=== PATIENT | female | born 1985 | race Caucasian/White ===

== ENCOUNTER 2018-12-11 17:03 | Emergency (ER) | payer MEDICAID, SELFPAY ==
[2018-12-11 17:04] VITALS: BP 126/78; PULSE 115; RESP 14; TEMP 36.6; O2SAT 99; BMI 45.1
--- NOTE | 2018-12-11 17:41 | EKG12_ITS ---
Test Reason : CP Blood Pressure : / mmHG Vent. Rate : 089 BPM Atrial Rate : 089 BPM P-R Int : 130 ms QRS Dur : 080 ms QT Int : 368 ms P-R-T Axes : 027 018 038 degrees QTc Int : 447 ms Sinus rhythm with marked sinus arrhythmia Otherwise normal ECG Confirmed by JOSE MARCANO, DARIUS ([id number]), subeditor SANJAY ARENAS ([id number]) on 12/14/2018 1:19:04 PM Referred By: KIRILL Confirmed By:DARIUS GARCIA MD
--- NOTE | 2018-12-11 17:45 | RAD_ITS ---
STUDY: X-RAY CHEST REASON FOR EXAM: Female, 33 years old. Chest pain TECHNIQUE: Frontal view of the chest COMPARISON: None. FINDINGS: The lungs are clear. There are no pleural effusions. There is no pneumothorax. The heart is normal in size. The visualized osseous structures are within normal limits. RAD/Chest 1 View (Portable) IMPRESSION: No acute thoracic pathology. Electronically Signed: Ahmet Spence, at 18:10 EDT Tel , Service support ,
[2018-12-11 17:49] VITALS: O2SAT 97
--- NOTE | 2018-12-11 17:56 | NURSING ---
NO OLD EKGS
[2018-12-11 18:02] LABS: Absolute Lymphocyte Count 2.68 X10^3/ul (0.83-4.51); Absolute Neutrophil Count 9.5 X10^3/uL (2.0-7.7); Basophil# 0.02 X10^3/uL; Basophil% 0.2 % (0-1); Eosinophil# 0.19 X10^3/uL; Eosinophils% 1.4 % (0-5); Hematocrit 40.3 % (37-47); Hemoglobin 13.1 g/dl (12.0-15.0); Lymphocyte # 2.68 X10^3/ul (4.0); Lymphocyte % 20.4 % (19-41); Mean Corp Hgb Conc 32.5 g/gl (32-36); Mean Corpuscular Volume 83.1 fL (81-99); Mean Platelet Vol. 8.4 fl (6.2-12.0); Monocyte# 0.71 X10^3/uL; Monocyte% 5.4 % (0-10); Neutrophil # 9.46 X10^3/uL (2.7-7.7); Neutrophil % 72.2 % (47-70); Platelet Count 289 K/mm3 (150-450); RBC Distribution Width SD 41.4 fl (35.1-43.9); Red Blood Count 4.85 M/mm3 (4.2-5.4); White Blood Count 13.1 K/mm3 (4.4-11.0)
[2018-12-11 18:03] LABS: POSITIVE COUNT NO; POSITIVE DIFFERENTIAL NO; POSITIVE MORPHOLOGY NO
[2018-12-11] MEDS: Aspirin 81 MG TAB.CHEW 324 MG PO (18:03)
[2018-12-11 18:04] VITALS: BP 136/89; PULSE 99; RESP 20; O2SAT 98
[2018-12-11 18:14] LABS: Anion Gap 7 (5-15); BUN 9 mg/dL (7-18); BUN/Creat Ratio 9.5 RATIO (10-20); Calcium,Total 9.3 mg/dL (8.5-10.1); Chloride 105 mmol/L (98-107); Creatinine, Serum 0.95 mg/dL (0.55-1.02); EST Glomerular Filtration Rate 71 mL/min (>60); Est Glom Filt Rate - Afr Amer 86 mL/min (>60); Estimated Creatinine Clearance 65.37 ml/min; Glucose 95 mg/dL (74-106); Potassium 3.6 mmol/L (3.5-5.1); Sodium Level 137 mmol/L (136-145)
[2018-12-11 18:14] LABS: D-Dimer Quantitative (DVT/PE) < 0.27 FEU/ug/m (0.27-0.49)
--- NOTE | 2018-12-11 18:16 | ED.VISSUMM ---
- ER Visit Summary Date of Service: 12/11/18 Chief Complaint: Chest pain History of Present Illness: The patient is a 33 F no severe past medical or surgical history. No family history of either DVT nor PE nor cardiac history. She states today around 230 afternoon she was lately working in her garden and developed 5-6 chest pressure. Left-sided. Mild dyspnea. No nausea. No diaphoresis. No recent, travel, surgery, mobilization. No calf pain or swelling. No history of DVT or PE. His pain was not pleuritic. She is had no hemoptysis. She had no prior cardiac work-up. She denies any recent exertional chest pain or exertional dyspnea. Currently she is pain-free. Physical Examination: Young female no acute distress vital signs are stable afebrile. Pulse ox 9 9% no hypoxia. H EENT exam unremarkable. Neck nontender no lymphadenopathy lungs clear to auscultation bilaterally. Heart regular rate and rhythm no murmur rate about 90. Abdomen is soft and nontender normal bowel with no peritoneal signs. Chest wall nontender. Patient moving all 4 extremities. Neurovascular intact. Calves are nontender without edema or cords. Radial pulses are equal symmetrical. Back nontender. Neurologically she is awake alert with no focal motor deficits. Test Results: Chest x-ray shows normal cardiac silhouette mediastinum read both myself and radiologist. EKG sinus rhythm rate 89 with no acute signs of MD or ischemia. CBC with a hemoglobin of 13 hematocrit 40. White count is elevated 13. Chemistries normal. Normal creatinine gap. Troponin normal. D-dimer normal less than 0.27. Emergency Department Course and Treatment: Patient currently symptom-free. The chest wall pain is not reproducible. She undergo cardiac work-up and a d-dimer. But she has no risk factors at this time for pulmonary embolus. Repeat exam patient is doing well at 1840 p.m. Patient is having no symptoms clinically looks well and has stable vital signs. He is discharged home. Treatment Plan: Return for follow-up with primary care physician. Disposition: Discharge Impression: Transient chest pain resolved of uncertain etiology This note was generated with [employer] dictation software. It may contain incorrect words, spelling, and punctuation that were not noted in review of the chart prior to signing ED Disposition - Plan for ED Patient: Referrals: Kinsey Corrales PA-C [Primary Care Provider] -
--- NOTE | 2018-12-11 18:19 | ED.DCSUM_ITS ---
- ER Visit Summary Date of Service: 12/11/18 Chief Complaint: Chest pain History of Present Illness: The patient is a 33 F no severe past medical or surgical history. No family history of either DVT nor PE nor cardiac history. She states today around 230 afternoon she was lately working in her garden and developed 5-6 chest pressure. Left-sided. Mild dyspnea. No nausea. No diaphoresis. No recent, travel, surgery, mobilization. No calf pain or swelling. No history of DVT or PE. His pain was not pleuritic. She is had no hemoptysis. She had no prior cardiac work-up. She denies any recent exertional chest pain or exertional dyspnea. Currently she is pain-free. Physical Examination: Young female no acute distress vital signs are stable afebrile. Pulse ox 9 9% no hypoxia. H EENT exam unremarkable. Neck nontender no lymphadenopathy lungs clear to auscultation bilaterally. Heart regular rate and rhythm no murmur rate about 90. Abdomen is soft and nontender normal bowel with no peritoneal signs. Chest wall nontender. Patient moving all 4 extremities. Neurovascular intact. Calves are nontender without edema or cords. Radial pulses are equal symmetrical. Back nontender. Neurologically she is awake alert with no focal motor deficits. Test Results: Chest x-ray shows normal cardiac silhouette mediastinum read both myself and radiologist. EKG sinus rhythm rate 89 with no acute signs of AR or ischemia. CBC with a hemoglobin of 13 hematocrit 40. White count is elevated 13. Chemistries normal. Normal creatinine gap. Troponin normal. D-dimer normal less than 0.27. Emergency Department Course and Treatment: Patient currently symptom-free. The chest wall pain is not reproducible. She undergo cardiac work-up and a d-dimer. But she has no risk factors at this time for pulmonary embolus. Repeat exam patient is doing well at 1840 p.m. Patient is having no symptoms clinically looks well and has stable vital signs. He is discharged home. Treatment Plan: Return for follow-up with primary care physician. Disposition: Discharge Impression: Transient chest pain resolved of uncertain etiology This note was generated with [employer] dictation software. It may contain incorrect words, spelling, and punctuation that were not noted in review of the chart prior to signing ED Disposition - Plan for ED Patient: Referrals: Kinsey Corrales PA-C [Primary Care Provider] -
--- NOTE | 2018-12-11 18:46 | ED.DEP ---
ED Disposition - Plan for ED Patient: Disposition: Home or Assisted Living Instructions: ED Chest Pain Atypical Unkn Cause Referrals: Kinsey Corrales PA-C [Primary Care Provider] - 3-5 Days Additional Instructions: Follow-up with your primary care physician. Return if feeling worse.
[2018-12-11 18:48] VITALS: BP 131/84; PULSE 77; RESP 18; O2SAT 98
== END 2018-12-11 18:51 | disposition home or self-care (01) ==
PROVIDERS: Emergency Provider Emergency Medicine; Family Provider Family Medicine; PCP Family Medicine
DX: R07.89 Other chest pain (principal)
CPT/HCPCS: 71045; 80048; 84484; 85025; 85379; 93005; 99285; A4216

== ENCOUNTER 2024-12-19 08:39 | Day surgery (SDC) | payer MEDICAID, SELFPAY ==
--- NOTE | 2024-12-17 09:47 | PAT.ANESEVAL ---
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 When Was Last Pacemaker Check QUESTION #4 FULL TEXT: You/Your Family Experience fever (hyperthermia) with Anesthesia Last Oral Intake Last Oral intake: Last Oral Intake NPO since Meds taken in AM with sips of water? 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 - java software developer: PONV - java software developer Female Yes 12/14/24 14:59 HX of Motion Sickness No 12/14/24 14:59 HX of N/V After Surgery No 12/14/24 14:59 Non-Smoker Yes 12/14/24 14:59 Duration of Surgery greater No 12/14/24 14:59 than 60 minutes Number of Risk Factors 2 12/14/24 14:59 PONV Score Moderate Risk 12/14/24 14:59 Height & Weight Height & Weight: Anesthesia: Height & Weight Height 5 ft 2 in 10/22/24 13:04 Respiratory Assessment Respiratory Assessment - java software developer: Respiratory Tract Infection Hx - java software developer Hx Respiratory Tract Infection No 12/14/24 14:59 STOP Sleep Apnea STOP Sleep Apnea - java software developer: STOP Sleep Apnea - java software developer Hx Hypertension No 12/14/24 14:59 Hx Sleep Apnea No 12/14/24 14:59 CPAP BIPAP Do you snore loudly (louder No 12/14/24 14:59 than talking or can be heard Do you often feel tired/ No 12/14/24 14:59 fatigued/ sleepy during daytime? Has anyone observed you stop No 12/14/24 14:59 breathing during sleep? STOP Results Negative 12/14/24 14:59 QUESTION #5 FULL TEXT : Do you snore loudly (louder than talking or can be heard through closed doors)? Tobacco Use History Tobacco Use History - java software developer: Tobacco Use History - java software developer Tobacco Use Smoking Status Never smoker 12/14/24 14:59 Hx Tobacco Use No 12/14/24 14:59 Years Smoking Packs Smoked per Day Smoking Cessation Date was within the last 15 years Hx Smoking Cessation Date Hx Smoking Cessation Counseling Hematologic Medial History Hematologic Hx - java software developer: Hematologic Medical Hx - coronary clinical specialist Hx of Blood Transfusion No 12/14/24 14:59 Hx of Transfusion in last 3 No 12/14/24 14:59 Months Date of Last Transfusion (if within last 3 months) Ever experience any problems No 12/14/24 14:59 with transfusion(s)? Specify any problems Hx of Preganancy in last 3 No 12/14/24 14:59 Months Nurse Filling Out Transfusion MGRIFFITH 12/14/24 14:59 & Questions: Date: 12/14/24 12/14/24 14:59 Time: 15:00 12/14/24 14:59 Patient unable to answer at this time (ie. confused, unrespo /Reproduction History /Reproductive History - java software developer: /Reproductive Hx- java software developer Hx Now No 12/14/24 14:59 Gestational Age (in weeks): EDC: Hx Hx Para Hx Section SAB No 12/14/24 14:59 [facility] Medical History (Updated 12/14/24 @ 15:08 by Rosalva Benitez) Wears glasses Low iron Migraine headache Gastric reflux Shortness of breath on exertion Non-smoker Leg cramps History of edema Chest pain Umbilical hernia Pre-diabetes Elevated d-dimer Enlarged thyroid Anxiety HTN (hypertension) Rectal bleeding Acid reflux Asthma Home Medications ?Medication ?Instructions ?Recorded ?Last Taken ?Type albuterol sulfate 90 mcg/actuation 2 puff inhalation Q4 PRN shortness 10/22/24 Unknown History aerosol inhaler of breath or wheezing ipratropium 0.5 mg-albuterol 3 mg 3 ml continuous nebulization Q6 10/22/24 Unknown History (2.5 mg base)/3 mL nebulization PRN shortness of breath soln omeprazole 20 mg capsule,delayed 20 mg PO QDAY 10/22/24 Unknown History release lactobacillus combination no.4 3 3,000 mmu cells PO QHS 12/14/24 Unknown History billion cell capsule (Probiotic) Allergy/AdvReac Type Severity Reaction Status Date / Time No Known Allergies Allergy Verified 12/14/24 14:55 Family History (Updated 10/22/24 @ 13:03 by Eladia Zheng) Aunt Colon cancer Breast cancer Thyroid disorder Cancer ovarian Grandfather CVA (cerebral vascular accident) Grandmother CVA (cerebral vascular accident) CAD (coronary artery disease) Diabetes Father CAD (coronary artery disease) Hypertension Surgical History (Updated 10/22/24 @ 13:01 by Eladia Zheng) S/P laparoscopic cholecystectomy Social History (Updated 10/22/24 @ 13:04 by Eladia Zheng) Smoking Status: Never smoker alcohol intake: current Audit: Pertinent Findings Pertinent Findings EKG Perinent findings: 08/2018 SR, 89 bpm Recommendation Anesthesia Recommendation Anesthesia recommendation: OPTIMIZED for anesthesia
[2024-12-19] VITALS (8 sets, daily range): BP systolic 96–126; BP diastolic 64–79; PULSE 84–104; RESP 16; TEMP 36.3–36.8; O2SAT 92–96; BMI 49.2
[2024-12-19] MEDS: Lactated Ringers 1,000 ML 15 ML IV (09:12)
[2024-12-19 09:21] LABS: Internal QC Validated? YES +Cl - CLEAR BKGD
[2024-12-19 09:22] LABS: Pregnancy, Urine Negative Negative
--- NOTE | 2024-12-19 09:30 | PCM.PRE.AN2 ---
ASA Classification* ASA Classification ASA Classification: 3 Assessment & Plan Anesthesia* Anesthesia Assessment Anesthesia Assessment: Discussed sedation and/or anesthesia options, risks, benefits, and alternatives with patient/parents/legal guardian/POA. Questions invited. The patient/parents/legal guardian/POA seems to understand and agrees to proceed with anesthesia plan. Reviewed the physical assessment, medical history, allergy history and patient home medications list prior to surgery/procedure/anesthetic and documented any changes. Performed airway and anesthesia risk assessments. Anesthesia Type Anesthesia Type: MAC History Source History Obtained from:: Patient and Chart Anesthesia Focused Assessment* Temperature: 98.2 F Pulse Rate: 104 Blood Pressure: 126/79 Respiratory Rate: 16 Pulse Ox: 96 Oxygen Delivery Method: Room Air Airway Assessment Mouth opens: >3 cm Mallampati Score: IV Teeth Condition: Intact Neck Range of motion (ROM): Full ROM Focused Labs Anesthesia Preop lab: CBC WBC 13.1 K/mm3 (4.4-11.0) H 12/11/18 17:40 12/11/18 RBC 4.85 M/mm3 (4.2-5.4) 12/11/18 17:40 12/11/18 Hgb 13.1 g/dl (12.0-15.0) 12/11/18 17:40 12/11/18 Hct 40.3 % (37-47) 12/11/18 17:40 12/11/18 Plt Count 289 K/mm3 (150-450) 12/11/18 17:40 12/11/18 CHEMISTRY Potassium 3.6 mmol/L (3.5-5.1) 12/11/18 17:40 12/11/18 Sodium 137 mmol/L (136-145) 12/11/18 17:40 12/11/18 BUN 9 mg/dL (7-18) 12/11/18 17:40 12/11/18 Creatinine 0.95 mg/dL (0.55-1.02) 12/11/18 17:40 12/11/18 Glucose 95 mg/dL (74-106) 12/11/18 17:40 12/11/18 TSH 1.90 uIU/mL (0.358-3.74) 01/03/13 10:30 01/03/13 COAG Urine Test Negative Negative 12/19/24 08:51 12/19/24 Pre-Assessment Diagnosis/Proposed Procedure Planned Operative Procedure(s): EGD, COLONOSCOPY Anesthesia History 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 When Was Last Pacemaker Check QUESTION #4 FULL TEXT: You/Your Family Experience fever (hyperthermia) with Anesthesia Last Oral Intake Last Oral intake: Last Oral Intake NPO since 22:00 12/19/24 09:03 Meds taken in AM with sips of No 12/19/24 09:03 water? 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 - solid propellant processor: PONV - solid propellant processor Female Yes 12/14/24 14:59 HX of Motion Sickness No 12/14/24 14:59 HX of N/V After Surgery No 12/14/24 14:59 Non-Smoker Yes 12/14/24 14:59 Duration of Surgery greater No 12/14/24 14:59 than 60 minutes Number of Risk Factors 2 12/14/24 14:59 PONV Score Moderate Risk 12/14/24 14:59 Height & Weight Height & Weight: Anesthesia: Height & Weight Height 5 ft 2 in 12/19/24 09:03 Weight: 122.1 kg 12/19/24 09:03 Body Mass Index (BMI) 49.2 12/19/24 09:03 Respiratory Assessment Respiratory Assessment - solid propellant processor: Respiratory Tract Infection Hx - solid propellant processor Hx Respiratory Tract Infection No 12/14/24 14:59 STOP Sleep Apnea STOP Sleep Apnea - solid propellant processor: STOP Sleep Apnea - solid propellant processor Hx Hypertension No 12/14/24 14:59 Hx Sleep Apnea No 12/14/24 14:59 CPAP BIPAP Do you snore loudly (louder No 12/14/24 14:59 than talking or can be heard Do you often feel tired/ No 12/14/24 14:59 fatigued/ sleepy during daytime? Has anyone observed you stop No 12/14/24 14:59 breathing during sleep? STOP Results Negative 12/14/24 14:59 QUESTION #5 FULL TEXT : Do you snore loudly (louder than talking or can be heard through closed doors)? Tobacco Use History Tobacco Use History - solid propellant processor: Tobacco Use History - solid propellant processor Tobacco Use Smoking Status Never smoker 12/14/24 14:59 Hx Tobacco Use No 12/14/24 14:59 Years Smoking Packs Smoked per Day Smoking Cessation Date was within the last 15 years Hx Smoking Cessation Date Hx Smoking Cessation Counseling Hematologic Medial History Hematologic Hx - solid propellant processor: Hematologic Medical Hx - coil winder repair Hx of Blood Transfusion No 12/14/24 14:59 Hx of Transfusion in last 3 No 12/14/24 14:59 Months Date of Last Transfusion (if within last 3 months) Ever experience any problems No 12/14/24 14:59 with transfusion(s)? Specify any problems Hx of Preganancy in last 3 No 12/14/24 14:59 Months Nurse Filling Out Transfusion MGRIFFITH 12/14/24 14:59 & Questions: Date: 12/14/24 12/14/24 14:59 Time: 15:00 12/14/24 14:59 Patient unable to answer at this time (ie. confused, unrespo /Reproduction History /Reproductive History - solid propellant processor: /Reproductive Hx- solid propellant processor Hx Now No 12/14/24 14:59 Gestational Age (in weeks): EDC: Hx Hx Para Hx Section SAB No 12/14/24 14:59 Active Medications Active Medications: Current Medications Generic Name Dose Route Start Last Admin Trade Name Freq PRN Reason Stop Dose Admin Lactated Ringer's 1,000 mls @ 15 mls/hr 12/19/24 09:00 12/19/24 09:12 IV 15 mls/hr .Q48H LON Administration PFSH Medical History Wears glasses Low iron Migraine headache Gastric reflux Shortness of breath on exertion Non-smoker Leg cramps History of edema Chest pain Umbilical hernia Pre-diabetes Elevated d-dimer Enlarged thyroid Anxiety HTN (hypertension) Rectal bleeding Acid reflux Asthma Home Medications ?Medication ?Instructions ?Recorded ?Last Taken ?Type albuterol sulfate 90 mcg/actuation 2 puff inhalation Q4 PRN shortness 10/22/24 Unknown History aerosol inhaler of breath or wheezing ipratropium 0.5 mg-albuterol 3 mg 3 ml continuous nebulization Q6 10/22/24 Unknown History (2.5 mg base)/3 mL nebulization PRN shortness of breath soln omeprazole 20 mg capsule,delayed 20 mg PO QDAY 10/22/24 Unknown History release lactobacillus combination no.4 3 3,000 mmu cells PO QHS 12/14/24 Unknown History billion cell capsule (Probiotic) Allergy/AdvReac Type Severity Reaction Status Date / Time No Known Allergies Allergy Verified 12/19/24 09:02 Family History Aunt Colon cancer Breast cancer Thyroid disorder Cancer ovarian Grandfather CVA (cerebral vascular accident) Grandmother CVA (cerebral vascular accident) CAD (coronary artery disease) Diabetes Father CAD (coronary artery disease) Hypertension Surgical History S/P laparoscopic cholecystectomy Social History Smoking Status: Never smoker alcohol intake: current Review of Systems (Anesthesia) ROS Narrative System reviewed and no additional complaints, except as documented. Physical Exam Resp clear to auscultation bilaterally
--- NOTE | 2024-12-19 09:53 | HP.PCM_ITS ---
HPI - General General Date of Service: 12/19/24 HPI Narrative NAZANIN GARCÍA, is a 39 F who presents for an EGD and colonoscopy. Patient states she is due still doing well with the omeprazole. Patient otherwise denies any further rectal bleeding or other changes from office visit. 10/22/2024 office visit HPI HPI: 39-year-old female presents for EGD and colonoscopy. Patient states in July she was having some chest pain diagnosed possible gastritis or ulcer given omeprazole which did improve that discomfort. Patient states at the end of July she did have bright red blood per rectum and 1 day she was on [id number] cold medication patient denies any pain with that bleeding. Patient is unaware of any external hemorrhoids or internal hemorrhoids. Patient's paternal aunt was diagnosed colon cancer at age 50 patient's dad has been having colonoscopies negative per patient. The patient also has umbilical hernia from pregnancies?large/reducible. Patient denies any pain at hernia site [facility] Medical History Wears glasses Low iron Migraine headache Gastric reflux Shortness of breath on exertion Non-smoker Leg cramps History of edema Chest pain Umbilical hernia Pre-diabetes Elevated d-dimer Enlarged thyroid Anxiety HTN (hypertension) Rectal bleeding Acid reflux Asthma Home Medications ?Medication ?Instructions ?Recorded ?Last Taken ?Type albuterol sulfate 90 mcg/actuation 2 puff inhalation Q 4 PRN shortness 10/22/24 Unknown History aerosol inhaler of breath or wheezing ipratropium 0.5 mg-albuterol 3 mg 3 ml continuous nebu lization Q6 10/22/24 Unknown History (2.5 mg base)/3 mL nebulization PRN shortness of breat h soln omeprazole 20 mg capsule,delayed 20 mg PO QDAY 5 Unknown History release lactobacillus combination no.4 3 3,000 mmu cells PO QH S 12/14/24 Unknown History billion cell capsule (Probiotic) Allergy/AdvReac Type Severity Reaction Status Date / Time No Known Allergies Allergy Verified 12/19/24 09:02 Family History Aunt Colon cancer Breast cancer Thyroid disorder Cancer ovarian Grandfather CVA (cerebral vascular accident) Grandmother CVA (cerebral vascular accident) CAD (coronary artery disease) Diabetes Father CAD (coronary artery disease) Hypertension Surgical History S/P laparoscopic cholecystectomy Social History Smoking Status: Never smoker alcohol intake: current Past Medical/Surgical History Planned Operation Planned Operative Procedure(s): EGD, COLONOSCOPY Previous Hospitalizations/Surgeries HX Hospitalizations: No Any Problems With Anesthesia: No You/Your Family Experience Fever (Hyperthermia) With Anes: No Cholinesterase deficiency: No Cardiovascular Hx Hypertension: No Respiratory Hx Sleep Apnea: No Hx Respiratory Tract Infection/Cold (presently): No Do You Snore Loudly (louder than talking or can be heard): No Do You Often Feel Tired/ Fatigued/ Sleepy Dring Daytime?: No Has Anyone Observed You Stop Breathing During Sleep?: No Result (for STOP score): Negative Smoking Status: Never smoker Neurological Does patient have nerve stimulator: No Reproduction : No Miscellaneous Recent Exposure to Contagious Disease: No Allergies No Known Allergies Allergy (Verified 12/19/24 09:02) Discharge Is Pt Admitted From a [facility], or a [facility]: No Who Could Help: FAMILY After D/C, Where Do you Plan to Go: Return Home Vital Signs Vital Signs Vital Signs: 12/19/24 09:03 12/19/24 09:03 12/19/24 09:34 Temperature 98.2 F 98.2 F Temperature Source Temporal Pulse Rate 104 H 104 H Respiratory Rate 16 16 Respiratory Pattern Normal Blood Pressure 126/79 H 126/79 H Blood Pressure Mean 94 Blood Pressure Source Monitor Blood Pressure Position Semi-Fowlers Blood Pressure Location Left Arm Pulse Ox 96 96 Oxygen Delivery Method Room Air Room Air Weight Weight: 269 lb 2.951 oz Body Mass Index (BMI) 49.2 Physical Exam Const alert, oriented x3 and no apparent distress HEENT normocephalic and head/scalp atraumatic Resp normal respiratory effort Cardio regular rate GI soft to palpation and non-tender; Negative for non-distended GI Narrative: Medium and large reducible umbilical hernia Palpation: Negative for guarding Extremity no clubbing, cyanosis or edema Skin no rashes or lesions noted Neuro CN's II-XII intact bilaterally Psych mental status grossly normal Assessment & Plan Assessment/Plan (1) Acid reflux: (2) Rectal bleeding: Surgery Risks - Colonoscopy I discussed with the patient the risks of the procedure: Yes Risks Include but are not Limited To: Plan for an EGD and colonoscopy risks include but are not limited to: Bleeding, perforation requiring further surgery, inability to complete colonoscopy requiring barium enema.
--- NOTE | 2024-12-19 10:00 | EGD_PTH ---
PATIENT: NAZANIN GARCÍA LOC: EN U#:[id number] AGE/SX: 39/F ROOM: RE12/19/[address]: Dr. Diane Sousa MD : 1985 BED: DIS: 12/19/2024 SPEC #: [id number] RECD: 12/19/24 13:16 STATUS: MIMI MADALYN #: [id number] LES: 12/19/24 10:[address]: Diane Sousa DEPT: SURGICAL PATHOLOGY RECD BY: Sidney Mireles ENTERED: 12/19/24 13:38 SP TYPE: EGD BIOPSY SAI DR: PETE Daily Tissues: A - Gastric mucous membrane Procedures: Immunohistochemical Stains Surgery Specimen Level IV HEADER OPERATION: Colonoscopy, EGD with biopsies PRE-OP DIAGNOSIS: Acid reflux, rectal bleeding TISSUE SUBMITTED: A- Antrum biopsy MICROSCOPIC DIAGNOSIS A. Stomach, antrum, biopsy: Chronic gastritis. IHC negative for H.pylori organisms. MICROSCOPIC DESCRIPTION Slides are reviewed. All matched controls reacted appropriately. These tests were developed and their performance characteristics determined by [facility]. They may not have been cleared or approved by the U.[place]. Food and Drug Administration. The FDA has determined that such clearance or approval is not necessary.? The above immunohistochemical/dualISH?markers are ordered and reviewed by the Pathologist. GROSS DESCRIPTION A. Received in formalin in a container labeled with the patient's name, date of , and antrum biopsy for H. pylori and histology is a 0.6 x 0.3 x 0.2 cm strip of blevins-pink mucosal tissue. Submitted in toto in A1. [facility] 12-19-2024 CPT:58124,[id number]
--- NOTE | 2024-12-19 11:46 | PCM.POST.ANE ---
Anesthesia: Postop Eval I Current Vital Signs Temperature: 97.4 F Pulse Rate: 88 Blood Pressure: 96/66 Respiratory Rate: 16 Pulse Ox: 95 Oxygen Delivery Method: Room Air Assessment Airway patent: Yes Spontaneous unlabored respirations: Yes Mental status: Awake and Calm nausea: No Vomiting: No Anesthesia Complication: No Fluid Hydration Crystalloid volume administer (ml): 800 Total IV fluid infused: 800 Progress Note Anesthesia document: Postop Eval 1 completed: Yes
--- NOTE | 2024-12-19 11:48 | OP.EGD_ITS ---
Patient Name: Cesilia Ludwig Procedure Date: 12/19/2024 11:00 AM Date of : 1985 Age: 39 Procedure: Upper GI endoscopy Indications: Epigastric abdominal pain, Heartburn Providers: Diane Sousa MD Referring MD: Cleopatra Jiménez Medicines: Monitored Anesthesia Care Patient Profile: This is a 39 year old female. Complications: No immediate complications. Procedure: Pre-Anesthesia Assessment: - Prior to the procedure, a History and Physical was performed, and patient medications and allergies were reviewed. The patient's tolerance of previous anesthesia was also reviewed. The risks and benefits of the procedure and the sedation options and risks were discussed with the patient. All questions were answered, and informed consent was obtained. Prior Anticoagulants: The patient has taken no anticoagulant or antiplatelet agents. ASA Grade Assessment: Per anesthesia. After reviewing the risks and benefits, the patient was deemed in satisfactory condition to undergo the procedure. After obtaining informed consent, the endoscope was passed under direct vision. Throughout the procedure, the patient's blood pressure, pulse, and oxygen saturations were monitored continuously. The Endoscope was introduced through the mouth, and advanced to the second part of duodenum. The upper GI endoscopy was accomplished without difficulty. The patient tolerated the procedure well. Scope In: 11:12:16 AM Scope Out: 11:15:37 AM Total Procedure Duration Time 0 hours 3 minutes 21 seconds Findings: The cardia and gastric fundus were normal on retroflexion. Mildly erythematous mucosa without bleeding was found in the gastric antrum. Biopsies were taken with a cold forceps for histology. Biopsies were taken with a cold forceps for Helicobacter pylori cultures. The examined duodenum was normal. Impression: - Erythematous mucosa in the antrum. Biopsied. - Normal examined duodenum. Recommendation: - Discharge patient to home. - Resume previous diet. - Continue present medications. Procedure Code(s): --- Professional --- 84516, Esophagogastroduodenoscopy, flexible, transoral; with biopsy, single or multiple Diagnosis Code(s): --- Professional --- K31.89, Other diseases of stomach and duodenum R10.13, Epigastric pain R12, Heartburn CPT copyright 2021 [employer]. All rights reserved. The codes documented in this report are preliminary and upon panel raiser operator review may be revised to meet current compliance requirements. MD Diane Altamirano MD 12/19/2024 11:47:57 AM This report has been signed electronically. Number of Addenda: 0 Note Initiated On: 12/19/2024 11:00 AM
--- NOTE | 2024-12-19 11:48 | OP.CCLET_ITS ---
12/19/2024 Cleopatra Jiménez Re : Upper GI endoscopy procedure for Cesilia Garduno Jiménez This procedure was performed on Thursday, December 19, 2024. My impressions and recommendations are as follows: Impressions : - Erythematous mucosa in the antrum. Biopsied. - Normal examined duodenum. Recommendations : - Discharge patient to home. - Resume previous diet. - Continue present medications. My findings are described in the full procedure note, which is enclosed. If I can be of further assistance, please feel free to contact me at Doctor phone number(s): , Work: . Sincerely, MD Diane Altamirano MD 12/19/2024 11:47:57 AM This report has been signed electronically.
--- NOTE | 2024-12-19 11:51 | OP.COLON_ITS ---
Patient Name: Cesilia Ludwig Procedure Date: 12/19/2024 11:18 AM Date of : 1985 Age: 39 Procedure: Colonoscopy Indications: Rectal bleeding Providers: Diane Sousa MD Referring MD: Cleopatra Jiménez Medicines: Monitored Anesthesia Care Patient Profile: This is a 39 year old female. Last Colonoscopy: none. The patient's first colonoscopy is today. Complications: No immediate complications. Procedure: Pre-Anesthesia Assessment: - Prior to the procedure, a History and Physical was performed, and patient medications and allergies were reviewed. The patient's tolerance of previous anesthesia was also reviewed. The risks and benefits of the procedure and the sedation options and risks were discussed with the patient. All questions were answered, and informed consent was obtained. Prior Anticoagulants: The patient has taken no anticoagulant or antiplatelet agents. ASA Grade Assessment: Per anesthesia. After reviewing the risks and benefits, the patient was deemed in satisfactory condition to undergo the procedure. After I obtained informed consent, the scope was passed under direct vision. Throughout the procedure, the patient's blood pressure, pulse, and oxygen saturations were monitored continuously. The colonoscope was introduced through the anus and advanced to the cecum, identified by the appendiceal orifice, ileocecal valve and palpation. The colonoscopy was performed without difficulty. The patient tolerated the procedure well. The quality of the bowel preparation was good. Scope In: 11:19:06 AM Scope Withdrawal Time 0 hours 5 minutes 29 seconds Scope Out: 11:33:47 AM Total Procedure Duration Time 0 hours 14 minutes 41 seconds Findings: Hemorrhoids were found on perianal exam. Non-bleeding external and internal hemorrhoids were found. The hemorrhoids were small and Grade I (internal hemorrhoids that do not prolapse). The exam was otherwise without abnormality. The entire examined colon appeared normal. Impression: - Hemorrhoids found on perianal exam. - Non-bleeding external and internal hemorrhoids. - The examination was otherwise normal. - The entire examined colon is normal. - No specimens collected. Recommendation: - Discharge patient to home. - Resume previous diet. - Continue present medications. - Repeat colonoscopy in 10 years for screening purposes. Procedure Code(s): --- Professional --- 54475, Colonoscopy, flexible; diagnostic, including collection of specimen(s) by brushing or washing, when performed (separate procedure) Diagnosis Code(s): --- Professional --- K64.0, First degree hemorrhoids K62.5, Hemorrhage of anus and rectum CPT copyright 2021 [employer]. All rights reserved. The codes documented in this report are preliminary and upon outpatient coder review may be revised to meet current compliance requirements. MD Diane Altamirano MD 12/19/2024 11:50:44 AM This report has been signed electronically. Number of Addenda: 0 Note Initiated On: 12/19/2024 11:18 AM
--- NOTE | 2024-12-19 11:51 | OP.CCLET_ITS ---
12/19/2024 Cleopatra Jiménez Re : Colonoscopy procedure for Cesilia Garduno Tino This procedure was performed on Thursday, December 19, 2024. My impressions and recommendations are as follows: Impressions : - Hemorrhoids found on perianal exam. - Non-bleeding external and internal hemorrhoids. - The examination was otherwise normal. - The entire examined colon is normal. - No specimens collected. Recommendations : - Discharge patient to home. - Resume previous diet. - Continue present medications. - Repeat colonoscopy in 10 years for screening purposes. My findings are described in the full procedure note, which is enclosed. If I can be of further assistance, please feel free to contact me at Doctor phone number(s): , Work: . Sincerely, MD Diane Altamirano MD 12/19/2024 11:50:44 AM This report has been signed electronically.
--- NOTE | 2024-12-19 13:30 | PCM.POSTANE2 ---
Anesthesia Postop Eval I Sum Postop Eval Completion status Anesthesia document: Postop Eval 1 completed: Yes Anesthesia Postop Eval I Summary Anesthesia Postop Eval I Summary: Anesthesia Postop Eval I: Assessment Summary Airway patent Yes 12/19/24 11:46 [email or web address] Spontaneous unlabored Yes 12/19/24 11:46 [email or web address] respirations Mental status Awake,Calm 12/19/24 11:46 [email or web address] nausea No 12/19/24 11:46 [email or web address] Vomiting No 12/19/24 11:46 [email or web address] Anesthesia Postop Eval I: Fluid Summary Crystalloid volume administer 800 12/19/24 11:46 [email or web address] (ml) Colloids volume administered ( ml) Blood Product volume administered (ml) Total IV fluid infused 800 12/19/24 11:46 [email or web address] Anesthesia Postop Eval I: Summary Notes Anesthesia Complication No 12/19/24 11:46 [email or web address] Anesthesia Complication Comment: Post-operative progress note Anesthesia: Postop Eval II Evaluation Mental status: Awake Pain Level: 0 nausea: No Vomiting: No
== END 2024-12-19 12:22 | disposition home or self-care (01) ==
LOC: EN 08:40 → AC 08:41
PROVIDERS: Anesthesiology; PCP Physician Assistant; Referring Provider Physician Assistant; Visit Provider Surgery
PROC: 0DJD8ZZ Inspection of Lower Intestinal Tract, Via Natural or Artificial Opening Endoscopic (ICD-10-PCS; CPT 45378; principal; 2024-12-19 09:55)
DX: K29.50 Unspecified chronic gastritis without bleeding (principal); K21.9 Gastro-esophageal reflux disease without esophagitis; I10 Essential (primary) hypertension; R07.9 Chest pain, unspecified; Z79.899 Other long term (current) drug therapy; J45.909 Unspecified asthma, uncomplicated; K62.5 Hemorrhage of anus and rectum; K64.4 Residual hemorrhoidal skin tags; K64.0 First degree hemorrhoids
CPT/HCPCS: 45378; 43239; 81025; 88305; 88342; J2405

== ENCOUNTER 2025-06-06 06:43 | Day surgery (SDC) | payer MEDICAID, SELFPAY ==
--- NOTE | 2025-04-23 09:34 | EKG12_ITS ---
Test Reason : PRE OP Blood Pressure : */* mmHG Vent. Rate : 77 BPM Atrial Rate : 77 BPM P-R Int : 136 ms QRS Dur : 68 ms QT Int : 378 ms P-R-T Axes : 21 16 33 degrees QTcB Int : 427 ms Normal sinus rhythm Normal ECG Confirmed by EARNESTINE MARCANO, MARIA L ([id number]), editor school photograph SANJAY ARENAS ([id number]) on 04/23/2025 1:02:31 PM Referred By: Diane Sousa Confirmed By: MARIA L COLBY MD
[2025-04-23 11:12] LABS: Anion Gap 11 (5-15); BUN 11 mg/dL (4-19); BUN/Creat Ratio 12.8 RATIO (10-20); Calcium,Total 9.0 mg/dL (7.6-11.0); Carbon Dioxide 22.2 mmol/L (21.0-32.0); Chloride 104 mmol/L (98-108); Glucose 103 mg/dL (70-99); Potassium 4.2 mmol/L (3.3-5.1)
[2025-06-06] VITALS (13 sets, daily range): BP systolic 117–139; BP diastolic 52–91; PULSE 92–102; RESP 16–20; TEMP 36.1–36.6; O2SAT 93–100; BMI 50.6
--- OUTSIDE RECORDS SUMMARY | 2025-06-06 06:48 | XMS RPT_ITS | CCD ---
Author Organization [facility] Care Team Providers Care Transfer Clerk Name Role Phone Tino DAVIES, Cleopatra J Unavailable Tino DAVIES, Cleopatra J Unavailable Sudarshan SEAFOOD PROCESSOR, Crystal Unavailable Caren Abernathy PA-C J Unavailable [phone] Savanna DAVIES, Kinsey Pollard Unavailable José Manuel SEAFOOD PROCESSOR, Kamille Unavailable Unavailable Star BAEZ, Kinsey Taylor Unavailable Unavaila franchesca Wright RN, Ema Pa Unavailable Unavailable Ephraim SEAFOOD PROCESSOR, Darlene Unavailable Unavailable Sterling SEAFOOD PROCESSOR, Adali Mojica Unavailable Unavailab ameena Gunderson SEAFOOD PROCESSOR, Elizabeth Rosenbaum Unavailable Unavailab le Mayo CNM, Crystal K Unavailable [phone] Stefanie MARCANO, Denyn Taylor Unavailable Vess SEAFOOD PROCESSOR, Kit Mccallum Unavailable Unavailable Geremias SEAFOOD PROCESSOR, Eryn Unavailable Unavailabl e Unavailable Unavailable Casey IQBAL, Ayse Unavailable Unavailable Willie SEAFOOD PROCESSOR, Garrison Unavailable Unavailable Carlton Pepe MD Unavailable Hematology Provider Unavailable Unavailable Adrianna BAEZ, Lulu L Unavailable Unavail able DAYNE DEJESUS Admitting Unavailable CLEOPATRA JIMÉNEZ Referring Unavailable DAYNE DEJESUS Attending Unavailable DAYNE DEJESUS Primary Care Unavailable CLEOPATRA JIMÉNEZ Consulting Unavailable PROVIDER, UNKNOWN Consulting Unavailable CLEOPATRA JIMÉNEZ J Consulting Unavailable ABERNATHY, CAREN PAC Admitting Unavailable ABERNATHY, CAREN PAC Attending Unavailable ABERNATHY, CAREN PAC Primary Care Unavailable PROVIDER, UNKNOWN Consulting Unavailable CLEOPATRA JIMÉNEZ J Attending Unavailable PRABHJOT JIMÉNEZISSA J Consulting Unavailable JIMÉNEZ, CLEOPATRA J Primary Care Unavailable CLEOPATRA JIMÉNEZ J Admitting Unavailable PROVIDER, UNKNOWN Consulting Unavailable CARLTON PEPE Admitting Unavailable CARLTON PEPE Attending Unavailable MY, CARLTON Primary Care Unavailable JIMÉNEZ, CLEOPATRA J Consulting Unavailable PROVIDER, UNKNOWN Consulting Unavailable ABERNATHY, CAREN PAC Admitting Unavailable JIMÉNEZ, CLEOPATRA J Consulting Unavailable ABERNATHY, CAREN PAC Attending Unavailable ABERNATHY, CAREN PAC Primary Care Unavailable PROVIDER, UNKNOWN Consulting Unavailable JIMÉNEZ, CLEOPATRA J Referring Unavailable JIMÉNEZ, CLEOPATRA J Consulting Unavailable DAVID NEVES MD Admitting Unavailable DAVID NEVES MD Attending Unavailable DAVID NEVES MD Primary Care Unavailable PROVIDER, UNKNOWN Consulting Unavailable Jiménez, Cleopatra J Primary Care Provider [phone] [facility] Unavailable Ladi Walker LPN Unavailable Unavailabl e JULIO BENITES Attending Unavailable JIMÉNEZ, CLEOPATRA J Referring Unavailable JULIO BENITES Referring Unavailable JIMÉNEZ, CLEOPATRA J Primary Care Unavailable JULIO BENITES Referring Unavailable JIMÉNEZ, CLEOPATRA J Primary Care Unavailable Lars MARCANO, Dr. Contreras Attending Provider [phone] Jiménez PA, Cleopatra Primary Care Provider [phone] Jiménez PA, Cleopatra Referring Provider Lars MARCANO, Dr. Contreras Other Provider Jiménez PA, Cleopatra Primary Care Unavailable Robotham, Diane Attending Unavailable Robotham, Diane Referring Unavailable Jiménez PA, Cleopatra Primary Care Unavailable Robotham, Diane Attending Unavailable Jiménez PA, Cleopatra Primary Care Unavailable Jiménez PA, Cleopatra Referring Unavailable Robotham, Diane Attending Unavailable Jiménez PA, Cleopatra Referring Unavailable Jiménez PA, Cleopatra Primary Care Unavailable Robotham, Diane Attending Unavailable Jiménez PA, Cleopatra Referring Unavailable Robotham, Diane Attending Unavailable Robotham, Diane Consulting Unavailable Jiménez PA, Cleopatra Primary Care Unavailable Jiménez PA, Cleopatra Referring Unavailable Robotham, Diane Attending Unavailable Jiménez PA, Cleopatra Primary Care Unavailable Medications Current Medications Medication Drug Class(es) Dates Sig (Normalized) Sig (Original) albuterol 0.83 mg/ml inhalation solution (20 sources) beta2-Adrenergic Agonist Start: 10-26-2024 albuterol sulfate 2.5 mg/3 mL (0.083 %) solution for nebulization ; 1 (one) nebule every 4-6 hours as needed for 0 days Quantity: 1 {Packet} Refills: 1 Ordered: 26-Oct-2024 KEKE Jiménez Start: 26-Oct-2024 Comments: Medication taken as needed. Start: 10-26-2024 take 2 puff(s) by in halation every four hours as needed Ventolin HFA 90 mcg/actuation aerosol inhaler ; 2 (two) puffs q4h, prn for 0 days Quantity: 1 {Each} Refills: 1 Ordered: 26-Oct-2024 KEKE Jiménez Start: 26-Oct-2024 Comments: ok to sub with proair if cheaper Start: 10-22-2024 Albuterol Sulf ate 90 mcg/actuation HFA aerosol inhaler Active 2 NMA INHALATION EVERY 4 HOURS as needed for shortness of breath or wheezing October 22, 2024 12:00am Start: 11-01-2023 take 2 puff(s) by in halation every four hours as needed Ventolin HFA 90 mcg/actuation aerosol inhaler ; 2 (two) puffs q4h, prn for 0 days Quantity: 1 {Each} Refills: 1 Ordered: 01-Nov-2023 VU Tapia Start: 01-Nov-2023 Comments: ok to sub with proair if cheaper Start: 10-27-2023 albuterol sulf ate 2.5 mg/3 mL (0.083 %) solution for nebulization ; 1 (one) nebule every 4-6 hours as needed for 0 days Quantity: 1 {Milliliter} Refills: 1 Ordered: 27-Oct-2023 KEKE Jiménez Start: 27-Oct-2023 Comments: Medication taken as needed. Start: 09-08-2023 albuterol sulf ate 2.5 mg/3 mL (0.083 %) solution for nebulization ; 1 (one) nebule every 4-6 hours as needed for 0 days Quantity: 1 {Milliliter} Refills: 0 Ordered: 08-Sep-2023 KEKE Jiménez Start: 08-Sep-2023 Comments: Medication taken as needed. Start: 06-22-2022 End: 10-13-2022 Albuterol Sulfate (2.5 MG/3M L) 0.083% Inhalation Nebulization Solution ; 1 (one) nebule every 4-6 hours as needed for 0 days Quantity: 1 {Milliliter} Refills: 0 Ordered: 13-Oct-2022 VU Georges Start: 22-Jun-2022 End: 13-Oct-2022 Status: Inactive Comments: Medication taken as needed. Start: 07-16-2019 End: 12-10-2020 take 2 puff(s) by inhalation every four hours as needed Ventolin HFA 108 (90 Base) MCG/ACT Inhalation Aerosol Solution ; 2 (two) puffs puffs q4h, prn for 0 days Quantity: 1 {Inhaler} Refills: 1 Ordered: 10-Dec-2020 VU Ye Start: 16-Jul-2019 End: 10-Dec-2020 Status: Inactive Comments: ok to sub with proair if cheaper Comment on above: Medication taken as needed. ok to sub with proai r if cheaper albuterol 0.833 mg/ml / ipratropium bromide 0.167 mg/ml inhalation solution (2 sources) Anticholinergic, beta2-Adrenergic Agonist Start: 2024 Ipratropium-Albuter ol 0.5 mg-3 mg(2.5 mg base)/3 mL solution for nebulization Active 3 mL continuous nebulization EVERY 6 HOURS as needed for shortness of breath October 22, 2024 12:00am Biotin (2 sources) take 1 tablet by mouth once daily BIOTIN ORAL Take 1 tablet by mouth once daily. Active 120 actuat budesonide 0.08 mg/actuat / formoterol fumarate 0.0045 mg/actuat metered dose inhaler (5 sources) Corticosteroid, beta2-Adrenergic Agonist Start: 2024 Symbicort 80 mcg-4.5 mcg/actuation HFA aerosol inhaler ; 2 (two) puffs BID prn URI symptoms/wheezing for 0 days Quantity: 1 {Applicator} Refills: 1 Ordered: 26-Oct-2024 KEKE Jiménez Start: 26-Oct-2024 Lactobacillus acidophilus (2 sources) take 1 tablet by mouth once daily Lactobacillus acidophilus (PROBIOTIC ORAL) Take 1 tablet by mouth once daily. Active Lactobacillus Combination No.4 (Probiotic) 3 billion cell capsule (2 sources) Start: 2024 take 3 capsules by mouth at bedtime Lactobacillus Combination No.4 (Probiotic) 3 billion cell capsule Active 3000 NMA PO AT BEDTIME December 14, 2024 12:00am administer with a meal methylPREDNISolone (5 sources) Corticosteroid Start: 2024 Medrol (Reinier) 4 mg tablets in a dose pack ; 1 (one) tablet as directed for 0 days Quantity: 1 {Packet} Refills: 0 Ordered: 26-Oct-2024 KEKE Jiménez Start: 26-Oct-2024 omeprazole 20 mg delayed release oral capsule (20 sources) Proton Pump Inhibitor Start: 2024 omeprazole 20 mg capsule,delayed release ; 1 (one) capsule daily for 0 days Quantity: 30 {Capsule} Refills: 0 Ordered: 30-Jul-2024 VU Katz Start: 30-Jul-2024 Start: 04-23-2015 End: 07-30-2024 PriLOSEC 20 mg capsule,delay ed release ; 1 (one) Capsule DR 30 minutes before 1st meal of day for 0 days Quantity: 30 {Capsule} Refills: 1 Ordered: 30-Jul-2024 VU Katz Start: 23-Apr-2015 End: 30-Jul-2024 Status: Discontinued Comments: Discontinued by Medication vendor. Start: 04-23-2015 End: 04-05-2016 PriLOSEC 20 MG Oral Capsule Delayed Release ; 1 (one) Capsule DR 30 minutes before 1st meal of day for 0 days Quantity: 30 {Capsule} Refills: 1 Ordered: 05-Apr-2016 VU Archuleta Start: 23-Apr-2015 End: 05-Apr-2016 Status: Inactive Comment on above: Discontinued by [facility] vendor. OTC PRODUCT (2 sources) take 2 tablets by mouth once daily OTC PRODUCT Collagen: Take two tablets by mouth once daily. Active Completed/Discontinued Medications Medication Drug Class(es) Dates Sig (Normalized) Sig (Original) azithromycin 250 mg oral tablet (20 sources) Macrolide Antimicrobial Start: 10-26-2024 End: 10-31-2024 azithromycin 250 mg tablet ; 2 (two) tablet today then 1 qd x 4 days for 5 days Quantity: 6 {Tablet} Refills: 0 Ordered: 26-Oct-2024 KEKE Jiménez Start: 26-Oct-2024 End: 31-Oct-2024 Status: Inactive Start: 07-02-2024 End: 07-07-2024 azithromycin 250 mg tablet ; 2 (two) tablet today then 1 qd x 4 days for 5 days Quantity: 6 {Tablet} Refills: 0 Ordered: 02-Jul-2024 KEKE Jiménez Start: 02-Jul-2024 End: 07-Jul-2024 Status: Inactive Start: 12-14-2023 End: 12-19-2023 azithromycin 250 mg tablet ; 2 (two) tablet today then 1 qd x 4 days for 5 days Quantity: 6 {Tablet} Refills: 0 Ordered: 14-Dec-2023 MD Carlton Pepe Start: 14-Dec-2023 End: 19-Dec-2023 Status: Inactive Start: 08-17-2021 End: 06-22-2022 Zithromax Z-Reinier 250 MG Oral Tablet ; 2 (two) Tabs day one, then one daily for 4 days for 0 days Quantity: 1 {Packet} Refills: 0 Ordered: 22-Jun-2022 VU Gunderson Elizabeth Rosenbaum Start: 17-Aug-2021 End: 22-Jun-2022 Status: Inactive Start: 03-17-2020 End: 12-10-2020 Zithromax Z-Reinier 250 MG Oral Tablet ; 2 (two) Tablet today and then 1 tablet daily x 4 days for 0 days Quantity: 1 {Package} Refills: 0 Ordered: 10-Dec-2020 VU Ye Start: 17-Mar-2020 End: 10-Dec-2020 Status: Inactive benzonatate 100 mg oral capsule (20 sources) Non-narcotic Antitussive Start: 06-22-2022 End: 10-13-2022 take 1 capsule by mouth once daily as needed Tessalon Perles 100 MG Oral Capsule ; 1 (one) Cap three times daily as needed for cough for 0 days Quantity: 30 {Capsule} Refills: 0 Ordered: 22-Jun-2022 VU Georges Start: 22-Jun-2022 End: 13-Oct-2022 Status: Discontinued Comments: Medication taken as needed. This order discontinued per [facility]. Start: 07-31-2019 End: 08-14-2019 take 1 capsule by mouth three times daily as needed for cough Benzonatate 200 MG Oral Capsule ; 1 (one) Capsule three times daily, as needed for cough for 14 days Quantity: 42 {QS} Refills: 0 Ordered: 31-Jul-2019 DAXA Huber Start: 31-Jul-2019 End: 14-Aug-2019 Status: Inactive Comments: Medication taken as needed. Comment on above: Medication taken as needed. Medication taken as needed. This order discontinued per [facility]. clindamycin 100 mg vaginal insert (20 sources) Lincosamide Antibacterial Start: 04-05-20 16 End: 10-14-19 17 Cleocin 100 MG Vaginal Suppository ; 1 (one) Suppository as directed for 0 days Quantity: 3 {Suppository} Refills: 0 Ordered: 13-Oct-2016 NESTOR Wright Start: 05-Apr-2016 End: 13-Oct-2016 Status: Inactive Comments: Insert one ovule (100mg) daily into vagina at bedtime x 3 days; pt is nursing. Comment on above: Insert one ovule (10 0mg) daily into vagina at bedtime x 3 days; pt is nursing. cod liver oil 1000 mg oral capsule (20 sources) Cod Liver Oil Status: Inactive codeine phosphate 2 mg/ml / promethazine hydrochloride 1.25 mg/ml oral solution (20 sources) Opioid Agonist, Phenothiazine Start: 07-07-20 17 End: 10-25-19 18 Promethazine-Codei ne 6.25-10 MG/5ML Oral Syrup ; 0 Milliliter four times daily, as needed for 0 days Quantity: 120 {Milliliter} Refills: 0 Ordered: 24-Oct-2017 NESTOR Wright Start: 07-Jul-2017 End: 24-Oct-2017 Status: Inactive Comments: Medication taken as needed. Comment on above: Medication taken as needed. Collagen (20 sources) Collagen Status: Inactive 60 actuat fluticasone propionate 0.1 mg/actuat / salmeterol 0.05 mg/actuat dry powder inhaler (20 sources) Corticosteroid, beta2-Adrenergic Agonist Start: 07-28-19 12 End: 04-23-20 15 take 1 puff(s) by inhalation once daily ADVAIR DISKUS, 100-50MCG/DOSE (Inhalation Aerosol Powder Breath Activated) ; 1 puff Aero Pow Br Act daily for 0 days Quantity: 1 {Aero_Pow_Br_Act} Refills: 6 Ordered: 23-Apr-2015 VU Archuleta Eryn Start: 28-Jul-2011 End: 23-Apr-2015 Status: Inactive 24 hr metFORMIN hydrochloride 500 mg extended release oral tablet (20 sources) Biguanide Start: 02-01-20 End: 09-17-19 25 metFORMIN ER 500 mg tablet,extended release 24 hr ; 1 (one) tablet daily with largest meal of the day for 0 days Quantity: 30 {Tablet} Refills: 5 Ordered: 17-Sep-2024 KEKE Jiménez Start: 01-Feb-2024 End: 17-Sep-2024 Status: Inactive Start: 09-23-2023 End: 02-01-2024 metFORMIN 850 mg tablet ; 1 (one) tablet daily x 1 month and then increase to BID for 0 days Quantity: 60 {Tablet} Refills: 2 Ordered: 01-Feb-2024 KEKE Jiménez Start: 23-Sep-2023 End: 01-Feb-2024 Status: Inactive Start: 06-08-2023 metFORMIN 850 mg tablet ; 1 (one) tablet daily x 1 month and then increase to BID for 0 days Quantity: 60 {Tablet} Refills: 2 Ordered: 08-Jun-2023 KEKE Jiménez Start: 08-Jun-2023 Multivitamin Adult Oral Tablet Chewable (20 sources) Multivitamin Kennedy lt Oral Tablet Chewable Status: Inactive oseltamivir 75 mg oral capsule (20 sources) Neuraminidase Inhibitor Start: 06-22-20 End: 06-27-20 take 1 capsule by mouth twice daily Tamiflu 75 MG Oral Capsule ; 1 (one) Capsule two times daily for 5 days Quantity: 10 {Capsule} Refills: 0 Ordered: 22-Jun-2022 KEKE Abernathy Start: 22-Jun-2022 End: 27-Jun-2022 Status: Inactive predniSONE 20 mg oral tablet (20 sources) Start: 12-07-19 24 End: 08-02-19 25 predniSONE 20 mg tablet ; 1 (one) Tablet as directed for 0 days Quantity: 20 {Tablet} Refills: 0 Ordered: 02-Aug-2024 KEKE Jiménez Start: 07-Dec-2023 End: 02-Aug-2024 Status: Inactive Comments: Take 1 tab tid for 3 days thenTake 1 tab bid for 3 days thenTake 1 tab qd for 3 days thenTake 1/2 tab qd for 4 days. Comment on above: Take 1 tab tid for 3 days thenTake 1 tab bid for 3 days thenTake 1 tab qd for 3 days thenTake 1/2 tab qd for 4 days. Care (20 sources) Care Status: Inactive Saccharomyces boulardii (20 sources) Probiotic Status : Inactive 0.25 mg, 0.5 mg dose 1.5 ml semaglutide 1.34 mg/ml pen injector (20 sources) Start: 10-30-19 End: 11-03-19 Ozempic (0.25 or 0.5 MG/DOSE) 2 MG/1.5ML Subcutaneous Solution Pen-injector ; 0.25 Milligram weekly for 4 weeks for 4 days Quantity: 1 {Each} Refills: 0 Ordered: 29-Oct-2022 DAXA Huber Start: 29-Oct-2022 End: 02-Nov-2022 Status: Inactive sucralfate 1000 mg oral tablet (20 sources) Aluminum Complex Start: 09-17-19 End: 09-25-19 Carafate 1 gram tablet ; 1 (one) tablet QID for 7 days Quantity: 28 {Tablet} Refills: 0 Ordered: 17-Sep-2024 KEKE Jiménez Start: 17-Sep-2024 End: 24-Sep-2024 Status: Inactive Start: 08-30-2024 Carafate 1 gra m tablet ; 1 (one) tablet QID for 7 days Quantity: 28 {Tablet} Refills: 0 Ordered: 30-Aug-2024 KEKE Jiménez Start: 30-Aug-2024 Start: 08-09-2024 Carafate 1 gra m tablet ; 1 (one) tablet QID for 7 days Quantity: 28 {Tablet} Refills: 0 Ordered: 09-Aug-2024 KEKE Jiménez Start: 09-Aug-2024 Start: 08-02-2024 Carafate 1 gra m tablet ; 1 (one) tablet QID for 7 days Quantity: 28 {Tablet} Refills: 0 Ordered: 02-Aug-2024 KEKE Jiménez Cleopatra Perea Start: 02-Aug-2024 Wegovy 0.25 MG/0.5ML Subcutaneous Solution Auto-injector (20 sources) Start: 10-21-2022 End: 10-25-2022 inject 0.5 mL by subcutaneous injection every week Wegovy 0.25 MG/0.5ML Subcutaneous Solution Auto-injector ; 1/2 Milliliter weekly for 4 days Quantity: 2 {Milliliter} Refills: 0 Ordered: 21-Oct-2022 DAXA Huber Start: 21-Oct-2022 End: 25-Oct-2022 Status: Inactive Problems Active Problems Problem Classification Problem Date Documented Date Episodic/Chronic Abdominal pain (20 sources) Abdominal pain; Translations: [Unspecified abdominal pain] 07-30-2024 Episodic Administrative/socia l admission (20 sources) Patient encounter status; Translations: [Dietary counseling and surveillance] 11-02-2018 Episodic Anxiety disorders (20 sources) Anxiety; Translations: [Anxiety disorder, unspecified] 06-06-2023 Chronic Asthma (20 sources) Asthma; Translations: [Unspecified asthma, uncomplicated] Onset: 12-14-2023 06-06-2023 Chronic Comment on above: Exercise induced - n o treatment x years Exercise induced Biliary tract disease (20 sources) Disorder of gallbladder 10-26-2017 Episodic Chronic obstructive pulmonary disease and bronchiectasis (20 sources) Bronchitis; Translations: [Bronchitis, not specified as acute or chronic] 07-16-2019 Episodic Conditions associated with dizziness or vertigo (20 sources) Vertigo; Translations: [Dizziness and giddiness] 06-06-2023 Episodic Diabetes mellitus without complication (20 sources) High hemoglobin A1c level; Translations: [Other abnormal glucose] 06-06-2023 Episodic Diseases of white blood cells (20 sources) Leukocytosis; Translations: [Elevated white blood cell count, unspecified] Onset: 10-09-2024 06-08-2023 Chronic Disorders of lipid metabolism (20 sources) Hyperlipidemia; Translations: [Hyperlipidemia, unspecified] 06-06-2023 Chronic Esophageal disorders (8 sources) Gastroesophageal reflux disease; Translations: [Gastro-esophageal reflux disease without esophagitis] Onset: 10-30-2024 10-22-2024 Chronic Essential hypertension (20 sources) Essential hypertension; Translations: [Essential (primary) hypertension] 06-06-2023 Chronic Genitourinary symptoms and ill-defined conditions (20 sources) Blood in urine; Translations: [Hematuria, unspecified] 06-08-2023 Episodic Hemorrhoids (20 sources) External hemorrhoids; Translations: [Residual hemorrhoidal skin tags] 06-08-2023 Episodic Immunizations and screening for infectious disease (20 sources) Need for prophylactic vaccination and inoculation against influenza 05-13-2011 Episodic Malaise and fatigue (20 sources) Fatigue; Translations: [Other fatigue] 06-06-2023 Episodic Menstrual disorders (20 sources) Oligomenorrhea; Translations: [Oligomenorrhea, unspecified] 06-08-2023 Chronic Nonspecific chest pain (20 sources) Chest discomfort; Translations: [Other chest pain] 06-06-2023 Episodic Nutritional deficiencies (20 sources) Vitamin D deficiency; Translations: [Vitamin D deficiency, unspecified] 06-09-2023 Chronic Other and unspecified benign neoplasm (20 sources) Benign neoplasm of soft tissue; Translations: [Melanocytic nevi, unspecified] 10-26-2017 Episodic Other complications of (20 sources) Asthma in ; Translations: [Diseases of the respiratory system complicating , unspecified trimester] 07-28-2011 Episodic Other female genital disorders (20 sources) Vaginal discharge; Translations: [Other specified noninflammatory disorders of vagina] 10-26-2017 Episodic Other lower respiratory disease (20 sources) Cough; Translations: [Cough] 08-17-2021 Episodic Comment on above: Bronchitis dx 07/16, Flu exposure 07/24, feels much better but coughing remains bothersome, unable to get good rest at night. Other lower respiratory disease (20 sources) Dyspnea; Translations: [Shortness of breath] 06-08-2023 Episodic Other nutritional; endocrine; and metabolic disorders (20 sources) Body mass index 40+ - severely obese; Translations: [Body mass index (BMI) 40.0-44.9, adult] 03-17-2020 Chronic Other and delivery including normal (20 sources) Routine follow-up; Translations: [Supervision of other normal ] 07-28-2011 Episodic Other screening for suspected conditions (not mental disorders or infectious disease) (20 sources) Unspecified screening; Translations: [ care status] Onset: 10-09-2024 07-28-2011 Episodic Other upper respiratory infections (20 sources) Sore throat symptom; Translations: [Acute pharyngitis, unspecified] 03-17-2020 Episodic Residual codes; unclassified (20 sources) Influenza vaccination declined; Translations: [Immunization not carried out because of patient refusal] 10-26-2017 Episodic Residual codes; unclassified (20 sources) Non-smoker; Translations: [Other specified health status] 06-06-2023 Episodic Thyroid disorders (20 sources) Goiter; 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 Unclassified (20 sources) Number of Pregnancies 10-13-2022 Comment on above: 4. Unclassified (20 sources) Vaginal deliveries 10-13-2022 Comment on above: 4. Unclassified (20 sources) Well adult female - The patient feels well with no complaints, has good energy level and is sleeping well. The first day of the last menstrual period was : (Started this morning). The patient is not using any method of contraception at this time. The patient has a balanced diet. The patient exercises none (tries to exercise a little bit and is active with her 4 children). The patient sleeps 8 hours per night. 12-10-2020 Unclassified (20 sources) Well Adult, female - The patient feels well with minor complaints (Pt. c/o palpatations and racing heart beat, intermittently this winter. She started advocare in the past month and feels like it is markedly improved....only noticed palpitations/skips when at rest....), has good energy level and is sleeping well. The first day of the last menstrual period was : (09/25/17). The patient is not using any method of contraception at this time. The patient has a balanced diet. The patient exercises none (active lifestyle). The patient sleeps 8 hours per night. 10-26-2017 Unclassified (20 sources) Well Adult, female - The patient feels well with minor complaints (post anxiety (waves of fears)), has decreased energy level and is sleeping poorly (9 month old). The first day of the last menstrual period was : (09/14/16). The patient is not using any method of contraception at this time. The patient has a balanced diet and takes supplemental vitamins. The patient exercises none (active lifestyle). The patient sleeps 6 hours per night. 10-14-2016 Unclassified (20 sources) [ADDITIONAL REASON] Anxiety - The onset of the anxiety has been gradual and has been occurring in an intermittent pattern for 9 months. The course has been recurrent. The anxiety is characterized as apprehension, expectant dread and nervousness. Precipitating factors include specific circumstances (seems to have started after last devliery - only occurs in the evening...able to walk away and calmeherself down with deep breathing and dark envirmonment; has restarted some herbal supplements and this has started to decrease severity). The symptoms have been associated with dry mouth, lightheadedness and palpitations, but have not been associated with anorexia, breathlessness, chest pain, dizziness, feeling of sadness, hallucinations, increased appetite, insomnia, migraine, nausea, paresthesias, personality change, suicidal thoughts or tremors. Note for "Anxiety": notes a FH of thyroid disorder 10-14-2016 Unclassified (20 sources) Well adult female - The patient feels well with minor complaints (Has been waking up at night with stomach issues. No history of this until she had her gallbladder removed. About 2 years after this she noticed that certain foods triggered diarrhea. Then about 6 months later she started having a bad taste in her mouth, belching, gas, and diarrhea for approx 2-3 hours - always happened in the night only. Did a cleanse which helped significantly - no episodes until this past November. At that time she starting taking fiber and a probiotic which helped a lot. Gradually it has worsened. Sleeping sitting up helps. Only foods she found to trigger it was white starch - bread and potatoes. Since Tuesday night has had intermittent right shoulder pain with epigastric pain and diarrhea - still has this.), has decreased energy level and is sleeping well. The first day of the last menstrual period was : (mar 14 and states that they are regular). The patient has a balanced diet and takes supplemental vitamins (sometimes). The patient exercises none (active). 04-23-2015 Unclassified (12 sources) Anxiety - The onset of the anxiety has been gradual and has been occurring in an intermittent pattern for 9 months. The course has been recurrent. The anxiety is characterized as apprehension, expectant dread and nervousness. Precipitating factors include specific circumstances (seems to have started after last devliery - only occurs in the evening...able to walk away and calmeherself down with deep breathing and dark envirmonment; has restarted some herbal supplements and this has started to decrease severity). The symptoms have been associated with dry mouth, lightheadedness and palpitations, but have not been associated with anorexia, breathlessness, chest pain, dizziness, feeling of sadness, hallucinations, increased appetite, insomnia, migraine, nausea, paresthesias, personality change, suicidal thoughts or tremors. Note for "Anxiety": notes a FH of thyroid disorder 10-14-2016 Unclassified (12 sources) [ADDITIONAL REASON] Well Adult, female - The patient feels well with minor complaints (post anxiety (waves of fears)), has decreased energy level and is sleeping poorly (9 month old). The first day of the last menstrual period was : (09/14/16). The patient is not using any method of contraception at this time. The patient has a balanced diet and takes supplemental vitamins. The patient exercises none (active lifestyle). The patient sleeps 6 hours per night. 10-14-2016 Viral infection (20 sources) Viral disease; Translations: [Viral infection, unspecified] 06-22-2022 Episodic Past or Other Problems Problem Classification Problem Date Documented Da te Episodic/Chronic Abdominal hernia (20 sources) Umbilical hernia; Translations: [Umbilical hernia without obstruction or gangrene] Onset: 10-30-2024 06-06-2023 Episodic Gastrointestinal hemorrhage (8 sources) Rectal hemorrhage; Translations: [Hemorrhage of anus and rectum] Onset: 01-04-2025 10-22-2024 Episodic Unclassified (20 sources) Vertigo - The onset of the vertigo has been acute and has been occurring in an intermittent pattern for 10 days. The course has been constant. The symptoms are exacerbated by position change (and when laying down). Note for "Vertigo": Blood sugar was 260 and hour after eating 1 time, has been ok since then - did feel out of sorts when it was that high.Bp has been high - highest was 140/90s. Pt has been very stressed out and wondering if that is causing her symptoms.Spinning sensation with position changes. Intermittent.No ear pressure/pain. No hearing loss.Only occasional ringing in the ears. More tired than usual recently which she has associated with time change and stress. Some headaches but those are not uncommon and are not severe.No blurred vision but hard time focusing."No bowel/bladder issue. No abd pain. No recent cold symptoms but positive exposure to stress/hand, foot, and mouth a few weeks ago.This morning she moved (reached across body) and had a light pressure in chest - almost immediately went away. 06-08-2023 Unclassified (20 sources) Well adult female - The patient feels well with minor complaints (feels off, not bad, just not normal"), has good energy level and is sleeping poorly (hard time falling asleep, but once she is asleep she sleeps well). The first day of the last menstrual period was : (09/24/22). The patient has a balanced diet. The patient exercises none (tries to walk). The patient sleeps 7 hours per night. Note for "Well adult female": last PAP 10/2017 and HPV 10-13-2022 Unclassified (20 sources) Cold Symptoms - Symptoms include nasal congestion, runny nose, ear fullness, scratchy throat (fulllness, feels like cotton"), dry cough, fever (highest 102 4 days ago), chills, general malaise and headache, but do not include sneezing, ear pain, sore throat, productive cough or wheezing. The onset was sudden 4 day(s) ago. The symptoms occur constantly. The patient describes this as moderate in severity and worsening. Current treatment includes non-prescription cold medication. The patient has been exposed to an individual with similar symptoms (Family members). Patient denies history of seasonal allergies or recurrent sinusitis. 06-22-2022 Unclassified (20 sources) UTI - Symptoms include urinary frequency, hematuria and abdominal pain, but do not include dysuria, urinary urgency, dark urine, malodorous urine, flank pain or back pain. The pain is located in the suprapubic area. There is no radiation. The patient describes the pain as dull. Onset was sudden 1 day(s) ago. There is no known event that preceded symptom onset. The symptoms occur frequently. The patient describes this as moderate in severity and worsening. Associated symptoms do not include fever, chills, nausea, vomiting, urinary incontinence or vaginal discharge. Note for "UTI": Patient reports that symptoms started with hematuria last night. She reports blood on the toilet paper when wiping and blood on top of the water in the toilet. She then had blood in the toilet with a bowel movement this morning and blood when wiping. She reports pink tinged toilet paper when wiping after urinating today.Patient reports that she has been having diarrhea for the past several days. She does report a history of hemorrhoids, but she has not had problems with these for years. 07-08-2021 Unclassified (20 sources) Cold Symptoms - Symptoms include hoarseness (did almost lose her voice over the weekend), dry cough (initally the cough was productive but has been a dry cough for the past 2 weeks), general malaise and headache (Is currently on her period, will usually feel fatigued and have headaches with periods.), but do not include nasal congestion, runny nose, ear pain, sore throat, wheezing, fever, chills or facial pain. The onset was gradual 3 week(s) ago. The symptoms occur constantly. The patient describes this as moderate in severity and worsening (cough is getting worse and will feel short of breath more if she talks or sings). Current treatment includes NSAIDs (Ibuprofen- none taken today). Risk factors do not include smoking. The patient has not been exposed to an individual with an upper respiratory infection. Medical history includes seasonal allergies and asthma, but patient denies history of recurrent sinusitis or tonsillectomy. Note for "Upper respiratory infection": Patient reports that she had some nasal congestion and runny nose at the start of her illness, but these symptoms have resolved.Patient is not vaccinated for COVID at this time. 02-10-2021 Unclassified (20 sources) Cold Symptoms - Symptoms include ear pain (right), sore throat, dry cough (just started today), fever and general malaise, but do not include nasal congestion, runny nose or headache. The onset was gradual 3 day(s) ago. The symptoms occur constantly. The patient describes this as moderate in severity and worsening. Current treatment includes NSAIDs (none today). The patient has not been exposed to an individual with similar symptoms. Medical history includes seasonal allergies, but patient denies history of recurrent sinusitis, recurrent strep pharyngitis, asthma, tonsillectomy or recurrent ear infections. Note for Upper respiratory infection": Did pop out a tonsil stone. 03-17-2020 Unclassified (20 sources) Cough - The onset of the cough has been sudden and has been occurring in a persistent pattern for 10 days. The cough is characterized as dry. The cough occurs all the time (worse at night). Note for "Cough": -Seen 07/16 for bronchitis and had zpack and albuterol. She then had children test positive for influenza in the office and she had it as well. She is recovered and not feeling "sick" but she cannot stop coughing. The nebulizer does not help. She cannot sleep due to cough and has to rest sitting up. She coughs until she vomits. 07-31-2019 Unclassified (20 sources) Cold Symptoms - Symptoms include ear pain (right), sore throat, dry cough and general malaise, but do not include nasal congestion, runny nose (has drainage down the back of throat), fever, chills or headache. The onset was gradual 2 week(s) ago. The symptoms occur constantly. The patient describes this as moderate in severity and unchanged. Current treatment includes non-prescription cold medication, allergy medications and mucinex, flonase. The patient has been exposed to an individual with similar symptoms. Medical history includes seasonal allergies, asthma and recurrent ear infections (when a kid), but patient denies history of recurrent sinusitis, recurrent strep pharyngitis or tonsillectomy. Note for "Upper respiratory infection": Trouble sleeping because of the cough. Has used inhaler/nebulizer a couple of times which does help. 07-16-2019 Unclassified (20 sources) Well Adult, female - The patient feels well with minor complaints (pt.c/o sadness/anxiety intermittently in the past few months. (pt. had post depression after one of the children's , but that resolved...symptoms have dramatically improved in past 2 weeks; also would like to discuss weight loss), has decreased energy level and is sleeping well. The first day of the last menstrual period was : (10/06/18). The current method of contraception is: partner had vasectomy. The patient has a balanced diet and takes supplemental vitamins. The patient exercises weekly (wants core exercises - pt. c/o back discomfort and knows if she strengthens her core, it would help her back discomfort.). The patient sleeps 8 hours per night. 11-02-2018 Unclassified (20 sources) Cold Symptoms - Symptoms include ear pain, sore throat and dry cough, but do not include nasal congestion, runny nose, fever (did have), chills, general malaise, headache or facial pain. The onset was gradual 11 day(s) ago. The symptoms occur constantly. The patient describes this as moderate in severity and unchanged. Current treatment includes non-prescription cold medication, allergy medications, NSAIDs and mucinex. The patient has been exposed to an individual with similar symptoms. Medical history includes seasonal allergies, but patient denies history of recurrent sinusitis, recurrent strep pharyngitis, asthma, tonsillectomy or recurrent ear infections. Note for Upper respiratory infection": Cannot sleep because the cough is so bad. 07-07-2017 Unclassified (20 sources) lesion removal - nevus left shoulder; turning firmer and it scaled some last week 06-07-2017 Unclassified (20 sources) mole evaluation - left shoulder, shiney and light colored in appearance, patient has noticed in the last few months. No history of skin CA 05-16-2017 Unclassified (20 sources) Vaginal discharge - The discharge has been occurring for 4 weeks and has been increasing. The discharge has been moderate and is characterized as malodorous. There has been no associated dysuria, fever or nausea. There is no medical history of current . Note for "Vaginal discharge": Had baby 10 wks ago and the smell started after her 6 wk pp appt. About a week ago she started with a clear/white discharge. Discharge smells fishy. No vaginal itching or thick, chunky discharge. No risk of STD. 04-05-2016 Unclassified (20 sources) Post- visit - The patient is here for an initial visit after induced vaginal delivery. There were no complications. The patient feels well with no complaints, is sleeping well and has good energy level. There are no urinary problems. There are no bowel problems. Perineum/wound: perineum healing well. There are no feeding difficulties. Menstruation: has not resumed. No control is currently used. The patient has resumed physical activity. Patient states that family is interacting well with . 07-28-2011 Unclassified (20 sources) Visit - The patient is here for a 39 week visit. 06-02-2011 Unclassified (20 sources) Visit - The patient is here for a 38 week visit. 05-27-2011 Unclassified (20 sources) Visit - The patient is here for a 37 week visit. 05-20-2011 Unclassified (20 sources) Visit - The patient is here for a 36 week visit. 05-13-2011 Unclassified (20 sources) Visit - The patient is here for a 35 week visit. 05-06-2011 Unclassified (20 sources) Visit - The patient is here for a 32 week visit. 04-15-2011 Unclassified (20 sources) Visit - The patient is here for a 28 week visit. 03-18-2011 Unclassified (20 sources) Visit - The patient is here for a 23 week visit. 02-11-2011 Unclassified (20 sources) Visit - The patient is here for a 19 week visit. 01-14-2011 Unclassified (20 sources) Visit - The patient is here for a 15 week visit. 12-17-2010 Unclassified (20 sources) Positive Test - The patient suspects she is due to a positive home test, missed menses, morning sickness and symptoms similar to prior . Last menstrual period: Date: (08/28/10). - (2) Parity - (1) Abortions - (0). The patient has complaints of fatigue, while she denies abdominal cramps or breast tenderness. Vaginal discharge is described as scant. There has been no vaginal bleeding. There have been no urinary problems. There have been no bowel problems. Contraceptive history includes none. No current medications. Previous evaluation/treatment includes: PAP smear (05/04 ). 11-05-2010 Unclassified (20 sources) Post- visit - The patient is here for an initial visit after a vaginal delivery (at previous physician [facility] in [place]. ). There were no complications. The patient feels well with minor complaints (recovering from lap gretel 3 wks ago, doing well). Menstruation: has not resumed. 05-04-2010 Unclassified (1 source) Cold Symptoms 12-07-2023 Unclassified (20 sources) Cold Symptoms - Symptoms include ear fullness, dry cough, chills, general malaise and headache. The onset was gradual 1 week(s) ago. The symptoms occur constantly. The patient describes this as moderate in severity and worsening. Current treatment includes nebulizer w albuterol (inhaler). Risk factors do not include smoking. The patient has been exposed to an individual with similar symptoms (daughter has cough). Medical history includes seasonal allergies and asthma. Note for Upper respiratory infection": tight chest x 1 week, pt also is SOBpt has been traveling reviewed by [facility] 12-07-2023 Unclassified (20 sources) Breathing Trouble - The onset of the breathing trouble has been acute and has been occurring in a persistent pattern for 4 weeks. The course has been constant. The breathing trouble is moderate to severe. It is described as shortness of breath and coughing. The breathing trouble occurs with normal activities (occurs all the time). The symptoms have been associated with coughing, but have not been associated with anxiety, chest pain, fever / chills, swelling of calf, swelling of feet or wheezing. Note for "Breathing trouble": Was seen by Dr Pepe in office 12-06-23 with diagnosis of asthma. Was given a prescription for prednisone and has been using Ventolin inhaler and nebulizer twice a day. Started to improve a few days after starting steroid but then her symptoms worsened again. Has an elevated heart rate and dizziness at times over the weekend. Complains of fatigue. She was given a Z-Reinier last week without relief of symptoms. 12-20-2023 Unclassified (15 sources) Follow up consultation - The patient is here to follow-up after Emergency Room/Urgent Care on : (07/27/2024). Current symptoms include decreased appetite. Past medical history includes asthma. Note for Consultation follow-up": Had eaten a piece of peanut butter pie and within 15 minutes she had sudden onset of lower substernal pain. Tried to go to the bathroom thinking it might have been gas but it was intense so didn't think it was gas. Went to ER to get evaluated. Cardiac etiology and PE ruled out. Given morphine which resolved the pain but still had pressure in the area into the night. Abdomen was also hurting at that time. On Tuesday she drank a lot of water. On Tuesday she took a TUMs which provided quick relief. At lunch without an issue. Woke up from a nap with an ache (like after having a stomach bug). On Tuesday morning felt ok but then ate bread and had epigastric pressure/ache. On Tuesday had protein shake and did ok but ate a meatball and had stomachache again. Yesterday did ok even with eating (still not normal food). Hasn't eaten anything yet today and has felt fine. Maybe a little nausea but nothing significant and no vomiting. BMs looser than normal.H/o cholecystectomy.CT didn't show hiatal hernia. 08-02-2024 Unclassified (15 sources) [ADDITIONAL REASON] Transition into care - The patient is transitioning into care from an emergency room and a summary of care was reviewed. 08-02-2024 Unclassified (7 sources) Transition into care - The patient is transitioning into care from an emergency room and a summary of care was reviewed. 08-02-2024 Unclassified (7 sources) [ADDITIONAL REASON] Follow up consultation - The patient is here to follow-up after Emergency Room/Urgent Care on : (07/27/2024). Current symptoms include decreased appetite. Past medical history includes asthma. Note for Consultation follow-up": Had eaten a piece of peanut butter pie and within 15 minutes she had sudden onset of lower substernal pain. Tried to go to the bathroom thinking it might have been gas but it was intense so didn't think it was gas. Went to ER to get evaluated. Cardiac etiology and PE ruled out. Given morphine which resolved the pain but still had pressure in the area into the night. Abdomen was also hurting at that time. On Tuesday she drank a lot of water. On Tuesday she took a TUMs which provided quick relief. At lunch without an issue. Woke up from a nap with an ache (like after having a stomach bug). On Tuesday morning felt ok but then ate bread and had epigastric pressure/ache. On Tuesday had protein shake and did ok but ate a meatball and had stomachache again. Yesterday did ok even with eating (still not normal food). Hasn't eaten anything yet today and has felt fine. Maybe a little nausea but nothing significant and no vomiting. BMs looser than normal.H/o cholecystectomy.CT didn't show hiatal hernia. 08-02-2024 Unclassified (1 source) Well adult female - The patient feels well with minor complaints (has a cold, is improving), has good energy level and is sleeping poorly. The first day of the last menstrual period was : (09/09/2024). The current method of contraception is: partner had vasectomy. The patient has a balanced diet and takes supplemental vitamins (not every day). The patient does not exercise. The patient sleeps 7 hours per night. Note for "Well adult female": Pt has not been taking her meds in the past week due to not feeling well, has could symptoms. Pt is fasting for labs.Did take carafate after appt. Has had no more chest pain. Continues on omeprazole. Bright red blood 3 times in 1 day last week - felt like it was related to having flu with being on OTC meds. BMs were fairly normal - the blood was in the toilet water afterwards. Very small amount per patient - is sure that it was rectal.Had been on metformin but quit taking that in February --- had tried ER and even that upset her stomach. 09-17-2024 Unclassified (18 sources) Well adult female - The patient feels well with minor complaints (has a cold, is improving), has good energy level and is sleeping poorly. The first day of the last menstrual period was : (09/09/2024). The current method of contraception is: partner had vasectomy. The patient has a balanced diet and takes supplemental vitamins (not every day). The patient does not exercise. The patient sleeps 7 hours per night. Note for "Well adult female": Pt is fasting for labs.Did take carafate after appt in Jul. Has had no more chest pain. Continues on omeprazole. Bright red blood 3 times in 1 day last week - felt like it was related to having flu with being on OTC meds. BMs were fairly normal - the blood was in the toilet water afterwards. Very small amount per patient - is sure that it was rectal.Had been on metformin but quit taking that in February --- had tried ER and even that upset her stomach. 09-17-2024 Unclassified (5 sources) Cold Symptoms - Symptoms include runny nose, scratchy throat, hoarseness, dry cough and general malaise, but do not include sneezing, nasal congestion, non-purulent sputum, purulent discharge, ear pain, ear fullness, sore throat, productive cough, wheezing, fever, chills, headache or facial pain. The onset was gradual 2 week(s) ago. The symptoms occur frequently. The patient describes this as moderate in severity and worsening. The patient is not currently being treated for this problem. The patient has been exposed to an individual with an upper respiratory infection. Note for Upper respiratory infection": Patient did recently travel to [place]. Lots of pollen when there.States cough feels productive but she is unable to produce anything.Feels as if there is "gunk in my chest".Took allergy medication which helped initially. Little bit of wheezing and chest tightness.Did a breathing treatment last night without improvement. 10-26-2024 Results Test Name Value Interpretation Reference Range Facility 12 Lead EKGon 04-23-2025 12 Lead EKG [facility] [address] [place] [address] 12 Lead EKG 04/23/25 0942 MR#: [id number] Acct: [id number] Name: NAZANIN LUDWIG Rep #: [id number] : 1985 39 From: Martir Lizama MD Attending Dr: Dr. Diane Sousa MD Status: P RE [facility] Ordering Dr: Diane Sousa MD Date: 04/23/25 Location: [facility] Sex: F C Admitted: Test Reason : PRE OP Blood Pressure : */* mmHG Vent. Rate : 77 BPM Atrial Rate : 77 BPM P-R Int : 136 ms QRS Dur : 68 ms QT Int : 378 ms P-R-T Axes : 21 16 33 degrees QTcB Int : 427 ms Normal sinus rhythm Normal ECG Confirmed by EARNESTINE MARCANO, MARTIR ([id number]), online content editor SANJAY ARENAS ([id number]) on 04/23/2025 1:02:31 PM Referred By: Diane Sousa Confirmed By: MARTIR LIZAMA MD 04/23/25 1302 Date Martir Lizama MD CC: Dr. Diane Sousa MD; PETE Daily Signed Normal [facility] Basic Metabolic Profile (BMP )on 04-23-2025 BUN/CRE 12.8 RATIO Normal 10-20 [facility] Comment on above: Performed By: #### L 500.2500 #### [facility] [address] [place], [address] Calcium [Mass/Vol] 9.0 mg/dL Normal 7.6-11.0 [facility] Comment on above: Performed By: #### L [id number] #### [facility] [address] [place], [address] Chloride [Moles/Vol] 104 mmol/L Normal 98-108 [facility] Comment on above: Performed By: #### L [id number] #### [facility] [address] [place], [address] CO2 [Moles/Vol] 22.2 mmol/L Normal 21.0-32.0 [facility] Comment on above: Performed By: #### L [id number] #### [facility] [address] [place], [address] Creatinine [Mass/Vol] 0.83 mg/dL Normal 0.70-1.20 [facility] Comment on above: Performed By: #### L [id number] #### [facility] [address] [place], [address] GAP 11 Normal 5-15 [facility] Comment on above: Performed By: #### L 500.2500 #### [facility] [address] [place], [address] GFR/1.73 sq M.predicted among non-blacks MDRD (S/P/Bld) [Vol rate/Area] 91 mL/min/{1.73_m2} Normal >60 [facility] Comment on above: Result Comment: mL/m in/1.73m2 CKD-EPI Creatinine Equation (2020) Performed By: #### L 500.2500 #### [facility] [address] [place], [address] Glucose [Mass/Vol] 103 mg/dL High 70-99 [facility] Comment on above: Performed By: #### L 500.2500 #### [facility] [address] [place], [address] Potassium [Moles/Vol] 4.2 mmol/L Normal 3.3-5.1 [facility] Comment on above: Performed By: #### L 500.2500 #### [facility] [address] [place], [address] Sodium [Moles/Vol] 137 mmol/L Normal 133-145 [facility] Comment on above: Performed By: #### L 500.2500 #### [facility] [address] [place], [address] Urea nitrogen [Mass/Vol] 11 mg/dL Normal 4-19 [facility] Comment on above: Performed By: #### L 500.2500 #### [facility] [address] [place], [address] Surgery Visit Reporton 01-04 Surgery Visit Report [facility] [address] [place] [address] OFFICE VISIT Date of Service: 01/04/25 MR#: [id number] Acct: [id number] Name: NAZANIN LUDWIG Rep #: [id number] : 1985 Provider: Dr. Diane cheney MD Age/Sex: 39/F Location: [facility] Status: Signed Intake Vital Signs 12/19/24 09:03 01/04/25 09:42 Height 5 ft 2 in 5 ft 2 in Weight: 275 lb BMI 50.3 BP 129/81 H Blood Pressure Location Rt brachial Position Sitting Respiration 18 Intake Visit Reasons: DISCUSS HERNIA SURGERY Chief Complaint: discuss surgery Quality Worker Required: No Is patient in pain?: No Allergies No Known Allergies Allergy (Verified 01/04/25 09:43) Medications ???Medication ???Instructions ???Recorded ???Confirmed ???Type albuterol sulfate 90 mcg/actuation 2 puff inhalation Q4 PRN shortne ss 10/22/24 01/04/25 History aerosol inhaler of breath or wheezing ipratropium 0.5 mg-albuterol 3 mg 3 ml continuous nebulization Q6 0 10/22/24 01/04/25 History (2.5 mg base)/3 mL nebulization PRN shortness of breath soln omeprazole 20 mg capsule,delayed 20 mg PO QDAY 10/22/24 01/04/25 Hi story release lactobacillus combination no.4 3 3,000 mmu cells PO QHS 12/14/24 History billion cell capsule (Probiotic) PFSH Medical History Wears glasses Low iron Migraine headache Gastric reflux Shortness of breath on exertion Non-smoker Leg cramps History of edema Chest pain Umbilical hernia Pre-diabetes Elevated d-dimer Enlarged thyroid Anxiety HTN (hypertension) Rectal bleeding Acid reflux Asthma Surgical History S/P laparoscopic cholecystectomy Family History Aunt Colon cancer Breast cancer Thyroid disorder Cancer ovarian Grandfather CVA (cerebral vascular accident) Grandmother CVA (cerebral vascular accident) CAD (coronary artery disease) Diabetes Father CAD (coronary artery disease) Hypertension Social History Smoking Status: Never smoker alcohol intake: current HPI HPI HPI: 39-year-old female presents to discuss umbilical hernia repair. Patient have a concern whether in the future should be able to get tummy tuck due to her diastases after weight loss. Patient states that she has had more pain at her hernia with increased movement. ROS General General: Yes weight change and fatigue; No appetite, colon cancer or breast cancer HEENT HEENT: Yes swollen glands; No difficulty swallowing, eye injury, eye surgery or hoarseness Endo Endocrine: Yes diabetes mellitus (borderline); No thyroid disease, thyroid cancer, Hair loss, heat intolerance or cold intolerance Skin Skin: No rash or changing moles Musc Musculoskeletal: Yes back problems; No arthritis, rheumatoid arthritis, gout or joint pain Cardio Cardiovascular: No murmur, pacemaker, heart disease, atrial fibrillation, high blood pressure, heart attack, heart stent, palpitations, shortness of breath with exertion or chest pain Psych Psychiatric: No depression, anxiety or hearing voices Resp Respiratory: Yes shortness of breath, No sleep apnea, No cough, Yes COPD, No asthma, No emphysema and No wheezing Gastro Gastrointestinal: No abdominal pain, No nausea or vomiting, No diarrhea, No constipation, No blood in stool, No acid reflux, Yes hemorrhoids, Yes ulcers, Yes gallbladder problem and No black,tarry stools Ryan Hematologic: No blood thinners, No blood disorders, No bleeding, Yes anemia and No blood clots Neuro Neurologic: No numbness and No tingling Exam Const General: cooperative, healthy appearing, comfortable and no acute distress HENMT Head: normocephalic and atraumatic Neck Neck: supple Resp Effort Inspection: normal respiratory effort Cardio Rate: regular rate GI Inspection: non-distended Palpation: soft, hernia (Umbilical with thinning skin-reducible) and nontender Other: Diastases Skin General: no rashes or lesions noted Neuro General: CN's II-XI intact bilaterally Extrem General: normal to inspection Psych Mental Status: mental status grossly normal Attitude: cooperative Assessment and Plan Assessment and Plan (1) Umbilical hernia: Status: Acute Plan Plan to do a robotic umbilical hernia repair with mesh. Reviewed the procedure with the patient including the risks, including but not limited to infection, bleeding, injury to the small bowel, and recurrence. All questions were answered. Diane Sousa M.D. Pager: [phone] [facility] [address] [place] [address], [facility], [address] [place] [address] (more content not included)... Normal [facility] Colonoscopy Reporton 025 Colonoscopy Report [facility] Medical Records Department [address] [place] [address] Colonoscopy Report MR#: [id number] Acct: [id number] Name: NAZANIN LUDWIG Rep #: [id number] : 1985 39 From: Diane Sousa MD PCP: PETE Daily Status:[facility] Patient Name: Nazanin Ludwig Procedure Date: 12/19/2024 11:18 AM Date of : 1985 Age: 39 Procedure: Colonoscopy Indications: Rectal bleeding Providers: Diane Sousa MD Referring MD: Cleopatra Jiménez Medicines: Monitored Anesthesia Care Patient Profile: This is a 39 year old female. Last Colonoscopy: none. The patient's first colonoscopy is today. Complications: No immediate complications. Procedure: Pre-Anesthesia Assessment: - Prior to the procedure, a History and Physical was performed, and patient medications and allergies were reviewed. The patient's tolerance of previous anesthesia was also reviewed. The risks and benefits of the procedure and the sedation options and risks were discussed with the patient. All questions were answered, and informed consent was obtained. Prior Anticoagulants: The patient has taken no anticoagulant or antiplatelet agents. ASA Grade Assessment: Per anesthesia. After reviewing the risks and benefits, the patient was deemed in satisfactory condition to undergo the procedure. After I obtained informed consent, the scope was passed under direct vision. Throughout the procedure, the patient's blood pressure, pulse, and oxygen saturations were monitored continuously. The colonoscope was introduced through the anus and advanced to the cecum, identified by the appendiceal orifice, ileocecal valve and palpation. The colonoscopy was performed without difficulty. The patient tolerated the procedure well. The quality of the bowel preparation was good. Scope In: 11:19:06 AM Scope Withdrawal Time 0 hours 5 minutes 29 seconds Scope Out: 11:33:47 AM Total Procedure Duration Time 0 hours 14 minutes 41 seconds Findings: Hemorrhoids were found on perianal exam. Non-bleeding external and internal hemorrhoids were found. The hemorrhoids were small and Grade I (internal hemorrhoids that do not prolapse). The exam was otherwise without abnormality. The entire examined colon appeared normal. Impression: - Hemorrhoids found on perianal exam. - Non-bleeding external and internal hemorrhoids. - The examination was otherwise normal. - The entire examined colon is normal. - No specimens collected. Recommendation: - Discharge patient to home. - Resume previous diet. - Continue present medications. - Repeat colonoscopy in 10 years for screening purposes. Procedure Code(s): --- Professional --- 58861, Colonoscopy, flexible; diagnostic, including collection of specimen(s) by brushing or washing, when performed (separate procedure) Diagnosis Code(s): --- Professional --- K64.0, First degree hemorrhoids K62.5, Hemorrhage of anus and rectum CPT copyright 2021 [employer]. All rights reserved. The codes documented in this report are preliminary and upon sheet metal installer review may be revised to meet current compliance requirements. MD Diane Altamirano MD 12/19/2024 11:50:44 AM This report has been signed electronically. Number of Addenda: 0 Note Initiated On: 12/19/2024 11:18 AM 12/19/24 1150 Date Diane Saeedign Signature: Date (if indicated) CC: Dr. Diane Sousa MD; PETE Daily Date Dictated: 12/19/24 1118 Date Transcribed: Analysis Mgr: TR Signed Normal [facility] EGD Reporton 12-19-2024 EGD Report [facility] Medical Records Department [address] [place] [address] EGD Report MR#: [id number] Acct: [id number] Name: NAZANIN LUDWIG Rep #: [id number] : 1985 39 From: Diane Sousa MD PCP: PETE Daily Status:[facility] Patient Name: Nazanin Ludwig Procedure Date: 12/19/2024 11:00 AM Date of : 1985 Age: 39 Procedure: Upper GI endoscopy Indications: Epigastric abdominal pain, Heartburn Providers: Diane Sousa MD Referring MD: Cleopatra Jiménez Medicines: Monitored Anesthesia Care Patient Profile: This is a 39 year old female. Complications: No immediate complications. Procedure: Pre-Anesthesia Assessment: - Prior to the procedure, a History and Physical was performed, and patient medications and allergies were reviewed. The patient's tolerance of previous anesthesia was also reviewed. The risks and benefits of the procedure and the sedation options and risks were discussed with the patient. All questions were answered, and informed consent was obtained. Prior Anticoagulants: The patient has taken no anticoagulant or antiplatelet agents. ASA Grade Assessment: Per anesthesia. After reviewing the risks and benefits, the patient was deemed in satisfactory condition to undergo the procedure. After obtaining informed consent, the endoscope was passed under direct vision. Throughout the procedure, the patient's blood pressure, pulse, and oxygen saturations were monitored continuously. The Endoscope was introduced through the mouth, and advanced to the second part of duodenum. The upper GI endoscopy was accomplished without difficulty. The patient tolerated the procedure well. Scope In: 11:12:16 AM Scope Out: 11:15:37 AM Total Procedure Duration Time 0 hours 3 minutes 21 seconds Findings: The cardia and gastric fundus were normal on retroflexion. Mildly erythematous mucosa without bleeding was found in the gastric antrum. Biopsies were taken with a cold forceps for histology. Biopsies were taken with a cold forceps for Helicobacter pylori cultures. The examined duodenum was normal. Impression: - Erythematous mucosa in the antrum. Biopsied. - Normal examined duodenum. Recommendation: - Discharge patient to home. - Resume previous diet. - Continue present medications. Procedure Code(s): --- Professional --- 60816, Esophagogastroduodeno scopy, flexible, transoral; with biopsy, single or multiple Diagnosis Code(s): --- Professional --- K31.89, Other diseases of stomach and duodenum R10.13, Epigastric pain R12, Heartburn CPT copyright 2021 [employer]. All rights reserved. The codes documented in this report are preliminary and upon sheet metal installer review may be revised to meet current compliance requirements. MD Diane Altamirano MD 12/19/2024 11:47:57 AM This report has been signed electronically. Number of Addenda: 0 Note Initiated On: 12/19/2024 11:00 AM 12/19/24 1148 Date Diane Busch Signature: Date (if indicated) CC: Dr. Diane Sousa MD; PETE Daily Date Dictated: 12/19/24 1100 Date Transcribed: Analysis Mgr: ARIS Baker [facility] Immunohistochemical Stainson 12-19-2024 Immunohistochemical Stains -------- Patient Age/Sex Location Account Attending Physician -------- NAZANIN LUDWIG 39/F EN [id number] Dr. Diane Sousa MD -------- Specimen: [id number] Received: 12/19/24 Status: MIMI Downing Num: [id number] Spec Type: EGD BIOPSY Subm Dr: Dr. Diane Sousa MD HEADER OPERATION: Colonoscopy, EGD with biopsies PRE-OP DIAGNOSIS: Acid reflux, rectal bleeding TISSUE SUBMITTED: A- Antrum biopsy -------- MICROSCOPIC DIAGNOSIS A. Stomach, antrum, biopsy: Chronic gastritis. IHC negative for H.pylori organisms. MICROSCOPIC DESCRIPTION Slides are reviewed. All matched controls reacted appropriately. These tests were developed and their performance characteristics determined by [facility]. They may not have been cleared or approved by the U.S. Food and Drug Administration. The FDA has determined that such clearance or approval is not necessary.??? The above immunohistochemical/d ualISH???markers are ordered and reviewed by the Pathologist. GROSS DESCRIPTION A. Received in formalin in a container labeled with the patient's name, date of , and antrum biopsy for H. pylori and histology" is a 0.6 x 0.3 x 0.2 cm strip of blevins-pink mucosal tissue. Submitted in toto in A1. [facility] 12-19-2024 CPT:98022,40096 -------- Patient Age/Sex Location Account Attending Physician -------- NAZANIN LUDWIG 39/F EN [id number] Dr. Diane Sousa MD -------- Signed (signature on file) Dr. Radha Snow MD 12/24/24 1204 -------- Normal [facility] Comment on above: Performed By: #### P [facility] #### [facility] [address] [facility] [place], [place], [address] MR/POSTOP.ANEleny 12-19-2024 MR/POSTOP.[facility] Medical Records Department [address] [place] [address] Anesthesia Postop Eval I 12/19/24 1146 MR#: [id number] Acct: [id number] Name: NAZANIN LUDWIG Rep #: [id number] : 1985 39 From: Sai Hirsch PCP: PETE Daily Status:[facility] Y Race: C Location: [place] [address] Anesthesia: Postop Eval I Current Vital Signs Temperature: 97.4 F Pulse Rate: 88 Blood Pressure: 96/66 Respiratory Rate: 16 Pulse Ox: 95 Oxygen Delivery Method: Room Air Assessment Airway patent: Yes Spontaneous unlabored respirations: Yes Mental status: Awake and Calm nausea: No Vomiting: No Anesthesia Complication: No Fluid Hydration Crystalloid volume administer (ml): 800 Total IV fluid infused: 800 Progress Note Anesthesia document: Postop Eval 1 completed: Yes 12/19/24 1146 Date Sai Busch Signature: Date CC: Signed Normal [facility] MR/RMEZXSBT3dn 12-19-2024 [facility] Medical Records Department [address] [facility] [place] [address] Anesthesia Postop Eval II 12/19/24 1330 MR#: [id number] Acct: [id number] Name: NAZANIN LUDWIG Rep #: [id number] : 1985 39 From: Carolynn Malone PCP: PETE Daily Status:[facility] Y Race: C Location: EN Anesthesia Postop Eval I Sum Postop Eval Completion status Anesthesia document: Postop Eval 1 completed: Yes Anesthesia Postop Eval I Summary Anesthesia Postop Eval I Summary: Anesthesia Postop Eval I: Assessment Summary Airway patent Yes 12/19/24 11:46 [email or web address] Spontaneous unlabored Yes 12/19/24 11:46 [email or web address] respirations Mental status Awake,Calm 12/19/24 11:46 [email or web address] nausea No 12/19/24 11:46 [email or web address] Vomiting No 12/19/24 11:46 [email or web address] Anesthesia Postop Eval I: Fluid Summary Crystalloid volume administer 800 12/19/24 11:46 [email or web address] (ml) Colloids volume administered ( ml) Blood Product volume administered (ml) Total IV fluid infused 800 12/19/24 11:46 [email or web address] Anesthesia Postop Eval I: Summary Notes Anesthesia Complication No 12/19/24 11:46 [email or web address] Anesthesia Complication Comment: Post-operative progress note Anesthesia: Postop Eval II Evaluation Mental status: Awake Pain Level: 0 nausea: No Vomiting: No 12/19/24 1330 Date Carolynn Busch Signature: Date CC: Signed Normal [facility] ,Urineon 12-19-2024 Beta HCG ( test) Ql (U) Negative Normal [facility] Comment on above: Result Comment: Very dilute urine specimens, as indicated by a low specific gravity, may not contain access services representative levels of hCG. If is still suspected, a first morning urine specimen should be collected 48 hours later and tested. Performed By: #### L 400.7600 #### [facility] [address] [place], [address] Urine testOrdered By: Mal Oneill on 12-19-2024 HCG ( test) Ql (U) Negative [facility] Comment on above: Very dilute urine sp ecimens, as indicated by a low specificgravity, may not contain access services representative levels of hCG. If is still suspected, a first morning urinespecimen should be collected 48 hours later and tested. 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 When Was Last Pacemaker Check QUESTION #4 FULL TEXT: You/Your Family Experience fever (hyperthermia) with Anesthesia Last Oral Intake Last Oral intake: Last Oral Intake NPO since Meds taken in AM with sips of water? 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 Female Yes 12/14/24 14:59 HX of Motion Sickness No 12/14/24 14:59 HX of N/V After Surgery No 12/14/24 14:59 Non-Smoker Yes 12/14/24 14:59 Duration of Surgery greater No 12/14/24 14:59 than 60 minutes Number of Risk Factors 2 12/14/24 14:59 PONV Score Moderate Risk 12/14/24 14:59 Height Weight Height Weight: Anesthesia: Height Weight Height 5 ft 2 in 10/22/24 13:04 Respiratory Assessment Respiratory Assessment - maintenance shop manager: Respiratory Tract Infection Hx - maintenance shop manager Hx Respiratory Tract Infection No 12/14/24 14:59 STOP Sleep Apnea STOP Sleep Apnea - maintenance shop manager: STOP Sleep Apnea - maintenance shop manager Hx Hypertension No 12/14/24 14:59 Hx Sleep Apnea No 12/14/24 14:59 CPAP BIPAP Do you snore loudly (louder No 12/14/24 14:59 than talking or can be heard Do you often feel tired/ No 12/14/24 14:59 fatigued/ sleepy during daytime? Has anyone observed you stop No 12/14/24 14:59 breathing during sleep? STOP Results Negative 12/14/24 14:59 QUESTION #5 FULL TEXT : Do you snore loudly (louder than talking or can be heard through closed doors)? Tobacco Use History Tobacco Use History - maintenance shop manager: Tobacco Use History - maintenance shop manager Tobacco Use Smoking Status Never smoker 12/14/24 14:59 Hx Tobacco Use No 12/14/24 14:59 Years Smoking Packs Smoked per Day Smoking Cessation Date was within the last 15 years Hx Smoking Cessation Date Hx Smoking Cessation Counseling Hematologic Medial History Hematologic Hx - maintenance shop manager: Hematologic Medical Hx - stopper grinder Hx of Blood Transfusion No 12/14/24 14:59 Hx of Transfusion in last 3 No 12/14/24 14:59 Months Date of Last Transfusion (if within last 3 months) Ever experience any problems No 12/14/24 14:59 with transfusion(s)? Specify any problems Hx of Preganancy in last 3 No 12/14/24 14:59 Months Nurse Filling Out Transfusion LUPE 12/14/24 14:59 Questions: Date: 12/14/24 12/14/24 14:59 Time: 15:00 12/14/24 14:59 Patient unable to answer at this time (ie. confused, unrespo /Reproductio n History /Reproductiv e History - maintenance shop manager: /Reproductiv e Hx- maintenance shop manager Hx Now No 12/14/24 14:59 Gestational Age (in weeks): EDC: Hx Hx Para Hx Section SAB No 12/14/24 14:59 [facility] Medical History (Updated 12/14/24 @ 15:08 by Rosalva Benitez) Wears glasses Low iron Migraine headache Gastric reflux Shortness of breath on exertion Non-smoker Leg cramps History of edema Chest pain Umbilical hernia Pre-diabetes Elevated d-dimer Enlarged thyroid Anxiety HTN (hypertension) Rectal bleeding Acid reflux Asthma Home Medications ???Medication ???Instructions ???Recorded ???Last Taken ???Type albuterol sulfate 90 mcg/actuation 2 puff inhalation Q4 PRN shortne ss 10/22/24 Unknown History aerosol inhaler of breath or wheezing ipratropium 0.5 mg-albuterol 3 mg 3 ml continuous nebulization Q6 0 10/22/24 Unknown History (2.5 mg base)/3 mL nebulization PRN shortness of breath soln omeprazole 20 mg capsule,delayed 20 mg PO QDAY 10/22/24 Unknown His tory release lactobacillus combination no.4 3 3,000 mmu cells PO QHS 12/14/24 Un known History billion cell capsule (Probiotic) Allergy/AdvReac Type Severity React (more content not included)... Normal [facility] LEG VEIN DVT [facility] n 10-25-2024 LEG VEIN DVT [facility] Non-Invasive Vascular Laboratory [facility] Lower Extremity Venous Duplex Bilateral/Complete Date of service/time: 10/25/2024 12:28:01 PM Name: NAZANIN LUDWIG Date of : 1985 Age: 39 years Gender: F Clinical Indication Elevated d-dimer. TECHNIQUE -------- A venous duplex ultrasound examination was performed, including grayscale imaging with compression maneuvers and color Doppler and spectral Doppler examination with augmentation maneuvers and response to respiration of the below mentioned veins. FINDINGS -------- RIGHT SIDE Distal external iliac vein Doppler: normal flow. Compression: normal. Common femoral vein Doppler: normal flow. Compression: normal. Femoral vein Doppler: normal flow. Compression: normal. Popliteal vein Doppler: normal flow. Compression: normal. Posterior tibial veins Compression: normal. Peroneal veins Compression: normal. Great saphenous vein Compression: normal. Small saphenous vein Compression: normal. LEFT SIDE Distal external iliac vein Doppler: normal flow. Compression: normal. Common femoral vein Doppler: normal flow. Compression: normal. Femoral vein Doppler: normal flow. Compression: normal. Popliteal vein Doppler: normal flow. Compression: normal. Posterior tibial veins Compression: normal. Peroneal veins Compression: normal. Great saphenous vein Compression: normal. Small saphenous vein Compression: normal. IMPRESSION RIGHT SIDE - DEEP VEINS Negative for acute deep vein thrombosis. Only segments visualized of the posterior tibial veins and peroneal veins. LEFT SIDE - DEEP VEINS Negative for acute deep vein thrombosis. Only segments visualized of the posterior tibial veins and peroneal veins. Technologist: Ana Luisa Thorpe Rajni Ordering physician: JULIO BENITES Interpreting physician: MICHAEL Ny DO Final CC [employer] [facility] : [id number] amicsSISUID See Link below for Image [facility] Visit Reporton 10-22 Surgery Visit Report [facility] [address] [place], [place] [address] OFFICE VISIT Date of Service: 10/22/24 MR#: [id number] Acct: [id number] Name: NAZANIN LUDWIG Rep #: [id number] : 1985 Provider: Dr. Diane cheney MD Age/Sex: 39/F Location: [facility] Status: Signed Intake Vital Signs 10/22/24 13:04 Height 5 ft 2 in Weight: 275 lb BMI 50.3 BP 129/86 H Blood Pressure Location Rt brachial Position Sitting Respiration 18 Intake Visit Reasons: RECTAL BLEEDING Chief Complaint: rectal bleeding/gerd Quality Worker Required: No Is patient in pain?: No Allergies No Known Allergies Allergy (Verified 10/22/24 13:05) Medications ???Medication ???Instructions ???Recorded ???Confirmed ???Type albuterol sulfate 90 mcg/actuation 2 puff inhalation Q4 PRN 5 10/22/24 History aerosol inhaler ipratropium 0.5 mg-albuterol 3 mg ml continuous nebulization Q6 10/22/24 History (2.5 mg base)/3 mL nebulization soln omeprazole 20 mg capsule,delayed 20 mg PO QDAY 10/22/24 10/22/24 Hi story release Have you fallen in the past year?: No PFSH Medical History (Updated 10/22/24 @ 13:06 by Eladia Zheng) Umbilical hernia Pre-diabetes Elevated d-dimer Enlarged thyroid Anxiety HTN (hypertension) Rectal bleeding Acid reflux Asthma Surgical History (Updated 10/22/24 @ 13:01 by Eladia Zheng) S/P laparoscopic cholecystectomy Family History (Updated 10/22/24 @ 13:03 by Eladia Zheng) Aunt Colon cancer Breast cancer Thyroid disorder Cancer ovarian Grandfather CVA (cerebral vascular accident) Grandmother CVA (cerebral vascular accident) CAD (coronary artery disease) Diabetes Father CAD (coronary artery disease) Hypertension Social History (Updated 10/22/24 @ 13:04 by Eladia Zheng) Smoking Status: Never smoker alcohol intake: current HPI HPI HPI: 39-year-old female presents for EGD and colonoscopy. Patient states in July she was having some chest pain diagnosed possible gastritis or ulcer given omeprazole which did improve that discomfort. Patient states at the end of July she did have bright red blood per rectum and 1 day she was on [id number]-ufo-ojgscyo cold medication patient denies any pain with that bleeding. Patient is unaware of any external hemorrhoids or internal hemorrhoids. Patient's paternal aunt was diagnosed colon cancer at age 50 patient's dad has been having colonoscopies negative per patient. The patient also has umbilical hernia from pregnancies???large/r educible. Patient denies any pain at hernia site ROS General General: Yes weight change and fatigue; No appetite, colon cancer or breast cancer HEENT HEENT: Yes swollen glands; No difficulty swallowing, eye injury, eye surgery or hoarseness Endo Endocrine: Yes diabetes mellitus (borderline); No thyroid disease, thyroid cancer, Hair loss, heat intolerance or cold intolerance Skin Skin: No rash or changing moles Musc Musculoskeletal: Yes back problems; No arthritis, rheumatoid arthritis, gout or joint pain Cardio Cardiovascular: No murmur, pacemaker, heart disease, atrial fibrillation, high blood pressure, heart attack, heart stent, palpitations, shortness of breath with exertion or chest pain Psych Psychiatric: No depression, anxiety or hearing voices Resp Respiratory: Yes shortness of breath, No sleep apnea, No cough, Yes COPD, No asthma, No emphysema and No wheezing Gastro Gastrointestinal: No abdominal pain, No nausea or vomiting, No diarrhea, No constipation, No blood in stool, No acid reflux, Yes hemorrhoids, Yes ulcers, Yes gallbladder problem and No black,tarry stools Ryan Hematologic: No blood thinners, No blood disorders, No bleeding, Yes anemia and No blood clots Neuro Neurologic: No numbness and No tingling Exam Const General: cooperative, healthy appearing, comfortable and no acute distress [facility] Head: normocephalic and atraumatic Neck Neck: supple Resp Effort Inspection: normal respiratory effort Cardio Rate: regular rate GI Inspection: non-distended Palpation: soft, hernia umbilical (About 3 to 4 cm, reducible, starting to thin umbilical skin) and nontender Skin General: no rashes or lesions noted Neuro General: CN's II-XI intact bilaterally Extrem General: normal to inspection Psych Mental Status: mental status grossly normal Attitude: cooperative Assessment and Plan Assessment and Plan (1) Acid reflux: Status: Acute (2) Rectal bleeding: Status: Acute (3) Umbilical hernia: Status: Acute Orders: Orders Colonoscopy 12/19/24 K62.5 - Hemorrhage of anus and rectum EGD 12/19/24 K21.9 - Gastro-esophageal reflux disease without esophagitis Plan I have discussed the above with the p (more content not included)... Normal [facility] CBC W Auto Differential pane l (Bld)on 10-09-2024 Basophils (Bld) [#/Vol] 0.05 10*3/uL [facility] Basophils/100 WBC (Bld) 0.6 % C [facility] Differential cell count method Nom (Bld) Auto [facility] Eosinophils (Bld) [#/Vol] 0.3 10*3/uL [facility] Eosinophils/100 WBC (Bld) 3.4 % [facility] Erythrocyte distribution width (RBC) [Ratio] 13.7 % 11.5 - 15.0 % [facility] Hematocrit (Bld) [Volume fraction] 39.8 % 36.0 - 46.0 % [facility] Hemoglobin (Bld) [Mass/Vol] 13.2 g/dL 11.5 - 15.5 g/dL [facility] Immature granulocytes (Bld) [#/Vol] 0.14 10*3/uL High [facility] Immature granulocytes/100 WBC (Bld) 1.6 % [facility] Interpretation and review of laboratory results Abnormal [facility] Lymphocytes (Bld) [#/Vol] 2.86 10*3/uL [facility] Lymphocytes/100 WBC (Bld) 32.2 % [facility] MCH (RBC) [Entitic mass] 28.4 pg 26.0 - 34.0 pg [facility] MCHC (RBC) [Mass/Vol] 33.2 g/dL 30.5 - 36.0 g/dL [facility] MCV (RBC) [Entitic vol] 85.8 fL 80.0 - 100.0 fL [facility] Monocytes (Bld) [#/Vol] 0.66 10*3/uL [facility] Monocytes/100 WBC (Bld) 7.4 % [facility] Neutrophils (Bld) [#/Vol] 4.87 10*3/uL [facility] Neutrophils/100 WBC (Bld) 54.8 % [facility] Nucleated RBC (Bld) [#/Vol] NINF [facility] Nucleated RBC/100 WBC (Bld) [Ratio] 0 % /100 WBC [facility] Platelet mean volume (Bld) [Entitic vol] 8.1 fL Low 9.0 - 12.7 fL [facility] Platelets (Bld) [#/Vol] 251 10*3/uL [facility] RBC (Bld) [#/Vol] 4.64 10*6/uL 3.90 - 5.2 0 m/uL [facility] WBC (Bld) [#/Vol] 8.88 10*3/uL [facility] Basophils (Bld) [#/Vol] 0.05 10*3/uL Normal <0.11 [facility] Comment on above: Order Comment: Speci men Type: BLOOD SPECIMEN Ordering Facility: [facility] Address: [address] [place] [address] Performed By: #### 5 7021-8 #### [id number] [address] [place] [address] [place] Basophils/100 WBC (Bld) 0.6 % Normal C [facility] Comment on above: Order Comment: Speci men Type: BLOOD SPECIMEN Ordering Facility: [facility] Address: [address] [place] [address] Performed By: #### 5 7021-8 #### [facility] CLIA [id number] [address] [place] [address] [place] Differential cell count method Nom (Bld) Auto Normal [facility] Comment on above: Order Comment: Speci men Type: BLOOD SPECIMEN Ordering Facility: [facility] Address: [address] [place] [address] Performed By: #### 5 7021-8 #### [facility] CLIA [id number] [address] [place] [address] [place] Eosinophils (Bld) [#/Vol] 0.30 10*3/uL Normal <0.46 [facility] Comment on above: Order Comment: Speci men Type: BLOOD SPECIMEN Ordering Facility: [facility] Address: [address] [place] [address] Performed By: #### 5 7021-8 #### [facility] CLIA [id number] [address] [place] [address] [place] Eosinophils/100 WBC (Bld) 3.4 % Normal [facility] Comment on above: Order Comment: Speci men Type: BLOOD SPECIMEN Ordering Facility: [facility] Address: [address] [place] [address] Performed By: #### 5 7021-8 #### [facility] [id number] [address] [place] [address] [place] Erythrocyte distribution width (RBC) [Ratio] 13.7 % Normal 11.5-15.0 [facility] Comment on above: Order Comment: Speci men Type: BLOOD SPECIMEN Ordering Facility: [facility] Address: [address] [place] [address] Performed By: #### 5 7021-8 #### [facility] [id number] [address] [place] [address] [place] Hematocrit (Bld) [Volume fraction] 39.8 % Normal 36.0-46.0 [facility] Comment on above: Order Comment: Speci men Type: BLOOD SPECIMEN Ordering Facility: [facility] Address: [address] [place] [address] Performed By: #### 5 7021-8 #### [facility] [id number] [address] [place] [address] [place] Hemoglobin (Bld) [Mass/Vol] 13.2 g/dL Normal 11.5-15.5 [facility] Comment on above: Order Comment: Speci men Type: BLOOD SPECIMEN Ordering Facility: [facility] Address: [address] [place] [address] Performed By: #### 5 7021-8 #### [facility] CLIA [id number] [address] [place] [address] [place] Immature granulocytes (Bld) [#/Vol] 0.14 10*3/uL High <0.10 [facility] Comment on above: Order Comment: Speci men Type: BLOOD SPECIMEN Ordering Facility: [facility] Address: [address] [place] [address] Performed By: #### 5 7021-8 #### [facility] CLIA [id number] [address] [place] [address] [place] Immature granulocytes/100 WBC (Bld) 1.6 % Normal [facility] Comment on above: Order Comment: Speci men Type: BLOOD SPECIMEN Ordering Facility: [facility] Address: [address] [place] [address] Performed By: #### 5 7021-8 #### [facility] CLIA [id number] [address] [place] [address] [place] Lymphocytes (Bld) [#/Vol] 2.86 10*3/uL Normal 1.00-4.00 [facility] Comment on above: Order Comment: Speci men Type: BLOOD SPECIMEN Ordering Facility: [facility] Address: [address] [place] [address] Performed By: #### 5 7021-8 #### [facility] CLIA [id number] [address] [place] [address] [place] Lymphocytes/100 WBC (Bld) 32.2 % Normal [facility] Comment on above: Order Comment: Speci men Type: BLOOD SPECIMEN Ordering Facility: [facility] Address: [address] [place] [address] Performed By: #### 5 7021-8 #### [facility] CLIA [id number] [address] [place] [address] [place] MCH (RBC) [Entitic mass] 28.4 pg Normal 26.0-34.0 [facility] Comment on above: Order Comment: Speci men Type: BLOOD SPECIMEN Ordering Facility: [facility] Address: [address] [place] [address] Performed By: #### 5 7021-8 #### [facility] CLIA [id number] [address] [place] [address] [place] MCHC (RBC) [Mass/Vol] 33.2 g/dL Normal 30.5-36.0 [facility] Comment on above: Order Comment: Speci men Type: BLOOD SPECIMEN Ordering Facility: [facility] Address: [address] [place] [address] Performed By: #### 5 7021-8 #### [facility] CLIA [id number] [address] [place] [address] [place] MCV (RBC) [Entitic vol] 85.8 fL Normal 80.0-100.0 [facility] Comment on above: Order Comment: Speci men Type: BLOOD SPECIMEN Ordering Facility: [facility] Address: [address] [place] [address] Performed By: #### 5 7021-8 #### [facility] CLIA [id number] [address] [place] [address] [place] Monocytes (Bld) [#/Vol] 0.66 10*3/uL Normal <0.87 [facility] Comment on above: Order Comment: Speci men Type: BLOOD SPECIMEN Ordering Facility: [facility] Address: [address] [place] [address] Performed By: #### 5 7021-8 #### [facility] CLIA [id number] [address] [place] [address] [place] Monocytes/100 WBC (Bld) 7.4 % Normal [facility] Comment on above: Order Comment: Speci men Type: BLOOD SPECIMEN Ordering Facility: [facility] Address: [address] [place] [address] Performed By: #### 5 7021-8 #### [facility] CLIA [id number] [address] [place] [address] [place] Neutrophils (Bld) [#/Vol] 4.87 10*3/uL Normal 1.45-7.50 [facility] Comment on above: Order Comment: Speci men Type: BLOOD SPECIMEN Ordering Facility: [facility] Address: [address] [place] [address] Performed By: #### 5 7021-8 #### [facility] CLIA [id number] [address] [place] [address] [place] Neutrophils/100 WBC (Bld) 54.8 % Normal [facility] Comment on above: Order Comment: Speci men Type: BLOOD SPECIMEN Ordering Facility: [facility] Address: [address] [place] [address] Performed By: #### 5 7021-8 #### [facility] CLIA [id number] [address] [place] [address] [place] Nucleated RBC (Bld) [#/Vol] 10*3/uL Normal <0.01 [facility] Comment on above: Order Comment: Speci men Type: BLOOD SPECIMEN Ordering Facility: [facility] Address: [address] [place] [address] Performed By: #### 5 7021-8 #### [facility] CLIA [id number] [address] [place] [address] [place] Nucleated RBC/100 WBC (Bld) [Ratio] 0.0 /100 WBC Normal [facility] Comment on above: Order Comment: Speci men Type: BLOOD SPECIMEN Ordering Facility: [facility] Address: [address] [place] [address] Performed By: #### 5 7021-8 #### [facility] CLIA [id number] [address] [place] [address] [place] Platelet mean volume (Bld) [Entitic vol] 8.1 fL Low 9.0-12.7 [facility] Comment on above: Order Comment: Speci men Type: BLOOD SPECIMEN Ordering Facility: [facility] Address: [address] [place] [address] Performed By: #### 5 7021-8 #### [facility] CLIA [id number] [address] [place] [address] [place] Platelets (Bld) [#/Vol] 251 10*3/uL Normal 150-400 [facility] Comment on above: Order Comment: Speci men Type: BLOOD SPECIMEN Ordering Facility: [facility] Address: [address] [place] [address] Performed By: #### 5 7021-8 #### [facility] CLIA [id number] [address] [place] [address] [place] RBC (Bld) [#/Vol] 4.64 10*6/uL Normal 3.90-5.20 [facility] Comment on above: Order Comment: Speci men Type: BLOOD SPECIMEN Ordering Facility: [facility] Address: [address] [place] [address] Performed By: #### 5 7021-8 #### [facility] CLIA [id number] [address] [place] [address] [place] WBC (Bld) [#/Vol] 8.88 10*3/uL Normal 3.70-11.00 [facility] Comment on above: Order Comment: Speci men Type: BLOOD SPECIMEN Ordering Facility: [facility] Address: [address] [place] [address] Performed By: #### 5 7021-8 #### [facility] CLIA [id number] [address] [place] [address] [place] CNOVSPon 10-09-2024 CNOVSP Visit (SP) Office (HEMAWS) NAZANIN LUDWIG ([id number]) 1985 F Date Time Provider Department 10/09/24 9:00 AM JULIO BENITES During your visit today, we recorded the following information about you: Temperature Pulse Blood pressure Weight 97.8 degrees 88/minute 128/85 123.8 kg Height 1.575 m Julio Benites MD 10/09/2024 9:56 AM Signed HISTORY OF PRESENT ILLNESS: Nazanin Ludwig is a 39 year old female generally health is good, was dyspneic in November 2023, noted to have elevated d dimer in ER, was 946, 2.05. CTA chest negative or PE. Did not have US legs Routine cbc in August 2024 showed normalcy other than differential showed 1% metamyelocytes and 6% myelocytes. She felt well at the time, no evidence acute infection No fevers or sweats. Non smoker. No unexplained weight loss. One episode blood in stool. CLINICAL IMPRESSION: Left shift on routine cbc in August 2024 Persistently elevated d dimer, but decreased from November 2023 RECOMMENDATION/PLAN: 1. Daniel recheck d dimer, cbc today 2. Agree with updating cancer screening, favor colonoscopy given episode blood in stool 3. [facility], need for further testing Written and verbal health teaching given to patient, patient verbalizes understanding and agrees with treatment plan. PAST MEDICAL HISTORY Diagnosis Date Asthma Prediabetes PAST SURGICAL HISTORY Procedure Laterality Date REMOVAL GALLBLADDER FAMILY HISTORY Problem Relation Age of Onset Diabetes Mother Social History Tobacco Use Smoking status: Never Smokeless tobacco: Never ALLERGIES: ALLERGIES No Known Allergies CURRENT OUTPATIENT MEDICATIONS: BIOTIN ORAL Take 1 tablet by mouth once daily. Lactobacillus acidophilus (PROBIOTIC ORAL) Take 1 tablet by mouth once daily. OTC PRODUCT Collagen: Take two tablets by mouth once daily. omeprazole (PRILOSEC) 20 mg capsule Take 1 capsule by mouth once daily as needed. REVIEW OF SYSTEMS: GENERAL: No fever, night sweats, weight loss or malaise. All other reviewed and negative other than HPI. PHYSICAL EXAMINATION: VITAL SIGNS: BP 128/85 Pulse 88 Temp (Src) 97.8 (Temporal) Ht 5' 2" (1.58m) Wt 273 lb (123.8kg) SpO2 98% BMI 49.92 kg/(m2). GENERAL APPEARANCE: Well appearing, in no acute distress, alert and oriented x3, well-hydrated, well nourished. No palpable adenopathy I spent a total of 45 minutes on the date of the service which included preparing to see the patient, [id number] patient care, completing clinical documentation, obtaining and/or reviewing separately obtained history, performing a medically appropriate examination, counseling and educating the patient/family/caregi royer, ordering medications, tests, or procedures, independently interpreting results (not separately reported), and communicating results to the patient/family/caregi royer. Electronically Signed: Julio Benites MD October 09, 2024 9:04 AM Julio Benites MD 10/10/2024 3:27 PM Signed Addended by: JULIO BENITES on: 10/10/2024 03:27 PM Modules accepted: Orders Referring Provider: CLEOPATRA JIMÉNEZ [[id number]] Allergies As of Date: 10/09/2024 (No Known Allergies) Date Reviewed: 10/09/2024 Reviewed by: Shi Travis Ma MA - Fully Assessed Reason for Visit: New Patient Evaluation [154] Primary Visit Diagnosis:Elevated d-dimer [R79.89] Other Visit Diagnosis:Left shift [D72.89] Order(s):COMPLETE BLOOD COUNT AND DIFFERENTIAL [SQCBCDIF] Order #: [id number] FUTURE D-DIMER [SQDDMER] Order #: [id number] FUTURE US LEG VEIN DVT [facility] [[id number]] Order #: [id number] FUTURE Follow-up and Disposition History for Encounter Date Provider Department Center 10/09/2024 [id number] BENITES [facility] Prescriptions as of 10/10/2024 - BIOTIN ORAL Take 1 tablet by mouth once daily. - Lactobacillus acidophilus (PROBIOTIC ORAL) Take 1 tablet by mouth once daily. - OTC PRODUCT Collagen: Take two tablets by mouth once daily. - omeprazole (PRILOSEC) 20 mg capsule Take 1 capsule by mouth once daily as needed. Problem List As Of Date: 10/09/2024 (None) Encounter Status:Closed by JULIO BENITES on 10/09/24 Normal [facility] D dimer FEU PPP-mCncon 10-09 Fibrin D-dimer FEU (PPP) [Mass/Vol] 570 ng/mL FEU High <500 [facility] Comment on above: Order Comment: Speci men Type: BLOOD SPECIMEN Ordering Facility: [facility] Address: [address] [place] [address] Result Comment: Joshua en Plasma Aliquot Performed By: #### 4 8065-7 #### [facility] CLIA [id number] [address] [place] [address] [facility] D-DIMEROrdered By: Fanny nj on 10-09-2024 Fibrin D-dimer FEU (PPP) [Mass/Vol] 570 High [facility] Comment on above: Frozen Plasma Aliquo t Fibrin D-dimer FEU (PPP) [Ma ss/Vol]Ordered By: Fanny Frye on 10-09-2024 Interpretation and review of laboratory results Abnormal [facility] 500 ng/mL FEU is the D Dimer cutoff to exclude DVT (deep vein thrombosis) and PE (pulmonary embolism) in patients with a low pre test probability. Supplemental Comment: In patients over 50 years with a low pre test probability for DVT and/or PE, an age adjusted D dimer cutoff can be calculated as [age x 10] ng/mL FEU. For example, a patient of 88 years would have an age adjusted D dimer cutoff of 880 ng/mL FEU. For patients with a suspected DVT, a D dimer level below 500 ng/mL FEU has a negative predictive value of >98.9%, a sensitivity of >96.9% and a specificity of >35.7%. For patients with a suspected PE, a D dimer level below 500 ng/mL FEU has a negative predictive value of >98.5%, and a sensitivity of >96.5% and a specificity of >38.8%. Reference: Natalya M, et al. LÓPEZ 2014 311:1117 and Van Zaina N, et al. Clarissa Int Med 2016 165:253. [facility] 3D MAMM BILAT SCREENon 09-28 3D MAMM BILAT SCREEN [place] [id number] Patient: NAZANIN LUDWIG Phone#: : 1985 Age: 39 Gender: F Pt. Type: Out Account: [id number] Location: 052 Ordering: CLEOPATRA JIMÉNEZ Exam Date: 09/28/2024/14:18 Family Phys: Charge Code: [id number] Physician: Page Order #: [id number] Dose#: PROCEDURE: BILATERAL SCREENING BREAST TOMOSYNTHESIS MAMMOGRAM WITH CAD COMPARISON: None. INDICATIONS: Baseline screening. BREAST COMPOSITION: Almost entirely fatty. FINDINGS: DIAGNOSTIC CATEGORY 1--NEGATIVE: RIGHT BREAST: No significant suspicious finding. LEFT BREAST: No significant suspicious finding. RECOMMENDATIONS: ROUTINE MAMMOGRAM AND CLINICAL EVALUATION IN 12 MONTHS. PLEASE NOTE: A NORMAL MAMMOGRAM DOES NOT EXCLUDE THE POSSIBILITY OF BREAST CANCER. A CLINICALLY SUSPICIOUS PALPABLE LUMP SHOULD BE BIOPSIED. THIS FACILITY UTILIZES A REMINDER SYSTEM TO ENSURE THAT ALL PATIENTS RECEIVE REMINDER LETTERS FOR APPOINTMENTS. THIS INCLUDES REMINDERS FOR ROUTINE MAMMOGRAMS, DIAGNOSITC MAMMOGRAMS, OR OTHER BREAST IMAGING INTERVENTIONS WHEN APPROPRIATE. THIS PATIENT WILL BE PLACED IN THE APPROPRIATE REMINDER SYSTEM. Dictated by: Alannah Mccormack MD on 10/01/2024 at 20:53 Approved by: Alannah Mccormack MD on 10/01/2024 at 20:59 Normal [facility] US THYROIDon 09-28-2024 THYROID [place] [id number] Patient: NAZANIN LUDWIG Phone#: : 1985 Age: 39 Gender: F Pt. Type: Out Account: [id number] Location: 052 Ordering: CLEOPATRA JIMÉNEZ Exam Date: 09/28/2024/13:58 Family Phys: Charge Code: 703702 Physician: Page Order #: [id number] Dose#: PROCEDURE: THYROID ULTRASOUND COMPARISON: None. INDICATIONS: Enlarged thyroid. TECHNIQUE: High-resolution ultrasound was performed of the thyroid gland. FINDINGS: RIGHT LOBE: There is a nodule in the medial right lobe measuring 11 x 6 x 11 mm. The nodule is hypoechoic, a TR 4 nodule. Right lobe measures 5.1 x 1.5 x 1.4 cm. LEFT LOBE: Normal. No visible mass, cyst, calcification, enlargement, or abnormal echotexture. Left lobe measures 4.3 x 1.5 x 1.3 cm. ISTHMUS: Normal. No visible mass, cyst, calcification, enlargement, or abnormal echotexture. Isthmus measures 0.3 cm. OTHER: None. CONCLUSION: 1. Right TR 4 nodule, recommend follow-up at 1, 2, 3 and 5 years. Dictated by: Alannah Mccormack MD on 09/28/2024 at 14:46 Approved by: Alannah Mccormack MD on 09/28/2024 at 14:57 Normal [facility] CBC (INCLUDES DIFF/PLT)on ABSOLUTE METAMYELOCYTES 99 cells/uL High 0 [facility] Comment on above: Performed By: #### 4 96, 8659, 68187, 45862, 6399, 7600, 866, 899 #### [facility] [place] [address] Car Wiper: Sumeet Porras MD ABSOLUTE MYELOCYTES 594 cells/uL High [address] [facility] Comment on above: Performed By: #### 4 96, 8659, 72061, 89157, 6399, 7600, 866, 899 #### [facility] [place] [address] Car Wiper: Sumeet Porras MD Band form neutrophils (Bld) [#/Vol] 0.198 10*3/uL Normal 0-750 [facility] Comment on above: Performed By: #### 4 96, 8659, 98923, 07043, 6399, 7600, 866, 899 #### [facility] [place] [address] Car Wiper: Sumeet Porras MD Band form neutrophils/100 WBC (Bld) 2 % Normal [facility] Comment on above: Performed By: #### 4 96, 8659, 62186, 97823, 6399, 7600, 866, 899 #### [facility] [place] [address] Car Wiper: Sumeet Porras MD Basophils (Bld) [#/Vol] 0.099 10*3/uL Normal 0-200 [facility] Comment on above: Performed By: #### 4 96, 8659, 35802, 45713, 6399, 7600, 866, 899 #### [facility] [place] [address] Car Wiper: Sumeet Porras MD Basophils/100 WBC (Bld) 1 % Normal [facility] Comment on above: Performed By: #### 4 96, 8659, 98754, 76121, 6399, 7600, 866, 899 #### [facility] [place] [address] Car Wiper: Sumeet Porras MD COMMENT(S) Normal [facility] Comment on above: Result Comment: The smear has been manually reviewed and the manual differential has been reported. Performed By: #### 4 96, 8659, 31003, 67657, 6399, 7600, 866, 899 #### [facility] [place] [address] Car Wiper: Sumeet Porras MD Eosinophils (Bld) [#/Vol] 0.198 10*3/uL Normal 15-500 [facility] Comment on above: Performed By: #### 4 96, 8659, 57240, 84977, 6399, 7600, 866, 899 #### [facility] [place] [address] Car Wiper: Sumeet Porras MD Eosinophils/100 WBC (Bld) 2 % Normal [facility] Comment on above: Performed By: #### 4 96, 8659, 56871, 93309, 6399, 7600, 866, 899 #### [facility] [place] [address] Car Wiper: Sumeet Porras MD Erythrocyte distribution width (RBC) [Ratio] 13.2 % Normal 11.0-15.0 [facility] Comment on above: Performed By: #### 4 96, 8659, 98000, 58725, 6399, 7600, 866, 899 #### [facility] [place] [address] Car Wiper: Sumeet Porras MD Hematocrit (Bld) [Volume fraction] 40.1 % Normal 35.0-45.0 [facility] Comment on above: Performed By: #### 4 96, 8659, 68998, 39697, 6399, 7600, 866, 899 #### [facility] [place] [address] Car Wiper: Sumeet Porras MD Hemoglobin (Bld) [Mass/Vol] 12.7 g/dL Normal 11.7-15.5 [facility] Comment on above: Performed By: #### 4 96, 8659, 96404, 88228, 6399, 7600, 866, 899 #### [facility] [place] [address] Car Wiper: Sumeet Porras MD Lymphocytes (Bld) [#/Vol] 1.782 10*3/uL Normal 850-3900 [facility] Comment on above: Performed By: #### 4 96, 8659, 74463, 23470, 6399, 7600, 866, 899 #### [facility] [place] [address] Car Wiper: Sumeet Porras MD Lymphocytes/100 WBC (Bld) 18 % Normal [facility] Comment on above: Performed By: #### 4 96, 8659, 80246, 52109, 6399, 7600, 866, 899 #### [facility] [place] [address] Car Wiper: Sumeet Porras MD MCH (RBC) [Entitic mass] 27.7 pg Normal 27.0-33.0 [facility] Comment on above: Performed By: #### 4 96, 8659, 93316, 03468, 6399, 7600, 866, 899 #### [facility] [place] [address] Car Wiper: Sumeet Porras MD MCHC (RBC) [Mass/Vol] 31.7 g/dL Low 32.0-36.[address] [facility] Comment on above: Result Comment: For adults, a slight decrease in the calculated MCHC value (in the range of 30 to 32 g/dL) is most likely not clinically significant; however, it should be interpreted with caution in correlation with other red cell parameters and the patient's clinical condition. Performed By: #### 4 96, 8659, 66161, 23841, 6399, 7600, 866, 899 #### [facility] [place] [address] Car Wiper: Sumeet Porras MD MCV (RBC) [Entitic vol] 87.6 fL Normal 80.0-100.0 [facility] Comment on above: Performed By: #### 4 96, 8659, 94667, 32905, 6399, 7600, 866, 899 #### [facility] [place] [address] Car Wiper: Sumeet Porras MD METAMYELOCYTES 1 % High [facility] Comment on above: Performed By: #### 4 96, 8659, 44244, 32406, 6399, 7600, 866, 899 #### [facility] [place] [address] Car Wiper: Sumeet Porras MD Monocytes (Bld) [#/Vol] 0.297 10*3/uL Normal 200-950 [facility] Comment on above: Performed By: #### 4 96, 8659, 80385, 38322, 6399, 7600, 866, 899 #### [facility] [place] [address] Car Wiper: Sumeet Porras MD Monocytes/100 WBC (Bld) 3 % Normal [facility] Comment on above: Performed By: #### 4 96, 8659, 27991, 12726, 6399, 7600, 866, 899 #### [facility] [place] [address] Car Wiper: Sumeet Porras MD MYELOCYTES 6 % High [facility] Comment on above: Performed By: #### 4 96, 8659, 56135, 36905, 6399, 7600, 866, 899 #### [facility] [place] [address] Car Wiper: Sumeet Porras MD Neutrophils (Bld) [#/Vol] 6.633 10*3/uL Normal 0825-2212 [facility] Comment on above: Performed By: #### 4 96, 8659, 46017, 03994, 6399, 7600, 866, 899 #### [facility] [place] [address] Car Wiper: Sumeet Porras MD Neutrophils/100 WBC (Bld) 67 % Normal [facility] Comment on above: Performed By: #### 4 96, 8659, 88684, 67527, 6399, 7600, 866, 899 #### [facility] [place] [address] Car Wiper: Sumeet Porras MD Platelet mean volume (Bld) [Entitic vol] 8.4 fL Normal 7.5-12.5 [facility] Comment on above: Performed By: #### 4 96, 8659, 51919, 30020, 6399, 7600, 866, 899 #### [facility] of [address] [address] Car Wiper: Sumeet Porras MD Platelets (Bld) [#/Vol] 321 10*3/uL Normal 140-400 [facility] Comment on above: Performed By: #### 4 96, 8659, 35134, 68835, 6399, 7600, 866, 899 #### [facility] of [place] [address], [address] [place] [address] Car Wiper: Sumeet Porras MD RBC (Bld) [#/Vol] 4.58 10*6/uL Normal 3.80-5.10 [facility] Comment on above: Performed By: #### 4 96, 8659, 79600, 60616, 6399, 7600, 866, 899 #### [facility] [place] [address] [address] [place] [address] Car Wiper: Sumeet Porras MD WBC (Bld) [#/Vol] 9.9 10*3/uL Normal 3.8-10.8 [facility] Comment on above: Performed By: #### 4 96, 8659, 41877, 29141, 6399, 7600, 866, 899 #### [facility] [place] [address] [address] [place] [address] Car Wiper: Sumeet Porras MD COMPREHENSIVE METABOLIC PANE [facility] 09-18-2024 Albumin [Mass/Vol] 4.6 g/dL Normal 3.6-5.1 [facility] Comment on above: Performed By: #### 4 96, 8659, 62043, 04290, 6399, 7600, 866, 899 #### [facility] [place] [address], [address] [place] [address] Car Wiper: Sumeet Porras MD Albumin/Globulin [Mass ratio] 1.8 {ratio} Normal 1.0-2.5 [facility] Comment on above: Performed By: #### 4 96, 8659, 38421, 19820, 6399, 7600, 866, 899 #### [facility] [place] [address], [address] [place] [address] Car Wiper: Sumeet Porras MD ALP [Catalytic activity/Vol] 63 U/L Normal 31-125 [facility] Comment on above: Performed By: #### 4 96, 8659, 13771, 28367, 6399, 7600, 866, 899 #### [facility] [address], [address] [place] [address] Car Wiper: Sumeet Porras MD ALT [Catalytic activity/Vol] 20 U/L Normal 6-29 [facility] Comment on above: Performed By: #### 4 96, 8659, 40543, 52572, 6399, 7600, 866, 899 #### [facility] [place] [address] Car Wiper: Sumeet Porras MD AST [Catalytic activity/Vol] 19 U/L Normal 10-30 [facility] Comment on above: Performed By: #### 4 96, 8659, 30364, 53670, 6399, 7600, 866, 899 #### [facility] of [address], [address] [place] [address] Car Wiper: Sumeet Porras MD Bilirubin [Mass/Vol] 0.4 mg/dL Normal 0.2-1.2 [facility] Comment on above: Performed By: #### 4 96, 8659, 20684, 35866, 6399, 7600, 866, 899 #### [facility] [place] [address] Car Wiper: Sumeet Porras MD BUN/CREATININE RATIO SEE NOTE: Normal 6-22 [facility] Comment on above: Result Comment: Not Reported: BUN and Creatinine are within reference range. Performed By: #### 4 96, 8659, 57570, 22651, 6399, 7600, 866, 899 #### [facility] of [address], [address] [place] [address] Car Wiper: Sumeet Porras MD Calcium [Mass/Vol] 9.2 mg/dL Normal 8.6-10.2 [facility] Comment on above: Performed By: #### 4 96, 8659, 49210, 09980, 6399, 7600, 866, 899 #### [facility] [place] [address] Car Wiper: Sumeet Porras MD Chloride [Moles/Vol] 105 mmol/L Normal 98-110 [facility] Comment on above: Performed By: #### 4 96, 8659, 68721, 34464, 6399, 7600, 866, 899 #### [facility] [place] [address] Car Wiper: Sumeet Porras MD CO2 [Moles/Vol] 26 mmol/L Normal 20-32 [facility] Comment on above: Performed By: #### 4 96, 8659, 05669, 71314, 6399, 7600, 866, 899 #### [facility] [place] [address] Car Wiper: Sumeet Porras MD Creatinine [Mass/Vol] 0.74 mg/dL Normal 0.50-0.[address] [facility] Comment on above: Performed By: #### 4 96, 8659, 87766, 26503, 6399, 7600, 866, 899 #### [facility] [place] [address] Car Wiper: Sumeet Porras MD GFR/1.73 sq M.predicted among non-blacks MDRD (S/P/Bld) [Vol rate/Area] 105 mL/min/{1.73_m2} Normal > OR = 60 [facility] Comment on above: Performed By: #### 4 96, 8659, 26046, 84938, 6399, 7600, 866, 899 #### [facility] [place] [address] Car Wiper: Sumeet Porras MD Globulin (S) [Mass/Vol] 2.6 g/dL Normal 1.9-3.7 [facility] Comment on above: Performed By: #### 4 96, 8659, 84583, 90651, 6399, 7600, 866, 899 #### [facility] [place] [address] Car Wiper: Sumeet Porras MD Glucose [Mass/Vol] 105 mg/dL High 65-99 [facility] Comment on above: Result Comment: Fasting reference interval For someone without known diabetes, a glucose value between 100 and 125 mg/dL is consistent with prediabetes and should be confirmed with a follow-up test. Performed By: #### 4 96, 8659, 69328, 71530, 6399, 7600, 866, 899 #### [facility] [place] [address] Car Wiper: Sumeet Porras MD Potassium [Moles/Vol] 4.4 mmol/L Normal 3.5-5.3 P[address] [facility] Comment on above: Performed By: #### 4 96, 8659, 81290, 36131, 6399, 7600, 866, 899 #### [facility] [place] [address] Car Wiper: Sumeet Porras MD Protein [Mass/Vol] 7.2 g/dL Normal 6.1-8.1 [facility] Comment on above: Performed By: #### 4 96, 8659, 22198, 35832, 6399, 7600, 866, 899 #### [facility] [place] [address] Car Wiper: Sumeet Porras MD Sodium [Moles/Vol] 140 mmol/L Normal 135-146 [facility] Comment on above: Performed By: #### 4 96, 8659, 95228, 94752, 6399, 7600, 866, 899 #### [facility] [place] [address] Car Wiper: Sumeet Porras MD Urea nitrogen [Mass/Vol] 12 mg/dL Normal 7-25 [facility] Comment on above: Performed By: #### 4 96, 8659, 07619, 12628, 6399, 7600, 866, 899 #### [facility] [address], [address] [place] [address] Car Wiper: Sumeet Porras MD D-DIMER, QUANTITATIVEon 08-26 D-DIMER, QUANTITATIVE 0.61 mcg/mL FEU High <0.50 [facility] Comment on above: Result Comment: Elev ated D-dimer levels are associated with DIC, malignancies, inflammation, sepsis, surgery, trauma, and . A D-dimer result less than 0.5 mcg/mL FEU, in conjunction with a non-high clinical pre-test probability assessment model, excludes deep vein thrombosis and pulmonary embolism. However, since D-dimer values increase with age, the [employer] recommends an age-adjusted cut-off value in patients older than 50. The calculation for an age adjusted cut-off value is age (years) x 0.01 mcg/mL FEU. For example, the cut-off for a 70-year-old patient would be 68 x 0.01 mcg/mL FEU. For additional information, please refer to http://education.Kliqed/faq/PUO703 (This link is being provided for informational/educational purposes only.) Performed By: #### 4 96, 8659, 94044, 58810, 6399, 7600, 866, 899 #### [facility] [address], [address] [place] [id number] Car Wiper: Sumeet Porras MD HEMOGLOBIN A1con 09-18-2024 HEMOGLOBIN A1c 6.2 % of total Hgb High <5.7 [facility] Comment on above: Result Comment: For someone without known diabetes, a hemoglobin A1c value between 5.7% and 6.4% is consistent with prediabetes and should be confirmed with a follow-up test. For someone with known diabetes, a value <7% indicates that their diabetes is well controlled. A1c targets should be individualized based on duration of diabetes, age, comorbid conditions, and other considerations. This assay result is consistent with an increased risk of diabetes. Currently, no consensus exists regarding use of hemoglobin A1c for diagnosis of diabetes for children. Performed By: #### 4 420, 8662, 809 #### [facility] [address], [address] [place] [address] Car Wiper: Sumeet Porras MD LIPID PANEL, [facility] 08-26 Cholesterol [Mass/Vol] 191 mg/dL Normal <200 [facility] Comment on above: Performed By: #### 4 96, 8659, 20788, 52204, 6399, 7600, 866, 899 #### [facility] [address], [address] [place] [address] Car Wiper: Sumeet Porras MD Cholesterol in HDL [Mass/Vol] 54 mg/dL Normal > OR = 50 [facility] Comment on above: Performed By: #### 4 96, 8659, 64910, 80200, 6399, 7600, 866, 899 #### [facility] [place] [address] Car Wiper: Sumeet Porras MD Cholesterol in LDL [Mass/Vol] 104 mg/dL High [facility] Comment on above: Result Comment: Refe rence range: <100 Desirable range <100 mg/dL for primary prevention; <70 mg/dL for patients with CHD or diabetic patients with > or = 2 CHD risk factors. LDL-C is now calculated using the Domingo calculation, which is a validated novel method providing better accuracy than the Friedewald equation in the estimation of LDL-C. Sean TRAVIS et al. LÓPEZ. 2013;310(19): 7331-7026 (http://education.Skweez.Advent Solar/faq/OVM690) Performed By: #### 4 96, 8659, 53398, 78557, 6399, 7600, 866, 899 #### [facility] [address], [address] [place] [address] Car Wiper: Sumeet Porras MD Cholesterol.total/Gretel sterol in HDL [Mass ratio] 3.5 {ratio} Normal <5.0 [facility] Comment on above: Performed By: #### 4 96, 8659, 69354, 01843, 6399, 7600, 866, 899 #### [facility] [address], [address] [place] [address] Car Wiper: Sumeet Porras MD NON HDL CHOLESTEROL 137 mg/dL (calc) High <130 [facility] Comment on above: Result Comment: For patients with diabetes plus 1 major ASCVD risk factor, treating to a non-HDL-C goal of <100 mg/dL (LDL-C of <70 mg/dL) is considered a therapeutic option. Performed By: #### 4 96, 8659, 58235, 58544, 6399, 7600, 866, 899 #### [facility] [address], [address] [place] [address] Car Wiper: Sumeet Porras MD Triglyceride [Mass/Vol] 213 mg/dL High <150 [facility] Comment on above: Result Comment: If a non-fasting specimen was collected, consider repeat triglyceride testing on a fasting specimen if clinically indicated. Hawa et al. J. of Clin. Lipidol. 2015;9:129-169. Performed By: #### 4 96, 8659, 06175, 72266, 6399, 7600, 866, 899 #### [facility] [place] [address] Car Wiper: Sumeet Porras MD T4, FREEon 09-18-2024 Free T4 [Mass/Vol] 1.1 ng/dL Normal 0.8-1.8 [facility] Comment on above: Performed By: #### 4 96, 8659, 82709, 66007, 6399, 7600, 866, 899 #### [facility] [address], [address] [place] [address] Car Wiper: Sumeet Porras MD TSHon 09-18-2024 TSH Qn 1.53 m[IU]/L Normal [facility] Comment on above: Result Comment: Refe rence Range > or = 20 Years 0.40-4.50 Ranges First trimester 0.26-2.66 Second trimester 0.55-2.73 Third trimester 0.43-2.91 Performed By: #### 4 96, 8659, 73789, 98882, 6399, 7600, 866, 899 #### [facility] [address], [address] [place], [place] [id number] Car Wiper: Sumeet Porras MD VITAMIN D,25-OH,TOTAL,IAon 0 09-18-2024 VITAMIN D,25-OH,TOTAL,IA 32 ng/mL Normal 30-100 [facility] Comment on above: Result Comment: Cadence min D Status 25-OH Vitamin D: Deficiency: <20 ng/mL Insufficiency: 20 - 29 ng/mL Optimal: > or = 30 ng/mL For 25-OH Vitamin D testing on patients on D2-supplementation and patients for whom quantitation of D2 and D3 fractions is required, the QuestAssureD(TM) 25-OH VIT D, (D2,D3), LC/MS/MS is recommended: order code 28065 (patients >2yrs). See Note 1 Note 1 For additional information, please refer to http://education.Kliqed/faq/NYJ087 (This link is being provided for informational/ educational purposes only.) Performed By: #### 4 96, 8659, 26098, 45794, 6399, 7600, 866, 899 #### [facility] [address], [address] [place], [place] [id number] Car Wiper: Sumeet Porras MD Laboratory - Chemistry and C hemistry - challengeon 09-17-2024 Albumin [Mass/Vol] 4.6 g/dL Normal 3.6 - 5.1 g/dL [facility] [employer] Albumin/Globulin [Mass ratio] 1.8 {ratio} Normal 1.0 - 2.5 [place] [employer], [facility].; [employer] ALP [Catalytic activity/Vol] 63 U/L Normal 31 - 125 U/L [place] [employer] [facility].; [employer] ALT [Catalytic activity/Vol] 20 U/L Normal 6 - 29 U/L [place] [employer] [facility].; [employer] AST [Catalytic activity/Vol] 19 U/L Normal 10 - 30 U/L Ta [facility].; [facility], [facility]. Bilirubin [Mass/Vol] 0.4 mg/dL Normal 0.2 - 1 .2 mg/dL [facility].; [facility], [facility]. Calcium [Mass/Vol] 9.2 mg/dL Normal 8.6 - 10. 2 mg/dL [facility], [facility].; [facility] Chloride [Moles/Vol] 105 mmol/L Normal 98 - 11 0 mmol/L [facility].; [facility], [facility]. Cholesterol [Mass/Vol] 191 mg/dL Normal [facility]; [facility], [facility] Cholesterol in HDL [Mass/Vol] 54 mg/dL Normal [facility].; [facility], [facility] Cholesterol in LDL [Mass/Vol] 104 mg/dL Abnormal [facility]; [facility], [facility] CO2 [Moles/Vol] 26 mmol/L Normal 20 - 32 mmol/L [facility].; [facility], [facility] Creatinine [Mass/Vol] 0.74 mg/dL Normal 0.50 - 0.99 mg/dL [facility], [facility].; [facility], [facility]. Free T4 [Mass/Vol] 1.1 ng/dL Normal 0.8 - 1.8 ng/dL [facility], [facility].; [facility], [facility]. GFR/1.73 sq M.predicted among non-blacks MDRD (S/P/Bld) [Vol rate/Area] 105 mL/min/{1.73_m2} Normal [facility].; [facility], [facility]. Glucose [Mass/Vol] 105 mg/dL Abnormal 65 - 99 mg/dL [facility], [facility].; [facility], [facility]. Potassium [Moles/Vol] 4.4 mmol/L Normal 3.5 - 5.3 mmol/L [facility], [facility].; [facility], [facility]. Protein [Mass/Vol] 7.2 g/dL Normal 6.1 - 8.1 g/dL [facility], [facility].; [facility], [facility]. Sodium [Moles/Vol] 140 mmol/L Normal 135 - 146 mmol/L [facility].; [facility], [facility]. Triglyceride [Mass/Vol] 213 mg/dL Abnormal [facility] TSH Qn 1.53 m[IU]/L [facility]; [place] [facility] [employer], [facility] Urea nitrogen [Mass/Vol] 12 mg/dL Normal 7 - 25 mg/dL [facility].; [facility] [employer] [facility] Laboratory - Hematology and Cell countson 09-17-2024 Band form neutrophils (Bld) [#/Vol] 0.198 10*3/uL Normal 0 - 750 {cells/uL} [facility].; [facility] Band form neutrophils/100 WBC (Bld) 2 % Normal [facility].; [facility], [facility] Basophils (Bld) [#/Vol] 0.099 10*3/uL Normal 0 - 200 {cells/uL} [facility].; [facility] [employer], [facility] Basophils/100 WBC (Bld) 1 % Normal [facility].; [facility] Eosinophils (Bld) [#/Vol] 0.198 10*3/uL Normal 15 - 500 {cells/uL} [facility].; [facility], [facility] Eosinophils/100 WBC (Bld) 2 % Normal [facility].; [place] [employer] [facility] Erythrocyte distribution width (RBC) [Ratio] 13.2 % Normal 11.0 - 15.0 % [facility].; [place] [facility] [employer], [facility] HbA1c (Bld) [Mass fraction] 6.2 % Abnormal [facility].; [place] [facility] [employer], [facility] Hematocrit (Bld) [Volume fraction] 40.1 % Normal 35.0 - 45.0 % [facility].; [place] [facility] [employer], [facility]. Hemoglobin (Bld) [Mass/Vol] 12.7 g/dL Normal 11.7 - 15.5 g/dL [facility].; [place] [facility] [employer], [facility] Lymphocytes (Bld) [#/Vol] 1.782 10*3/uL Normal 850 - 3900 {cells/uL} [place] [employer], [employer]. Lymphocytes/100 WBC (Bld) 18 % Normal [place] [employer] [facility].; [place] [employer], [employer]. MCH (RBC) [Entitic mass] 27.7 pg Normal 27.0 - 33.0 pg [place] [employer].; [place] [employer], [employer]. MCHC (RBC) [Mass/Vol] 31.7 g/dL Abnormal 32.0 - 36.0 g/dL [place] [employer] [facility].; [employer] MCV (RBC) [Entitic vol] 87.6 fL Normal 80.0 - 100.0 fL [place] [employer] [place] [employer], [employer]. Monocytes (Bld) [#/Vol] 0.297 10*3/uL Normal 200 - 950 {cells/uL} [place] [facility] [employer], [employer].; [employer] Monocytes/100 WBC (Bld) 3 % Normal [facility].; [place] [facility] [employer], [employer]. Neutrophils (Bld) [#/Vol] 6.633 10*3/uL Normal 1500 - 7800 {cells/uL} [employer], [employer]. Neutrophils/100 WBC (Bld) 67 % Normal [place] [employer], [employer]. Platelet mean volume (Bld) [Entitic vol] 8.4 fL Normal 7.5 - 12.5 fL [place] [facility] [employer], [employer].; [employer] Platelets (Bld) [#/Vol] 321 10*3/uL Normal 140 - 400 [place] [employer] RBC (Bld) [#/Vol] 4.58 10*6/uL Normal 3.80 - 5.1 0 {Million/uL} [employer], [employer]. WBC (Bld) [#/Vol] 9.9 10*3/uL Normal 3.8 - 10.8 [place] [employer], [employer].; [employer], [employer]. No Panel Informationon 09-17 ABSOLUTE METAMYELOCYTES 99 {cells/uL} Abnormal [employer], [employer]. ABSOLUTE MYELOCYTES 594 {cells/uL} Abnormal [facility], [facility]. BUN/CREATININE RATIO SEE NOTE: Normal 6 - 22 [facility].; [facility], [facility]. CHOL/HDLC RATIO 3.5 Normal [facility] [facility].; [facility], [employer]. COMMENT(S) SEE NOTE Normal [facility], [facility].; [facility], Inc[employer] D-DIMER, QUANTITATIVE 0.61 {mcg/mL_FEU} Abnormal [facility], [facility].; [facility], [employer]. GLOBULIN 2.6 Normal 1.9 - 3.7 [facility].; [facility], [facility]. METAMYELOCYTES 1 % Abnormal [facility].; [facility], [facility]. MYELOCYTES 6 % Abnormal [facility].; [facility], [facility]. NON HDL CHOLESTEROL 137 [facility]normal [facility].; [facility], [employer]. VITAMIN D,25-OH,TOTAL,IA 32 ng/mL Normal 30 - 100 ng/mL [facility].; [place] [employer]. CT CHEST (PE PROTOCOL)on CT CHEST (PE PROTOCOL) [place] [address] Patient: NAZANIN LUDWIG Phone#: : 1985 Age: 38 Gender: F Pt. Type: ER Account: [id number] Location: [facility] Ordering: DR. DAVID NEVES Exam Date: 07/28/2024/0:09 Family Phys: CLEOPATRA JIMÉNEZ Charge Code: 615577 Physician: Page Order #: [id number] Dose#: [id number] PROCEDURE: CT CHEST WITH CONTRAST FOR PE COMPARISON: [facility], XR, CHEST 1 VIEW, 07/27/2024, 22:58. [facility], CT, CHEST PE W CON, 12/20/2023, 16:27. INDICATIONS: Chest pain. TECHNIQUE: After obtaining the patient's consent, CT images were obtained with non-ionic intravenous contrast material. Multi-planar images were created to optimize visualization of vascular anatomy with MPR/MIPS and 3D imaging. All CT scans at this facility use dose modulation, iterative reconstruction, and/or weight based dosing when appropriate to reduce radiation dose to as low as reasonably achievable. IV CONTRAST: Omnipaque 350,100ml TOTAL DOSE: 11.60 CTDIvol(mGy) FINDINGS: Study limited by patient body habitus. VASCULATURE: No pulmonary embolism. AORTA: No aortic aneurysm. LUNGS: Geographic areas of ground-glass attenuation. Left lower lobe nodule similar to prior measuring 0.5 cm, series 4, image 58 PANCHITO: Normal. No mass or adenopathy. MEDIASTINUM: Normal. No mass or adenopathy. CARDIAC: Mild cardiomegaly PLEURA: Normal. No mass or effusion. CHEST WALL: Normal. No mass or axillary adenopathy. LIMITED ABDOMEN: Normal. Limited images of the upper abdomen are unremarkable. BONES: Normal. No bony lesion or fracture. OTHER: Negative. CONCLUSION: 1. No pulmonary embolism. 2. Geographic areas of ground-glass density, this may be due to pneumonitis, alveolitis, pulmonary edema or phase of respiration. [place] [address] Patient: NAZANIN LUDWIG Phone#: : 1985 Age: 38 Gender: F Pt. Type: ER Account: [id number] Location: [facility] Ordering: DR. DAVID NEVES Exam Date: 07/28/2024/0:09 Family Phys: CLEOPATRA JIMÉNEZ Charge Code: 752101 Physician: Page Order #: [id number] Dose#: [id number] Dictated by: Alannah Mccormack MD on 07/28/2024 at 16:09 Approved by: Alannah Mccormack MD on 07/28/2024 at 16:17 Normal [facility] ED MED ADMINISTRATION DETAIL on 07-28-2024 ED MED ADMINISTRATION DETAIL Registered Route Associate Medication Administration Record [address] [address] [id number] 07/27/2024 Patient: NAZANIN LUDWIG Sex: Female : 1985 Age: 38y MEASUREMENTS: Wt: 113.4 kg, Ht/Jacinto: 62.0 in, BMI: 45.73 ALLERGIES: No known drug allergies Medication Ordered Medication Administration Date/Time MORPHine IVP 4 23:07/27 MORPHine IVP 4 mg given via Site# 1. Allergies Given mg (NOW x1, HIGH verified and confirmed 5 rights. IV patency established. IV site 23:07/27/2024 ALERT checked: no pain, redness, or swelling. IV flushed thoroughly Chris Benson, R.N. MEDICATION) pre-medication administration. Information reviewed with patient Scanned including reason for taking this medication. Verbalizes understanding. - 23: Chris Benson, R.N. 00:07/28 Medication Response: No adverse reaction. Pain is improving. - 02: Chris Benson, R.N. Zofran IVP 4 mg 23:07/27 Zofran IVP 4 mg given via Site# 1. Allergies verified Given (NOW x1) and confirmed 5 rights. IV patency established. IV site checked: no 23:07/27/2024 pain, redness, or swelling. IV flushed thoroughly pre-medication Chris Benson, R.N. administration. Information reviewed with patient including reason Scanned for taking this medication. Verbalizes understanding. - 23: Chris Benson, R.N. 1 of [address] Medication Ordered Medication Administration Date/Time IV NS 0.9 % 1000 23:07/27 IV NS 0.9 % 1000 mL started in bag#1 1000 mL at Started mL at 999 mL/hr 999 mL/hr via Site# 1. Allergies verified and confirmed 5 rights. IV 23:07/27/2024 (NOW x1) patency established. IV site checked: no pain, redness, or swelling. Chris Benson, R.N. IV flushed thoroughly pre-medication administration. Information Stopped reviewed with patient including reason for taking this medication. 00:07/28/2024 Verbalizes understanding. - 23:04 Chris Benson, R.N. Chris Benson, R.N. Scanned 00:07/28 Medication Discontinued: bag #1 completed. Total amount infused: 1000 mL. IV patency established. IV site checked: no pain, redness, or swelling. IV flushed thoroughly post-medication administration. - 01:23 Chris Knowles R.N. 2 of 2 Normal [facility] ED NURSES CLINICAL NOTEon ED NURSES CLINICAL NOTE Nurse Narrative Nurse Clinical Narrative [facility] [address] [facility] [place] [address] [id number] 07/27/2024 Patient: NAZANIN LUDWIG Sex: Female : 1985 Age: 38y Disposition: Discharge to Home Disposition Decision Time: 02:15 07/28/2024 Departure Time: 02:22 07/28/2024 TRIAGE Arrived by private vehicle. Historian: patient. Accompanied by friend. Primary physician (Tino). Triage time: 22:36 07/27/2024. Acuity: LEVEL 3. Chief Complaint: CHEST PAIN. Onset. (30 minutes prior to arrival). The patient has had difficulty breathing and nausea. SEPSIS SCREEN: NEGATIVE. SIRS criteria negative. No possible sources of infection. -- 22:49 07/27/24 GRADY Cronin R.N. 22:44 07/27/24. RR: 14. Temperature: 97.7 F. Pain level now 8/10. -- 22:49 07/27/24 Lashawn OleaNTana 22:46 07/27/24. BP: 130/68 MAP: 86 mmHg. HR: 111 bpm. -- 22:49 07/27/24 GRADY Cronin R.N. 22:46 07/27/24. HR: 112 bpm. O2 saturation: 100%. -- 22:49 07/27/24 GRADY Cronin R.N. Measurements: 22:49 07/27/24 Wt: 113.4 kg, Ht/Jacinto: 62.0 in, BMI: 45.73 -- 22:49 07/27/24 GRADY Cronin R.N. Medications: no home medications -- 22:50 07/27/24 GRADY Cronin R.N. 1 of 4 Nurse Narrative Allergies: no known drug allergies -- 22:47 07/27/24 GRADY Cronin R.N. Problems: Asthma -- 22:47 07/27/24 GRADY Cronin R.N. pre- diabetic -- 22:47 07/27/24 GRADY Cronin R.N. ADDITIONAL SURGERIES: Cholecystectomy -- 22:47 07/27/24 GRADY Cronin R.N. History 22:36 07/27/24. PAST MEDICAL HX: Last normal menstrual period- 1 weeks ago. Denies current . SOCIAL HX: Never smoker. No alcohol use or drug use. The patient has not traveled outside the [place] Infectious disease exposure: No infectious disease exposure. ABUSE ASSESSMENT: The patient answered "yes" to the question(s) "Do you feel safe in your home?" and "no" to the question(s) "Are you afraid to go home?". SELF HARM ASSESSMENT: Self harm assessment was performed. The patient answered "no" to the question(s) "Have you recently felt down, depressed, or hopeless?" and "Do you have thoughts of harming or killing yourself?". FALL RISK ASSESSMENT: Fall risk assessment completed. No risk factors identified. -- 22:49 07/27/24 GRADY Cronin R.N. Interventions 22:36 07/27/24. Identification band on patient. -- 22:49 07/27/24 GRADY Cronin R.N. PHYSICAL ASSESSMENT 2 of 4 Nurse Narrative 22:58 07/27/24. Ambulatory to room. ( sudden onset chest pain around 2215, pt was sitting on the couch, no known causative factors. Sudden onset, 9/10, denies nausea vomiting, states it feels like pressure.). GENERAL / NEURO / PSYCH: Alert. Oriented X 4. Appears in pain. RESPIRATORY: Respirations not labored. CVS: Normal sinus rhythm noted. GI / : Abdomen soft and nontender. -- 22:58 07/27/24 EST Chris Knowles R.N. NURSING PROGRESS NOTES 22:46 07/27/24. Site #1 started via IV in the right antecubital space with an 18g angiocath with aseptic technique and good blood return; 1 attempt. Blood drawn: rainbow set tube(s). Labeled in the presence of the patient and sent to the lab. Saline lock flushed with 5 mL saline. -- 22:54 07/27/24 Gilbert Jeffery-P. 22:58 07/27/24. 12-LEAD EKG: EKG time: (22:44 07/27/2024). 12-Lead EKG was ordered, performed by a logistics technician and shown to the ED physician. -- 22:58 07/27/24 GRADY Knowles R.N. 23:07/27/24. IV NS 0.9 % 1000 mL started in bag#1 1000 mL at 999 mL/hr via Site# 1. Allergies verified and confirmed 5 rights. IV patency established. IV site checked: no pain, redness, or swelling. IV flushed thoroughly pre-medication administration. Information reviewed with patient including reason for taking this medication. Verbalizes understanding. -- 23:07/27/24 Kendal Price.NTana 23:07/27/24. Portable chest x-ray completed. -- 23:09 07/27/24 GRADY Knowles R.NTana 23:07/27/24. Zofran IVP 4 mg given via Site# 1. Allergies verified and confirmed 5 rights. IV patency established. IV site checked: no pain, redness, or swelling. IV flushed thoroughly pre-medication administration. Information reviewed with patient including reason for taking this medication. Verbalizes understanding. -- 23:07/27/24 GRADY Knowles R.N. 23:07/27/24. MORPHine IVP 4 mg given via Site# 1. Allergies verified and confirmed 5 rights. IV patency established. IV site checked: no pain, redness, or swelling. IV flushed thoroughly pre-medication administration. Information reviewed with patient including reason for taking this medication. Verbalizes understanding. -- 23:07/27/24 GRADY Knowles R.N. 23:59 07/27/24. Patient transported to [place]. -- 00:49 07/28/24 GRADY Knowles R.NTana 00:03 07/28/24. IV NS 0.9 %: Medication Discontinued. bag #1 completed. Total amount infused: 1000 mL. IV patency esta (more content not included)... Normal [facility] ED ORDER SHEET (CPOE ONLY)on 07-28-2024 ED ORDER SHEET (CPOE ONLY) Order Sheet Order Sheet [facility] [address] [place] [address] [id number] 07/27/2024 Patient: NAZANIN LUDWIG Sex: Female : 1985 Age: 38y MEASUREMENTS: Wt: 113.4 kg, Ht/Jacinto: 62.0 in, BMI: 45.73 ALLERGIES: No known drug allergies MEDICATION/IV/DRIP/FL UID ORDERS Order Description Priority Entered Acknowledged Completed MORPHine IVP4 mg (NOW x1, 22:57 07/27/2024 23:00 23:05 HIGH ALERT MEDICATION) David eNves M.D. 07/27/2024 07/27/2024 Domi Preston R.N. Zofran IVP4 mg (NOW x1) 22:57 07/27/2024 23:00 23:05 David Neves M.D. 07/27/2024 07/27/2024 Domi Preston R.N. IV NS 0.9 %1000 mL at 999 22:57 07/27/2024 23:00 23:04 mL/hr (NOW x1) David Neves M.D. 07/27/2024 07/27/2024 Domi Preston, R.N. LAB ORDERS Order Description Priority Entered Acknowledged Collected Completed CBC w Diff Stat Stat 22:56 07/27/2024 22:56 07/27/2024 Chris Chacon R.N. M.D. 1 of 3 Order Sheet BNP Stat Stat 22:56 07/27/2024 22:56 07/27/2024 Chris Chacon R.N. M.D. CMP Stat Stat 22:56 07/27/2024 22:56 07/27/2024 Chris Chacon R.N. M.D. Troponin-I Stat Stat 22:56 07/27/2024 22:56 07/27/2024 Chris Chacon R.N. M.D. D-Dimer Stat Stat 22:56 07/27/2024 22:56 07/27/2024 Chris Chacon R.N. M.D. EKG - ED Stat Stat 22:56 07/27/2024 22:56 07/27/2024 Chris Chacon R.N. M.D. Troponin-I Stat Stat 00:55 07/28/2024 01:07 07/28/2024 01:15 07/28/2024 Chris Chacon R.N. Seth Lapp, R.N. M.D. DIAGNOSTIC STUDY ORDERS Order Description Priority Entered Acknowledged Completed Chest 1V Stat Stat 22:56 07/27/2024 22:56 23:09 David Neves M.D. 07/27/2024 07/27/2024 Domi Preston R.N. Reason for Study: Chest Pain CT Chest PE Study Stat Stat 23:31 07/27/2024 23:36 01:07 2 of 3 Order Sheet David Neves M.D. 07/27/2024 07/28/2024 Domi Preston RSreedhar Order Comments: 23:31 07/27/2024: (ACUTE CHEST PAIN SOB ELEVATED DIMER) David Neves M.D. Reason for Study: Chest Pain STAFF ORDERS Order Description Priority Entered Acknowledged Collected Completed [Electronically signed by David Neves M.D. (07/28/2024 03:32 EST)] 3 of 3 Normal [facility] ED PHYSICIAN CLINICAL REPORT on 07-28-2024 ED PHYSICIAN CLINICAL REPORT Narrative Physician Clinical Narrative [address] [address] [id number] 07/27/2024 Patient: NAZANIN LUDWIG Sex: Female : 1985 Age: 38y Disposition: Discharge to Home Disposition Decision Time: 02:15 07/28/2024 Departure Time: 02:22 07/28/2024 Measurements Wt: 113.4 kg, Ht/Jacinto: 62.0 in, BMI: 45.73 Initial Vital Sign Measured Time BP MAP HR RR O2Sat ETCO2 Temp Pain GCS RTS 22:44 07/27/2024 14 97.7 F 8 Time Seen: 22:44 07/27/2024. Historian- patient. Independent historian- family. HISTORY OF PRESENT ILLNESS Chief Complaint: CHEST PAIN. Additional history - ( 38-year-old female, presents to the ED with complaint of chest pain, started when she was watching TV tonight, described as midsternal, pressure-like, moderate intensity, nothing makes it worse or better. She also states that it feels hard to catch her breath. Denies nausea or vomiting. Stated that she had similar episode in the past, They thought she had pulmonary embolism at that time, ball and then up no having pulmonary embolism. She denies fever or chills. Denies early cardiac history in the family. Does not smoke cigarettes, does not drink alcohol. Does not use any drugs. Denies any recent travels.). REVIEW OF SYSTEMS Negative review of System unless otherwise mentioned in HPI. 1 of 9 Narrative PAST HISTORY Asthma pre- diabetic Surgeries: Cholecystectomy Medications: no home medications Allergies: no known drug allergies SOCIAL HISTORY Never smoker. ADDITIONAL NOTES The nursing notes have been reviewed. PHYSICAL EXAM Vital Signs: Have been reviewed. Appearance: Alert. Oriented X3. No acute distress. Eyes: Eyes normal inspection. ENT: Ears normal. CVS: Tachycardia. Respiratory: No respiratory distress. Abdomen: Soft and nontender. Skin: Skin warm. Normal skin color. No rash. Extremities: Extremities exhibit normal ROM. Neuro: Oriented X 3. No motor deficit. LABS, X-RAYS, AND EKG 2 of 9 Narrative Laboratory Tests: CBC + DIFF Final LES: 07/27/2024 22:46:00 EST MsgRcvd: 07/27/2024 23:54 EST Lab Test Result Reference Status Received Comments 07/27/2024 23:54 CBC-COMPLETE CBC + DIFF Final EST BLOOD COUNT 12.2 x 10/UL 07/27/2024 23:54 WBC 4.5 - 10.8 Final Above high normal EST 07/27/2024 23:54 RBC 4.60 x 10/UL 4.10 - 5.30 Final EST 07/27/2024 23:54 HEMOGLOBIN 13.7 g/dl 12.0 - 16.0 Final EST 07/27/2024 23:54 HEMATOCRIT 39.8 % 34.0 - 46.0 Final EST 07/27/2024 23:54 MCV 87 fl 80 - 99 Final EST 07/27/2024 23:54 MCH 30 pg 27 - 33 Final EST 07/27/2024 23:54 MCHC 34 X10 3 32 - 36 Final EST 07/27/2024 23:54 RDW/CV 13.4 % 12.0 - 15.6 Final EST 07/27/2024 23:54 PLATELET 257 x10/UL 150 - 450 Final EST 5.8 fl 07/27/2024 23:54 AUTOMATED MPV 6.6 - 10.5 Final Below low normal EST DIFFERENTIAL 3 of 9 Narrative 07/27/2024 23:54 NEUT % 51.0 % 46.0 - 76.0 Final EST 07/27/2024 23:54 LYMPH % 39.2 % 20.0 - 45.0 Final EST 07/27/2024 23:54 MONOS % 6.3 % 0.0 - 10.0 Final EST 07/27/2024 23:54 EO % 3.2 % 0.0 - 7.0 Final EST 07/27/2024 23:54 BASO % 0.3 % 0.0 - 2.0 Final EST 4.78 x10/UL 07/27/2024 23:54 Lymph # 0.80 - 2.80 Final Above high normal EST 07/27/2024 23:54 Neut # 6.23 x10/UL 1.50 - 7.10 Final EST 07/27/2024 23:54 Brule # 0.77 x10/UL 0.20 - 1.00 Final EST 07/27/2024 23:54 EO # 0.39 x10/UL 0.00 - 0.50 Final EST 07/27/2024 23:54 Baso # 0.03 x10/UL 0.00 - 0.10 Final EST 07/27/2024 23:54 MANUAL DIFF N/A New Order EST 07/27/2024 23:54 MORPHOLOGY REVIEWED Final EST CMP with eGFR Final LES: 07/27/2024 22:46:00 EST MsgRcvd: 07/27/2024 23:30 EST Lab Test Result Reference Status Received Comments 4 of 9 Narrative COMPREHENSIVE 07/27/2024 CMP with eGFR Final METABOLIC 23:30 EST PANEL 07/27/2024 SODIUM 140 mmol/l 136 - 145 Final 23:30 EST 3.4 mmol/L 07/27/2024 POTASSIUM 3.5 - 5.1 Final Below low normal 23:30 EST 07/27/2024 CHLORIDE 102 mmol/L 98 - 107 Final 23:30 EST 07/27/2024 CO2 28.7 mmol/L 21.0 - 32.0 Final 23:30 EST 135 mg/dl 07/27/2024 GLUCOSE Above high 74 - 106 Final 23:30 EST normal 07/27/2024 BUN 11 mg/dl 7 - 18 Final 23:30 EST 07/27/2024 CREATININE 0.91 mg/dl 0.55 - 1.02 Final 23:30 EST 07/27/2024 AST/SGOT 24 U/L 13 - 39 Final 23:30 EST 07/27/2024 ALK PHOS 83 U/L 46 - 116 Final 23:30 EST 07/27/2024 CALCIUM 9.3 mg/dl 8.5 - 10.1 Final 23:30 EST TOTAL 07/27/2024 7.5 g/dl 6.4 - 8.2 Final PROTEIN 23:30 EST 07/27/2024 ALBUMIN 3.7 g/dL 3.4 - 5.0 Final 23:30 EST 5 of 9 Narrative 07/27/2024 GLOBULIN 3.8 G/DL 1.5 - 3.8 Final 23:30 EST 07/27/2024 A/G RATIO 1 (more content not included)... Normal [facility] ED SUPER BILLon 07-28-2024 ED SUPER BILL [facility] [address] [place] [address] [phone] 07/27/2024 Patient: NAZANIN LUDWIG Sex: Female : 1985 Age: 38y Facility Professional Category Item Description Code Code Quantity Fee Total Drugs Normal Saline 951005 1 $0.00 $0.00 1000cc (665532) Nurse/E/M EMERGENCY 126886 1 $0.00 $0.00 DEPT VISIT HIGH SEVERITYFUNCJ (83975-39) Nurse/IV/IM/Infusions Hydration 297516 1 $0.00 $0.00 additional hour (25284) Nurse/IV/IM/Infusions IVP additional 619467 1 $0.00 $0.00 push (22068) Nurse/IV/IM/Infusions IVP initial (35112) 457323 1 $0.00 $0.00 Grand $0.00 Total Providers David Neves M.D. Chief Complaint 1 of 2 Superbill CHEST PAIN. Principal Diagnosis Chest pain characterized as "discomfort". ICD-10 Codes R07.89: Other chest pain 2 of 2 Normal [facility] ED VISIT SUMMARYon ED VISIT SUMMARY Visit Overview Visit Overview [address] [place] [address] [id number] 07/27/2024 Patient: NAZANIN LUDWIG Sex: Female : 1985 Age: 38y 07/28/2024 03:32 AM EST ED Arrival:22:41 07/27/2024 EST Status:not Recent Travel:no Language:eng Adv Directive: Isolation Status: Ethnicity:N Fall Risk:no risk Infectious Disease Exposure:no Measurements:5'2" / 157.5 Self-Harm Status:risk Sepsis Screen:negative cm 250.0 lb / 113.4 kg Chief Complaint:CHEST PAIN, (30 minutes prior to arrival ), and (Jiménez ) ALLERGIES No Known Drug Allergies HOME MEDICATIONS no home medications PAST MEDICAL HISTORY / PROBLEMS Asthma Last normal menstrual period- 1 weeks ago 1 of 3 Visit Overview pre- diabetic PAST SURGICAL HISTORY Cholecystectomy SOCIAL HISTORY Smoking status: No Alcohol use: No Drug use: No ED COURSE MEDICATIONS GIVEN IN EMERGENCY DEPARTMENT 23:03 07/27/24 IV NS 0.9 % 1000 mL 999 mL/hr 23:05 07/27/24 Zofran IVP 4 mg 23:05 07/27/24 MORPHine IVP 4 mg IV SITE INFORMATION INTAKE OUTPUT REASSESMENT (most recent) 22:58 07/27/24. Ambulatory to room. ( sudden onset chest pain around 2215, pt was sitting on the couch, no known causative factors. Sudden onset, 04/03, denies nausea vomiting, states it feels like pressure.). GENERAL / NEURO / PSYCH: Alert. Oriented X 4. Appears in pain. RESPIRATORY: Respirations not labored. CVS: Normal sinus rhythm noted. GI / : Abdomen soft and nontender. VITAL SIGNS First Vitals Last Vitals Temp 22:44 07/27/24 97.7 F Temp 02:19 07/28/24 BP 22:44 07/27/24 BP 02:19 07/28/24 HR 22:44 07/27/24 HR 02:19 07/28/24 100 RR 22:44 07/27/24 14 RR 02:19 07/28/24 O2 Sat 22:44 07/27/24 O2 Sat 02:19 07/28/24 96% 2 of 3 Visit Overview First Vitals Last Vitals Pain 22:44 07/27/24 8 Pain 02:19 07/28/24 ETCO2 22:44 07/27/24 ETCO2 02:19 07/28/24 GCS 22:44 07/27/24 GCS 02:19 07/28/24 RTS 22:44 07/27/24 RTS 02:19 07/28/24 PROCEDURES NURSING INTERVENTIONS LABS / STUDIES LABS / STUDIES ORDERED BNP CBC w Diff Chest 1V CMP CT Chest PE Study D-Dimer EKG - ED Troponin-I Troponin-I CLINICAL IMPRESSION CHEST PAIN CHARACTERIZED DISCOMFORT 3 of 3 Normal [facility] ED VITALS FLOW SHEETon 07-28 ED VITALS FLOW SHEET Vitals Vital Sign Flow Sheet [address] [address] [id number] 07/27/2024 Patient: NAZANIN LUDWIG Sex: Female : 1985 Age: 38y Measurements Wt: 113.4 kg, Ht/Jacinto: 62.0 in, BMI: 45.73 Measured Time BP MAP HR RR O2Sat ETCO2 Temp Pain GCS RTS 02:19 07/28/2024 100 96% 02:15 07/28/2024 141/74 96 98 02:14 07/28/2024 101 96% 02:09 07/28/2024 98 96% 02:04 07/28/2024 100 96% 02:00 07/28/2024 125/85 94 94 01:59 07/28/2024 92 95% 01:54 07/28/2024 92 96% 01:49 07/28/2024 103 98% 01:45 07/28/2024 141/82 88 101 01:44 07/28/2024 104 96% 01:39 07/28/2024 109 96% 01:34 07/28/2024 109 96% 01:30 07/28/2024 132/79 94 102 01:29 07/28/2024 104 96% 1 of 3 Vitals Measured Time BP MAP HR RR O2Sat ETCO2 Temp Pain GCS RTS 01:24 07/28/2024 97 96% 01:19 07/28/2024 102 96% 01:15 07/28/2024 141/88 99 100 01:14 07/28/2024 100 96% 01:09 07/28/2024 102 98% 01:04 07/28/2024 99 97% 01:01 07/28/2024 131/85 96 103 00:59 07/28/2024 105 97% 00:54 07/28/2024 101 97% 00:49 07/28/2024 98 98% 00:44 07/28/2024 98 98% 00:39 07/28/2024 101 97% 00:34 07/28/2024 105 95% 00:29 07/28/2024 104 98% 00:24 07/28/2024 106 97% 00:19 07/28/2024 103 98% 00:17 07/28/2024 119 100% 00:07 07/28/2024 103 100% 00:01 07/28/2024 92 99% 23:56 07/27/2024 90 99% 23:51 07/27/2024 96 100% 23:46 07/27/2024 95 99% 23:41 07/27/2024 99 98% 23:36 07/27/2024 103 99% 23:31 07/27/2024 101 99% 2 of 3 Vitals Measured Time BP MAP HR RR O2Sat ETCO2 Temp Pain GCS RTS 23:26 07/27/2024 99 100% 23:21 07/27/2024 96 100% 23:16 07/27/2024 99 99% 23:11 07/27/2024 104 97% 23:06 07/27/2024 104 99% 23:01 07/27/2024 109 100% 22:56 07/27/2024 99 100% 22:51 07/27/2024 109 100% 22:46 07/27/2024 112 100% 22:46 07/27/2024 130/68 86 111 22:44 07/27/2024 14 97.7 F 8 3 of 3 Normal [facility] TROPONINon 07-28-2024 HS TROPONIN <4.0 Normal 0.0 - 51.4 [facility] Comment on above: Performed By: #### 2 [id number] ####[facility],[address] [place] [address] CBC + DIFFon 07-27-2024 Baso # 0.03 x10EE3/UL Normal 0.00 - 0.10 [facility] Comment on above: Performed By: #### 2 [id number] #### [facility],[address] [place] [address] Basophils/100 WBC (Bld) 0.3 % Normal 0.0 - 2.0 [facility] Comment on above: Performed By: #### 2 [id number] #### [facility],[address] [place] [address] CBC + DIFF Normal [facility] Comment on above: Result Comment: CBC- COMPLETE BLOOD COUNT Performed By: #### 2 [id number] #### [facility],[address] [place] [address] EO # 0.39 x10EE3/UL Normal 0.00 - 0.50 [facility] Comment on above: Performed By: #### 2 [id number] #### [facility],[address] [place], [place] [id number] Eosinophils/100 WBC (Bld) 3.2 % Normal 0.0 - 7.0 [facility] Comment on above: Performed By: #### 2 [id number] #### [facility],[address] [place] [address] Erythrocyte distribution width (RBC) [Ratio] 13.4 % Normal 12.0 - 15.6 [facility] Comment on above: Performed By: #### 2 [id number] #### [facility],[address] [place] [address] Hematocrit (Bld) [Volume fraction] 39.8 % Normal 34.0 - 46.0 [facility] Comment on above: Performed By: #### 2 [id number] #### [facility],[address] [place] [address] Hemoglobin (Bld) [Mass/Vol] 13.7 g/dL Normal 12.0 - 16.0 [facility] Comment on above: Performed By: #### 2 [id number] #### [facility],[address] [place] [address] Lymph # 4.78 x10EE3/UL High 0.80 - 2.80 [facility] Comment on above: Performed By: #### 2 [id number] #### [facility],[address] [place], [place] [id number] Lymphocytes/100 WBC (Bld) 39.2 % Normal 20.0 - 45.0 [facility] Comment on above: Performed By: #### 2 52673 #### [facility],[address] [place], [place] [id number] MANUAL DIFF N/A Normal [facility] Comment on above: Performed By: #### 2 83475 #### [facility],[address] [place], [place] [id number] MCH (RBC) [Entitic mass] 30 pg Normal 27 - 33 [facility] Comment on above: Performed By: #### 2 83129 #### [facility],[address] [place], [place] [id number] MCHC 34 X10 3 Normal 32 - 36 [facility] Comment on above: Performed By: #### 2 20244 #### [facility],[address] [place] [address] 19174 MCV (RBC) [Entitic vol] 87 fL Normal 80 - 99 [facility] Comment on above: Performed By: #### 2 03037 #### [facility],[address] [place] [address] 84838 Brule # 0.77 x10EE3/UL Normal 0.20 - 1.00 [facility] Comment on above: Performed By: #### 2 46171 #### [facility],[address] [place] [address] 42364 MONOS % 6.3 % Normal 0.0 - 10.0 [facility] Comment on above: Performed By: #### 2 63784 #### [facility],[address] [place] [address] 12554 Morphology Joshua (Bld) [Interp] REVIEWED Normal [facility] Comment on above: Performed By: #### 2 44783 #### [facility],[address] [place] [address] 75411 Neut # 6.23 x10EE3/UL Normal 1.50 - 7.10 [facility] Comment on above: Performed By: #### 2 65621 #### [facility],[address] [place] [address] 87759 Neutrophils/100 WBC (Bld) 51.0 % Normal 46.0 - 76.0 [facility] Comment on above: Performed By: #### 2 77091 #### [facility],[address] [place] [address] 34894 PLATELET 257 x10EE3/UL Normal 150 - 450 [facility] Comment on above: Performed By: #### 2 90065 #### [facility],[address] [place] [address] 99717 Platelet mean volume (Bld) [Entitic vol] 5.8 fL Low 6.6 - 10.5 [facility] Comment on above: Result Comment: AUTO MATED DIFFERENTIAL Performed By: #### 2 27613 #### [facility],[address] [place] [address] 22478 RBC 4.60 x 10EE6/UL Normal 4.10 - 5.30 [facility] Comment on above: Performed By: #### 2 14405 #### [facility],[address] [place] [address] 80870 WBC 12.2 x 10EE3/UL High 4.5 - 10.8 [facility] Comment on above: Performed By: #### 2 62724 #### [facility],[address] [place] [address] 30401 CHEST 1 VIEWon 07-27-2024 CHEST 1 VIEW [place] [address] Patient: NAZANIN LUDWIG Phone#: : 1985 Age: 38 Gender: F Pt. Type: ER Account: [id number] Location: [facility] Ordering: DR. DAVID NEVES Exam Date: 07/27/2024/22:58 Family Phys: CLEOPATRA JIMÉNEZ Charge Code: 176693 Physician: Page Order #: [id number] Dose#: PROCEDURE: X-RAY CHEST 1 VIEW COMPARISON: [facility], XR, CHEST 2 VIEWS, 12/14/2023, 11:48. INDICATIONS: Chest pain. FINDINGS: LUNGS: Normal. No significant pulmonary parenchymal abnormalities. VASCULATURE: Normal. Unremarkable pulmonary vasculature. CARDIAC: Normal. No cardiac silhouette abnormality or cardiomegaly. MEDIASTINUM: Normal. No visible mass or adenopathy. PLEURA: Normal. No effusion or pleural thickening. BONES: Degenerative changes of the spine OTHER: Monitoring leads project across the thorax CONCLUSION: No acute disease. Dictated by: Alannah Mccormack MD on 07/28/2024 at 15:30 Approved by: Alannah Mccormack MD on 07/28/2024 at 15:31 Normal [facility] CMP with eGFRon 07-27-2024 AGE 38 years Normal [facility] Comment on above: Performed By: #### 2 33785 ####[facility],[address] [place] [address] 01331 Albumin [Mass/Vol] 3.7 g/dL Normal 3.4 - 5.0 [facility] Comment on above: Performed By: #### 2 13276 ####[facility],[address] [place] [address] 41281 Albumin/Globulin [Mass ratio] 1.0 {ratio} Normal 0.9 - 1.6 [facility] Comment on above: Performed By: #### 2 66836 ####[facility],[address] [place] [address] 11722 ALK PHOS 83 U/L Normal 46 - 116 [facility] Comment on above: Performed By: #### 2 38526 ####[facility],[address] [place] [address] 65910 ALT [Catalytic activity/Vol] 31 U/L Normal 16 - 63 [facility] Comment on above: Performed By: #### 2 82454 ####[facility],[address] [place] [address] 33169 Anion gap [Moles/Vol] 13 mmol/L Normal 10 - 20 [facility] Comment on above: Performed By: #### 2 28397 ####[facility],[address] [place] [address] 13239 AST [Catalytic activity/Vol] 24 U/L Normal 13 - 39 [facility] Comment on above: Performed By: #### 2 84578 ####[facility],[address] [place] [address] 23587 B/C RATIO 12 ratio Normal 0 - 30 [facility] Comment on above: Performed By: #### 2 07157 ####[facility],[address] [place] [address] 32107 Bilirubin [Mass/Vol] 0.3 mg/dL Normal 0.2 - 1.0 [facility] Comment on above: Performed By: #### 2 56038 ####[facility],[address] [place] [address] 45056 Calcium [Mass/Vol] 9.3 mg/dL Normal 8.5 - 10.1 [facility] Comment on above: Performed By: #### 2 44150 ####[facility],[address] [place] [address] 73489 Chloride [Moles/Vol] 102 mmol/L Normal 98 - 107 [facility] Comment on above: Performed By: #### 2 90431 ####[facility],[address] [place] [address] 00834 CMP with eGFR Normal [facility] Comment on above: Result Comment: COMP REHENSIVE METABOLIC PANEL Performed By: #### 2 74839 ####[facility],[address] [place] [address] 72003 CO2 [Moles/Vol] 28.7 mmol/L Normal 21.0 - 32.0 [facility] Comment on above: Performed By: #### 2 53411 ####[facility],[address] [place] [address] 67320 Creatinine [Mass/Vol] 0.91 mg/dL Normal 0.55 - 1.02 [facility] Comment on above: Performed By: #### 2 52859 ####[facility],[address] [place] [address] 80437 GFR/1.73 sq M.predicted among non-blacks MDRD (S/P/Bld) [Vol rate/Area] mL/min/{1.73_m2} Normal 60 - 999 [facility] Comment on above: Performed By: #### 2 65846 ####[facility],[address] [place] [address] 58205 Result Comment: ACCO RDING TO THE NATIONAL KIDNEY DISEASE EDUCATION PROGRAM(NKDE), A NORMAL eGFR IS A VALUE GREATER THAN OR EQUAL TO 60 ML/MIN/1.73 SQ METERS. CHRONIC KIDNEY DISEASE: <60mL/MIN/1.73 SQ METERS KIDNEY FAILURE: <15mL/MIN/1.73 SQ METERS THIS TEST SHOULD ONLY BE USED FOR PATIENTS 18 YEARS OF AGE AND OLDER. Globulin (S) [Mass/Vol] 3.8 g/dL Normal 1.5 - 3.8 [facility] Comment on above: Performed By: #### 2 92063 ####[facility],[address] [place] [address] 09978 Glucose [Mass/Vol] 135 mg/dL High 74 - 106 [facility] Comment on above: Performed By: #### 2 30256 ####[facility],[address] [place] [address] 35672 Potassium [Moles/Vol] 3.4 mmol/L Low 3.5 - 5.1 [facility] Comment on above: Performed By: #### 2 03855 ####[facility],[address] [place] [address] 43896 Protein [Mass/Vol] 7.5 g/dL Normal 6.4 - 8.2 [facility] Comment on above: Performed By: #### 2 19124 ####[address] [address] Sodium [Moles/Vol] 140 mmol/L Normal 136 - 145 [facility] Comment on above: Performed By: #### 2 27620 ####[facility],[address] [place] [address] 82651 Urea nitrogen [Mass/Vol] 11 mg/dL Normal 7 - 18 [facility] Comment on above: Performed By: #### 2 73620 ####[address] [address] D-DIMER, QUANTITATIVEon - D-DIMER QUANT 256 ng/ml High 0 - 230 [facility] Comment on above: Performed By: #### 2 22353 #### [facility],[address] [place] [address] 96670 D-DIMER, QUANTITATIVE Normal [facility] Comment on above: Result Comment: ERIK T D-DIMER Performed By: #### 2 27837 #### [facility],[address] [place] [address] NT-proBNPon 07-27-2024 Natriuretic peptide B (Bld) [Mass/Vol] 73 pg/mL Normal 0 - 125 [facility] Comment on above: Performed By: #### 2 02304 #### [facility],[address] [place] [address] TROPONINon 07-27-2024 HS TROPONIN 4.2 pg/mL Normal 0.0 - 51.4 [facility] Comment on above: Performed By: #### 2 93867 #### [facility],[address] [place] [address] PULMONARY FUNCTION STUDYon 0 01-31-2024 PULMONARY FUNCTION STUDY [facility] PULMONARY FUNCTION TEST NAME ACCOUNT SEX AGE VISIT DATE ROOM PT MEDICAL REC. # NUMBER TYPE NAZANIN LUDWIG [id number] F 38 12/26/2023 2 [id number] DATE OF : 1985 DICTATING PHYSICIAN: Bryon Bone The FEV1 is 2.56 liters or 91% of predicted. With bronchodilators, this improves by 9% to 2.8 liters or 100% of predicted. The FEV1 ratio is 83%. Total lung capacity is normal at 84% of predicted. The RV/TLC ratio is normal. Diffusion capacity when corrected to alveolar volume is normal as well. IMPRESSION: This study shows mild airway reactivity. No evidence of chronic obstructive pulmonary disease. No evidence of restriction. Dictated By: Bryon Bone MD 12/30/23 13:14 JOB #: [id number] Transcribed By: am 12/30/23 15:22 Electronically signed by: Catalino Bone M.D. 01/31/24 11:02 NAZANIN LUDWIG Page 1 of 1 Normal [facility] C-REACTIVE PROTEINon 024 CRP [Mass/Vol] mg/L Normal <8.0 [facility] Comment on above: Performed By: #### 4 420, 8659, 809 #### [facility] [place] [address] Car Wiper: Sumeet Porras MD D-DIMER, QUANTITATIVEon 12-23 D-DIMER, QUANTITATIVE 2.05 mcg/mL FEU High <0.50 [facility] Comment on above: Result Comment: The D-Dimer test is used frequently to exclude an acute PE or DVT. In patients with a low to moderate clinical risk assessment and a D-Dimer result <0.50 mcg/mL FEU, the likelihood of a PE or DVT is very low. However, a thromboembolic event should not be excluded solely on the basis of the D-Dimer level. Increased levels of D-Dimer are associated with a PE, DVT, DIC, malignancies, inflammation, sepsis, surgery, trauma, , and advancing patient age. [López 2006 11:295(2):199-207] For additional information, please refer to: http://education.[employer]/faq/UUE444 (This link is being provided for informational/ educational purposes only) Performed By: #### 4 420, 8659, 809 #### [facility] [place] [address] Car Wiper: Sumeet Porras MD SED RATE BY MODIFIED WESTERG RENon 01-09-2024 SED RATE BY MODIFIED WESTERGREN 14 mm/h Normal < OR = 20 [facility] Comment on above: Performed By: #### 4 420, 8659, 809 #### [facility] [place] [address] Car Wiper: Sumeet Porras MD Laboratory - Chemistry and C hemistry - challengeon 01-06-2024 CRP [Mass/Vol] mg/L Normal [facility] No Panel Informationon 01-05 D-DIMER, QUANTITATIVE 2.05 {mcg/mL_FEU} Abnormal [facility] SED RATE BY MODIFIED WESTERGREN 14 mm/h Normal [facility].; [facility]. EMERGENCY REPORTon 4 EMERGENCY REPORT [facility] EMERGENCY ROOM REPORT NAME ACCOUNT SEX AGE ADMIT DISCHARGE PT MED. RECORD# NUMBER DATE DATE RUSTY LUDWIG [id number] Sloan 38 12/20/23 12/20/23 Riki Henning [id number] ROOM: ER DATE OF : 1985 DICTATING PHYSICIAN: Dayne Dejesus CHIEF COMPLAINT: Shortness of breath. HISTORY OF PRESENT ILLNESS: The patient states that she has felt short of breath for the last month. She does have a history of asthma but was treated for this with some antibiotics and a steroid taper, which she has finished. She continues to feel short of breath. She continues to have some ongoing tachycardia. She saw her provider today, who ordered a number of labs, and one of the labs came back with a d-dimer of 946, so it was recommended she come to the Emergency Department for further evaluation and a probable chest CT. She is not having chest pain per se. It is mainly ongoing dyspnea and some minimal cough. She feels mildly dyspneic at rest but significant dyspnea with any significant activity. No vomiting. She has not noticed significant swelling to the extremities. No fever. The cough is nonproductive. PAST MEDICAL HISTORY: As mentioned, significant for asthma as a child and diabetes. PAST SURGICAL HISTORY: She has had previous cholecystectomy. MEDICATIONS: As noted. SOCIAL HISTORY: She lives at home. 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 She does not smoke or drink alcohol. She has 3 children living at home. REVIEW OF SYSTEMS: As mentioned above. Otherwise symptoms are negative. PHYSICAL EXAMINATION: GENERAL: This is a 38-year-old, heavy-built female who is alert and appropriate. She does not appear toxic. She seems pleasant and minimally dyspneic but in no acute distress. SKIN: Her skin is pink, warm and dry. HEENT: Examination is within normal limits. NECK: Her neck is supple without adenopathy. LUNGS: Lungs are moderately diminished but no jonatan crackles or wheezes. She is minimally tachypneic with a rate of 18-20. No chest wall tenderness. CARDIAC: Cardiac examination is a regular, tachycardic rate of about 115-118, where she remained throughout her ED stay. ABDOMEN: Abdomen is somewhat obese but soft and nontender. EXTREMITIES: She moves her extremities appropriately without any focal weaknesses. No redness, tenderness or asymmetry. No clubbing, cyanosis or edema. VITAL SIGNS: Temperature is 98.2, pulse 118, respirations 18, blood pressure 121/85, Page 1 of 2 NAZANIN LUDWIG Emergency Room Report NAZANIN LUDWIG : 1985 and oxygen saturation 97%. DIAGNOSTIC DATA: Chest CT was negative for any PE. It showed some minimal scattered patches of mild ground-glass patches of uncertain cause. Laboratories meanwhile showed a CBC with a white count of 12,600 with 39% neutrophils and 52% lymphs. Hemoglobin and hematocrit were 13.2 and 40. No eosinophilia. Her d-dimer was 946. BMP was quite unremarkable with normal electrolytes and a normal BUN and creatinine. Her glucose was 105. BNP was 37. EMERGENCY DEPARTMENT COURSE AND TREATMENT: The patient had an IV placed. She did have most labs done as an outpatient, which I reviewed. I did give her a DuoNeb aerosol, which did seem to improve her lung sounds somewhat. I discussed with Dr. Palmer prior to being discharged to home. The patient presents with basically a month of cough and dyspnea. The cause of this is unclear. I think some of this certainly does seem to be COPD/asthma related, but I feel that she may need more evaluation for this, but I did not feel that necessarily needed to be done as an inpatient. I did give her a prescription and sent some DuoNeb nebules with her to use regularly with her nebulizer. I gave her a dose of methylprednisolone IV in the Emergency Department and started her back on 40 mg of prednisone daily. PLAN/DISPOSITION: She is to follow up with her provider in the next day or two for possible further pulmonary testing and/or pulmonary referral. Return if symptoms worsen. Dictated By: Dayne Dejesus MD 12/20/23 19:51 JOB #: [id number] Transcribed By: jayna 12/21/23 10:08 Electronically signed by: ZAINA Dejesus M.D. 12/29/23 07:34 Page 2 of 2 NAZANIN LUDWIG Emergency Room Report Normal [facility] BMP with eGFRon 12-20-2023 AGE 38 years Normal [facility] Comment on above: Performed By: #### 2 30358 #### [facility],[address] [place] [address] Anion gap [Moles/Vol] 15 mmol/L Normal 10 - 2 0 mmol/L [facility] Comment on above: Performed By: #### 2 90498 #### [facility],[address] [place] [address] 22789 BMP with eGFR Normal [facility] Comment on above: Result Comment: BASI C METABOLIC PANEL Performed By: #### 2 67458 #### [facility],[address] [place] [address] 57101 Calcium [Mass/Vol] 8.5 mg/dL Normal 8.5 - 10. 1 mg/dL [facility] Comment on above: Performed By: #### 2 82487 #### [facility],[address] [place] [address] 31270 Chloride [Moles/Vol] 102 mmol/L Normal 98 - 10 7 mmol/L [facility] Comment on above: Performed By: #### 2 31078 #### [facility],[address] [place] [address] 82727 CO2 [Moles/Vol] 24.0 mmol/L Normal 21.0 - 32.0 mmol/L [facility] Comment on above: Performed By: #### 2 87927 #### [facility],[address] [place] [address] 54791 Creatinine [Mass/Vol] 0.79 mg/dL Normal 0.55 - 1.02 mg/dL [facility] Comment on above: Performed By: #### 2 30553 #### [facility],[address] [place] [address] 33484 GFR/1.73 sq M.predicted among non-blacks MDRD (S/P/Bld) [Vol rate/Area] mL/min/{1.73_m2} Normal 60 - 999 [facility] Comment on above: Performed By: #### 2 80540 #### [facility],[address] [place] [address] 02855 Result Comment: ACCO RDING TO THE NATIONAL KIDNEY DISEASE EDUCATION PROGRAM(NKDE), A NORMAL eGFR IS A VALUE GREATER THAN OR EQUAL TO 60 ML/MIN/1.73 SQ METERS. CHRONIC KIDNEY DISEASE: <60mL/MIN/1.73 SQ METERS KIDNEY FAILURE: <15mL/MIN/1.73 SQ METERS THIS TEST SHOULD ONLY BE USED FOR PATIENTS 18 YEARS OF AGE AND OLDER. Glucose [Mass/Vol] 105 mg/dL Normal 74 - 106 mg/dL [facility] Comment on above: Performed By: #### 2 08016 #### [address] [address] Potassium [Moles/Vol] 3.6 mmol/L Normal 3.5 - 5.1 mmol/L [facility] Comment on above: Performed By: #### 2 76129 #### [address] [address] Sodium [Moles/Vol] 137 mmol/L Normal 136 - 145 mmol/L [facility] Comment on above: Performed By: #### 2 74578 #### [address] [address] Urea nitrogen [Mass/Vol] 7 mg/dL Normal 7 - 18 mg/dL [facility] Comment on above: Performed By: #### 2 89212 #### [address] [address] CBC + DIFFon 12-20-2023 Baso # 0.03 x10EE3/UL Normal 0.00 - 0.10 [facility] Comment on above: Performed By: #### 2 95354 #### [address] [address] Basophils/100 WBC (Bld) 0.2 % Normal 0.0 - 2.0 % [facility].; [facility], [facility]. Comment on above: Performed By: #### 2 54273 #### [address] [address] CBC + DIFF Normal [facility] Comment on above: Result Comment: CBC- COMPLETE BLOOD COUNT Performed By: #### 2 20263 #### [place] [address] CELL COUNT 100 Normal [facility]; [facility] Comment on above: Performed By: #### 2 62699 #### [place] [address] EO # 0.20 x10EE3/UL Normal 0.00 - 0.50 [facility] Comment on above: Performed By: #### 2 04300 #### [place] [address] Eosinophils/100 WBC (Bld) 1.6 % Normal 0.0 - 7.0 % [facility]; [facility] Comment on above: Performed By: #### 2 37184 #### [place] [address] Erythrocyte distribution width (RBC) [Ratio] 16.8 % Abnormal 12.0 - 15.6 % [facility]; [facility]. Comment on above: Performed By: #### 2 18762 #### [place] [address] Hematocrit (Bld) [Volume fraction] 40.0 % Normal 34.0 - 46.0 % [facility].; [facility] Comment on above: Performed By: #### 2 24227 #### [place] [address] Hemoglobin (Bld) [Mass/Vol] 13.2 g/dL Normal 12.0 - 16.0 g/dL [facility].; [facility], [facility]. Comment on above: Performed By: #### 2 01402 #### [place] [address] Lymph # 6.63 x10EE3/UL High 0.80 - 2.80 [facility] Comment on above: Performed By: #### 2 49727 #### [place] [address] Lymphocytes/100 WBC (Bld) 52.6 % Abnormal 20.0 - 45.0 % [facility].; [facility], [facility]. Comment on above: Performed By: #### 2 45641 #### [facility],[address] [place] [address] Lymphocytes/100 WBC (Bld) 58 % Abnormal 20 - 40 % [facility], [facility].; [facility], [facility]. Comment on above: Performed By: #### 2 93354 #### [place] [address] MANUAL DIFF SEE BELOW Normal [facility].; [facility], [facility]. Comment on above: Performed By: #### 2 22578 #### [place] [address] MCH (RBC) [Entitic mass] 28 pg Normal 27 - 33 pg [facility].; [facility], [facility]. Comment on above: Performed By: #### 2 70506 #### [place] [address] MCHC 33 X10 3 Normal 32 - 36 [facility] Comment on above: Performed By: #### 2 83729 #### [place] [address] MCV (RBC) [Entitic vol] 84 fL Normal 80 - 99 fL [facility], [facility].; [facility], [facility]. Comment on above: Performed By: #### 2 05749 #### [place] [address] Brule # 0.84 x10EE3/UL Normal 0.20 - 1.00 [facility] Comment on above: Performed By: #### 2 33164 #### [facility],[address] [place] [address] 22938 MONOS 5 % Normal 0 - 8 % [facility].; [facility], [facility]. Comment on above: Performed By: #### 2 36402 #### [facility],[address] [place] [address] 11214 MONOS % 6.6 % Normal 0.0 - 10.0 [facility] Comment on above: Performed By: #### 2 81941 #### [facility],[address] [place] [address] 78989 Morphology Joshua (Bld) [Interp] SEE BELOW Normal [facility].; [facility], [facility]. Comment on above: Performed By: #### 2 02455 #### [facility],[address] [place] [address] 34064 Neut # 4.92 x10EE3/UL Normal 1.50 - 7.10 [facility] Comment on above: Performed By: #### 2 43433 #### [facility],[address] [place] [address] 59375 Neutrophils/100 WBC (Bld) 39.0 % Abnormal 46.0 - 76.0 % [facility].; [facility] Comment on above: Performed By: #### 2 47330 #### [facility],[address] [place] [address] 16435 PLATELET 146 x10EE3/UL Low 150 - 450 [facility] Comment on above: Performed By: #### 2 83711 #### [facility],[address] [place] [address] 15771 Platelet mean volume (Bld) [Entitic vol] 6.6 fL Normal 6.6 - 10.5 fL [facility].; [facility] Comment on above: Result Comment: AUTO MATED DIFFERENTIAL Performed By: #### [id number] #### [facility],[address] [place] [id number] PLT EST NORMAL Normal [facility].; [facility]. Comment on above: Performed By: #### 2 [id number] #### [address] [address] RBC 4.76 x 10EE6/UL Normal 4.10 - 5.30 [facility] Comment on above: Performed By: #### 2 [id number] #### [facility],[address] [place], [place] [id number] SEGS 37 % Abnormal 50 - 70 % [facility], [facility].; [facility], [facility]. Comment on above: Performed By: #### 2 [id number] #### [place] [id number] WBC 12.6 x 10EE3/UL High 4.5 - 10.8 [facility] Comment on above: Performed By: #### 2 [id number] #### [place] [id number] CT CHEST (PE PROTOCOL)on CT CHEST (PE PROTOCOL) [place] [address] Patient: NAZANIN LUDWIG Phone#: : 1985 Age: 38 Gender: F Pt. Type: ER Account: [id number] Location: [facility] Ordering: DAYNE DEJESUS Exam Date: 12/20/2023/16:27 Family Phys: CLEOPATRA MATTSONER Charge Code: [id number] Physician: Page Order #: [id number] Dose#: 11.2 mGy PROCEDURE: CT CHEST WITH CONTRAST FOR PE COMPARISON: [facility], CT, CHEST PE W CON, 07/04/2021, 12:25. INDICATIONS: Shortness of breath. TECHNIQUE: After obtaining the patient's consent, CT images were obtained with non-ionic intravenous contrast material. Multi-planar images were created to optimize visualization of vascular anatomy with MPR/MIPS and 3D imaging. All CT scans at this facility use dose modulation, iterative reconstruction, and/or weight based dosing when appropriate to reduce radiation dose to as low as reasonably achievable. IV CONTRAST: Omnipaque 350,100ml TOTAL DOSE: 11.2 CTDIvol(mGy) FINDINGS: VASCULATURE: No pulmonary embolism. AORTA: No aortic aneurysm. LUNGS: In the lower lobes there are areas of geographic ground-glass attenuation. There is a left lower lobe pulmonary nodule, measuring 0.6 cm, series 4, image 54 stable compared to prior. PANCHITO: Normal. No mass or adenopathy. MEDIASTINUM: Normal. No mass or adenopathy. CARDIAC: Normal. No enlargement, pericardial thickening, or significant calcification. PLEURA: Normal. No mass or effusion. CHEST WALL: Normal. No mass or axillary adenopathy. LIMITED ABDOMEN: Normal. Limited images of the upper abdomen are unremarkable. BONES: Normal. No bony lesion or fracture. OTHER: Negative. CONCLUSION: 1. No pulmonary embolism. 2. Areas of geographic ground-glass attenuation, the differential includes pneumonitis versus infiltrate versus phase of respiration. [place] [address] Patient: NAZANIN LUDWIG Phone#: : 1985 Age: 38 Gender: F Pt. Type: ER Account: [id number] Location: [facility] Ordering: DAYNE DEJESUS Exam Date: 12/20/2023/16:27 Family Phys: CLEOPATRA JIMÉNEZ Charge Code: [id number] Physician: Page Order #: [id number] Dose#: 11.2 mGy Dictated by: Alannah Mccormack MD on 12/20/2023 at 17:09 Approved by: Alannah Mccormack MD on 12/20/2023 at 17:21 Normal [facility] D-DIMER, QUANTITATIVEon - D-DIMER QUANT 946 ng/mL Abnormal 0 - 230 ng/mL [facility] Comment on above: Performed By: #### 2 [id number] #### [facility],[address] [place] [address] D-DIMER, QUANTITATIVE Normal [facility] Comment on above: Result Comment: ERIK T D-DIMER Performed By: #### 2 [id number] #### [facility],[address] [place] [address] Laboratory - Chemistry and C hemistry - challengeon 12-20-2023 Basic metabolic 2000 panel BMP with eGFR Normal [facility]; [facility] Work Phone: GFR/1.73 sq M.predicted among blacks MDRD (S/P/Bld) [Vol rate/Area] mL/min/{1.73_m2} Normal 60 - 999 {ML/MINUTE} [facility]; [facility] Work Phone: GFR/1.73 sq M.predicted MDRD (S/P/Bld) [Vol rate/Area] mL/min/{1.73_m2} Normal 60 - 999 {ML/MINUTE} [facility].; [place] [employer] [facility] [facility]Project Manager Work Phone: Urea nitrogen (U) [Mass/Vol] 37 pg/mL Normal 0 - 125 pg/mL [facility]; [place] [employer] [facility] HospitalProject Manager Laboratory - Coagulationon 0 12-20-2023 Fibrin D-dimer FEU (PPP) [Mass/Vol] D-DIMER, QUANTITATIVE Normal [facility]; [place] [facility] - Hematology and Cell countson 12-20-2023 Basophils (Bld) [#/Vol] 0.03 {3/UL} Normal 0.00 - 0.10 {3/UL} [facility].; [place] [employer] [facility] [place] [facility]. CBC W Auto Differential panel (Bld) CBC + DIFF Normal [facility]; [facility] Medical CenterProject Manager Eosinophils (Bld) [#/Vol] 0.20 {3/UL} Normal 0.00 - 0.50 {3/UL} [facility].; [facility], [employer] Lymphocytes (Bld) [#/Vol] 6.63 {3/UL} Abnormal 0.80 - 2.80 {3/UL} [employer] MCHC (RBC) [Mass/Vol] 33 {X10_3} Normal 32 - 3 6 {X10_3} [employer] Monocytes (Bld) [#/Vol] 0.84 {3/UL} Normal 0.20 - 1.00 {3/UL} [employer] Monocytes/100 WBC (Bld) 6.6 % Normal 0.0 - 10.0 % [employer] Neutrophils (Bld) [#/Vol] 4.92 {3/UL} Normal 1.50 - 7.10 {3/UL} [employer] Platelets (Bld) [#/Vol] 146 {3/UL} Abnormal 150 - 450 {3/UL} [employer] RBC (Bld) [#/Vol] 4.76 {6/UL} Normal 4.10 - 5.3 0 {6/UL} [employer] WBC (Bld) [#/Vol] 12.6 {3/UL} Abnormal 4.5 - 10.8 {3/UL} [employer] NT-proBNPon 12-20-2023 Natriuretic peptide B (Bld) [Mass/Vol] 37 pg/mL Normal 0 - 125 [facility] Comment on above: Performed By: #### 2 [id number] #### [facility],[address] [place] [address] No Panel Informationon 12-19 AGE 38 {years} Normal [employer] Work Phone: CHEST 2 VIEWSon 12-14-2023 CHEST 2 VIEWS [place] [address] Patient: NAZANIN LUDWIG Phone#: : 1985 Age: 38 Gender: F Pt. Type: Out Account: [id number] Location: 052 Ordering: CARLTON PEPE Exam Date: 12/14/2023/11:48 Family Phys: CLEOPATRA JIMÉNEZ Charge Code: [id number] Physician: Page Order #: [id number] Dose#: PROCEDURE: X-RAY CHEST 2 VIEWS COMPARISON: None. INDICATIONS: Asthma. FINDINGS: LUNGS: Normal. No significant pulmonary parenchymal abnormalities. VASCULATURE: Normal. Unremarkable pulmonary vasculature. CARDIAC: Normal. No cardiac silhouette abnormality or cardiomegaly. MEDIASTINUM: Normal. No visible mass or adenopathy. PLEURA: Normal. No effusion or pleural thickening. BONES: Normal. No fracture or visible bony lesion. OTHER: Negative. CONCLUSION: No acute disease. Dictated by: Miri Morel MD on 12/14/2023 at 16:03 Approved by: Miri Morel MD on 12/14/2023 at 16:12 Normal [facility] No Panel Informationon 09-08 VITAMIN D,25-OH,TOTAL,IA 38 ng/mL Normal 30 - 100 ng/mL [facility]; [facility] Laboratory - Chemistry and C hemistry - challengeon 06-08-2023 CRP [Mass/Vol] 1.17 mg/dL Abnormal 0.00 - 0.90 mg/dL [facility].; [facility]. Laboratory - Hematology and Cell countson 06-08-2023 Basophils (Bld) [#/Vol] 0.10 {3/UL} Normal 0.00 - 0.10 {3/UL} [facility].; [facility] Basophils/100 WBC (Bld) 0.7 % Normal 0.0 - 2.0 % [facility]; [employer] [facility] HospitalE[facility]. CBC W Auto Differential panel (Bld) CBC + DIFF Normal [facility]; [employer] [facility] Eosinophils (Bld) [#/Vol] 0.40 {3/UL} Normal 0.00 - 0.50 {3/UL} [facility].; [employer] Eosinophils/100 WBC (Bld) 3.6 % Normal 0.0 - 7.0 % [facility]; [facility] Erythrocyte distribution width (RBC) [Ratio] 15.2 % Normal 12.0 - 15.6 % [facility]; [facility], [facility] ESR (Bld) [Velocity] 38 mm/h Abnormal 0 - 30 mm/h [facility]; [facility], [facility] Hematocrit (Bld) [Volume fraction] 39.7 % Normal 34.0 - 46.0 % [facility]; [facility] Hemoglobin (Bld) [Mass/Vol] 12.8 g/dL Normal 12.0 - 16.0 g/dL [facility]; [facility] Lymphocytes (Bld) [#/Vol] 2.20 {3/UL} Normal 0.80 - 2.80 {3/UL} [facility]; [facility] Lymphocytes/100 WBC (Bld) 18.4 % Abnormal 20.0 - 45.0 % [facility]; [facility] MCH (RBC) [Entitic mass] 28 pg Normal 27 - 33 pg [facility]; [facility] MCHC (RBC) [Mass/Vol] 32 {X10_3} Normal 32 - 3 6 {X10_3} [facility].; [facility], [facility] MCV (RBC) [Entitic vol] 85 fL Normal 80 - 99 fL H [facility]; [facility] Monocytes (Bld) [#/Vol] 0.60 {3/UL} Normal 0.20 - 1.00 {3/UL} [facility]; [facility] Monocytes/100 WBC (Bld) 4.7 % Normal 0.0 - 10.0 % [facility]; [facility] Morphology Joshua (Bld) [Interp] N/A Normal [facility]; [facility] Neutrophils (Bld) [#/Vol] 8.70 {3/UL} Abnormal 1.50 - 7.10 {3/UL} [facility] [employer] [facility].; [employer]. Neutrophils/100 WBC (Bld) 72.6 % Normal 46.0 - 76.0 % [facility].; [place] [employer], [employer]. Platelet mean volume (Bld) [Entitic vol] 6.3 fL Abnormal 6.6 - 10.5 fL [facility].; [place] [employer], [facility]. Platelets (Bld) [#/Vol] 319 {3/UL} Normal 150 - 450 {3/UL} [facility] [employer] [facility].; [place] [employer], [employer]. RBC (Bld) [#/Vol] 4.66 {6/UL} Normal 4.10 - 5.3 0 {6/UL} [place] [employer] [facility].; [place] [employer], [employer]. WBC (Bld) [#/Vol] 12.0 {3/UL} Abnormal 4.5 - 10.8 {3/UL} [place] [employer] [facility].; [employer], [employer]. No Panel Informationon 06-08 MANUAL DIFF N/A Normal [facility].; [employer], [employer]. Laboratory - Chemistry and C hemistry - challengeon 06-06-2023 Albumin [Mass/Vol] 4.4 g/dL Normal 3.6 - 5.1 g/dL [facility].; [employer], [employer]. Albumin/Globulin [Mass ratio] 1.5 {ratio} Normal 1.0 - 2.5 [facility].; [employer], [employer]. ALP [Catalytic activity/Vol] 80 U/L Normal 31 - 125 U/L [facility].; [employer], [employer]. ALT [Catalytic activity/Vol] 17 U/L Normal 6 - 29 U/L [facility].; [employer], [employer]. AST [Catalytic activity/Vol] 16 U/L Normal 10 - 30 U/L [facility], [facility].; [employer], [employer]. Bilirubin [Mass/Vol] 0.4 mg/dL Normal 0.2 - 1 .2 mg/dL [facility].; [employer], [employer]. Calcium [Mass/Vol] 9.1 mg/dL Normal 8.6 - 10. 2 mg/dL [facility].; [facility]. Chloride [Moles/Vol] 103 mmol/L Normal 98 - 11 0 mmol/L [facility].; [facility], [facility]. CO2 [Moles/Vol] 24 mmol/L Normal 20 - 32 mmol/L [facility].; [facility] Cobalamin (Vitamin B12) [Mass/Vol] 442 pg/mL Normal 200 - 1100 pg/mL [facility].; [facility] Creatinine [Mass/Vol] 0.72 mg/dL Normal 0.50 - 0.97 mg/dL [facility].; [facility], [facility]. GFR/1.73 sq M.predicted among non-blacks MDRD (S/P/Bld) [Vol rate/Area] 109 mL/min/{1.73_m2} Normal [facility].; [facility], [facility]. Glucose [Mass/Vol] 92 mg/dL Normal 65 - 99 mg/dL [facility].; [facility], [facility]. Potassium [Moles/Vol] 3.9 mmol/L Normal 3.5 - 5.3 mmol/L [facility].; [facility], [facility]. Protein [Mass/Vol] 7.4 g/dL Normal 6.1 - 8.1 g/dL [facility], [facility].; [facility], [facility]. Sodium [Moles/Vol] 138 mmol/L Normal 135 - 146 mmol/L [facility].; [facility] [employer], [facility]. Urea nitrogen [Mass/Vol] 8 mg/dL Normal 7 - 25 mg/dL [facility], [facility].; [facility], [facility]. Laboratory - Hematology and Cell countson 06-06-2023 Basophils (Bld) [#/Vol] 0.072 10*3/uL Normal 0 - 200 {cells/uL} [facility].; [place] [employer], [facility]. Basophils/100 WBC (Bld) 0.6 % Normal [facility].; [facility] Eosinophils (Bld) [#/Vol] 0.408 10*3/uL Normal 15 - 500 {cells/uL} [facility].; [facility] Eosinophils/100 WBC (Bld) 3.4 % Normal [facility].; [facility] Erythrocyte distribution width (RBC) [Ratio] 14.1 % Normal 11.0 - 15.0 % [facility].; [facility] HbA1c (Bld) [Mass fraction] 6.0 % Normal 4.6 - 7.1 % [facility].; [facility], [facility] Hematocrit (Bld) [Volume fraction] 39.3 % Normal 35.0 - 45.0 % [facility].; [facility] Hemoglobin (Bld) [Mass/Vol] 13.2 g/dL Normal 11.7 - 15.5 g/dL [facility].; [facility] Lymphocytes (Bld) [#/Vol] 2.832 10*3/uL Normal 850 - 3900 {cells/uL} [facility].; [facility] Lymphocytes/100 WBC (Bld) 23.6 % Normal [facility]; [facility], [facility]. MCH (RBC) [Entitic mass] 28.3 pg Normal 27.0 - 33.0 pg [facility].; [place] [employer] [facility], [facility]. MCHC (RBC) [Mass/Vol] 33.6 g/dL Normal 32.0 - 36.0 g/dL [facility].; [place] [employer] [facility], [facility]. MCV (RBC) [Entitic vol] 84.3 fL Normal 80.0 - 100.0 fL [facility].; [place] [employer] [facility], [facility]. Monocytes (Bld) [#/Vol] 0.552 10*3/uL Normal 200 - 950 {cells/uL} [facility], [facility].; [place] [employer], [facility]. Monocytes/100 WBC (Bld) 4.6 % Normal [facility].; [facility] Neutrophils (Bld) [#/Vol] 8.136 10*3/uL Abnormal 1500 - 7800 {cells/uL} [facility]; [facility] Neutrophils/100 WBC (Bld) 67.8 % Normal [facility]; [facility] Platelet mean volume (Bld) [Entitic vol] 8.9 fL Normal 7.5 - 12.5 fL [facility]; [facility] Platelets (Bld) [#/Vol] 316 10*3/uL Normal 140 - 400 [facility]; [facility] RBC (Bld) [#/Vol] 4.66 10*6/uL Normal 3.80 - 5.1 0 {Million/uL} [facility]; [facility] WBC (Bld) [#/Vol] 12.0 10*3/uL Abnormal 3.8 - 10.8 [facility]; [facility] No Panel Informationon 06-06 BUN/CREATININE RATIO SEE NOTE: Normal - [facility]; [facility] GLOBULIN 3.0 Normal 1.9 - 3.7 [facility]; [facility] LYME AB SCREEN <0.90 Normal [facility]; [facility] TSH W/REFLEX TO FT4 2.17 {mIU/L} Normal [facility]; [facility] VITAMIN D,25-OH,TOTAL,IA 23 ng/mL Abnormal 30 - 100 ng/mL [facility]; [facility] Laboratory - Chemistry and C hemistry - challengeon 10-13-2022 Albumin [Mass/Vol] 4.6 g/dL Normal 3.6 - 5.1 g/dL [facility]; [facility] Albumin/Globulin [Mass ratio] 1.7 {ratio} Normal 1.0 - 2.5 [facility]; [facility] ALP [Catalytic activity/Vol] 75 U/L Normal 31 - 125 U/L [facility]; [facility] CenterE[employer] ALT [Catalytic activity/Vol] 19 U/L Normal 6 - 29 U/L [facility].; [facility], [facility]. AST [Catalytic activity/Vol] 18 U/L Normal 10 - 30 U/L [facility].; [facility], [facility]. Bilirubin [Mass/Vol] 0.5 mg/dL Normal 0.2 - 1 .2 mg/dL [facility].; [facility], [facility]. Calcium [Mass/Vol] 9.1 mg/dL Normal 8.6 - 10. 2 mg/dL [facility].; [facility], [facility]. Chloride [Moles/Vol] 106 mmol/L Normal 98 - 11 0 mmol/L [facility].; [facility], [facility]. Cholesterol [Mass/Vol] 188 mg/dL Normal [facility].; [facility] Cholesterol in HDL [Mass/Vol] 59 mg/dL Normal [facility].; [facility], [facility]. Cholesterol in LDL [Mass/Vol] 98 mg/dL Normal [facility].; [place] [employer] [facility], [facility]. CO2 [Moles/Vol] 22 mmol/L Normal 20 - 32 mmol/L [facility].; [facility], [facility]. Creatinine [Mass/Vol] 0.72 mg/dL Normal 0.50 - 0.97 mg/dL [facility], [facility].; [facility], [facility]. Free T3 [Mass/Vol] 3.2 pg/mL Normal 2.3 - 4.2 pg/mL [facility].; [facility], [facility]. Free T4 [Mass/Vol] 1.0 ng/dL Normal 0.8 - 1.8 ng/dL [facility], [facility].; [facility], [facility]. GFR/1.73 sq M.predicted among non-blacks MDRD (S/P/Bld) [Vol rate/Area] 109 mL/min/{1.73_m2} Normal [facility], [facility].; [place] [employer] [facility] Glucose [Mass/Vol] 95 mg/dL Normal 65 - 99 mg/dL [facility], [facility].; [facility], [facility]. Potassium [Moles/Vol] 4.2 mmol/L Normal 3.5 - 5.3 mmol/L [facility] [facility].; [facility], [facility] Protein [Mass/Vol] 7.3 g/dL Normal 6.1 - 8.1 g/dL [facility], [facility].; [facility], [facility]. Sodium [Moles/Vol] 138 mmol/L Normal 135 - 146 mmol/L [facility], [facility].; [facility], [facility]. Triglyceride [Mass/Vol] 213 mg/dL Abnormal [facility], [facility]. TSH Qn 2.75 m[IU]/L Normal [facility].; [place] [employer], [facility] Urea nitrogen [Mass/Vol] 11 mg/dL Normal 7 - 25 mg/dL [facility].; [place] [employer], [employer]. Laboratory - Hematology and Cell countson 10-13-2022 Basophils (Bld) [#/Vol] 0.064 10*3/uL Normal 0 - 200 {cells/uL} [facility].; [place] [employer], [employer]. Basophils/100 WBC (Bld) 0.6 % Normal [facility].; [place] [employer] [facility], [facility] Eosinophils (Bld) [#/Vol] 0.257 10*3/uL Normal 15 - 500 {cells/uL} [facility].; [place] [employer], [facility] Eosinophils/100 WBC (Bld) 2.4 % Normal [facility].; [place] [employer], [employer] Erythrocyte distribution width (RBC) [Ratio] 13.9 % Normal 11.0 - 15.0 % [facility].; [place] [employer], [facility]. HbA1c (Bld) [Mass fraction] 5.9 % Abnormal [facility].; [place] [employer], [facility]. Hematocrit (Bld) [Volume fraction] 40.2 % Normal 35.0 - 45.0 % [facility], [facility].; [place] [employer], [facility]. Hemoglobin (Bld) [Mass/Vol] 13.5 g/dL Normal 11.7 - 15.5 g/dL [facility].; [place] [employer], [facility] Lymphocytes (Bld) [#/Vol] 2.846 10*3/uL Normal 850 - 3900 {cells/uL} [facility].; [facility], [facility]. Lymphocytes/100 WBC (Bld) 26.6 % Normal [facility].; [facility], [facility]. MCH (RBC) [Entitic mass] 27.6 pg Normal 27.0 - 33.0 pg [facility], [facility].; [facility], [facility]. MCHC (RBC) [Mass/Vol] 33.6 g/dL Normal 32.0 - 36.0 g/dL [facility].; [place] [employer] [facility], [facility]. MCV (RBC) [Entitic vol] 82.2 fL Normal 80.0 - 100.0 fL [facility].; [facility], [facility]. Monocytes (Bld) [#/Vol] 0.621 10*3/uL Normal 200 - 950 {cells/uL} [facility], [facility].; [facility] [employer], [facility]. Monocytes/100 WBC (Bld) 5.8 % Normal [facility].; [place] [employer] [facility], [facility]. Neutrophils (Bld) [#/Vol] 6.912 10*3/uL Normal 1500 - 7800 {cells/uL} [facility].; [facility], [facility]. Neutrophils/100 WBC (Bld) 64.6 % Normal [facility].; [place] [employer], [facility]. Platelet mean volume (Bld) [Entitic vol] 9.0 fL Normal 7.5 - 12.5 fL [facility].; [place] [employer], [facility]. Platelets (Bld) [#/Vol] 319 10*3/uL Normal 140 - 400 [facility].; [place] [employer], [facility]. RBC (Bld) [#/Vol] 4.89 10*6/uL Normal 3.80 - 5.1 0 {Million/uL} [facility], [facility].; [place] [employer] WBC (Bld) [#/Vol] 10.7 10*3/uL Normal 3.8 - 10.8 [facility].; [place] [employer], [facility] No Panel Informationon 10-13 [id number] SEE NOTE Normal [facility].; [facility] CenterProject Manager. BUN/CREATININE RATIO NOT APPLICABLE Normal [facility].; [facility]. CHOL/HDLC RATIO 3.2 Normal [facility]; [facility], [employer]. CLINICAL INFORMATION: SEE NOTE Normal [facility].; [facility], [facility]. HOT KETTLE TENDER: SEE NOTE Normal [facility].; [facility]. GLOBULIN 2.7 Normal 1.9 - 3.7 [facility].; [facility]. HPV mRNA E6/E7 Not detected Normal [facility].; [facility] CenterProject Manager. INTERPRETATION/RESULT: SEE NOTE Normal [facility]; [facility] CenterProject [facility]. LMP: SEE NOTE Normal [facility]; [facility] CenterProject [facility]. NON HDL CHOLESTEROL 129 Normal [facility].; [facility] CenterProject Manager. PREV. BX: SEE NOTE Normal [facility].; [facility] CenterProject Manager. PREV. PAP: SEE NOTE Normal [facility].; [facility] CenterProject Manager. SOURCE: SEE NOTE Normal [facility].; [facility]. STATEMENT OF ADEQUACY: SEE NOTE Normal [facility].; [facility] CenterProject Manager. Laboratory - Microbiology an d Antimicrobial susceptibilityon 06-22-2022 FLUAV Ag IA Ql (Throat) Negative Normal [facility].; [facility]. FLUAV Ag IA Ql (Throat) Positive Abnormal [facility].; [place] [employer]. SARS-CoV-2 (COVID-19) RNA NICOLE+probe Ql (Unsp spec) Negative Normal [facility].; [place] [employer]. Laboratory - Chemistry and C hemistry - challengeon 07-08-2021 Bilirubin Ql (U) Negative Normal [facility].; [place] [employer]. Ketones Ql (U) Negative Normal [facility].; [place] [employer], [employer]. pH (U) 7.0 [pH] Normal [facility].; [employer] Specific gravity (U) [Rel density] 1.015 Normal [facility]; [employer] Urobilinogen Qn (U) 0.2 mg/dL Normal [facility] HospitalProject [facility].; [employer]. Laboratory - Hematology and Cell countson 07-08-2021 Hemoglobin Ql (U) moderate Abnormal [facility] CenterProject Manager; [employer]. Laboratory - Specimen inform ationon 07-08-2021 Appearance (U) clear Normal [facility] [employer]; [employer] Color (U) yellow Normal [place] [employer] [facility] HospitalSmart Planet [facility]; [employer] Laboratory - Urinalysison Glucose Test strip (U) [Mass/Vol] Negative Normal [facility] CenterSmart [facility]; [employer] Leukocyte esterase Test strip Ql (U) Negative Normal [facility] CenterSmart [facility]; [employer]. Nitrite Ql (U) Negative Normal [facility] [employer]. Protein Ql (U) Negative Normal [facility] [employer]; [employer]. No Panel Informationon 07-08 CULTURE, URINE, ROUTINE SEE NOTE Normal [facility] HospitalSmart [facility]; [employer] Laboratory - Chemistry and C hemistry - challengeon 12-10-2020 Albumin [Mass/Vol] 4.2 g/dL Normal 3.6 - 5.1 g/dL [facility]; [employer] Albumin/Globulin [Mass ratio] 1.4 {ratio} Normal 1.0 - 2.5 [place] [employer] [facility] HospitalProject Manager; [employer] ALP [Catalytic activity/Vol] 76 U/L Normal 31 - 125 U/L [place] [employer] [facility]; [employer] ALT [Catalytic activity/Vol] 15 U/L Normal 6 - 29 U/L [place] [employer] [facility] HospitalProject Manager.; [employer] AST [Catalytic activity/Vol] 16 U/L Normal 10 - 30 U/L [place] [employer].; [employer]. Bilirubin [Mass/Vol] 0.4 mg/dL Normal 0.2 - 1 .2 mg/dL [facility].; [facility], [facility]. Calcium [Mass/Vol] 8.7 mg/dL Normal 8.6 - 10. 2 mg/dL [facility].; [facility], [facility] Chloride [Moles/Vol] 106 mmol/L Normal 98 - 11 0 mmol/L [facility].; [facility], [facility] Cholesterol [Mass/Vol] 178 mg/dL Normal [facility].; [facility], [facility] Cholesterol in HDL [Mass/Vol] 49 mg/dL Abnormal [facility].; [facility] Cholesterol in LDL [Mass/Vol] 106 mg/dL Abnormal [facility].; [facility], [facility] CO2 [Moles/Vol] 24 mmol/L Normal 20 - 32 mmol/L [facility].; [facility], [facility] Creatinine [Mass/Vol] 0.85 mg/dL Normal 0.50 - 1.10 mg/dL [facility].; [facility], [facility]. Free T3 [Mass/Vol] 2.9 pg/mL Normal 2.3 - 4.2 pg/mL [facility].; [facility], [facility]. Free T4 [Mass/Vol] 0.9 ng/dL Normal 0.8 - 1.8 ng/dL [facility], [facility].; [facility], [facility]. GFR/1.73 sq M.predicted among blacks MDRD (S/P/Bld) [Vol rate/Area] 101 mL/min/{1.73_m2} Normal [facility].; [facility], [facility]. Glucose [Mass/Vol] 97 mg/dL Normal 65 - 99 mg/dL [facility], [facility].; [facility], [facility]. Potassium [Moles/Vol] 4.3 mmol/L Normal 3.5 - 5.3 mmol/L [facility], [facility].; [facility], [facility] Protein [Mass/Vol] 7.2 g/dL Normal 6.1 - 8.1 g/dL [facility].; [facility] CenterProject Manager. Sodium [Moles/Vol] 138 mmol/L Normal 135 - 146 mmol/L [facility].; [facility] CenterProject Manager. Triglyceride [Mass/Vol] 134 mg/dL Normal [facility].; [facility], [employer]. TSH Qn 2.60 m[IU]/L Normal [facility].; [place] [employer] [facility] HospitalProject Manager Urea nitrogen [Mass/Vol] 11 mg/dL Normal 7 - 25 mg/dL [facility].; [facility] CenterProject Manager. No Panel Informationon 12-10 BUN/CREATININE RATIO NOT APPLICABLE Normal 6 - 22 [facility]; [place] [employer] [facility] HospitalProject Manager. CHOL/HDLC RATIO 3.6 Normal [facility].; [place] [employer] [facility], [employer]. eGFR NON-AFR. ECUADOREAN 88 Normal [facility].; [facility] CenterProject Manager GLOBULIN 3.0 Normal 1.9 - 3.7 [facility].; [place] [employer] [facility] HospitalProject Manager. NON HDL CHOLESTEROL 129 Normal [facility].; [place] [employer] [facility] HospitalProject Manager. 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 [facility] Comment on above: Result Comment: Nega tive for This test was developed and its performance characteristics determined by [facility]'s [facility] Pathology and Laboratory Medicine [place]. This test has been authorized by FDA under an Emergency Use Authorization (EUA). This test has been validated in accordance with the FDA's Guidance Document "Policy for Diagnostics Testing in Laboratories Certified to Perform High Complexity Testing under CLIA prior to Emergency use Authorization for Coronavirus Disease 2019 during the Public Health Emergency" issued on September 22, 2019. COVID19 (SARS This test was developed and its performance characteristics determined by [facility]ology and Laboratory [facility] [place]. This test has been authorized by FDA under an Emergency Use Authorization (EUA). This test has been validated in accordance with the FDA's Guidance Document "Policy for Diagnostics Testing in Laboratories Certified to Perform High Complexity Testing under CLIA prior to Emergency use Authorization for Coronavirus Disease 2019 during the Public Health Emergency" issued on September 22, 2019. CoV2) by PCR. This test was developed and its performance characteristics determined by [facility] [place]. This test has been authorized by FDA under an Emergency Use Authorization (EUA). This test has been validated in accordance with the FDA's Guidance Document "Policy for Diagnostics Testing in Laboratories Certified to Perform High Complexity Testing under CLIA prior to Emergency use Authorization for Coronavirus Disease 2019 during the Public Health Emergency" issued on September 22, 2019. 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 pyogenes Ag EIA Ql (Throat) Negative Normal [employer] No Panel Informationon 03-17 MONOSPOT TEST (IN HOUSE) Negative Normal [employer].; [employer]. Laboratory - Chemistry and C hemistry - challengeon 11-02-2018 Free T3 [Mass/Vol] 3.1 pg/mL Normal 2.3 - 4.2 pg/mL [place] [employer].; [employer], [employer]. Free T4 [Mass/Vol] 0.9 ng/dL Normal 0.8 - 1.8 ng/dL [employer], [employer]. TSH Qn 3.10 m[IU]/L Normal 0.40 - 4.50 {mIU/L} [employer].; [employer], [employer]. Laboratory - Serology - non- microon 11-02-2018 TPO Ab Qn [IU]/mL Normal [employer]; [employer]. No Panel Informationon 10-26 PANEL NAME THIN PREP (QU) HPV DNA-HIGH RISK Normal [employer].; [employer]. Laboratory - Chemistry and C hemistry - challengeon 10-14-2016 Albumin [Mass/Vol] 4.4 g/dL Normal 3.4 - 4.8 g/dL [facility].; [facility]. Albumin [Mass/Vol] 1.5 g/dL Normal 0.9 - 1.6 [facility].; [facility], [facility]. ALP [Catalytic activity/Vol] 102 U/L Normal 38 - 126 U/L [facility].; [facility], [facility]. ALT [Catalytic activity/Vol] 13 U/L Normal 8 - 35 U/L [facility].; [facility], [facility]. ALT No additional P-5'-P [Catalytic activity/Vol] 13 U/L Normal 8 - 35 U/L [facility].; [facility], [facility]. Anion gap [Moles/Vol] 12 mmol/L Normal 10 - 2 0 mmol/L [facility].; [facility], [facility]. AST [Catalytic activity/Vol] 14 U/L Normal 13 - 39 U/L [facility].; [facility], [facility]. Bilirubin [Mass/Vol] 0.4 mg/dL Normal 0.0 - 1 .5 mg/dL [facility].; [facility], [facility]. Calcium [Mass/Vol] 9.1 mg/dL Normal 8.6 - 10. 2 mg/dL [facility].; [facility], [facility]. Chloride [Moles/Vol] 102 mmol/L Normal 98 - 10 7 mmol/L [facility].; [facility], [facility] Cholesterol [Mass/Vol] 231 mg/dL Abnormal 0 - 2 00 mg/dL [facility].; [facility], [facility]. Cholesterol in HDL [Mass or moles/Vol] 58 mg/dL Normal 40 - 60 mg/dL [facility].; [facility], [facility]. Cholesterol in LDL [Mass/Vol] 147 mg/dL Abnormal 0 - 129 mg/dL [facility], [facility].; [facility], [facility]. Cholesterol.total/Gretel sterol in HDL [Mass ratio] 4.0 {ratio} Normal 0.0 - 5.0 [facility].; [facility], [facility]. CO2 [Moles/Vol] 26.0 mmol/L Normal 21.0 - 31.0 mmol/L [facility], [facility].; [facility], [facility]. Comprehensive metabolic 2000 panel CMP with eGFR Normal [facility]; [facility], [facility] Creatinine [Mass/Vol] 0.8 mg/dL Normal 0.6 - 1.2 mg/dL [facility], [facility].; [facility], [facility]. Free T3 [Mass/Vol] T3, FREE Normal [facility].; [facility], [facility]. Free T4 [Mass/Vol] 0.78 ng/dL Normal 0.61 - 1. 12 ng/dL [facility].; [facility], [facility]. GFR/1.73 sq M.predicted among blacks MDRD (S/P/Bld) [Vol rate/Area] mL/min/{1.73_m2} Normal 60 - 999 {ML/MINUTE} [facility], [facility].; [facility], [facility]. GFR/1.73 sq M.predicted MDRD (S/P/Bld) [Vol rate/Area] mL/min/{1.73_m2} Normal 60 - 999 {ML/MINUTE} [facility], [facility].; [facility], [facility]. Globulin (S) [Mass/Vol] 3.0 g/dL Normal 1.5 - 3.8 g/dL [facility], [facility].; [facility], [employer] Glucose [Mass/Vol] 93 mg/dL Normal 74 - 106 mg/dL [facility], [facility].; [facility], [facility]. Lipid 1996 panel LIPID PROFILE Normal [facility], [facility].; [facility], [facility] Potassium [Moles/Vol] 4.0 mmol/L Normal 3.5 - 5.1 mmol/L [facility], [facility].; [facility], [facility] Protein [Mass/Vol] 7.4 g/dL Normal 6.4 - 8.3 g/dL [facility], [facility].; [facility], [employer] Sodium [Moles/Vol] 136 mmol/L Normal 136 - 145 mmol/L [facility], [facility].; [facility], [facility]. Triglyceride [Mass/Vol] 132 mg/dL Normal 0 - 150 mg/dL [facility], [facility].; [employer]. TSH Qn 4.24 m[IU]/L Normal 0.34 - 5.60 {uIU/ml} [place] [employer].; [employer]. Urea nitrogen [Mass/Vol] 12 mg/dL Normal 6 - 20 mg/dL [place] [employer].; [employer]. Urea nitrogen/Creatinine [Mass ratio] 15 {ratio} Normal 0 - 30 {ratio} [employer].; [employer]. No Panel Informationon 10-14 AGE 31 {years} Normal [employer].; [employer]. No Panel Informationon 04-23 PANEL NAME THIN PREP (QU) PAP WITH HPV REFLEX Normal [place] [employer].; [employer]. Laboratory - Cytologyon Microscopic observation Cyto stain Nom (Cvx) SEE NOTE Normal [facility] [employer].; [employer]. Laboratory - Urinalysison Glucose Test strip (U) [Mass/Vol] Negative Normal [place] [employer].; [employer]. Protein Ql (U) Negative Normal [facility] [employer].; [employer]. Laboratory - Urinalysison Glucose Test strip (U) [Mass/Vol] Negative Normal [place] [employer].; [employer]. Protein Ql (U) trace Normal [facility].; [employer]. Laboratory - Urinalysison Glucose Test strip (U) [Mass/Vol] Negative Normal [employer].; [employer]. Protein Ql (U) trace Normal [facility] [employer].; [employer]. Laboratory - Urinalysison Glucose Test strip (U) [Mass/Vol] Negative Normal Ta [employer].; [employer], [employer]. Protein Ql (U) Negative Normal [facility] [employer].; [employer]. Laboratory - Microbiology an d Antimicrobial susceptibilityon 05-06-2011 S. agalactiae Org specific cx Ql (Unsp spec) SEE NOTE Abnormal [place] [employer] [facility].; [employer]. Laboratory - Specimen inform ationon 05-06-2011 Specimen source Nom (Unsp spec) GENITAL-VAGINAL Normal [facility].; [place] Lily [employer], [facility]. Laboratory - Urinalysison Glucose Test strip (U) [Mass/Vol] Negative Normal [facility] [employer] [facility].; [employer]. Protein Ql (U) Negative Normal [facility].; [employer]. Laboratory - Urinalysison Glucose Test strip (U) [Mass/Vol] Negative Normal [place] [employer].; [employer], [employer]. Protein Ql (U) Negative Normal [facility].; [employer], [employer]. Laboratory - Urinalysison Glucose Test strip (U) [Mass/Vol] Negative Normal [place] [employer].; [employer], [employer]. Protein Ql (U) Negative Normal [facility].; [employer], [employer]. Laboratory - Chemistry and C hemistry - challengeon 02-11-2011 Glucose 1 Hr post 50 g glucose PO [Mass/Vol] 126 mg/dL Normal [facility].; [employer], [employer]. Laboratory - Hematology and Cell countson 02-11-2011 Hemoglobin (Bld) [Mass/Vol] 11.6 g/dL Abnormal 11.7 - 15.5 g/dL [facility].; [employer], [employer]. Laboratory - Urinalysison Glucose Test strip (U) [Mass/Vol] Negative Normal [place] [employer].; [employer], [employer]. Protein Ql (U) Negative Normal [facility] [employer].; [employer], [employer]. Laboratory - Urinalysison Glucose Test strip (U) [Mass/Vol] Negative Normal Ta [employer].; [employer], [employer]. Protein Ql (U) Negative Normal [facility] [employer].; [employer], [employer]. Laboratory - Urinalysison Glucose Test strip (U) [Mass/Vol] Negative Normal [facility].; [place] medineering [facility] HospitalProject Manager Protein Ql (U) Negative Normal [facility] HospitalProject [facility].; [place] medineering [facility] HospitalProject Manager Laboratory - Blood bankon ABO group Nom (Bld) A Normal [facility].; [place] medineering [facility] Blood group antibody screen Ql Negative Normal [facility].; [place] medineering [facility] HospitalProject Manager Laboratory - Chemistry and C hemistry - challengeon 11-05-2010 Bilirubin Ql (U) Negative Normal [facility].; [place] medineering [facility] HospitalProject Manager Ketones Ql (U) Negative Normal [facility] Hospital[facility] [email or web address]; [place] medineering [facility] HospitalProject Manager pH (U) 5.0 [pH] Normal 4.6 - 8.0 [facility]; [place] [employer] Specific gravity (U) [Rel density] 1.025 Normal 1.001 - 1.025 [facility]; [place] [employer]. Laboratory - Hematology and Cell countson 11-05-2010 Basophils (Bld) [#/Vol] 30 {Cells}/uL Normal 0 - 200 {Cells}/uL [facility].; [place] [employer] Basophils/100 WBC (Bld) 0 % Normal 0 - 2 % [facility].; [place] medineering [facility] HospitalProject Manager. Eosinophils (Bld) [#/Vol] 290 {Cells}/uL Normal 15 - 500 {Cells}/uL [facility].; [place] [employer]. Eosinophils/100 WBC (Bld) 2 % Normal 0 - 8 % [facility]; [place] [employer] Erythrocyte distribution width (RBC) [Ratio] 16.2 % Abnormal 11.0 - 15.0 % [facility]; [place] [employer] Hematocrit (Bld) [Volume fraction] 38.8 % Normal 35.0 - 45.0 % [place] medineering [facility].; [place] [employer] Hemoglobin (Bld) [Mass/Vol] 12.7 g/dL Normal 11.7 - 15.5 g/dL [facility]; [facility], [facility]. Hemoglobin Ql (U) Negative Normal [facility].; [facility] Lymphocytes (Bld) [#/Vol] 2070 {Cells}/uL Normal 850 - 3900 {Cells}/uL [facility].; [facility], [facility]. Lymphocytes/100 WBC (Bld) 15 % Normal 15 - 49 % [facility], [facility].; [facility] MCH (RBC) [Entitic mass] 27.9 pg Normal 27.0 - 33.0 PG [facility].; [place] medineering [facility], [facility]. MCHC (RBC) [Mass/Vol] 32.8 g/dL Normal 32.0 - 36.0 g/dL [facility].; [facility], [facility]. MCV (RBC) [Entitic vol] 85.1 fL Normal 80.0 - 100.0 fL [facility].; [place] medineering [facility] Monocytes (Bld) [#/Vol] 650 {Cells}/uL Normal 20 0 - 950 {Cells}/uL [facility].; [place] Lily [employer], [facility]. Monocytes/100 WBC (Bld) 5 % Normal 0 - 13 % [facility].; [facility], [facility]. Neutrophils (Bld) [#/Vol] 86534 {Cells}/uL Abnormal 1500 - 7800 {Cells}/uL [facility].; [place] Lily [employer], [facility]. Neutrophils/100 WBC (Bld) 78 % Normal 38 - 80 % [facility].; [place] Lily [employer], [facility]. Platelets (Bld) [#/Vol] 305 10*3/uL Normal 140 - 400 10*3/uL [facility].; [place] Lily [employer], [facility]. RBC (Bld) [#/Vol] 4.55 10*6/uL Normal 3.80 - 5.1 0 10*6/uL [facility].; [place] Lily [employer]. WBC (Bld) [#/Vol] 13.8 10*3/uL Abnormal 3.8 - 10.8 10*3/uL [facility].; [place] Lily [employer], [facility]. Laboratory - Microbiology an d Antimicrobial susceptibilityon 11-05-2010 HBV surface Ag IA Ql Non-Reactive Normal [facility] [employer].; [employer]. Reagin Ab RPR Ql (S) Non-Reactive Normal [facility] [employer].; [employer]. Rubella virus IgG Qn (S) 2.31 {INDEX} Normal [employer].; [employer]. Laboratory - Specimen inform ationon 11-05-2010 Appearance (U) Clear Normal [place] [employer].; [employer]. Color (U) Clear Normal [employer].; [employer]. Laboratory - Urinalysison Glucose Test strip (U) [Mass/Vol] Negative Normal [employer].; [employer]. Leukocyte esterase Test strip Ql (U) Negative Normal Ta [employer].; [employer]. Nitrite Ql (U) Negative Normal [facility] [employer].; [employer]. Protein Ql (U) Negative Normal [facility] [employer].; [employer]. No Panel Informationon 11-05 RH TYPE Positive Normal [employer].; [employer]. UA - UROBILINOGEN 0.2 mg/dL Normal [employer].; [employer]. Laboratory - Cytologyon 04-24 Cytology report Cyto stain Doc (Cvx/Vag) SEE NOTE Normal [employer].; [employer]. Vital Signs Date Time Vital Sign Value Performing Clinician Facility 01-04-2025 09:42-0400 Body height 157.48 cm Cleopatra FREEMAN Work Phone: [facility] 01-04-2025 09:42-0400 Body mass index (BMI) [Ratio] 50.3 kg/m2 Cleopatra FREEMAN Work Phone: [facility] 01-04-2025 09:42-0400 Body weight 124.73 kg Cleopatra FREEMAN Work Phone: [facility] 01-04-2025 09:42-0400 Diastolic blood pressure 81 mm[Hg] Cleopatra Jiménez PA Work Phone: [facility] 01-04-2025 09:42-0400 Respiratory rate 18 /min Cleopatra Jiménez PA Work Phone: [facility] 01-04-2025 09:42-0400 Systolic blood pressure 129 mm[Hg] Cleopatra Jiménez PA Work Phone: [facility] 12-19-2024 11:57-0400 Body temperature 97.4 [degF] Cleopatra Jiménez PA Work Phone: [phone] [place] [address] 12-19-2024 11:57-0400 Diastolic blood pressure 66 mm[Hg] Cleopatra Jiménez PA Work Phone: [phone] [address] 12-19-2024 11:57-0400 Heart rate 84 /min Cleopatra Jiménez PA Work Phone: 5(318)[phone] [place] [address] 12-19-2024 11:57-0400 Respiratory rate 16 /min Cleopatra Jiménez PA Work Phone: [phone](488)[phone] [place] [address] 12-19-2024 11:57-0400 SaO2% (BldA) [Mass fraction] 93 % Cleopatra Jiménez PA Work Phone: [facility] 12-19-2024 11:57-0400 Systolic blood pressure 100 mm[Hg] Cleopatra Jiménez PA Work Phone: [facility] 12-19-2024 09:03-0400 Body height 157.48 cm Cleopatra Jiménez PA Work Phone: [facility] 12-19-2024 09:03-0400 Body mass index (BMI) [Ratio] 49.2 kg/m2 Cleopatra Jiménez PA Work Phone: [facility] 12-19-2024 09:03-0400 Body weight 122.1 kg Cleopatra Jiménez PA Work Phone: [facility] 10-26-2024 09:52-0400 Body height 157.48 cm Ladi Walker LPN [facility].; [facility], [facility]. 10-26-2024 09:52-0400 Body mass index (BMI) [Ratio] 49.2 kg/m2 [facility], [facility].; [facility], [facility]. 10-26-2024 09:52-0400 Body surface area Derived from formula 2.17 m2 [facility], [facility].; [place] medineering [facility]. 10-26-2024 09:52-0400 Body temperature 98.1 [degF] [facility], [facility].; [place] medineering [facility], [employer]. Comment on above: Method: Tympanic 10-26-2024 09:52-0400 Body weight 122.02 kg [facility], [facility].; [facility]. 10-26-2024 09:52-0400 Diastolic blood pressure 70 mm[Hg] [facility], [facility].; [place] Lily [employer], [employer]. Comment on above: Patient Position: Sitting; Cuff Location : Left Arm; Cuff Size: Standard 10-26-2024 09:52-0400 Heart rate 99 /min [facility], [facility].; Ta medineering [facility] HospitalProject Manager. Comment on above: Pattern: Regular 10-26-2024 09:52-0400 Inhaled oxygen concentration 21 % [facility], [facility].; [employer]. Comment on above: Room air 10-26-2024 09:52-0400 SaO2% (BldA) [Mass fraction] 97 % [facility], [facility].; [place] medineering [facility] HospitalE[facility]Surge Inc. 10-26-2024 09:52-0400 Systolic blood pressure 114 mm[Hg] [facility], [facility].; [place] Lily [employer], [employer]. Comment on above: Patient Position: Sitting; Cuff Location : Left Arm; Cuff Size: Standard 10-22-2024 13:04-0400 Body mass index (BMI) [Ratio] 50.3 kg/m2 Cleopatra FREEMAN Work Phone: [facility] 10-22-2024 13:04-0400 Body weight 124.73 kg Cleopatra Jiménez PA Work Phone: [facility] 10-22-2024 13:04-0400 Diastolic blood pressure 86 mm[Hg] Cleopatra Jiménez PA Work Phone: [facility] 10-22-2024 13:04-0400 Respiratory rate 18 /min Cleopatra Jiménez PA Work Phone: [facility] 10-22-2024 13:04-0400 Systolic blood pressure 129 mm[Hg] Cleopatra Jiménez PA Work Phone: [facility] 10-09-2024 08:56-0400 Body height 157.5 cm Julio Benites MD Work Phone: [facility] 10-09-2024 08:56-0400 Body mass index (BMI) [Ratio] 49.93 kg/m2 Julio Benites MD Work Phone: [facility] 10-09-2024 08:56-0400 Body temperature 97.81 [degF] Julio Benites MD Work Phone: [facility] 10-09-2024 08:56-0400 Body weight 123.83 kg Julio Benites MD Work Phone: [facility] 10-09-2024 08:56-0400 Diastolic blood pressure 85 mm[Hg] Julio Benites MD Work Phone: [facility] 10-09-2024 08:56-0400 Heart rate 88 /min Julio Benites MD Work Phone: [facility] 10-09-2024 08:56-0400 SaO2% (BldA) [Mass fraction] 98 % Julio Benites MD Work Phone: [facility] 10-09-2024 08:56-0400 Systolic blood pressure 128 mm[Hg] Julio Benites MD Work Phone: [facility] 09-17-2024 08:42-0500 Body height 157.48 cm Adali Katz LPN [facility].; [facility]. 09-17-2024 08:42-0500 Body mass index (BMI) [Ratio] 49.93 kg/m2 Adali Mojica Sterling WOMACK [facility].; [facility]. 09-17-2024 08:42-0500 Body surface area Derived from formula 2.18 m2 Adali Mojica Sterling WOMACK [facility].; [place] medineering [facility]. 09-17-2024 08:42-0500 Body weight 123.83 kg Adali Mojica Sterling WOMACK [facility].; [place] medineering [facility]. 09-17-2024 08:42-0500 Diastolic blood pressure 89 mm[Hg] Adali Mojica Sterlign [facility] medineering [facility].; [employer]. Comment on above: Patient Position: Sitting; Cuff Location : Right Arm; Cuff Size: Standard 09-17-2024 08:42-0500 Heart rate 98 /min Adali Mojica Sterling WOMACK [facility].; [employer]. Comment on above: Pattern: Regular 09-17-2024 08:42-0500 Systolic blood pressure 123 mm[Hg] Adali Mojica Sterling WOMACK [place] medineering [facility].; [place] medineering [facility] HospitalProject Manager. Comment on above: Patient Position: Sitting; Cuff Location : Right Arm; Cuff Size: Standard 08-02-2024 08:12-0500 Body height 157.48 cm Cleopatra Jiménez PA-C Work Phone: [place] [employer].; [employer]. 08-02-2024 08:12-0500 Body mass index (BMI) [Ratio] 48.83 kg/m2 Cleopatra Jiménez PA-C Work Phone: [employer].; [employer]. 08-02-2024 08:12-0500 Body surface area Derived from formula 2.16 m2 Cleopatra Jiménez PA-C Work Phone: [employer].; [employer]. 08-02-2024 08:12-0500 Body weight 121.11 kg Cleopatra Jiménez PA-C Work Phone: [place] medineering [facility] HospitalProject Manager.; [employer]. 08-02-2024 08:12-0500 Diastolic blood pressure 63 mm[Hg] Cleopatra Mattsoner PA-C Work Phone: [place] medineering [facility] HospitalProject Manager.; [employer]. Comment on above: Patient Position: Sitting; Cuff Location : Left Arm; Cuff Size: Standard 08-02-2024 08:12-0500 Heart rate 93 /min Cleopatra Jiménez PA-C Work Phone: [place] medineering [facility] HospitalProject Manager.; [employer]. Comment on above: Pattern: Regular 08-02-2024 08:12-0500 Systolic blood pressure 112 mm[Hg] Cleopatra Mattsoner PA-C Work Phone: [place] medineering [facility] HospitalProject Manager.; [employer]. Comment on above: Patient Position: Sitting; Cuff Location : Left Arm; Cuff Size: Standard 12-20-2023 11:040 Body height 157.48 cm Elizabeth Gunderson [facility], [facility].; [employer], [employer]. 12-20-2023 11:26040 Body mass index (BMI) [Ratio] 47.01 kg/m2 [facility] Neptali [facility], [facility].; [employer] 12-20-2023 11:26040 Body surface area Derived from formula 2.13 m2 [facility] Oelrichs [facility], Inc.; [employer] 12-20-2023 11:26040 Body temperature 128 [degF] [facility] Neptali [facility] medineering [facility], [facility].; [employer], [employer]. Comment on above: Method: Tympanic 12-20-2023 11:040 Body weight 116.58 kg Elizabeth Gunderson [facility], [facility].; [employer] 12-20-2023 11:260400 Diastolic blood pressure 74 mm[Hg] MyriamIlsa Gunderson [facility], [facility].; [facility], [facility]. Comment on above: Patient Position: Sitting; Cuff Location : Left Arm; Cuff Size: Large 12-20-2023 11:26-0400 Heart rate 128 /min Elizabeth Gunderson VU [facility], [facility].; [facility], [employer]. Comment on above: Pattern: Regular 12-20-2023 11:26-0400 Inhaled oxygen concentration 21 % Elizabeth Chambersey [facility], [facility].; [place] medineering [facility], [employer]. Comment on above: Room air 12-20-2023 11:0400 SaO2% (BldA) [Mass fraction] 98 % MyriamIlsa Chambersey SEAFOOD PROCESSOR [facility], [facility].; [facility], [facility]. 12-20-2023 11:040 Systolic blood pressure 107 mm[Hg] Myriam Neptali VU [facility], [facility].; [employer], [employer]. Comment on above: Patient Position: Sitting; Cuff Location : Left Arm; Cuff Size: Large 12-07-2023 14:32-040 Body height 157.48 cm Kamille Georges LPN [facility], [facility].; [facility], [facility]. 12-07-2023 14:32-0400 Body mass index (BMI) [Ratio] 47.01 kg/m2 Kamille Georges LPN [facility], [facility].; [place] medineering [facility], [facility]. 12-07-2023 14:32-0400 Body surface area Derived from formula 2.13 m2 Kamille Georges LPN [facility], [facility].; [facility], [facility]. 12-07-2023 14:32-0400 Body temperature 97.6 [degF] Kamille Georges LPN [facility], [facility].; [employer], [employer]. Comment on above: Method: Tympanic 12-07-2023 14:32-0400 Body weight 116.58 kg Kamille Georges LPN [facility], [facility].; [place] Lily [employer], [employer]. 12-07-2023 14:32-0400 Diastolic blood pressure 77 mm[Hg] Kamille Georges LPN [facility], [facility].; [employer], [employer]. Comment on above: Patient Position: Sitting; Cuff Location : Left Arm; Cuff Size: Standard 12-07-2023 14:32-0400 Heart rate 119 /min Kamille Georges LPN [facility].; [employer]. Comment on above: Pattern: Regular 12-07-2023 14:32-0400 Inhaled oxygen concentration 21 % Kamille Georges LPN [place] medineering [facility].; [employer]. Comment on above: Room air 12-07-2023 14:32-0400 SaO2% (BldA) [Mass fraction] 97 % Kamille Georges LPN [place] medineering [facility].; [employer]. 12-07-2023 14:32-0400 Systolic blood pressure 117 mm[Hg] Kamille Georges LPN [employer].; [employer]. Comment on above: Patient Position: Sitting; Cuff Location : Left Arm; Cuff Size: Standard 06-06-2023 13:48-0500 Body height 157.48 cm Cleopatra Brit Mattsoner PA-C Work Phone: [employer].; [employer]. 06-06-2023 13:48-0500 Body mass index (BMI) [Ratio] 48.29 kg/m2 Cleopatra Brit Jiménez PA-C Work Phone: [employer].; [employer]. 06-06-2023 13:48-0500 Body surface area Derived from formula 2.15 m2 Cleopatra Brit Jiménez PA-C Work Phone: [employer].; [employer]. 06-06-2023 13:48-0500 Body weight 119.75 kg Cleopatra Brit Jiménez PA-C Work Phone: [employer].; [employer]. 06-06-2023 13:48-0500 Diastolic blood pressure 81 mm[Hg] Cleopatra Brit Jiménez PA-C Work Phone: [employer].; [employer]. Comment on above: Patient Position: Sitting; Cuff Location : Left Arm; Cuff Size: Standard 06-06-2023 13:48-0500 Heart rate 107 /min Cleopatra Perea Tino DAVIES Work Phone: [facility] CenterProject Manager.; [employer]. Comment on above: Pattern: Regular 06-06-2023 13:48-0500 Systolic blood pressure 136 mm[Hg] Cleopatra Perea Tino DAVIES Work Phone: [facility] CenterProject Manager.; [employer]. Comment on above: Patient Position: Sitting; Cuff Location : Left Arm; Cuff Size: Standard 10-13-2022 10:59-0400 Body height 157.48 cm Kamille Georges LPN [facility] [facility].; [place] [facility]. 10-13-2022 10:59-0400 Body mass index (BMI) [Ratio] 47.37 kg/m2 Kamille Georges LPN [facility], [facility].; [employer], [employer]. 10-13-2022 10:59-0400 Body surface area Derived from formula 2.13 m2 Kamille Georges LPN [facility], [facility].; [employer], [employer]. 10-13-2022 10:59-0400 Body weight 117.48 kg Kamille Georges LPN [facility], [facility].; [employer], [employer]. 10-13-2022 10:59-0400 Diastolic blood pressure 81 mm[Hg] Kamille Georges LPN [place] [employer] [facility], [facility].; [employer]. Comment on above: Patient Position: Sitting; Cuff Location : Left Arm; Cuff Size: Standard 10-13-2022 10:59-0400 Heart rate 83 /min Kamille Georges LPN [place] [employer] [facility], [facility].; [employer]. Comment on above: Pattern: Regular 10-13-2022 10:59-0400 Systolic blood pressure 135 mm[Hg] Kamille Georges LPN [place] [facility], [facility].; [employer]. Comment on above: Patient Position: Sitting; Cuff Location : Left Arm; Cuff Size: Standard 06-22-2022 08:18-0500 Body height 157.48 cm Elizabeth Gunderson VU [place] [employer] [facility], [facility].; [employer]. 06-22-2022 08:18-0500 Body mass index (BMI) [Ratio] 46.46 kg/m2 Elizabeth Gunderson LPN [facility], [facility].; [place] [employer] [facility], [employer]. 06-22-2022 08:18-0500 Body surface area Derived from formula 2.12 m2 Elizabeth Gunderson LPN [facility], [facility].; [place] [employer] [facility] HospitalProject [facility]. 06-22-2022 08:18-0500 Body temperature 100.4 [degF] Elizabeth Gunderson [facility].; [employer]. Comment on above: Method: Tympanic 06-22-2022 08:18-0500 Body weight 115.21 kg Elizabeth Gunderson SEAFOOD PROCESSOR [facility], [facility].; [employer]. 06-22-2022 08:18-0500 Diastolic blood pressure 70 mm[Hg] Elizabeth Gunderson LPN [facility], [employer].; [employer]. Comment on above: Patient Position: Sitting; Cuff Location : Left Arm; Cuff Size: Large 06-22-2022 08:18-0500 Heart rate 108 /min Elizabeth Gunderson [facility], [facility].; [place] [employer]ine[employer] [facility] HospitalProject [facility]. Comment on above: Pattern: Regular 06-22-2022 08:18-0500 Inhaled oxygen concentration 20 % Elizabeth Gunderson SEAFOOD PROCESSOR [facility], Inc.; [employer]. Comment on above: Room air 06-22-2022 08:18-0500 Inhaled oxygen concentration 21 % MyriamIlsa Gunderson [facility], [facility].; [employer]. Comment on above: Room air 06-22-2022 08:18-0500 SaO2% (BldA) [Mass fraction] 97 % MyriamIlsa Gunderson [facility], [facility].; [employer]. 06-22-2022 08:18-0500 Systolic blood pressure 98 mm[Hg] Elizabeth Gunderson SEAFOOD PROCESSOR [facility], [employer].; [employer]. Comment on above: Patient Position: Sitting; Cuff Location : Left Arm; Cuff Size: Large 07-08-2021 14:050 Body height 157.48 cm Darlene Ye LPN [facility], [facility].; [place] [employer] [facility], [employer]. 07-08-2021 14:050 Body mass index (BMI) [Ratio] 45.36 kg/m2 Darlenejerry Ye [facility], [facility].; [employer], [employer]. 07-08-2021 14:0500 Body surface area Derived from formula 2.09 m2 Darlene Ye SEAFOOD PROCESSOR [facility], [facility].; [employer], [employer]. 07-08-2021 14:050 Body temperature 98.2 [degF] Darlene Ye [facility], [facility].; [employer]. Comment on above: Method: Tympanic 07-08-2021 14:050 Body weight 112.49 kg Darlene eY SEAFOOD PROCESSOR [facility], [facility].; [employer]. 07-08-2021 14:050 Diastolic blood pressure 75 mm[Hg] Darlene Ye [facility], [facility].; [employer]. Comment on above: Patient Position: Sitting; Cuff Location : Right Arm; Cuff Size: Standard 07-08-2021 14:050 Heart rate 92 /min [facility].; [employer]. Comment on above: Pattern: Regular 07-08-2021 14:11-0500 Inhaled oxygen concentration 20 % Darlene Ye LPN [facility], Inc.; [employer]. Comment on above: Room air 07-08-2021 [id number]:110500 Inhaled oxygen concentration 21 % Darlene Ye LPN [facility], [facility].; [employer]. Comment on above: Room air 07-08-2021 14:11-0500 SaO2% (BldA) [Mass fraction] 97 % Darlene Ye [facility], [facility].; [employer]. 07-08-2021 14:110500 Systolic blood pressure 107 mm[Hg] Darlene Ye LPN [facility], [facility].; [employer]. Comment on above: Patient Position: Sitting; Cuff Location : Right Arm; Cuff Size: Standard 02-10-2021 14:00-0400 Body height 157.48 cm Kinsey Graves RN [place] medine[employer] [facility] HospitalProject [facility].; [employer]. 02-10-2021 14:00-0400 Body mass index (BMI) [Ratio] 45.91 kg/m2 Kinsey Graves RN [facility].; [employer] [facility] HospitalProject Manager. 02-10-2021 14:00-0400 Body surface area Derived from formula 2.11 m2 Kinsey Graves RN [employer] [facility] HospitalProject Manager.; [employer]. 02-10-2021 14:00-0400 Body temperature 98.7 [degF] Kinsey Graves RN [employer] [facility] HospitalProject Manager.; [employer]. Comment on above: Method: Tympanic 02-10-2021 14:00-0400 Body weight 113.85 kg Kinsey Graves RN [employer] [facility] HospitalProject Manager.; [employer]. 02-10-2021 14:00-0400 Diastolic blood pressure 72 mm[Hg] Kinsey Graves RN [employer].; [employer]. Comment on above: Patient Position: Sitting; Cuff Location : Left Wrist; Cuff Size: Standard 02-10-2021 14:00-0400 Heart rate 80 /min Kinsey Graves RN [employer] [facility] HospitalProject Manager.; [employer]. Comment on above: Pattern: Regular 02-10-2021 14:00-0400 Inhaled oxygen concentration 20 % Kinsey Graves RN [employer].; [employer]. Comment on above: Room air 02-10-2021 14:00-0400 Inhaled oxygen concentration 21 % Kinsey Graves RN [employer].; [employer]. Comment on above: Room air 02-10-2021 14:00-0400 SaO2% (BldA) [Mass fraction] 98 % Kinsey Graves RN [employer] [facility] HospitalProject Manager.; [employer]. 02-10-2021 14:00-0400 Systolic blood pressure 105 mm[Hg] Kinsey Graves RN [facility], [facility].; [place] [employer] [facility], [facility]. Comment on above: Patient Position: Sitting; Cuff Location : Left Wrist; Cuff Size: Standard 12-10-2020 08:40-0400 Body height 157.48 cm Darlene Ye LPN [facility], Inc.; [place] med[employer] [facility], [facility]. 12-10-2020 08:40-0400 Body mass index (BMI) [Ratio] 46.46 kg/m2 [facility], [facility].; [place] [employer], [facility]. 12-10-2020 08:40-0400 Body surface area Derived from formula 2.12 m2 Darlene Ye LPN [facility], [facility].; [place] [employer], [facility]. 12-10-2020 08:40-0400 Body weight 115.21 kg Darlene Ye LPN [facility], [facility].; [place] Lily [employer], [facility]. 12-10-2020 08:40-0400 Diastolic blood pressure 83 mm[Hg] Darlene Ye LPN [facility], [facility].; [employer], [employer]. Comment on above: Patient Position: Sitting; Cuff Location : Left Arm; Cuff Size: Standard 12-10-2020 08:40-0400 Heart rate 94 /min Darlene [facility], [facility].; [employer] Comment on above: Pattern: Regular 12-10-2020 08:40-0400 Systolic blood pressure 128 mm[Hg] Darlene [facility], [facility].; [employer], [employer]. Comment on above: Patient Position: Sitting; Cuff Location : Left Arm; Cuff Size: Standard 03-17-2020 09:49-0400 Body height 157.48 cm Eryn Archuleta LPN [facility], [facility].; [place] [employer], [employer]. 03-17-2020 09:49-0400 Body mass index (BMI) [Ratio] 46.82 kg/m2 Eryn Archuleta LPN [facility], [facility].; [place] Lily [employer], [facility]. 03-17-2020 09:49-0400 Body surface area Derived from formula 2.12 m2 Eryn Archuleta LPN [facility], [facility].; [facility], [facility]. 03-17-2020 09:49-0400 Body temperature 100.9 [degF] Eryn Hernandezzechariah [facility], [facility].; [place] medine[place] [facility], [employer]. Comment on above: Method: Tympanic 03-17-2020 09:49-0400 Body weight 116.12 kg Eryn Wezechariah [facility], [facility].; [place] medine[employer] [facility], Inc[facility] 03-17-2020 09:49-0400 Diastolic blood pressure 84 mm[Hg] Eryn Wezechariah WOMACK [facility], [facility].; [employer], [employer]. Comment on above: Patient Position: Sitting; Cuff Location : Left Arm; Cuff Size: Standard 03-17-2020 09:49-0400 Heart rate 88 /min Eryn Wezechariah WOMACK [facility], [facility].; [employer] Comment on above: Pattern: Regular 03-17-2020 09:49-0400 Inhaled oxygen concentration 20 % Eryn Archuleta SEAFOOD PROCESSOR [facility], [facility].; [place] [employer]. Comment on above: Room air 03-17-2020 09:49-0400 Inhaled oxygen concentration 21 % Eryn Wezechariah [facility], [facility].; [place] Lily [employer], [employer]. Comment on above: Room air 03-17-2020 09:49-0400 SaO2% (BldA) [Mass fraction] 97 % Eryn Geremias [facility], Inc.; [place] Lily [employer], [employer] 03-17-2020 09:49-0400 Systolic blood pressure 148 mm[Hg] Eryn Wezechariah WOMACK [facility], [facility].; [place] [employer]. Comment on above: Patient Position: Sitting; Cuff Location : Left Arm; Cuff Size: Standard 07-31-2019 15:12-0500 Body height 157.48 cm [facility] Work Phone: [facility], [facility].; [place] [employer]. 07-31-2019 15:12-0500 Body mass index (BMI) [Ratio] 46.82 kg/m2 [facility] Work Phone: [employer].; [employer]. 07-31-2019 15:12-0500 Body surface area Derived from formula 2.12 m2 Crystal Sudarshan SEAFOOD PROCESSOR Work Phone: [employer].; [employer]. 07-31-2019 15:12-0500 Body temperature 99.7 [degF] Crystal Sudarshan SEAFOOD PROCESSOR Work Phone: [employer].; [employer]. Comment on above: Method: Tympanic 07-31-2019 15:12-0500 Body weight 116.12 kg Crystal Sudarshan SEAFOOD PROCESSOR Work Phone: [employer]; [employer]. 07-31-2019 15:12-0500 Diastolic blood pressure 76 mm[Hg] Crystal Sudarshan SEAFOOD PROCESSOR Work Phone: [employer]; [employer]. Comment on above: Patient Position: Sitting; Cuff Location : Left Arm; Cuff Size: Standard 07-31-2019 15:12-0500 Heart rate 100 /min Crystal Sudarshan SEAFOOD PROCESSOR Work Phone: [employer]; [employer]. Comment on above: Pattern: Regular 07-31-2019 15:12-0500 Inhaled oxygen concentration 20 % Crystal Sudarshan SEAFOOD PROCESSOR Work Phone: [employer]; [employer]. Comment on above: Room air 07-31-2019 15:12-0500 Inhaled oxygen concentration 21 % Crystal Sudarshan SEAFOOD PROCESSOR Work Phone: [employer].; [employer]. Comment on above: Room air 07-31-2019 15:12-0500 SaO2% (BldA) [Mass fraction] 97 % Crystal Sudarshan SEAFOOD PROCESSOR Work Phone: [employer].; [employer]. 07-31-2019 15:12-0500 Systolic blood pressure 123 mm[Hg] Crystal Sudarshan SEAFOOD PROCESSOR Work Phone: [employer].; [employer]. Comment on above: Patient Position: Sitting; Cuff Location : Left Arm; Cuff Size: Standard 07-16-2019 10:52-0500 Body height 157.48 cm Eryn Archuleta VU [employer]. 07-16-2019 10:52-0500 Body mass index (BMI) [Ratio] 46.82 kg/m2 Eryn Hernandezzechariah [facility] [employer], [employer].; [employer]. 07-16-2019 10:52-0500 Body surface area Derived from formula 2.12 m2 Eryn Hernandezzechariah SEAFOOD PROCESSOR [employer].; [employer]. 07-16-2019 10:52-0500 Body temperature 97.7 [degF] [facility]ule[facility] Hospital[facility].; [employer]. Comment on above: Method: Tympanic 07-16-2019 10:52-0500 Body weight 116.12 kg Eryn Archuleta VU [employer].; [employer]. 07-16-2019 10:52-0500 Diastolic blood pressure 86 mm[Hg] Eryn Archuleta [facility] Hospital[facility], [employer].; [employer]. Comment on above: Patient Position: Sitting; Cuff Location : Left Arm; Cuff Size: Standard 07-16-2019 10:52-0500 Heart rate 102 /min Eryn Wezechariah WOMACK [employer]. Comment on above: Pattern: Regular 07-16-2019 10:52-0500 Inhaled oxygen concentration 20 % Eryn Wezechariah WOMACK [employer]. Comment on above: Room air 07-16-2019 10:52-0500 Inhaled oxygen concentration 21 % Eryn Geremias WOMACK [employer]. Comment on above: Room air 07-16-2019 10:52-0500 SaO2% (BldA) [Mass fraction] 99 % Erynsavannah Archuleta LPN [employer].; [employer]. 07-16-2019 10:52-0500 Systolic blood pressure 119 mm[Hg] Eryn Archuleta LPN [employer].; [employer]. Comment on above: Patient Position: Sitting; Cuff Location : Left Arm; Cuff Size: Standard 11-02-2018 09:56-0400 Body height 157.48 cm Ema Wright RN [employer].; [employer]. 11-02-2018 09:56-0400 Body mass index (BMI) [Ratio] 45.27 kg/m2 Ema Wright RN [employer].; [employer]. 11-02-2018 09:56-0400 Body surface area Derived from formula 2.09 m2 Ema Wright RN [employer].; [employer]. 11-02-2018 09:56-0400 Body temperature 98.2 [degF] Ema Wright RN [employer].; [employer]. Comment on above: Method: Tympanic 11-02-2018 09:56-0400 Body weight 112.27 kg Ema Wright RN [employer].; [employer]. 11-02-2018 09:56-0400 Diastolic blood pressure 84 mm[Hg] Ema Wright RN [employer].; [employer]. Comment on above: Patient Position: Sitting; Cuff Location : Left Arm; Cuff Size: Standard 11-02-2018 09:56-0400 Systolic blood pressure 134 mm[Hg] Ema Wright RN [employer].; [employer]. Comment on above: Patient Position: Sitting; Cuff Location : Left Arm; Cuff Size: Standard 10-26-2017 14:00-0400 Body height 157.48 cm Ema Wright RN [employer].; [employer]. 10-26-2017 14:00-0400 Body mass index (BMI) [Ratio] 44.59 kg/m2 Ema Wright RN [employer].; [employer]. 10-26-2017 14:00-0400 Body surface area Derived from formula 2.08 m2 Ema Wright RN [place] [employer]ine[place] [facility], [facility].; [email or web address] 10-26-2017 14:00-0400 Body temperature 99.4 [degF] Ema Wright RN [facility], [facility].; [employer]. Comment on above: Method: Tympanic 10-26-2017 14:00-0400 Body weight 110.59 kg Ema Wright RN [place] Lily [email or web address] 10-26-2017 14:00-0400 Diastolic blood pressure 84 mm[Hg] Ema Wright RN [place] [employer]. Comment on above: Patient Position: Sitting; Cuff Location : Left Arm; Cuff Size: Standard 10-26-2017 14:00-0400 Systolic blood pressure 126 mm[Hg] Ema Wright RN [place] medineering [facility], [facility].; [employer]. Comment on above: Patient Position: Sitting; Cuff Location : Left Arm; Cuff Size: Standard 07-07-2017 11:34-0500 Body height 157.48 cm Eryn Archuleta LPN [place] medineering [facility], [facility].; [employer]. 07-07-2017 11:34-0500 Body mass index (BMI) [Ratio] 44.63 kg/m2 Eryn Archuleta LPN [employer] 07-07-2017 11:34-0500 Body surface area Derived from formula 2.08 m2 Eryn Archuleta LPN [place] [employer], [employer].; [email or web address] 07-07-2017 11:34-0500 Body temperature 97.9 [degF] Eryn Archuleta LPN [employer]. Comment on above: Method: Tympanic 07-07-2017 11:34-0500 Body weight 110.68 kg Eryn Archuleta LPN [email or web address] 07-07-2017 11:34-0500 Diastolic blood pressure 73 mm[Hg] Eryn Archuleta LPN [employer]. Comment on above: Patient Position: Sitting; Cuff Location : Left Arm; Cuff Size: Standard 07-07-2017 11:34-0500 Heart rate 96 /min Eryn Hernandezzechariah SEAFOOD PROCESSOR [place] medine[employer] [facility], [facility].; [employer], [employer]. Comment on above: Pattern: Regular 07-07-2017 11:34-0500 Inhaled oxygen concentration 20 % Eryn Wezechariah SEAFOOD PROCESSOR [place] medine[employer] [facility], [facility].; [employer], [employer]. Comment on above: Room air 07-07-2017 11:34-0500 Inhaled oxygen concentration 21 % Eryn Welizetteerd [facility], Inc.; [employer], [employer]. Comment on above: Room air 07-07-2017 11:34-0500 SaO2% (BldA) [Mass fraction] 98 % Eryn MixRankzechariah [facility] medineering [facility], [facility].; [employer], [employer]. 07-07-2017 11:34-0500 Systolic blood pressure 106 mm[Hg] Eryn Wezechariah SEAFOOD PROCESSOR [employer], [employer]. Comment on above: Patient Position: Sitting; Cuff Location : Left Arm; Cuff Size: Standard 06-07-2017 14:48-0500 Body height 162.56 cm Kit Corrales SEAFOOD PROCESSOR [employer] 06-07-2017 14:48-0500 Body mass index (BMI) [Ratio] 42.23 kg/m2 Neaidane L Antoni SEAFOOD PROCESSOR [employer] 06-07-2017 14:48-0500 Body surface area Derived from formula 2.14 m2 Grain Managementaidane L Vess SEAFOOD PROCESSOR [employer], [employer]. 06-07-2017 14:48-0500 Body weight 111.59 kg Grain Managementaidane L Antoni SEAFOOD PROCESSOR [employer], [employer]. 06-07-2017 14:48-0500 Diastolic blood pressure 78 mm[Hg] Neilee L Vess SEAFOOD PROCESSOR [employer]. Comment on above: Patient Position: Sitting; Cuff Location : Left Arm; Cuff Size: Standard 06-07-2017 14:48-0500 Heart rate 94 /min Neilee L Vess SEAFOOD PROCESSOR [employer]. Comment on above: Pattern: Regular 06-07-2017 14:48-0500 Systolic blood pressure 137 mm[Hg] Neilee L Vess SEAFOOD PROCESSOR [employer]. Comment on above: Patient Position: Sitting; Cuff Location : Left Arm; Cuff Size: Standard 05-16-2017 15:00-0400 Body height 162.56 cm Neilee L Vess SEAFOOD PROCESSOR [employer]. 05-16-2017 15:00-0400 Body mass index (BMI) [Ratio] 42.23 kg/m2 Neilee L Vess SEAFOOD PROCESSOR [employer], [employer]. 05-16-2017 15:00-0400 Body surface area Derived from formula 2.14 m2 Neilee L Vess SEAFOOD PROCESSOR [employer], [employer].; [employer], [employer]. 05-16-2017 15:00-0400 Body weight 111.59 kg Grain Managementilee L Vess SEAFOOD PROCESSOR [employer], [employer].; [employer], [employer]. 05-16-2017 15:00-0400 Diastolic blood pressure 92 mm[Hg] Neilee L Vess SEAFOOD PROCESSOR [employer], [employer]. Comment on above: Patient Position: Sitting; Cuff Location : Right Arm; Cuff Size: Standard 05-16-2017 15:00-0400 Heart rate 124 /min Neilee L Vess SEAFOOD PROCESSOR [employer], [employer].; [employer]. Comment on above: Pattern: Regular 05-16-2017 15:00-0400 Systolic blood pressure 129 mm[Hg] Neilee L Vess SEAFOOD PROCESSOR [employer], [employer].; [employer]. Comment on above: Patient Position: Sitting; Cuff Location : Right Arm; Cuff Size: Standard 10-14-2016 08:27-0400 Body height 162.56 cm Ema Wright RN Ta [employer], [employer].; [employer]. 10-14-2016 08:27-0400 Body mass index (BMI) [Ratio] 41.02 kg/m2 Ema Wright RN [place] medine[employer] [facility] Inc.; [email or web address] 10-14-2016 08:27-0400 Body surface area Derived from formula 2.11 m2 Ema Wright RN [facility], [employer].; [email or web address] 10-14-2016 08:27-0400 Body temperature 98.1 [degF] Ema Wright RN [place] [employer]. Comment on above: Method: Tympanic 10-14-2016 08:27-0400 Body weight 108.41 kg Ema Wright RN [place] [employer]. 10-14-2016 08:27-0400 Diastolic blood pressure 78 mm[Hg] Ema Wright RN [place] [employer]. Comment on above: Patient Position: Sitting; Cuff Location : Left Arm; Cuff Size: Standard 10-14-2016 08:27-0400 Systolic blood pressure 116 mm[Hg] Ema Wright RN [place] [employer]. Comment on above: Patient Position: Sitting; Cuff Location : Left Arm; Cuff Size: Standard 04-05-2016 13:33-0400 Body height 162.56 cm Eryn Archuleta LPN [place] [employer]ine[employer] [facility], [employer]. 04-05-2016 13:33-0400 Body mass index (BMI) [Ratio] 39.82 kg/m2 Eryn Archuleta LPN [place] [employer]. 04-05-2016 13:33-0400 Body surface area Derived from formula 2.08 m2 Eryn Archuleta LPN [place] [employer]. 04-05-2016 13:33-0400 Body temperature 98.2 [degF] Eryn Archuleta LPN [place] medineering [facility].; [email or web address] Comment on above: Method: Tympanic 04-05-2016 13:33-0400 Body weight 105.24 kg Eryn Archuleta LPN [employer]. 04-05-2016 13:33-0400 Diastolic blood pressure 72 mm[Hg] Eryn Hernandezgwendolynwalter SEAFOOD PROCESSOR [place] [employer], [employer]. Comment on above: Patient Position: Sitting; Cuff Location : Left Arm; Cuff Size: Standard 04-05-2016 13:33-0400 Heart rate 98 /min Eryn Hernandezzechariah WOMACK [place] [employer]. Comment on above: Pattern: Regular 04-05-2016 13:33-0400 Systolic blood pressure 110 mm[Hg] Eryn Hernandezzechariah PAREDESN [place] [employer], [employer]. Comment on above: Patient Position: Sitting; Cuff Location : Left Arm; Cuff Size: Standard 04-23-2015 15:38-0400 Body height 162.56 cm Erynsavannah Archuleta LPN [place] [employer] [facility], [employer].; [employer] 04-23-2015 15:38-0400 Body mass index (BMI) [Ratio] 39.03 kg/m2 Eryn Geremias [facility] [employer] 04-23-2015 15:38-0400 Body surface area Derived from formula 2.07 m2 Eryn Davidzechariah SEAFOOD PROCESSOR [place] [employer] [facility], [employer].; [employer] 04-23-2015 15:38-0400 Body weight 103.14 kg Eryn Wezechariah WOMACK [place] [employer] 04-23-2015 15:38-0400 Diastolic blood pressure 91 mm[Hg] Eryn Hernandezzechariah WOMACK [employer], [employer]. Comment on above: Patient Position: Sitting; Cuff Location : Left Arm; Cuff Size: Standard 04-23-2015 15:38-0400 Heart rate 106 /min Eryn Geremias WOMACK [place] [employer], [employer]. Comment on above: Pattern: Regular 04-23-2015 15:38-0400 Systolic blood pressure 115 mm[Hg] Eryn Hernandezzechariah WOMACK [facility] Center[facility].; [employer]. Comment on above: Patient Position: Sitting; Cuff Location : Left Arm; Cuff Size: Standard 07-28-2011 10:27-0500 Body height 162.56 cm Crystal Sudarshan SEAFOOD PROCESSOR Work Phone: [facility] [employer]. 07-28-2011 10:27-0500 Body mass index (BMI) [Ratio] 35.87 kg/m2 Crystal Sudarshan SEAFOOD PROCESSOR Work Phone: [facility] [employer].; [employer] 07-28-2011 10:27-0500 Body surface area Derived from formula 1.99 m2 Crystal Sudarshan SEAFOOD PROCESSOR Work Phone: [place] [employer].; [employer]. 07-28-2011 10:27-0500 Body weight 94.8 kg Crystal Sudarshan SEAFOOD PROCESSOR Work Phone: [place] [employer]. 07-28-2011 10:27-0500 Diastolic blood pressure 60 mm[Hg] Crystal Sudarshan SEAFOOD PROCESSOR Work Phone: [employer]. Comment on above: Patient Position: Sitting; Cuff Location : Left Arm; Cuff Size: Large 07-28-2011 10:27-0500 Systolic blood pressure 100 mm[Hg] Crystal Sudarshan SEAFOOD PROCESSOR Work Phone: [place] [employer]. Comment on above: Patient Position: Sitting; Cuff Location : Left Arm; Cuff Size: Large 06-02-2011 13:130500 Body weight 103.87 kg Crystal Sudarshan SEAFOOD PROCESSOR Work Phone: [employer] 06-02-2011 13:13-0500 Diastolic blood pressure 70 mm[Hg] Crystal Sudarshan SEAFOOD PROCESSOR Work Phone: [employer]. Comment on above: Patient Position: Sitting; Cuff Location : Left Arm; Cuff Size: Standard 06-02-2011 13:13-0500 Heart rate 119 /min Crystal Sudarshan SEAFOOD PROCESSOR Work Phone: [employer].; [employer]. Comment on above: Pattern: Regular 06-02-2011 13:13-0500 Systolic blood pressure 119 mm[Hg] Crystal Sudarshan SEAFOOD PROCESSOR Work Phone: [employer]. Comment on above: Patient Position: Sitting; Cuff Location : Left Arm; Cuff Size: Standard 05-27-2011 13:13-0400 Body weight 101.61 kg Neilee L Vess SEAFOOD PROCESSOR [employer]. 05-27-2011 13:13-0400 Diastolic blood pressure 73 mm[Hg] Neilee L Vess SEAFOOD PROCESSOR [employer]. Comment on above: Patient Position: Sitting; Cuff Location : Left Arm; Cuff Size: Standard 05-27-2011 13:13-0400 Heart rate 111 /min Neilee L Vess SEAFOOD PROCESSOR [employer]. Comment on above: Pattern: Regular 05-27-2011 13:13-0400 Systolic blood pressure 110 mm[Hg] Neilee L Vess SEAFOOD PROCESSOR [employer]. Comment on above: Patient Position: Sitting; Cuff Location : Left Arm; Cuff Size: Standard 05-20-2011 09:040400 Body weight 100.25 kg Neilee L Vess SEAFOOD PROCESSOR [employer]. 05-20-2011 09:04-0400 Diastolic blood pressure 74 mm[Hg] Neilee L Vess SEAFOOD PROCESSOR [employer]. Comment on above: Patient Position: Sitting; Cuff Location : Left Arm; Cuff Size: Standard 05-20-2011 09:04-0400 Heart rate 120 /min Neilee L Vess SEAFOOD PROCESSOR [employer].; [employer]. Comment on above: Pattern: Regular 05-20-2011 09:04-0400 Systolic blood pressure 103 mm[Hg] Neilee L Vess SEAFOOD PROCESSOR [employer].; [employer]. Comment on above: Patient Position: Sitting; Cuff Location : Left Arm; Cuff Size: Standard 05-13-2011 13:110400 Body weight 101.15 kg Neilee L Vess SEAFOOD PROCESSOR [employer]. 05-13-2011 13:11-0400 Diastolic blood pressure 74 mm[Hg] Neilee L Vess SEAFOOD PROCESSOR [employer].; [employer]. Comment on above: Patient Position: Sitting; Cuff Location : Left Arm; Cuff Size: Standard 05-13-2011 13:11-0400 Heart rate 99 /min Neilee L Vess SEAFOOD PROCESSOR [employer]. Comment on above: Pattern: Regular 05-13-2011 13:11-0400 Systolic blood pressure 119 mm[Hg] Neilee L Vess SEAFOOD PROCESSOR [employer]. Comment on above: Patient Position: Sitting; Cuff Location : Left Arm; Cuff Size: Standard 05-06-2011 13:38-0400 Body weight 99.79 kg Neilee L Vess SEAFOOD PROCESSOR [employer]. 05-06-2011 13:38-0400 Diastolic blood pressure 83 mm[Hg] Neilee L Vess SEAFOOD PROCESSOR [employer].; [employer]. Comment on above: Patient Position: Sitting; Cuff Location : Left Arm; Cuff Size: Standard 05-06-2011 13:38-0400 Heart rate 106 /min Neilee L Vess SEAFOOD PROCESSOR [employer]. Comment on above: Pattern: Regular 05-06-2011 13:38-0400 Systolic blood pressure 131 mm[Hg] Neilee L Vess SEAFOOD PROCESSOR [employer].; [employer]. Comment on above: Patient Position: Sitting; Cuff Location : Left Arm; Cuff Size: Standard 04-15-2011 11:22-0400 Body weight 98.43 kg Neilee L Vess SEAFOOD PROCESSOR [employer]. 04-15-2011 11:22-0400 Diastolic blood pressure 67 mm[Hg] Neilee L Vess SEAFOOD PROCESSOR [employer]. Comment on above: Patient Position: Sitting; Cuff Location : Left Arm; Cuff Size: Standard 04-15-2011 11:22-0400 Heart rate 119 /min Neilee L Vess SEAFOOD PROCESSOR [employer]. Comment on above: Pattern: Regular 04-15-2011 11:22-0400 Systolic blood pressure 104 mm[Hg] Neilee L Vess SEAFOOD PROCESSOR [employer]. Comment on above: Patient Position: Sitting; Cuff Location : Left Arm; Cuff Size: Standard 03-18-2011 10:55-0400 Body weight 94.8 kg Neilee L Vess SEAFOOD PROCESSOR [employer]. 03-18-2011 10:55-0400 Diastolic blood pressure 76 mm[Hg] Neilee L Vess SEAFOOD PROCESSOR [employer]. Comment on above: Patient Position: Sitting; Cuff Location : Left Arm; Cuff Size: Standard 03-18-2011 10:55-0400 Systolic blood pressure 118 mm[Hg] Neilee L Vess SEAFOOD PROCESSOR [employer]. Comment on above: Patient Position: Sitting; Cuff Location : Left Arm; Cuff Size: Standard 02-11-2011 13:51-0400 Body weight 91.63 kg Neilee L Vess SEAFOOD PROCESSOR [employer]. 02-11-2011 13:51-0400 Diastolic blood pressure 60 mm[Hg] Neilee L Vess SEAFOOD PROCESSOR [employer]. Comment on above: Patient Position: Sitting; Cuff Location : Left Arm; Cuff Size: Standard 02-11-2011 13:51-0400 Heart rate 99 /min Neilee L Vess SEAFOOD PROCESSOR [employer].; [employer]. Comment on above: Pattern: Regular 02-11-2011 13:51-0400 Systolic blood pressure 98 mm[Hg] Neilee L Vess SEAFOOD PROCESSOR [employer].; [employer]. Comment on above: Patient Position: Sitting; Cuff Location : Left Arm; Cuff Size: Standard 01-14-2011 13:22-0400 Body weight 89.81 kg Neilee L Vess SEAFOOD PROCESSOR [employer].; [employer]. 01-14-2011 13:22-0400 Diastolic blood pressure 68 mm[Hg] Neilee L Vess SEAFOOD PROCESSOR [employer].; [employer]. Comment on above: Patient Position: Sitting; Cuff Location : Left Arm; Cuff Size: Standard 01-14-2011 13:22-0400 Heart rate 71 /min Neilee L Vess SEAFOOD PROCESSOR [employer].; [employer]. Comment on above: Pattern: Regular 01-14-2011 13:22-0400 Systolic blood pressure 105 mm[Hg] Neilee L Vess SEAFOOD PROCESSOR [employer].; [employer]. Comment on above: Patient Position: Sitting; Cuff Location : Left Arm; Cuff Size: Standard 12-17-2010 13:51-0400 Body weight 88.91 kg Neilee L Vess SEAFOOD PROCESSOR [employer].; [employer]. 12-17-2010 13:51-0400 Diastolic blood pressure 61 mm[Hg] Neilee L Vess SEAFOOD PROCESSOR [employer].; [employer]. Comment on above: Patient Position: Sitting; Cuff Location : Left Arm; Cuff Size: Standard 12-17-2010 13:51-0400 Heart rate 96 /min Neilee L Vess SEAFOOD PROCESSOR [employer]. Comment on above: Pattern: Regular 12-17-2010 13:51-0400 Systolic blood pressure 99 mm[Hg] Neilee L Vess SEAFOOD PROCESSOR [employer].; [employer]. Comment on above: Patient Position: Sitting; Cuff Location : Left Arm; Cuff Size: Standard 11-05-2010 14:110400 Body weight 88.91 kg Neilee L Vess SEAFOOD PROCESSOR [employer].; [employer]. 11-05-2010 14:110400 Diastolic blood pressure 89 mm[Hg] Neilee L Vess SEAFOOD PROCESSOR [employer].; [employer]. Comment on above: Patient Position: Sitting; Cuff Location : Left Arm; Cuff Size: Standard 11-05-2010 14:11-0400 Heart rate 96 /min Neilee L Vess SEAFOOD PROCESSOR [employer]. Comment on above: Pattern: Regular 11-05-2010 14:11-0400 Systolic blood pressure 123 mm[Hg] Neilee L Vess SEAFOOD PROCESSOR [employer]. Comment on above: Patient Position: Sitting; Cuff Location : Left Arm; Cuff Size: Standard 05-04-2010 14:38-0400 Body height 162.56 cm Crystal Sudarshan SEAFOOD PROCESSOR Work Phone: [employer]; [employer]. 05-04-2010 14:38-0400 Body mass index (BMI) [Ratio] 31.75 kg/m2 Crystal Sudarshan SEAFOOD PROCESSOR Work Phone: [employer]. 05-04-2010 14:38-0400 Body surface area Derived from formula 1.89 m2 Crystal Sudarshan SEAFOOD PROCESSOR Work Phone: [employer].; [employer]. 05-04-2010 14:38-0400 Body weight 83.92 kg Crystal Sudarshan SEAFOOD PROCESSOR Work Phone: [employer].; [employer]. 05-04-2010 14:38-0400 Diastolic blood pressure 68 mm[Hg] Crystal Sudarshan SEAFOOD PROCESSOR Work Phone: [employer].; [employer]. Comment on above: Patient Position: Sitting; Cuff Location : Right Arm; Cuff Size: Standard 05-04-2010 14:38-0400 Heart rate 100 /min Crystal Sudarshan SEAFOOD PROCESSOR Work Phone: [employer]. Comment on above: Pattern: Regular 05-04-2010 14:38-0400 Systolic blood pressure 107 mm[Hg] Crystal Sudarshan SEAFOOD PROCESSOR Work Phone: [employer]; [facility] Comment on above: Patient Position: Sitting; Cuff Location : Right Arm; Cuff Size: Standard Encounters Encounter Date Encounter Type Care Provider Facility Start: 06-06-2025 ambulatory Cleopatra Jiménez PA Facil ity:[facility] Start: 06-05-2025 Encounter for other preprocedural examination Diane Sousa [facility] Start: 01-07-2025 ambulatory Cleopatra Jiménez PA Facil ity:[facility] Start: 01-04-2025 End: 01-04-[address] Diane Sousa MD -[facility] Work Phone: Start: 01-04-2025 End: 01-04-2025 ambulatory Cleopatra Jiménez PA Work Phone: [facility] Work Phone: Start: 12-19-2024 End: 12-19-2024 Historical Summary Cleopatra Jiménez PA-C Work Phone: [facility] Start: 12-19-2024 ambulatory Cleopatra Jiménez PA Facil ity:[facility] Start: 12-19-2024 Non-patient / Non-visit Dr. Sandor Sousa MD -[facility] Start: 12-19-2024 End: 12-19-2024 Admission to same day surgery center Dr. Diane Sousa MD -Endoscopy Work Phone: Start: 12-19-2024 End: 12-19-2024 ambulatory Cleopatra Jiménez PA Work Phone: [facility] Work Phone: Start: 10-26-2024 End: 10-26-2024 Office outpatient visit 15 minutes Cleopatra Jiménez PA-C Work Phone: [facility] Start: 10-25-2024 End: 10-25-2024 ambulatory JULIO BENITES Facility:[facility] Start: 10-22-2024 End: 10-22-[address] Diane Sousa MD -[facility] Work Phone: Start: 10-22-2024 End: 10-22-2024 ambulatory Cleopatra FREEMAN Facility:[facility] Start: 10-10-2024 End: 12-10-2024 Follow-up encounter Julio Benites MD Work Phone: Hematology/Oncology Start: 10-10-2024 Review Cleopatra Jiménez PA-C Work Phone: [facility] Start: 10-10-2024 End: 10-10-2024 Orders Cleopatra Jiménez PA-C Work Phone: [facility] Start: 10-09-2024 End: 10-09-2024 ambulatory Julio Benites MD Work Phone: Hematology/Oncology Comment on above: Elevated d-dimer (Pr imary Dx); Left shift Start: 10-09-2024 End: 10-09-2024 Patient encounter procedure Julio Benites MD Work Phone: Hematology/Oncology Start: 09-28-2024 End: 09-28-2024 Orders Cleopatra Jiménez PA-C Work Phone: [facility] Start: 09-28-2024 End: 09-28-2024 ambulatory CLEOPATRA JIMÉNEZ [facility] Start: 09-26-2024 End: 09-26-2024 Orders Cleopatra Jiménez PA-C Work Phone: [facility] Start: 09-19-2024 End: 09-19-2024 Orders Cleopatra Mattsoner PA-C Work Phone: [facility] Start: 09-17-2024 End: 09-17-2024 Patient encounter procedure Cleopatra Mattsoner PA-C Work Phone: [facility] Start: 09-17-2024 Patient encounter status Adali campuzano LPN [facility]; [employer]. Start: 09-17-2024 Review Cleopatra Mattsoner PA-C Work Phone: [facility] Start: 08-02-2024 End: 08-02-2024 Office outpatient visit 25 minutes Cleopatra Jiménez PA-C Work Phone: [employer]. Start: 07-30-2024 End: 07-30-2024 Medication Cleopatra Mattsoner PA-C Work Phone: [employer]. Start: 07-30-2024 End: 07-30-2024 Telephone follow-up Cleopatra Jiménez PA-C Work Phone: [employer]. Start: 07-27-2024 End: 07-28-2024 Emergency department patient visit CLEOPATRA JIMÉNEZ [facility] Start: 07-02-2024 End: 07-02-2024 Medication Cleopatra Mattsoner PA-C Work Phone: [employer] Start: 02-01-2024 End: 02-01-2024 Medication Cleopatra Jiménez PA-C Work Phone: [employer]. Start: 01-06-2024 End: 01-06-2024 Orders Cleopatra Mattsoner PA-C Work Phone: [employer]. Start: 01-02-2024 End: 01-02-2024 Orders Cleopatra Jiménez PA-C Work Phone: [facility] Start: 12-26-2023 End: 12-26-2023 ambulatory CLEOPATRA JIMÉNEZ [facility] Start: 12-21-2023 End: 12-21-2023 Telephone follow-up Cleopatra Mattsoner PA-C Work Phone: [employer]. Start: 12-21-2023 End: 12-21-2023 Orders Cleopatra Mattsoner PA-C Work Phone: [employer]. Start: 12-20-2023 End: 12-20-2023 Emergency department patient visit DAYNE DEJESUS [facility] Start: 12-20-2023 End: 12-20-2023 ambulatory CAREN ABERNATHY [facility] Start: 12-20-2023 End: 12-20-2023 Office outpatient visit 15 minutes Cleopatra Jiménez PA-C Work Phone: [employer]. Start: 12-14-2023 End: 12-14-2023 ambulatory CARLTON BROWN [facility] Start: 12-14-2023 End: 12-14-2023 Orders Cleopatra Jiménez PA-C Work Phone: [employer]. Start: 12-07-2023 End: 12-07-2023 Office outpatient visit 15 minutes Cleopatra Jiménez PA-C Work Phone: [employer]. Start: 12-07-2023 Review Cleopatra Jiménez PA-C Work Phone: [employer]. Start: 11-01-2023 End: 11-01-2023 Orders Cleopatra Jiménez PA-C Work Phone: [employer]. Start: 11-01-2023 Review Cleopatra Jiménez PA-C Work Phone: [employer]. Start: 09-08-2023 End: 09-08-2023 Orders Cleopatra Jiménez PA-C Work Phone: [employer]. Start: 06-09-2023 End: 06-09-2023 Orders Cleopatra Jiménez PA-C Work Phone: [employer]. Start: 06-08-2023 End: 06-08-2023 Orders Cleopatra Jiménez PA-C Work Phone: [employer]. Start: 06-08-2023 End: 06-08-2023 Medication Cleopatra Jiménez PA-C Work Phone: [employer]. Start: 06-06-2023 End: 06-06-2023 Office outpatient visit 25 minutes Cleopatra Jiménez PA-C Work Phone: [employer]. Start: 10-29-2022 End: 10-29-2022 Orders Cleopatra Jiménez PA-C Work Phone: [employer]. Start: 10-21-2022 End: 10-21-2022 Orders Cleopatra Jiménez PA-C Work Phone: [employer]. Start: 10-13-2022 End: 10-13-2022 Orders Cleopatra Jiménez PA-C Work Phone: [employer]. Start: 10-13-2022 End: 10-13-2022 Patient encounter status Cleopatra Jiménez PA-C Work Phone: [facility]; [employer]. Start: 10-13-2022 End: 10-13-2022 Periodic preventive med est patient 18-39 yrs Cleopatra Jiménez PA-C Work Phone: [employer]. Start: 06-22-2022 End: 06-22-2022 Office outpatient visit 15 minutes Cleopatra Jiménez PA-C Work Phone: [employer]. Start: 08-17-2021 End: 08-17-2021 Medication Cleopatra Jiménez PA-C Work Phone: [facility] Start: 07-16-2021 End: 07-16-2021 Medication Cleopatra Jiménez PA-C Work Phone: [facility] Start: 07-10-2021 End: 07-10-2021 Telephone follow-up Cleopatra Jiménez PA-C Work Phone: [facility] Start: 07-08-2021 End: 07-08-2021 Office outpatient visit 15 minutes Cleopatra Jiménez PA-C Work Phone: [facility] Start: 02-10-2021 End: 02-10-2021 Office outpatient visit 15 minutes Cleopatra Jiménez PA-C Work Phone: [facility] Start: 12-11-2020 End: 12-11-2020 Orders Cleopatra Jiménez PA-C Work Phone: [employer]. Start: 12-10-2020 End: 12-10-2020 Patient encounter procedure Darlene Ye VU [employer]. Start: 03-17-2020 End: 03-17-2020 Office outpatient visit 15 minutes Cleopatra Jiménez PA-C Work Phone: [employer]. Start: 07-31-2019 End: 07-31-2019 Office outpatient visit 15 minutes Cleopatra Jiménez PA-C Work Phone: [employer]. Start: 07-16-2019 End: 07-16-2019 Office outpatient visit 15 minutes Cleopatra Jiménez PA-C Work Phone: [employer]. Start: 12-12-2018 End: 12-12-2018 Telephone follow-up Cleopatra Jiménez PA-C Work Phone: [employer]. Start: 11-02-2018 End: 11-02-2018 Patient encounter procedure Cleopatra Jiménez PA-C Work Phone: [employer]. Start: 10-26-2017 End: 10-26-2017 Patient encounter procedure Cleopatra Jiménez PA-C Work Phone: [facility] Start: 10-24-2017 End: 10-24-2017 Historical Summary Cleopatra Jiménez PA-C Work Phone: [employer]. Start: 07-07-2017 End: 07-07-2017 Office outpatient visit 15 minutes Cleopatra Jiménez PA-C Work Phone: [employer]. Start: 06-07-2017 End: 06-07-2017 Patient encounter procedure Cleopatra Jiménez PA-C Work Phone: [facility] Start: 05-16-2017 End: 05-16-2017 Office outpatient visit 10 minutes Cleopatra Jiménez PA-C Work Phone: [employer]. Start: 10-14-2016 End: 10-14-2016 Patient encounter procedure Kinsey Corrales PA-C Work Phone: [facility]. Start: 10-13-2016 End: 10-13-2016 Historical Summary Cleopatra BUCKC Work Phone: [employer]. Start: 04-05-2016 End: 04-05-2016 Patient encounter procedure Cleopatra BUCKC Work Phone: [facility] [employer]. Start: 04-23-2015 End: 04-23-2015 Manual pelvic examination Cleopatra BUCKC Work Phone: [employer].; [employer]. Start: 04-23-2015 End: 04-23-2015 Patient encounter procedure Cleopatra FREEMAN-C Work Phone: [employer]. Start: 11-04-2012 End: 11-04-2012 Medication Cleopatra Jiménez PA-C Work Phone: [employer]. Start: 07-28-2011 End: 07-28-2011 Patient encounter procedure Cleopatra BUCKC Work Phone: [employer]. Start: 06-02-2011 End: 06-02-2011 Patient encounter procedure Cleopatra BUCKC Work Phone: [employer]. Start: 05-27-2011 End: 05-27-2011 Patient encounter procedure Cleopatra FREEMAN-C Work Phone: [employer] Start: 05-20-2011 End: 05-20-2011 Patient encounter procedure Cleopatra Jiménez PA-C Work Phone: [employer]. Start: 05-13-2011 End: 05-13-2011 Patient encounter procedure Cleopatra Jiménez PA-C Work Phone: [employer] Start: 05-06-2011 End: 05-06-2011 Patient encounter procedure Cleopatra Jiménez PA-C Work Phone: [employer]. Start: 04-29-2011 End: 04-29-2011 Historical Summary Cleopatra Jiménez PA-C Work Phone: [facility] [employer]. Start: 04-15-2011 End: 04-15-2011 Patient encounter procedure Cleopatra FREEMAN-C [facility] Start: 03-18-2011 End: 03-18-2011 Patient encounter procedure Cleopatra FREEMAN-C Work Phone: [facility] [employer]. Start: 02-11-2011 End: 02-11-2011 Patient encounter procedure Cleopatra FREEMAN-C Work Phone: [facility] Start: 01-14-2011 End: 01-14-2011 Patient encounter procedure Cleopatra FREEMAN-C Work Phone: [place] [employer]. Start: 12-17-2010 End: 12-17-2010 Patient encounter procedure Cleopatra FREEMAN-C Work Phone: [place] [employer]. Start: 11-05-2010 End: 11-05-2010 Patient encounter procedure Cleopatra FREEMAN-C Work Phone: [place] [employer] Start: 05-04-2010 End: 05-04-2010 Patient encounter procedure Cleopatra FREEMAN-C Work Phone[facility] Manual [facility] examination Cleopatra Jiménez PA-C Work Phone: [facility].; [employer] [facility]. Patient encounter procedure Kinsey Corrales PA-C Work Phone: [facility].; [facility]. Patient encounter procedure Kinsey Corrales PA-C Work Phone: [facility].; [place] [employer] [facility], [facility]. Patient encounter procedure Cleopatra Jiménez PA-C Work Phone: [facility].; [facility] Patient encounter status Adali porter LPN [facility]. Patient encounter status Kamille Mccallum PN [facility], [facility].; [facility]. Procedures Date Procedure Procedure Detail Performing Clinician Start: 12-19-2024 End: 12-19-2024 Screening colonoscopy Cleopatra Jiménez PA- C Work Phone: Comment on above: Normal. repeat in 10 years Start: 12-19-2024 Colonoscopy Cleopatra villarreal PA Work Phone: Start: 09-26-2024 End: 10-03-2024 Screening digital breast tomosynthesis bi Cleopatra Jiménez PA-C Work Phone: Start: 09-17-2024 End: 09-17-2024 Depression screening Cleopatra Jiménez PA -C Work Phone: Start: 09-17-2024 End: 09-17-2024 Scr dep neg, no plan reqd Cleopatra Perea Srinivasan er PA-C Work Phone: Start: 09-17-2024 End: 09-28-2024 Us soft tissue head & neck real time imge docm Cleopatra Brit Jiménez PA-C Work Phone: Start: 12-21-2023 End: 01-02-2024 Brncdilat rspse spmtry pre&post-brncdilat admn Caren Abernathy PA-C Work Phone: Start: 12-14-2023 End: 12-15-2023 Chest x-ray Carlton Pepe MD Work Phone: Start: 06-06-2023 End: 06-07-2023 Ecg routine ecg w/least 12 lds w/i&r Cleopatraleah Jiménez PA-C Work Phone: Comment on above: normal sinus rhythm Start: 10-13-2022 End: 10-13-2022 Depression screening Crystal K Uptain CN M Work Phone: Start: 10-13-2022 End: 10-13-2022 Scr dep neg, no plan reqd Crystal K Upta in CNM Work Phone: Start: 12-10-2020 End: 12-10-2020 Depression screening Kinsey Corrales PA -C Work Phone: Start: 12-10-2020 End: 12-10-2020 Scr dep neg, no plan reqd Kinsey Joseph ls PA-C Work Phone: Start: 12-10-2020 End: 12-15-2020 Us abdominal real time w/image documentation Kinsey Corrales PA-C Work Phone: Start: 11-02-2018 End: 11-02-2018 Depression screening Kinsey Corrales PA -C Work Phone: Start: 11-02-2018 End: 11-02-2018 Pos clin depres scrn f/u doc Kinsey Corrales PA-C Work Phone: Comment on above: declines interventio n today states things are getting better - will report worsening Start: 10-26-2017 End: 10-26-2017 Body mass index documented Kinsey Pollard Hi lls PA-C Work Phone: Start: 10-26-2017 End: 10-26-2017 Microscopic examination of cervical Papanicolaou smear Kamille Georges LPN Start: 07-07-2017 End: 07-07-2017 Body mass index documented Cleopatra Brit chong PA-C Work Phone: Start: 07-07-2017 End: 07-07-2017 Most recent diastolic blood pressure < 80 mm hg Cleopatra Perea Jiménez PA-C Work Phone: Start: 07-07-2017 End: 07-07-2017 Most recent systolic blood pressure <130 mm hg Cleopatra Perea Jiménez PA-C Work Phone: Start: 06-07-2017 End: 06-07-2017 Destruction premalignant lesion 1st Kinsey Pollard [place] PA-C Work Phone: Start: 06-07-2017 End: 06-07-2017 Body mass index documented Kinsey Pollard Hi lls PA-C Work Phone: Start: 06-07-2017 End: 06-07-2017 Flu imm no admin doc hyacinth Kinsey garrido PA-C Work Phone: Start: 05-16-2017 End: 05-16-2017 Body mass index documented Kinsey Pollard Cal young PA-C Work Phone: Start: 10-14-2016 End: 10-14-2016 Lab findings surveillance Kamille Georges LPN Comment on above: 93 Start: 10-14-2016 End: 10-14-2016 Lipid panel Kamille Georges LPN Comment on above: Abnormal. Start: 10-14-2016 End: 10-14-2016 Thyrotropin [Units/volume] in Serum or Plasma Kamille Georges LPN Comment on above: 4.24 Start: 06-02-2011 End: 06-02-2011 Ob care antepartum vag dlvr & Crystal Sudarshan WOMACK Work Phone: Start: 05-27-2011 End: 05-27-2011 Ob care antepartum vag dlvr & Denny Watts MD Work Phone: Start: 05-20-2011 End: 05-20-2011 Ob care antepartum vag dlvr & Denny Watts MD Work Phone: Start: 05-13-2011 End: 05-13-2011 Ob care antepartum vag dlvr & Denny Watts MD Work Phone: Start: 05-06-2011 End: 05-06-2011 Ob care antepartum vag dlvr & Denny Watts MD Work Phone: Start: 04-15-2011 End: 04-15-2011 Ob care antepartum vag dlvr & Denny Watts MD Work Phone: Start: 03-18-2011 End: 03-18-2011 Ob care antepartum vag dlvr & Denny Watts MD Work Phone: Start: 03-18-2011 End: 03-18-2011 Us preg uterus real time f/u trnsabdl per fetus Denny Watts MD Work Phone: Start: 02-11-2011 End: 02-11-2011 Ob care antepartum vag dlvr & Denny Watts MD Work Phone: Start: 01-14-2011 End: 01-14-2011 Ob care antepartum vag dlvr & Denny Watts MD Work Phone: Start: 01-14-2011 End: 01-14-2011 Us preg uterus real time f/u trnsabdl per fetus Denny Watts MD Work Phone: Start: 12-17-2010 End: 12-17-2010 Ob care antepartum vag dlvr & Denny Watts MD Work Phone: Start: 11-05-2010 End: 11-05-2010 Ob care antepartum vag dlvr & Denny Watts MD Work Phone: Cholecystectomy Kamille Ortega SEAFOOD PROCESSOR Comment on above: , dr jolly Cholecystectomy Cleopatra villarreal PA-C Work Phone: Comment on above: , dr jolly Cholecystectomy Adali Mojica [facility] SEAFOOD PROCESSOR Comment on above: , dr jolly Plan of Treatment Date Care Activity Detail Author Start: 09-22-2025 Us soft tissue head & neck real time imge docm Thyroid Ultrasound (14421) Start: 22-Sep-2025 Intent [employer]. Start: 03-25-2025 Influenza vaccination Influenza Vaccine (Season Ended) [facility] Start: 12-19-2024 Colonoscopy flx dx w/collj spec when pfrmd DIAGNOSTIC COLONOSCOPY [facility] Start: 12-19-2024 Egd transoral biopsy single/multiple EGD BIOPSY SINGLE/MULTIPLE [facility] Start: 12-19-2024 Patient discharge [facility] Start: 09-26-2024 Screening digital breast tomosynthesis bi Mammogram 3D (tomosynthesis), bilateral (45935) Start: 26-Sep-2024 Intent [employer]. Start: 09-17-2024 Screening mammography bi 2-view breast inc cad Mammogram Bilateral Screening (93068) Start: 17-Sep-2024 Intent [employer]. Start: 09-17-2024 Us soft tissue head & neck real time [facility] Thyroid Ultrasound (09726) Start: 17-Sep-2024 Intent [employer]. Start: 09-17-2024 25 hydroxy includes fractions if performed Vitamin D, 25-Hydroxy, LC/MS/MS (80937) Start: 17-Sep-2024 09:23-05:00 Request [employer]. Start: 09-17-2024 Assay of thyroid stimulating hormone tsh TSH (THYROID STIMULATING HORMONE) (60077) Start: 17-Sep-2024 09:22-05:00 Request [employer]. Start: 09-17-2024 Assay of free thyroxine T4 FREE (16028) Start: 17-Sep-2024 09:22-05:00 Request [employer]. Start: 09-17-2024 Fibrin dgradj products d-dimer quantitative D-Dimer(00996) Start: 17-Sep-2024 09:21-05:00 Request [employer].; [employer] Start: 09-17-2024 Lipid panel LIPID PANEL (56572) Start: 17-Sep-2024 09:21-05:00 Request [employer]. Start: 09-17-2024 Hemoglobin glycosylated a1c HEMOGLOBIN A1C* (19567) Start: 17-Sep-2024 09:21-05:00 Request [employer] Start: 09-17-2024 Comprehensive metabolic panel CMP w/ GFR* (30175) Start: 17-Sep-2024 09:21-05:00 Request [employer]. Start: 09-17-2024 Blood count complete auto&auto difrntl wbc CBC, PLATELETS & AUT DIFF (F) (15882) Start: 17-Sep-2024 09:21-05:00 Request [employer]. Start: 09-17-2024 Patient encounter procedure Medical; PHYSICAL - AWV & will fasting [employer] Start: 17-Sep-2024 08:30-05:00 KEKE Jiménez Appointment Request [employer] Start: 03-25-2024 Covid-19 Vaccine () Covid-19 Vaccine () [facility] Start: 03-25-2024 Influenza vaccination Influenza Vaccine (#1) [facility] Start: 01-06-2024 C-reactive protein [employer]; [employer]. Start: 01-06-2024 Fibrin dgradj products d-dimer quantitative [employer]; [employer]. Start: 01-06-2024 Sedimentation rate rbc automated [employer]; [employer]. Start: 01-06-2024 Nursing evaluation of patient and report Medical; Nurse visit - labs-RJB [employer]. Start: 06-Jan-2024 10:00-04:00 NURSE, FLOAT Appointment Request [employer]. Start: 12-21-2023 Brncdilat rspse spmtry pre&post-brncdilat admn PFT Protocol (38129) -- not in office Start: 21-Dec-2023 Intent [employer]. Start: 12-20-2023 Natriuretic peptide BNP (56787) Start: 20-Dec-2023 Request [employer]. Start: 12-14-2023 Chest x-ray CHEST X-RAY, PA AND LATERAL (83541) Start: 14-Dec-2023 Intent [employer] Start: 12-12-2023 Us soft tissue head & neck real time [facility] Thyroid Ultrasound (52635) Start: 12-Dec-2023 Intent [employer]. Start: 2023 Screening for malignant neoplasm of breast Mammogram Screening [facility] Start: 09-08-2023 25 hydroxy includes fractions if performed Vitamin D, 25-Hydroxy, LC/MS/MS (53081) Start: 08-Sep-2023 8:40 Request [employer]; [employer]. Start: 09-08-2023 Nursing evaluation of patient and report Medical; Nurse visit - vit D level -- MJP [employer]. Start: 08-Sep-2023 8:40 NURSE, FLOAT Appointment Request [employer] Start: 08-25-2023 25 hydroxy includes fractions if performed Vitamin D, 25-Hydroxy, LC/MS/MS (39328) Start: 25-Aug-2023 Request [employer]; [employer]. Start: 10-26-2021 Screening mammography bi 2-view breast inc cad Mammogram Bilateral Screening (25909) Start: 26-Oct-2021 Intent [employer]; [employer]. Start: 2004 Screening for malignant neoplasm of cervix Cervical Cancer Screening [facility] Start: 2002 Hepatitis B Vaccine (1 of 3 - 19+ 3-dose series) Hepatitis B Vaccine (1 of 3 - 19+ 3-dose series) [facility] Start: 2002 Urine microalbumin profile DTaP,Tdap,Td Vaccine (1 - Tdap) [facility] Start: 2001 Anxiety Screening Anxiety Screening [facility] Start: 2001 Depression Screening Depression Screening [facility] Start: 2001 Hepatitis C screening Hepatitis C Screening [facility] Start: 2001 HIV screening HIV Screening [facility] Colonoscopy [facility] Patient referral [facility] Work Phone: [facility] Immunizations Immunization Date Immunization Notes Care Provider José Luis busby 05-13-2011 influenza, seasonal, injectable Cleopatra Jiménez PA-C Work Phone: [place] [employer]; [employer] Comment on above: Site: Deltoid (Right )VIS Given: * Inactivated Influenza Vaccine (03/04/09) * Inactivated Influenza Vaccine (02/16/11) * Inactivated Influenza Vaccine (02/16/11) * Inactivated Influenza Vaccine (02/16/11) * Inactivated Influenza Vaccine (02/16/11) * Inactivated Influenza Vaccine (02/16/11) * Inactivated Influenza Vaccine (02/16/11) * VIS Given (Unspecified) * VIS Given (Unspecified) 05-13-2011 IMMUNIZATION ADMIN ([id number]) Cleopatra Jiménez PA-C Work Phone: [facility].; [facility]. Payers Date Payer Category Payer Self-pay [id number] 2024 Medicaid [id number] 2024 Private Health Insurance [id number] 1985 Unknown [id number] 2.16.8 [id number] 1985 Unknown [id number] 2.16.8 [id number] 1985 Unknown [id number] 2.16.8 [id number] 1985 Unknown [id number] 2.16.8 [id number] 1985 Unknown [id number] 2.16.8 [id number] 1985 Unknown [id number] 2.16.8 [id number] Unknown [id number] 2.16.8 [id number] Unknown [id number] 2.16.8 [id number] Unknown [id number] 2.16.8 [id number] Unknown [id number] 2.16.8 [id number] Unknown [id number] 2.16.8 [id number] Unknown [id number] 2.16.8 [id number] Social History Date Type Detail Facility Start: 10-09-2024 Alcohol Use Alcohol Use [facility]; [facility] Tobacco Use: Tobacco Use: ; N ever smoker. [facility]; [facility] Start: 1985 Female [facility] Start: 10-09-2024 End: 12-19-2024 Never smoked tobacco [facility]; [facility] Work Phone: Start: 10-09-2024 Tobacco use and exposure Smokeless tobacco non-user [facility] Start: 10-09-2024 Tobacco use panel [facility] National Score (1-100), lower number is lower risk 72 [facility] Start: 1985 Sex assigned at Not on file [facility] NEGATED: Highlighted row Not [facility] Goals Date Patient Goal Desired Activity /State Mental Status Date Assessment Result Facility 12-19-2024 Cognitive function Voice/Name [facility] Work Phone: Clinical Notes 07-28-2024 to 12-19-2024 Note Date & Type Note Facility 12-19-2024 History and physi carmen note Note Date/Time December 19, 2024 10:52am [facility] Medical Records Department [address] [place] [address] History & Physical Exam 12/19/24 0953 MR#: [id number] Acct: [id number] Name: NAZANIN LUDWIG Rep #:[id number] : 1985 39 From: Diane Sousa MD PCP: PETE Daily Status:[facility] Location: [place] [address] HPI - General General Date of Service: 12/19/24 HPI Narrative NAZANIN LUDWIG, is a 39 F who presents for an EGD and colonoscopy. Patient states she is due still doing well with the omeprazole. Patient otherwise denies any further rectal bleeding or other changes from office visit. 10/22/2024 office visit HPI HPI: 39-year-old female presents for EGD and colonoscopy. Patient states in July she was having some chest pain diagnosed possible gastritis or ulcer given omeprazole which did improve that discomfort. Patient states at the end of July she did have bright red blood per rectum and 1 day she was on [id number] cold medication patient denies any pain with that bleeding. Patient is unaware of any external hemorrhoids or internal hemorrhoids. Patient's paternal aunt was diagnosed colon cancer at age 50 patient's dad has been having colonoscopies negative per patient. The patient also has umbilical hernia from pregnancies?large/reducible. Patient denies any pain at hernia site [facility] Medical History Wears glasses Low iron Migraine headache Gastric reflux Shortness of breath on exertion Non-smoker Leg cramps History of edema Chest pain Umbilical hernia Pre-diabetes Elevated d-dimer Enlarged thyroid Anxiety HTN (hypertension) Rectal bleeding Acid reflux Asthma Home Medications ?Medication ?Instructions ?Recorded ?Last Taken ?Type albuterol sulfate 90 mcg/actuation 2 puff inhalation Q 4 PRN shortness 10/22/24 Unknown History aerosol inhaler of breath or wheezing ipratropium 0.5 mg-albuterol 3 mg 3 ml continuous nebu lization Q6 10/22/24 Unknown History (2.5 mg base)/3 mL nebulization PRN shortness of breat h soln omeprazole 20 mg capsule,delayed 20 mg PO QDAY 5 Unknown History release lactobacillus combination no.4 3 3,000 mmu cells PO QH S 12/14/24 Unknown History billion cell capsule (Probiotic) Allergy/AdvReac Type Severity Reaction Status Date / Time No Known Allergies Allergy Verified 12/19/24 09:02 Family History Aunt Colon cancer Breast cancer Thyroid disorder Cancer ovarian Grandfather CVA (cerebral vascular accident) Grandmother CVA (cerebral vascular accident) CAD (coronary artery disease) Diabetes Father CAD (coronary artery disease) Hypertension Surgical History S/P laparoscopic cholecystectomy Social History Smoking Status: Never smoker alcohol intake: current Past Medical/Surgical History Planned Operation Planned Operative Procedure(s): EGD, COLONOSCOPY Previous Hospitalizations/Surgeries HX Hospitalizations: No Any Problems With Anesthesia: No You/Your Family Experience Fever (Hyperthermia) With Anes: No Cholinesterase deficiency: No Cardiovascular Hx Hypertension: No Respiratory Hx Sleep Apnea: No Hx Respiratory Tract Infection/Cold (presently): No Do You Snore Loudly (louder than talking or can be heard): No Do You Often Feel Tired/ Fatigued/ Sleepy Dring Daytime?: No Has Anyone Observed You Stop Breathing During Sleep?: No Result (for STOP score): Negative Smoking Status: Never smoker Neurological Does patient have nerve stimulator: No Reproduction : No Miscellaneous Recent Exposure to Contagious Disease: No Allergies No Known Allergies Allergy (Verified 12/19/24 09:02) Discharge Is Pt Admitted From a Senior Living, or a Fpc: No Who Could Help: FAMILY After D/C, Where Do you Plan to Go: Return Home Vital Signs Vital Signs Vital Signs: 12/19/24 09:03 12/19/24 09:03 12/19/24 09:34 Temperature 98.2 F 98.2 F Temperature Source Temporal Pulse Rate 104 H 104 H Respiratory Rate 16 16 Respiratory Pattern Normal Blood Pressure 126/79 H 126/79 H Blood Pressure Mean 94 Blood Pressure Source Monitor Blood Pressure Position Semi-Fowlers Blood Pressure Location Left Arm Pulse Ox 96 96 Oxygen Delivery Method Room Air Room Air Weight Weight: 269 lb 2.951 oz Body Mass Index (BMI) 49.2 Physical Exam Const alert, oriented x3 and no apparent distress HEENT normocephalic and head/scalp atraumatic Resp normal respiratory effort Cardio regular rate GI soft to palpation and non-tender; Negative for non-distended GI Narrative: Medium and large reducible umbilical hernia Palpation: Negative for guarding Extremity no clubbing, cyanosis or edema Skin no rashes or lesions noted Neuro CN's II-XII intact bilaterally Psych mental status grossly normal Assessment & Plan Assessment/Plan (1) Acid reflux: (2) Rectal bleeding: Surgery Risks - Colonoscopy I discussed with the patient the risks of the procedure: Yes Risks Include but are not Limited To: Plan for an EGD and colonoscopy risks include but are not limited to: Bleeding, perforation requiring further surgery, inability to complete colonoscopy requiring barium enema. 12/19/24 1052 <Electronically signed by Diane Sousa MD> Cosigner Signature (if applicable): CC: Dr. Diane Sousa MD; PETE Daily~ Signed [facility] Work Phone: 1(175) 519-476105-28-2025 Procedure note [facility] Medical Records Department [address] [place] [address] Colonoscopy Report MR#: [id number] Acct: [id number] Name: NAZANIN LUDWIG Rep #:[id number] : 1985 39 From: Diane Sousa MD PCP: PETE Daily Status:[facility] Patient Name: Nazanin Ludwig Procedure Date: 12/19/2024 11:18 AM Date of : 1985 Age: 39 Procedure: Colonoscopy Indications: Rectal bleeding Providers: Diane Sousa MD Referring MD: Cleopatra Jiménez Medicines: Monitored Anesthesia Care Patient Profile: This is a 39 year old female. Last Colonoscopy: none. The patient's first colonoscopy is today. Complications: No immediate complications. Procedure: Pre-Anesthesia Assessment: - Prior to the procedure, a History and Physical was performed, and patient medications and allergies were reviewed. The patient's tolerance of previous anesthesia was also reviewed. The risks and benefits of the procedure and the sedation options and risks were discussed with the patient. All questions were answered, and informed consent was obtained. Prior Anticoagulants: The patient has taken no anticoagulant or antiplatelet agents. ASA Grade Assessment: Per anesthesia. After reviewing the risks and benefits, the patient was deemed in satisfactory condition to undergo the procedure. After I obtained informed consent, the scope was passed under direct vision. Throughout the procedure, the patient's blood pressure, pulse, and oxygen saturations were monitored continuously. The colonoscope was introduced through the anus and advanced to the cecum, identified by the appendiceal orifice, ileocecal valve and palpation. The colonoscopy was performed without difficulty. The patient tolerated the procedure well. The quality of the bowel preparation was good. Scope In: 11:19:06 AM Scope Withdrawal Time 0 hours 5 minutes 29 seconds Scope Out: 11:33:47 AM Total Procedure Duration Time 0 hours 14 minutes 41 seconds Findings: Hemorrhoids were found on perianal exam. Non-bleeding external and internal hemorrhoids were found. The hemorrhoids were small and Grade I (internal hemorrhoids that do not prolapse). The exam was otherwise without abnormality. The entire examined colon appeared normal. Impression: - Hemorrhoids found on perianal exam. - Non-bleeding external and internal hemorrhoids. - The examination was otherwise normal. - The entire examined colon is normal. - No specimens collected. Recommendation: - Discharge patient to home. - Resume previous diet. - Continue present medications. - Repeat colonoscopy in 10 years for screening purposes. Procedure Code(s): --- Professional --- 14015, Colonoscopy, flexible; diagnostic, including collection of specimen(s) by brushing or washing, when performed (separate procedure) Diagnosis Code(s): --- Professional --- K64.0, First degree hemorrhoids K62.5, Hemorrhage of anus and rectum CPT copyright 2021 [employer]. All rights reserved. The codes documented in this report are preliminary and upon sheet metal installer review may be revised to meet current compliance requirements. MD Diane Altamirano MD 12/19/2024 11:50:44 AM This report has been signed electronically. Number of Addenda: 0 Note Initiated On: 12/19/2024 11:18 AM 12/19/24 1150 Date _ Diane Busch Signature: Date (if indicated) CC: Dr. Diane Sousa MD; PETE Daily ~ Date Dictated: 12/19/24 1118 Date Transcribed: Analysis Mgr: TR Signed [facility]05-28-2025 Procedure note [facility] Medical Records Department [address] [place], [place] [address] [address] Operative Report - CC Letter MR#: [id number] Acct: [id number] Name: NAZANIN LUDWIG Rep #:[id number] : 1985 39 From: Diane Sousa MD PCP: PETE Daily Status:[facility] 12/19/2024 Cleopatra Jiménez Re : Colonoscopy procedure for Nazanin Ludwig Dear Tino This procedure was performed on Thursday, December 19, 2024. My impressions and recommendations are as follows: Impressions : - Hemorrhoids found on perianal exam. - Non-bleeding external and internal hemorrhoids. - The examination was otherwise normal. - The entire examined colon is normal. - No specimens collected. Recommendations : - Discharge patient to home. - Resume previous diet. - Continue present medications. - Repeat colonoscopy in 10 years for screening purposes. My findings are described in the full procedure note, which is enclosed. If I can be of further assistance, please feel free to contact me at Doctor phone number(s): , Work: . Sincerely, MD Diane Altamirano MD 12/19/2024 11:50:44 AM This report has been signed electronically. 12/19/24 1150 Date _ [facility]ous[facility] Signature: Date (if indicated) CC: Dr. Diane Sousa MD; PETE Daily ~ Date Dictated: 12/19/24 1118 Date Transcribed: Analysis Mgr: TR Signed [facility]05-28-2025 Procedure note [facility] Medical Records Department [address] [place] [address] EGD Report MR#: [id number] Acct: [id number] Name: NAZANIN LUDWIG Rep #:[id number] : 1985 39 From: Diane Sousa MD PCP: PETE Daily Status:[facility] Patient Name: Nazanin Ludwig Procedure Date: 12/19/2024 11:00 AM Date of : 1985 Age: 39 Procedure: Upper GI endoscopy Indications: Epigastric abdominal pain, Heartburn Providers: Diane Sousa MD Referring MD: Cleopatra Jiménez Medicines: Monitored Anesthesia Care Patient Profile: This is a 39 year old female. Complications: No immediate complications. Procedure: Pre-Anesthesia Assessment: - Prior to the procedure, a History and Physical was performed, and patient medications and allergies were reviewed. The patient's tolerance of previous anesthesia was also reviewed. The risks and benefits of the procedure and the sedation options and risks were discussed with the patient. All questions were answered, and informed consent was obtained. Prior Anticoagulants: The patient has taken no anticoagulant or antiplatelet agents. ASA Grade Assessment: Per anesthesia. After reviewing the risks and benefits, the patient was deemed in satisfactory condition to undergo the procedure. After obtaining informed consent, the endoscope was passed under direct vision. Throughout the procedure, the patient's blood pressure, pulse, and oxygen saturations were monitored continuously. The Endoscope was introduced through the mouth, and advanced to the second part of duodenum. The upper GI endoscopy was accomplished without difficulty. The patient tolerated the procedure well. Scope In: 11:12:16 AM Scope Out: 11:15:37 AM Total Procedure Duration Time 0 hours 3 minutes 21 seconds Findings: The cardia and gastric fundus were normal on retroflexion. Mildly erythematous mucosa without bleeding was found in the gastric antrum. Biopsies were taken with a cold forceps for histology. Biopsies were taken with a cold forceps for Helicobacter pylori cultures. The examined duodenum was normal. Impression: - Erythematous mucosa in the antrum. Biopsied. - Normal examined duodenum. Recommendation: - Discharge patient to home. - Resume previous diet. - Continue present medications. Procedure Code(s): --- Professional --- 89538, Esophagogastroduodenoscopy, flexible, transoral; with biopsy, single or multiple Diagnosis Code(s): --- Professional --- K31.89, Other diseases of stomach and duodenum R10.13, Epigastric pain R12, Heartburn CPT copyright 2021 [employer]. All rights reserved. The codes documented in this report are preliminary and upon sheet metal installer review may be revised to meet current compliance requirements. MD Diane Altamirano MD 12/19/2024 11:47:57 AM This report has been signed electronically. Number of Addenda: 0 Note Initiated On: 12/19/2024 11:00 AM 12/19/24 1148 Date _ Diane Saeedignmadhu Signature: Date (if indicated) CC: Dr. Diane Sousa MD; PETE Daily ~ Date Dictated: 12/19/24 1100 Date Transcribed: Analysis Mgr: TR Signed [facility]05-28-2025 Procedure note [facility] Medical Records Department [address] [place] [address] Operative Report - CC Letter MR#: [id number] Acct: [id number] Name: NAZANIN LUDWIG Rep #:[id number] : 1985 39 From: Diane Sousa MD PCP: PETE Daily Status:[facility] 12/19/2024 Cleopatra Jiménez Re : Upper GI endoscopy procedure for Nazanin Ludwig Shaan Jiménez This procedure was performed on Thursday, December 19, 2024. My impressions and recommendations are as follows: Impressions : - Erythematous mucosa in the antrum. Biopsied. - Normal examined duodenum. Recommendations : - Discharge patient to home. - Resume previous diet. - Continue present medications. My findings are described in the full procedure note, which is enclosed. If I can be of further assistance, please feel free to contact me at Doctor phone number(s): , Work: . Sincerely, MD Diane Altamirano MD 12/19/2024 11:47:57 AM This report has been signed electronically. 12/19/24 1148 Date _ Diane Busch Signature: Date (if indicated) CC: Dr. Diane Sousa MD; PETE Daily ~ Date Dictated: 12/19/24 1100 Date Transcribed: Analysis Mgr: TR Signed [facility]05-28-2025 Consult note [facility] Medical Records Department [address] [facility] [place] [address] Anesthesia Postop Eval I 12/19/24 1146 MR#: [id number] Acct: [id number] Name: NAZANIN LUDWIG Rep #:[id number] : 1985 39 From: Sai Hirsch PCP: PETE Daily Status:[facility] Y Race: C Location: [place] [address] Anesthesia: Postop Eval I Current Vital Signs Temperature: 97.4 F Pulse Rate: 88 Blood Pressure: 96/66 Respiratory Rate: 16 Pulse Ox: 95 Oxygen Delivery Method: Room Air Assessment Airway patent: Yes Spontaneous unlabored respirations: Yes Mental status: Awake and Calm nausea: No Vomiting: No Anesthesia Complication: No Fluid Hydration Crystalloid volume administer (ml): 800 Total IV fluid infused: 800 Progress Note Anesthesia document: Postop Eval 1 completed: Yes 12/19/24 1146 > Date _ Sai Busch Signature: Date CC: ~ Signed [facility]05-28-2025 Consult note Author Herber Ventura [facility] Note Date/Time December 19, 2024 9:34a m [facility] Medical Records Department [address] [place] [address] Pre-Anesthesia Evaluation 12/19/24 0930 MR#: [id number] Acct: [id number] Name: NAZANIN LUDWIG Rep #:[id number] : 1985 39 From: Herber Ventura MD PCP: PETE Daily Status:REG SDC Y Race: C Location: [place] [address] ASA Classification* ASA Classification ASA Classification: 3 Assessment & Plan Anesthesia* Anesthesia Assessment Anesthesia Assessment: Discussed sedation and/or anesthesia options, risks, benefits, and alternatives with patient/parents/legal guardian/POA. Questions invited. The patient/parents/legal guardian/POA seems to understand and agrees to proceedwith anesthesia plan. Reviewed the physical assessment, medical history, allergy history and patient home medications list prior to surgery/procedure/anesthetic and documented any changes. Performed airway and anesthesia risk assessments. Anesthesia Type Anesthesia Type: MAC History Source History Obtained from:: Patient and Chart Anesthesia Focused Assessment* Temperature: 98.2 F Pulse Rate: 104 Blood Pressure: 126/79 Respiratory Rate: 16 Pulse Ox: 96 Oxygen Delivery Method: Room Air Airway Assessment Mouth opens: >3 cm Mallampati Score: IV Teeth Condition: Intact Neck Range of motion (ROM): Full ROM Focused Labs Anesthesia Preop lab: CBC WBC 13.1 K/mm3 (4.4-11.0) H 12/11/18 17:40 9 RBC 4.85 M/mm3 (4.2-5.4) 12/11/18 17:40 12/11/18 Hgb 13.1 g/dl (12.0-15.0) 12/11/18 17:40 12/11/18 Hct 40.3 % (37-47) 12/11/18 17:40 12/11/18 Plt Count 289 K/mm3 (150-450) 12/11/18 17:40 12/11/18 CHEMISTRY Potassium 3.6 mmol/L (3.5-5.1) 12/11/18 17:40 12/11/18 Sodium 137 mmol/L (136-145) 12/11/18 17:40 12/11/18 BUN 9 mg/dL (7-18) 12/11/18 17:40 12/11/18 Creatinine 0.95 mg/dL (0.55-1.02) 12/11/18 17:40 12/11/18 Glucose 95 mg/dL (74-106) 12/11/18 17:40 12/11/18 TSH 1.90 uIU/mL (0.358-3.74) 01/03/13 10:30 3 COAG Urine Test Negative Negative 12/19/24 08:51 12/19/24 Pre-Assessment Diagnosis/Proposed Procedure Planned Operative Procedure(s): EGD, COLONOSCOPY Anesthesia History 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 When Was Last Pacemaker Check QUESTION #4 FULL TEXT: You/Your Family Experience fever (hyperthermia) with Anesthesia Last Oral Intake Last Oral intake: Last Oral Intake NPO since 22:00 12/19/24 09:03 Meds taken in AM with sips of No 12/19/24 09:03 water? 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 Female Yes 12/14/24 14:59 HX of Motion Sickness No 12/14/24 14:59 HX of N/V After Surgery No 12/14/24 14:59 Non-Smoker Yes 12/14/24 14:59 Duration of Surgery greater No 12/14/24 14:59 than 60 minutes Number of Risk Factors 2 12/14/24 14:59 PONV Score Moderate Risk 12/14/24 14:59 Height & Weight Height & Weight: Anesthesia: Height & Weight Height 5 ft 2 in 12/19/24 09:03 Weight: 122.1 kg 12/19/24 09:03 Body Mass Index (BMI) 49.2 12/19/24 09:03 Respiratory Assessment Respiratory Assessment - maintenance shop manager: Respiratory Tract Infection Hx - maintenance shop manager Hx Respiratory Tract Infection No 12/14/24 14:59 STOP Sleep Apnea STOP Sleep Apnea - maintenance shop manager: STOP Sleep Apnea - maintenance shop manager Hx Hypertension No 12/14/24 14:59 Hx Sleep Apnea No 12/14/24 14:59 CPAP BIPAP Do you snore loudly (louder No 12/14/24 14:59 than talking or can be heard Do you often feel tired/ No 12/14/24 14:59 fatigued/ sleepy during daytime? Has anyone observed you stop No 12/14/24 14:59 breathing during sleep? STOP Results Negative 12/14/24 14:59 QUESTION #5 FULL TEXT : Do you snore loudly (louder than talking or can be heard through closed doors)? Tobacco Use History Tobacco Use History - maintenance shop manager: Tobacco Use History - maintenance shop manager Tobacco Use Smoking Status Never smoker 12/14/24 14:59 Hx Tobacco Use No 12/14/24 14:59 Years Smoking Packs Smoked per Day Smoking Cessation Date was within the last 15 years Hx Smoking Cessation Date Hx Smoking Cessation Counseling Hematologic Medial History Hematologic Hx - maintenance shop manager: Hematologic Medical Hx - stopper grinder Hx of Blood Transfusion No 12/14/24 14:59 Hx of Transfusion in last 3 No 12/14/24 14:59 Months Date of Last Transfusion (if within last 3 months) Ever experience any problems No 12/14/24 14:59 with transfusion(s)? Specify any problems Hx of Preganancy in last 3 No 12/14/24 14:59 Months Nurse Filling Out Transfusion MGRIFFITH 12/14/24 14:59 & Questions: Date: 12/14/24 12/14/24 14:59 Time: 15:00 12/14/24 14:59 Patient unable to answer at this time (ie. confused, unrespo /Reproduction History /Reproductive History - maintenance shop manager: /Reproductive Hx- maintenance shop manager Hx Now No 12/14/24 14:59 Gestational Age (in weeks): EDC: Hx Hx Para Hx Section SAB No 12/14/24 14:59 Active Medications Active Medications: Current Medications Generic Name Dose Route Start Last Admin Trade Name Freq PRN Reason Stop Dose Admin Lactated Ringer's 1,000 mls @ 15 mls/hr 12/19/24 09:00 12/19/24 09:12 IV 15 mls/hr .Q48H LON Administration PFSH Medical History Wears glasses Low iron Migraine headache Gastric reflux Shortness of breath on exertion Non-smoker Leg cramps History of edema Chest pain Umbilical hernia Pre-diabetes Elevated d-dimer Enlarged thyroid Anxiety HTN (hypertension) Rectal bleeding Acid reflux Asthma Home Medications ?Medication ?Instructions ?Recorded ?Last Taken ?Type albuterol sulfate 90 mcg/actuation 2 puff inhalation Q 4 PRN shortness 10/22/24 Unknown History aerosol inhaler of breath or wheezing ipratropium 0.5 mg-albuterol 3 mg 3 ml continuous nebu lization Q6 10/22/24 Unknown History (2.5 mg base)/3 mL nebulization PRN shortness of breat h soln omeprazole 20 mg capsule,delayed 20 mg PO QDAY 5 Unknown History release lactobacillus combination no.4 3 3,000 mmu cells PO QH S 12/14/24 Unknown History billion cell capsule (Probiotic) Allergy/AdvReac Type Severity Reaction Status Date / Time No Known Allergies Allergy Verified 12/19/24 09:02 Family History Aunt Colon cancer Breast cancer Thyroid disorder Cancer ovarian Grandfather CVA (cerebral vascular accident) Grandmother CVA (cerebral vascular accident) CAD (coronary artery disease) Diabetes Father CAD (coronary artery disease) Hypertension Surgical History S/P laparoscopic cholecystectomy Social History Smoking Status: Never smoker alcohol intake: current Review of Systems (Anesthesia) ROS Narrative System reviewed and no additional complaints, except as documented. Physical Exam Resp clear to auscultation bilaterally 12/19/24 09 <Electronically signed by Herber pierson MD> Date _ Herber Saeedignmadhu Signature: Date CC: ~ Signed [facility] Work Phone: 1(670) 363-615405-28-2025 History and physical note [facility] Medical Records Department [address] [place] [address] History & Physical Exam 12/19/24 0953 MR#: [id number] Acct: [id number] Name: NAZANIN LUDWIG Rep #:[id number] : 1985 39 From: Diane Sousa MD PCP: PETE Daily Status:[facility] Location: [place] [address] HPI - General General Date of Service: 12/19/24 HPI Narrative NAZANIN LUDWIG, is a 39 F who presents for an EGD and colonoscopy. Patient states she is due still doing well with the omeprazole. Patient otherwise denies any further rectal bleeding or other changesfrom office visit. 10/22/2024 office visit HPI HPI: 39-year-old female presents for EGD and colonoscopy. Patient states in July she was having some chest pain diagnosed possible gastritis or ulcer given omeprazole which did improve that discomfort.Patient states at the end of July she did have bright red blood per rectum and 1 day she was on o [id number] cold medication patient denies any pain with that bleeding. Patient is unaware of any external hemorrhoids or internal hemorrhoids. Patient's paternal aunt was diagnosed colon cancer at age 50 patient's dad has been having colonoscopies negative per patient. The patient also has umbilical hernia from pregnancies?large/reducible. Patient denies any pain at hernia site [facility] Medical History Wears glasses Low iron Migraine headache Gastric reflux Shortness of breath on exertion Non-smoker Leg cramps History of edema Chest pain Umbilical hernia Pre-diabetes Elevated d-dimer Enlarged thyroid Anxiety HTN (hypertension) Rectal bleeding Acid reflux Asthma Home Medications ?Medication ?Instructions ?Recorded ?Last Taken ?Type albuterol sulfate 90 mcg/actuation 2 puff inhalation Q 4 PRN shortness 10/22/24 Unknown History aerosol inhaler of breath or wheezing ipratropium 0.5 mg-albuterol 3 mg 3 ml continuous nebu lization Q6 10/22/24 Unknown History (2.5 mg base)/3 mL nebulization PRN shortness of breat h soln omeprazole 20 mg capsule,delayed 20 mg PO QDAY 5 Unknown History release lactobacillus combination no.4 3 3,000 mmu cells PO QH S 12/14/24 Unknown History billion cell capsule (Probiotic) Allergy/AdvReac Type Severity Reaction Status Date / Time No Known Allergies Allergy Verified 12/19/24 09:02 Family History Aunt Colon cancer Breast cancer Thyroid disorder Cancer ovarian Grandfather CVA (cerebral vascular accident) Grandmother CVA (cerebral vascular accident) CAD (coronary artery disease) Diabetes Father CAD (coronary artery disease) Hypertension Surgical History S/P laparoscopic cholecystectomy Social History Smoking Status: Never smoker alcohol intake: current Past Medical/Surgical History Planned Operation Planned Operative Procedure(s): EGD, COLONOSCOPY Previous Hospitalizations/Surgeries HX Hospitalizations: No Any Problems With Anesthesia: No You/Your Family Experience Fever (Hyperthermia) With Anes: No Cholinesterase deficiency: No Cardiovascular Hx Hypertension: No Respiratory Hx Sleep Apnea: No Hx Respiratory Tract Infection/Cold (presently): No Do You Snore Loudly (louder than talking or can be heard): No Do You Often Feel Tired/ Fatigued/ Sleepy Dring Daytime?: No Has Anyone Observed You Stop Breathing During Sleep?: No Result (for STOP score): Negative Smoking Status: Never smoker Neurological Does patient have nerve stimulator: No Reproduction : No Miscellaneous Recent Exposure to Contagious Disease: No Allergies No Known Allergies Allergy (Verified 12/19/24 09:02) Discharge Is Pt Admitted From a Senior Living, or a Fpc: No Who Could Help: FAMILY After D/C, Where Do you Plan to Go: Return Home Vital Signs Vital Signs Vital Signs: 12/19/24 09:03 12/19/24 09:03 12/19/24 09:34 Temperature 98.2 F 98.2 F Temperature Source Temporal Pulse Rate 104 H 104 H Respiratory Rate 16 16 Respiratory Pattern Normal Blood Pressure 126/79 H 126/79 H Blood Pressure Mean 94 Blood Pressure Source Monitor Blood Pressure Position Semi-Fowlers Blood Pressure Location Left Arm Pulse Ox 96 96 Oxygen Delivery Method Room Air Room Air Weight Weight: 269 lb 2.951 oz Body Mass Index (BMI) 49.2 Physical Exam Const alert, oriented x3 and no apparent distress HEENT normocephalic and head/scalp atraumatic Resp normal respiratory effort Cardio regular rate GI soft to palpation and non-tender; Negative for non-distended GI Narrative: Medium and large reducible umbilical hernia Palpation: Negative for guarding Extremity no clubbing, cyanosis or edema Skin no rashes or lesions noted Neuro CN's II-XII intact bilaterally Psych mental status grossly normal Assessment & Plan Assessment/Plan (1) Acid reflux: (2) Rectal bleeding: Surgery Risks - Colonoscopy I discussed with the patient the risks of the procedure: Yes Risks Include but are not Limited To: Plan for an EGD and colonoscopy risks include but are not limited to: Bleeding, perforation requiring further surgery, inability to complete colonoscopy requiring barium enema. 12/19/24 1052 Cosigner Signature (if applicable): CC: Dr. Diane Sousa MD; PETE Daily~ Signed [facility]05-28-2025 [facility] Medical Records Department [address] [place] [address] History Physical Exam 12/19/24 0953 MR#: [id number] Acct: [id number] Name: NAZANIN LUDWIG Rep #: [id number] : 1985 39 From: Diane Sousa MD PCP: PETE Daily Status:[facility] Location: [place] [address] HPI - General General Date of Service: 12/19/24 HPI Narrative NAZANIN LUDWIG, is a 39 F who presents for an EGD and colonoscopy. Patient states she is due still doing well with the omeprazole. Patient otherwise denies any further rectal bleeding or other changes from office visit. 10/22/2024 office visit HPI HPI: 39-year-old female presents for EGD and colonoscopy. Patient states in July she was having some chest pain diagnosed possible gastritis or ulcer given omeprazole which did improve that discomfort. Patient states at the end of July she did have bright red blood per rectum and 1 day she was on [id number] cold medication patient denies any pain with that bleeding. Patient is unaware of any external hemorrhoids or internal hemorrhoids. Patient's paternal aunt was diagnosed colon cancer at age 50 patient's dad has been having colonoscopies negative per patient. The patient also has umbilical hernia from pregnancies???large/reducible. Patient denies any pain at hernia site [facility] Medical History Wears glasses Low iron Migraine headache Gastric reflux Shortness of breath on exertion Non-smoker Leg cramps History of edema Chest pain Umbilical hernia Pre-diabetes Elevated d-dimer Enlarged thyroid Anxiety HTN (hypertension) Rectal bleeding Acid reflux Asthma Home Medications ???Medication ???Instructions ???Recorded ???Last Taken ???Type albuterol sulfate 90 mcg/actuation 2 puff inhalation Q4 PRN shortne ss 10/22/24 Unknown History aerosol inhaler of breath or wheezing ipratropium 0.5 mg-albuterol 3 mg 3 ml continuous nebulization Q6 0 10/22/24 Unknown History (2.5 mg base)/3 mL nebulization PRN shortness of breath soln omeprazole 20 mg capsule,delayed 20 mg PO QDAY 10/22/24 Unknown His tory release lactobacillus combination no.4 3 3,000 mmu cells PO QHS 12/14/24 Un known History billion cell capsule (Probiotic) Allergy/AdvReac Type Severity Reaction Status Date / Time No Known Allergies Allergy Verified 12/19/24 09:02 Family History Aunt Colon cancer Breast cancer Thyroid disorder Cancer ovarian Grandfather CVA (cerebral vascular accident) Grandmother CVA (cerebral vascular accident) CAD (coronary artery disease) Diabetes Father CAD (coronary artery disease) Hypertension Surgical History S/P laparoscopic cholecystectomy Social History Smoking Status: Never smoker alcohol intake: current Past Medical/Surgical History Planned Operation Planned Operative Procedure(s): EGD, COLONOSCOPY Previous Hospitalizations/Surgeries HX Hospitalizations: No Any Problems With Anesthesia: No You/Your Family Experience Fever (Hyperthermia) With Anes: No Cholinesterase deficiency: No Cardiovascular Hx Hypertension: No Respiratory Hx Sleep Apnea: No Hx Respiratory Tract Infection/Cold (presently): No Do You Snore Loudly (louder than talking or can be heard): No Do You Often Feel Tired/ Fatigued/ Sleepy Dring Daytime?: No Has Anyone Observed You Stop Breathing During Sleep?: No Result (for STOP score): Negative Smoking Status: Never smoker Neurological Does patient have nerve stimulator: No Reproduction : No Miscellaneous Recent Exposure to Contagious Disease: No Allergies No Known Allergies Allergy (Verified 12/19/24 09:02) Discharge Is Pt Admitted From a Senior Living, or a Fpc: No Who Could Help: FAMILY After D/C, Where Do you Plan to Go: Return Home Vital Signs Vital Signs Vital Signs: 12/19/24 09:03 12/19/24 09:03 12/19/24 09:34 Temperature 98.2 F 98.2 F Temperature Source Temporal Pulse Rate 104 H 104 H Respiratory Rate 16 16 Respiratory Pattern Normal Blood Pressure 126/79 H 126/79 H Blood Pressure Mean 94 Blood Pressure Source Monitor Blood Pressure Position Semi-Fowlers Blood Pressure Location Left Arm Pulse Ox 96 96 Oxygen Delivery Method Room Air Room Air Weight Weight: 269 lb 2.951 oz Body Mass Index (BMI) 49.2 Physical Exam Const alert, oriented x3 and no apparent distress HEENT normocephalic and head/scalp atraumatic Resp normal respiratory effort Cardio regular rate GI soft to palpation and non-tender; Negative for non-distended GI N (more content not included)...[facility]05-28-2025 Consult note [facility] Medical Records Department [address] [place] [address] Pre-Anesthesia Evaluation 12/19/24929 MR#: [id number] Acct: [id number] Name: NAZANIN LUDWIG Rep #:[id number] : 1985 39 From: Herber Ventura MD PCP: PETE Daily Status:[facility] Y Race: C Location: [place] [address] ASA Classification* ASA Classification ASA Classification: 3 Assessment & Plan Anesthesia* Anesthesia Assessment Anesthesia Assessment: Discussed sedation and/or anesthesia options, risks, benefits, and alternatives with patient/parents/legal guardian/POA. Questions invited. The patient/parents/legal guardian/POA seems to understand and agrees to proceedwith anesthesia plan. Reviewed the physical assessment, medical history, allergy history and patient home medications list prior to surgery/procedure/anesthetic and documented any changes. Performed airway and anesthesia risk assessments. Anesthesia Type Anesthesia Type: MAC History Source History Obtained from:: Patient and Chart Anesthesia Focused Assessment* Temperature: 98.2 F Pulse Rate: 104 Blood Pressure: 126/79 Respiratory Rate: 16 Pulse Ox: 96 Oxygen Delivery Method: Room Air Airway Assessment Mouth opens: >3 cm Mallampati Score: IV Teeth Condition: Intact Neck Range of motion (ROM): Full ROM Focused Labs Anesthesia Preop lab: CBC WBC 13.1 K/mm3 (4.4-11.0) H 12/11/18 17:40 9 RBC 4.85 M/mm3 (4.2-5.4) 12/11/18 17:40 12/11/18 Hgb 13.1 g/dl (12.0-15.0) 12/11/18 17:40 12/11/18 Hct 40.3 % (37-47) 12/11/18 17:40 12/11/18 Plt Count 289 K/mm3 (150-450) 12/11/18 17:40 12/11/18 CHEMISTRY Potassium 3.6 mmol/L (3.5-5.1) 12/11/18 17:40 12/11/18 Sodium 137 mmol/L (136-145) 12/11/18 17:40 12/11/18 BUN 9 mg/dL (7-18) 12/11/18 17:40 12/11/18 Creatinine 0.95 mg/dL (0.55-1.02) 12/11/18 17:40 12/11/18 Glucose 95 mg/dL (74-106) 12/11/18 17:40 12/11/18 TSH 1.90 uIU/mL (0.358-3.74) 01/03/13 10:30 3 COAG Urine Test Negative Negative 12/19/24 08:51 12/19/24 Pre-Assessment Diagnosis/Proposed Procedure Planned Operative Procedure(s): EGD, COLONOSCOPY Anesthesia History 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 When Was Last Pacemaker Check QUESTION #4 FULL TEXT: You/Your Family Experience fever (hyperthermia) with Anesthesia Last Oral Intake Last Oral intake: Last Oral Intake NPO since 22:00 12/19/24 09:03 Meds taken in AM with sips of No 12/19/24 09:03 water? 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 Female Yes 12/14/24 14:59 HX of Motion Sickness No 12/14/24 14:59 HX of N/V After Surgery No 12/14/24 14:59 Non-Smoker Yes 12/14/24 14:59 Duration of Surgery greater No 12/14/24 14:59 than 60 minutes Number of Risk Factors 2 12/14/24 14:59 PONV Score Moderate Risk 12/14/24 14:59 Height & Weight Height & Weight: Anesthesia: Height & Weight Height 5 ft 2 in 12/19/24 09:03 Weight: 122.1 kg 12/19/24 09:03 Body Mass Index (BMI) 49.2 12/19/24 09:03 Respiratory Assessment Respiratory Assessment - maintenance shop manager: Respiratory Tract Infection Hx - maintenance shop manager Hx Respiratory Tract Infection No 12/14/24 14:59 STOP Sleep Apnea STOP Sleep Apnea - maintenance shop manager: STOP Sleep Apnea - maintenance shop manager Hx Hypertension No 12/14/24 14:59 Hx Sleep Apnea No 12/14/24 14:59 CPAP BIPAP Do you snore loudly (louder No 12/14/24 14:59 than talking or can be heard Do you often feel tired/ No 12/14/24 14:59 fatigued/ sleepy during daytime? Has anyone observed you stop No 12/14/24 14:59 breathing during sleep? STOP Results Negative 12/14/24 14:59 QUESTION #5 FULL TEXT : Do you snore loudly (louder than talking or can be heard through closeddoors)? Tobacco Use History Tobacco Use History - maintenance shop manager: Tobacco Use History - maintenance shop manager Tobacco Use Smoking Status Never smoker 12/14/24 14:59 Hx Tobacco Use No 12/14/24 14:59 Years Smoking Packs Smoked per Day Smoking Cessation Date was within the last 15 years Hx Smoking Cessation Date Hx Smoking Cessation Counseling Hematologic Medial History Hematologic Hx - maintenance shop manager: Hematologic Medical Hx - stopper grinder Hx of Blood Transfusion No 12/14/24 14:59 Hx of Transfusion in last 3 No 12/14/24 14:59 Months Date of Last Transfusion (if within last 3 months) Ever experience any problems No 12/14/24 14:59 with transfusion(s)? Specify any problems Hx of Preganancy in last 3 No 12/14/24 14:59 Months Nurse Filling Out Transfusion MGRIFFITH 12/14/24 14:59 & Questions: Date: 12/14/24 12/14/24 14:59 Time: 15:00 12/14/24 14:59 Patient unable to answer at this time (ie. confused, unrespo /Reproduction History /Reproductive History - maintenance shop manager: /Reproductive Hx- maintenance shop manager Hx Now No 12/14/24 14:59 Gestational Age (in weeks): EDC: Hx Hx Para Hx Section SAB No 12/14/24 14:59 Active Medications Active Medications: Current Medications Generic Name Dose Route Start Last Admin Trade Name Freq PRN Reason Stop Dose Admin Lactated Ringer's 1,000 mls @ 15 mls/hr 12/19/24 09:00 12/19/24 09:12 IV 15 mls/hr .Q48H LON Administration PFSH Medical History Wears glasses Low iron Migraine headache Gastric reflux Shortness of breath on exertion Non-smoker Leg cramps History of edema Chest pain Umbilical hernia Pre-diabetes Elevated d-dimer Enlarged thyroid Anxiety HTN (hypertension) Rectal bleeding Acid reflux Asthma Home Medications ?Medication ?Instructions ?Recorded ?Last Taken ?Type albuterol sulfate 90 mcg/actuation 2 puff inhalation Q 4 PRN shortness 10/22/24 Unknown History aerosol inhaler of breath or wheezing ipratropium 0.5 mg-albuterol 3 mg 3 ml continuous nebu lization Q6 10/22/24 Unknown History (2.5 mg base)/3 mL nebulization PRN shortness of breat h soln omeprazole 20 mg capsule,delayed 20 mg PO QDAY 5 Unknown History release lactobacillus combination no.4 3 3,000 mmu cells PO QH S 12/14/24 Unknown History billion cell capsule (Probiotic) Allergy/AdvReac Type Severity Reaction Status Date / Time No Known Allergies Allergy Verified 12/19/24 09:02 Family History Aunt Colon cancer Breast cancer Thyroid disorder Cancer ovarian Grandfather CVA (cerebral vascular accident) Grandmother CVA (cerebral vascular accident) CAD (coronary artery disease) Diabetes Father CAD (coronary artery disease) Hypertension Surgical History S/P laparoscopic cholecystectomy Social History Smoking Status: Never smoker alcohol intake: current Review of Systems (Anesthesia) ROS Narrative System reviewed and no additional complaints, except as documented. Physical Exam Resp clear to auscultation bilaterally 12/19/24 0934 dangelo MARCANO> Date _ Herber Ventura MD Cosigner Signature: Date CC: ~ Signed [facility]03-31-2025 Evaluation note* Diagnosis Onset Date Resolution Status Admit Date Acid reflux acute October 22, 2 025 12:51pm Rectal bleeding acute September 12:51pm Umbilical hernia acute October 222024 12:51pm Acid reflux acute December 19 8:39am Rectal bleeding acute December 19, 2024 8:39am [facility] Work Phone: 1(467) 332-257103-18-2025 NoteHNO ID: [id number] Author: JULIO BENITES MD Service: ? Author Type: Physician Type: Progress Notes Filed: 10/09/2024 09:56 Note Text: HISTORY OF PRESENT ILLNESS: Nazanin Ludwig is a 39 year old female generally health is good, was dyspneic in November 2023, noted to have elevated d dimer in ER, was 946, 2.05. CTA chest negative or PE. Did not have US legs Routine cbc in August 2024 showed normalcy other than differential showed 1% metamyelocytes and 6% myelocytes. She felt well at the time, no evidence acute infection No fevers or sweats. Non smoker. No unexplained weight loss. One episode blood in stool. CLINICAL IMPRESSION: Left shift on routine cbc in August 2024 Persistently elevated d dimer, but decreased from November 2023 RECOMMENDATION/PLAN: 1. Daniel recheck d dimer, cbc today 2. Agree with updating cancer screening, favor colonoscopy given episode blood in stool 3. We can follow up via MyChart on results, need for further testing Written and verbal health teaching given to patient, patient verbalizes understanding and agrees with treatment plan. PAST MEDICAL HISTORY Diagnosis Date Asthma Prediabetes PAST SURGICAL HISTORY Procedure Laterality Date REMOVAL GALLBLADDER FAMILY HISTORY Problem Relation Age of Onset Diabetes Mother Social History Tobacco Use Smoking status: Never Smokeless tobacco: Never ALLERGIES: ALLERGIES No Known Allergies CURRENT OUTPATIENT MEDICATIONS: BIOTIN ORAL Take 1 tablet by mouth once daily. Lactobacillus acidophilus (PROBIOTIC ORAL) Take 1 tablet by mouth once daily. OTC PRODUCT Collagen: Take two tablets by mouth once daily. omeprazole (PRILOSEC) 20 mg capsule Take 1 capsule by mouth once daily as needed. REVIEW OF SYSTEMS: GENERAL: No fever, night sweats, weight loss or malaise. All other reviewed and negative other than HPI. PHYSICAL EXAMINATION: VITAL SIGNS: BP 128/85 Pulse 88 Temp (Src) 97.8 (Temporal) Ht 5' 2" (1.58m) Wt 273 lb (123.8kg) SpO2 98% BMI 49.92 kg/(m2). GENERAL APPEARANCE: Well appearing, in no acute distress, alert and oriented x3, well-hydrated, well nourished. No palpable adenopathy I spent a total of 45 minutes on the date of the service which included preparing to see the patient, [id number] patient care, completing clinical documentation, obtaining and/or reviewing separately obtained history, performing a medically appropriate examination, counseling and educating the patient/family/caregiver, ordering medications, tests, or procedures, independently interpreting results (not separately reported), and communicating results to the patient/family/caregiver. Electronically Signed: Julio Benites MD October 09, 2024 9:04 [facility]03-18-2025 History of Present illness Narrative* Julio Benites MD - 10/09/2024 9:04 AM EDT HISTORY OF PRESENT ILLNESS: Nazanin Ludwig is a 39 year old female generally health is good, was dyspneic in November 2023, noted to have elevated d dimer in ER, was 946, 2.05. CTA chest negative or PE. Did not have US legs Routine cbc in August 2024 showed normalcy other than differential showed 1% metamyelocytes and 6% myelocytes. She felt well at the time, no evidence acute infection No fevers or sweats. Non smoker. No unexplained weight loss. One episode blood in stool. CLINICAL IMPRESSION: Left shift on routine cbc in August 2024 Persistently elevated d dimer, but decreased from November 2023 RECOMMENDATION/PLAN: 1. Daniel recheck d dimer, cbc today 2. Agree with updating cancer screening, favor colonoscopy given episode blood in stool 3. We can follow up via MyChart on results, need for further testing Written and verbal health teaching given to patient, patient verbalizes understanding and agrees with treatment plan. PAST MEDICAL HISTORY Diagnosis Date Asthma Prediabetes PAST SURGICAL HISTORY Procedure Laterality Date REMOVAL GALLBLADDER FAMILY HISTORY Problem Relation Age of Onset Diabetes Mother Social History Tobacco Use Smoking status: Never Smokeless tobacco: Never ALLERGIES: ALLERGIES No Known Allergies CURRENT OUTPATIENT MEDICATIONS: BIOTIN ORAL Take 1 tablet by mouth once daily. Lactobacillus acidophilus (PROBIOTIC ORAL) Take 1 tablet by mouth once daily. OTC PRODUCT Collagen: Take two tablets by mouth once daily. omeprazole (PRILOSEC) 20 mg capsule Take 1 capsule by mouth once daily as needed. REVIEW OF SYSTEMS: GENERAL: No fever, night sweats, weight loss or malaise. All other reviewed and negative other than HPI. PHYSICAL EXAMINATION: VITAL SIGNS: BP 128/85 Pulse 88 Temp (Src) 97.8 (Temporal) Ht 5' 2" (1.58m) Wt 273 lb (123.8kg) SpO2 98% BMI 49.92 kg/(m^2). GENERAL APPEARANCE: Well appearing, in no acute distress, alert and oriented x3, well-hydrated, well nourished. No palpable adenopathy I spent a total of 45 minutes on the date of the service which included preparing to see the patient, [id number] patient care, completing clinical documentation, obtaining and/or reviewing separately obtained history, performing a medically appropriate examination, counseling and educating the pat ient/family/caregiver, ordering medications, tests, or procedures, independently interpreting results (not separately reported), and communicating results to the patient/family/caregiver. Electronically Signed: Julio Benites MD October 09, 2024 9:04 AM [facility] NoteDischarge Instructions Discharge Summary [address] [place] [address] [id number] 07/27/2024 Patient: NAZANIN LUDWIG Sex: Female : 1985 Age: 38y Thank you for visiting [facility]. You have been evaluated today by David Neves M.D. for the following condition(s): Principal Diagnosis Chest pain characterized as "discomfort". INSTRUCTIONS Follow-up: Follow up with doctor. Please follow-up with your primary care physician in the next 2-3 days as wediscussed. Please return back to the emergency department for worsening symptoms. You have been given the following additional information: Uncertain Causes of Chest Pain Patient Signature Facility Nurse Clinical Date/Time 1 of 4 Discharge Instructions General Instructions with ExitWriter [facility] [address] [place] [address] [phone] 07/27/2024 Patient: NAZANIN LUDWIG Sex: Female : 1985 Age: 38y Thank you for visiting [facility]. You have been evaluated today by David Neves M.D. for the following condition(s): Principal Diagnosis Chest pain characterized as "discomfort". INSTRUCTIONS Follow-up: Follow up with doctor. Please follow-up with your primary care physician in the next 2-3 days as wediscussed. Please return back to the emergency department for worsening symptoms. ADDITIONAL INFORMATION 2 of 4 Discharge Instructions Uncertain Causes of Chest Pain Chest pain can happen for a number of reasons. Sometimes the cause can't be determined. If your condition does not seem serious, and your pain does not appear to be coming from your heart, your healthcare provider may recommend watching it closely. Sometimes the signs of a serious problem take more time to appear. Many problems not related to your heart can cause chest pain. These include: Musculoskeletal. Costochondritis is an inflammation of the tissues around the ribs that can occur from trauma or overuse injuries, or a strain of the muscles of the chest wall Respiratory. Pneumonia, collapsed lung (pneumothorax), or inflammation of the lining of the chest and lungs (pleurisy) Gastrointestinal. Esophageal reflux, heartburn, ulcers, or gallbladder disease Anxiety and panic disorders Nerve compression and inflammation Rare miscellaneous problems such as aortic aneurysm (a swelling of the large artery coming out of the heart) or pulmonary embolism (a blood clot in the lungs) Home care After your visit, follow these recommendations: Rest today and avoid strenuous activity. Take any prescribed medicine as directed. 3 of 4 Discharge Instructions Be aware of any recurrent chest pain and notice any changes Follow-up care Follow up with your healthcare provider if you do not start to feel better within 24 hours, or as advised. Call 911 Call 911 if any of these occur: A change in the type of pain: if it feels different, becomes more severe, lasts longer, or begins to spread into your shoulder, arm, neck, jaw or back Shortness of breath or increased pain with breathing Weakness, dizziness, or fainting Rapid heart beat Crushing sensation in your chest When to seek medical advice Call your healthcare provider right away if any of the following occur: Cough with dark colored sputum (phlegm) or blood Fever of 100.4F (38C) or higher, or as directed by your healthcare provider Swelling, pain or redness in one leg [address] [place], [place] [address]Consult note Author Sai Hirshc [facility] Note Date/Time December 19, 2024 11:46 am [facility] Medical Records Department [address] [facility] [place] [address] Anesthesia Postop Eval I 12/19/24 1146 MR#: [id number] Acct: [id number] Name: NAZANIN LUDWIG Rep #:[id number] : 1985 39 From: Sai Hirsch PCP: PETE Daily Status:[facility] Y Race: C Location: [place] [id number] Anesthesia: Postop Eval I Current Vital Signs Temperature: 97.4 F Pulse Rate: 88 Blood Pressure: 96/66 Respiratory Rate: 16 Pulse Ox: 95 Oxygen Delivery Method: Room Air Assessment Airway patent: Yes Spontaneous unlabored respirations: Yes Mental status: Awake and Calm nausea: No Vomiting: No Anesthesia Complication: No Fluid Hydration Crystalloid volume administer (ml): 800 Total IV fluid infused: 800 Progress Note Anesthesia document: Postop Eval 1 completed: Yes 12/19/24 1146 <Electronically signed by Sai Hirsch > Date _ Sai Busch Signature: Date CC: ~ Signed [facility] Work Phone: Evaluation note* Diagnosis Elevated d-dimer- Primary Abnormal coagulation profile Left shift Bandemia documented in this encounter [facility] for referral (narrative)No reason for referral information availableWLouis Stokes [facility] Work Phone: Summary Purpose Family History No Family History Records Found Breast Cancer Status:Active Comments:Paterna l Aunt. x2 Cerebrovascular Accident Status:Active Comment s:Maternal Grandmother. Paternal Grandfather. chiari malformation Status:Active Comments:Fat her. Colon Cancer Status:Active Comments:aunt COPD Status:Active Comments:Paterna l Grandmother. Coronary Artery Disease Status:Active Comments :Paternal Grandmother. Dementia Status:Active Comments:Materna l Grandmother. Diabetes Mellitus Type II Status:Active Commen ts:Mother. Maternal Grandmother. father-sleep apnea Status:Active Hypertension Status:Active Comments:Father. Paternal Grandmother. Hypothyroidism Status:Active Comments:Materna l Aunt. lymphoma Status:Active Comments:uncle mother-hyperlipedema Status:Active Comments:Fa ther. Ovarian Cancer Status:Active Comments:Paterna l Aunt. Breast Cancer Status:Active Comments:Paterna l Aunt. x2 Cerebrovascular Accident Status:Active Comment s:Maternal Grandmother. Paternal Grandfather. chiari malformation Status:Active Comments:Fat her. Colon Cancer Status:Active Comments:aunt COPD Status:Active Comments:Paterna l Grandmother. Coronary Artery Disease Status:Active Comments :Paternal Grandmother. Dementia Status:Active Comments:Materna l Grandmother. Diabetes Mellitus Type II Status:Active Commen ts:Mother. Maternal Grandmother. father-sleep apnea Status:Active Hypertension Status:Active Comments:Father. Paternal Grandmother. Hypothyroidism Status:Active Comments:Materna l Aunt. lymphoma Status:Active Comments:uncle mother-hyperlipedema Status:Active Comments:Fa ther. Ovarian Cancer Status:Active Comments:Paterna l Aunt. Breast Cancer Status:Active Comments:Paterna l Aunt. x2 Cerebrovascular Accident Status:Active Comment s:Maternal Grandmother. Paternal Grandfather. chiari malformation Status:Active Comments:Fat her. Colon Cancer Status:Active Comments:aunt COPD Status:Active Comments:Paterna l Grandmother. Coronary Artery Disease Status:Active Comments :Paternal Grandmother. Dementia Status:Active Comments:Materna l Grandmother. Diabetes Mellitus Type II Status:Active Commen ts:Mother. Maternal Grandmother. father-sleep apnea Status:Active Hypertension Status:Active Comments:Father. Paternal Grandmother. Hypothyroidism Status:Active Comments:Materna l Aunt. lymphoma Status:Active Comments:uncle mother-hyperlipedema Status:Active Comments:Fa ther. Ovarian Cancer Status:Active Comments:Paterna l Aunt. Breast Cancer Status:Active Comments:Paterna l Aunt. x2 Cerebrovascular Accident Status:Active Comment s:Maternal Grandmother. Paternal Grandfather. chiari malformation Status:Active Comments:Fat her. Colon Cancer Status:Active Comments:aunt COPD Status:Active Comments:Paterna l Grandmother. Coronary Artery Disease Status:Active Comments :Paternal Grandmother. Dementia Status:Active Comments:Materna l Grandmother. Diabetes Mellitus Type II Status:Active Commen ts:Mother. Maternal Grandmother. father-sleep apnea Status:Active Hypertension Status:Active Comments:Father. Paternal Grandmother. Hypothyroidism Status:Active Comments:Materna l Aunt. lymphoma Status:Active Comments:uncle mother-hyperlipedema Status:Active Comments:Fa ther. Ovarian Cancer Status:Active Comments:Paterna l Aunt. Breast Cancer Status:Active Comments:Paterna l Aunt. x2 Cerebrovascular Accident Status:Active Comment s:Maternal Grandmother. Paternal Grandfather. chiari malformation Status:Active Comments:Fat her. Colon Cancer Status:Active Comments:aunt COPD Status:Active Comments:Paterna l Grandmother. Coronary Artery Disease Status:Active Comments :Paternal Grandmother. Dementia Status:Active Comments:Materna l Grandmother. Diabetes Mellitus Type II Status:Active Commen ts:Mother. Maternal Grandmother. father-sleep apnea Status:Active Hypertension Status:Active Comments:Father. Paternal Grandmother. Hypothyroidism Status:Active Comments:Materna l Aunt. lymphoma Status:Active Comments:uncle mother-hyperlipedema Status:Active Comments:Fa ther. Ovarian Cancer Status:Active Comments:Paterna l Aunt. Breast Cancer Status:Active Comments:Paterna l Aunt. x2 Cerebrovascular Accident Status:Active Comment s:Maternal Grandmother. Paternal Grandfather. chiari malformation Status:Active Comments:Fat her. Colon Cancer Status:Active Comments:aunt COPD Status:Active Comments:Paterna l Grandmother. Coronary Artery Disease Status:Active Comments :Paternal Grandmother. Dementia Status:Active Comments:Materna l Grandmother. Diabetes Mellitus Type II Status:Active Commen ts:Mother. Maternal Grandmother. father-sleep apnea Status:Active Hypertension Status:Active Comments:Father. Paternal Grandmother. Hypothyroidism Status:Active Comments:Materna l Aunt. lymphoma Status:Active Comments:uncle mother-hyperlipedema Status:Active Comments:Fa ther. Ovarian Cancer Status:Active Comments:Paterna l Aunt. Breast Cancer Status:Active Comments:Paterna l Aunt. x2 Cerebrovascular Accident Status:Active Comment s:Maternal Grandmother. Paternal Grandfather. chiari malformation Status:Active Comments:Fat her. Colon Cancer Status:Active Comments:aunt COPD Status:Active Comments:Paterna l Grandmother. Coronary Artery Disease Status:Active Comments :Paternal Grandmother. Dementia Status:Active Comments:Materna l Grandmother. Diabetes Mellitus Type II Status:Active Commen ts:Mother. Maternal Grandmother. father-sleep apnea Status:Active Hypertension Status:Active Comments:Father. Paternal Grandmother. Hypothyroidism Status:Active Comments:Materna l Aunt. lymphoma Status:Active Comments:uncle mother-hyperlipedema Status:Active Comments:Fa ther. Ovarian Cancer Status:Active Comments:Paterna l Aunt. Breast Cancer Status:Active Comments:Paterna l Aunt. x2 Cerebrovascular Accident Status:Active Comment s:Maternal Grandmother. Paternal Grandfather. chiari malformation Status:Active Comments:Fat her. Colon Cancer Status:Active Comments:aunt COPD Status:Active Comments:Paterna l Grandmother. Coronary Artery Disease Status:Active Comments :Paternal Grandmother. Dementia Status:Active Comments:Materna l Grandmother. Diabetes Mellitus Type II Status:Active Commen ts:Mother. Maternal Grandmother. father-sleep apnea Status:Active Hypertension Status:Active Comments:Father. Paternal Grandmother. Hypothyroidism Status:Active Comments:Materna l Aunt. lymphoma Status:Active Comments:uncle mother-hyperlipedema Status:Active Comments:Fa ther. Ovarian Cancer Status:Active Comments:Paterna l Aunt. Breast Cancer Status:Active Comments:Paterna l Aunt. x2 Cerebrovascular Accident Status:Active Comment s:Maternal Grandmother. Paternal Grandfather. chiari malformation Status:Active Comments:Fat her. Colon Cancer Status:Active Comments:aunt COPD Status:Active Comments:Paterna l Grandmother. Coronary Artery Disease Status:Active Comments :Paternal Grandmother. Dementia Status:Active Comments:Materna l Grandmother. Diabetes Mellitus Type II Status:Active Commen ts:Mother. Maternal Grandmother. father-sleep apnea Status:Active Hypertension Status:Active Comments:Father. Paternal Grandmother. Hypothyroidism Status:Active Comments:Materna l Aunt. lymphoma Status:Active Comments:uncle mother-hyperlipedema Status:Active Comments:Fa ther. Ovarian Cancer Status:Active Comments:Paterna l Aunt. Breast Cancer Status:Active Comments:Paterna l Aunt. x2 Cerebrovascular Accident Status:Active Comment s:Maternal Grandmother. Paternal Grandfather. chiari malformation Status:Active Comments:Fat her. Colon Cancer Status:Active Comments:aunt COPD Status:Active Comments:Paterna l Grandmother. Coronary Artery Disease Status:Active Comments :Paternal Grandmother. Dementia Status:Active Comments:Materna l Grandmother. Diabetes Mellitus Type II Status:Active Commen ts:Mother. Maternal Grandmother. father-sleep apnea Status:Active Hypertension Status:Active Comments:Father. Paternal Grandmother. Hypothyroidism Status:Active Comments:Materna l Aunt. lymphoma Status:Active Comments:uncle mother-hyperlipedema Status:Active Comments:Fa ther. Ovarian Cancer Status:Active Comments:Paterna l Aunt. Breast Cancer Status:Active Comments:Paterna l Aunt. x2 Cerebrovascular Accident Status:Active Comment s:Maternal Grandmother. Paternal Grandfather. chiari malformation Status:Active Comments:Fat her. Colon Cancer Status:Active Comments:aunt COPD Status:Active Comments:Paterna l Grandmother. Coronary Artery Disease Status:Active Comments :Paternal Grandmother. Dementia Status:Active Comments:Materna l Grandmother. Diabetes Mellitus Type II Status:Active Commen ts:Mother. Maternal Grandmother. father-sleep apnea Status:Active Hypertension Status:Active Comments:Father. Paternal Grandmother. Hypothyroidism Status:Active Comments:Materna l Aunt. lymphoma Status:Active Comments:uncle mother-hyperlipedema Status:Active Comments:Fa ther. Ovarian Cancer Status:Active Comments:Paterna l Aunt. Breast Cancer Status:Active Comments:Paterna l Aunt. x2 Cerebrovascular Accident Status:Active Comment s:Maternal Grandmother. Paternal Grandfather. chiari malformation Status:Active Comments:Fat her. Colon Cancer Status:Active Comments:aunt COPD Status:Active Comments:Paterna l Grandmother. Coronary Artery Disease Status:Active Comments :Paternal Grandmother. Dementia Status:Active Comments:Materna l Grandmother. Diabetes Mellitus Type II Status:Active Commen ts:Mother. Maternal Grandmother. father-sleep apnea Status:Active Hypertension Status:Active Comments:Father. Paternal Grandmother. Hypothyroidism Status:Active Comments:Materna l Aunt. lymphoma Status:Active Comments:uncle mother-hyperlipedema Status:Active Comments:Fa ther. Ovarian Cancer Status:Active Comments:Paterna l Aunt. Breast Cancer Status:Active Comments:Paterna l Aunt. x2 Cerebrovascular Accident Status:Active Comment s:Maternal Grandmother. Paternal Grandfather. chiari malformation Status:Active Comments:Fat her. Colon Cancer Status:Active Comments:aunt COPD Status:Active Comments:Paterna l Grandmother. Coronary Artery Disease Status:Active Comments :Paternal Grandmother. Dementia Status:Active Comments:Materna l Grandmother. Diabetes Mellitus Type II Status:Active Commen ts:Mother. Maternal Grandmother. father-sleep apnea Status:Active Hypertension Status:Active Comments:Father. Paternal Grandmother. Hypothyroidism Status:Active Comments:Materna l Aunt. lymphoma Status:Active Comments:uncle mother-hyperlipedema Status:Active Comments:Fa ther. Ovarian Cancer Status:Active Comments:Paterna l Aunt. Breast Cancer Status:Active Comments:Paterna l Aunt. x2 Cerebrovascular Accident Status:Active Comment s:Maternal Grandmother. Paternal Grandfather. chiari malformation Status:Active Comments:Fat her. Colon Cancer Status:Active Comments:aunt COPD Status:Active Comments:Paterna l Grandmother. Coronary Artery Disease Status:Active Comments :Paternal Grandmother. Dementia Status:Active Comments:Materna l Grandmother. Diabetes Mellitus Type II Status:Active Commen ts:Mother. Maternal Grandmother. father-sleep apnea Status:Active Hypertension Status:Active Comments:Father. Paternal Grandmother. Hypothyroidism Status:Active Comments:Materna l Aunt. lymphoma Status:Active Comments:uncle mother-hyperlipedema Status:Active Comments:Fa ther. Ovarian Cancer Status:Active Comments:Paterna l Aunt. Breast Cancer Status:Active Comments:Paterna l Aunt. x2 Cerebrovascular Accident Status:Active Comment s:Maternal Grandmother. Paternal Grandfather. chiari malformation Status:Active Comments:Fat her. Colon Cancer Status:Active Comments:aunt COPD Status:Active Comments:Paterna l Grandmother. Coronary Artery Disease Status:Active Comments :Paternal Grandmother. Dementia Status:Active Comments:Materna l Grandmother. Diabetes Mellitus Type II Status:Active Commen ts:Mother. Maternal Grandmother. father-sleep apnea Status:Active Hypertension Status:Active Comments:Father. Paternal Grandmother. Hypothyroidism Status:Active Comments:Materna l Aunt. lymphoma Status:Active Comments:uncle mother-hyperlipedema Status:Active Comments:Fa ther. Ovarian Cancer Status:Active Comments:Paterna l Aunt. Breast Cancer Status:Active Comments:Paterna l Aunt. x2 Cerebrovascular Accident Status:Active Comment s:Maternal Grandmother. Paternal Grandfather. chiari malformation Status:Active Comments:Fat her. Colon Cancer Status:Active Comments:aunt COPD Status:Active Comments:Paterna l Grandmother. Coronary Artery Disease Status:Active Comments :Paternal Grandmother. Dementia Status:Active Comments:Materna l Grandmother. Diabetes Mellitus Type II Status:Active Commen ts:Mother. Maternal Grandmother. father-sleep apnea Status:Active Hypertension Status:Active Comments:Father. Paternal Grandmother. Hypothyroidism Status:Active Comments:Materna l Aunt. lymphoma Status:Active Comments:uncle mother-hyperlipedema Status:Active Comments:Fa ther. Ovarian Cancer Status:Active Comments:Paterna l Aunt. Breast Cancer Status:Active Comments:Paterna l Aunt. x2 Cerebrovascular Accident Status:Active Comment s:Maternal Grandmother. Paternal Grandfather. chiari malformation Status:Active Comments:Fat her. Colon Cancer Status:Active Comments:aunt COPD Status:Active Comments:Paterna l Grandmother. Coronary Artery Disease Status:Active Comments :Paternal Grandmother. Dementia Status:Active Comments:Materna l Grandmother. Diabetes Mellitus Type II Status:Active Commen ts:Mother. Maternal Grandmother. father-sleep apnea Status:Active Hypertension Status:Active Comments:Father. Paternal Grandmother. Hypothyroidism Status:Active Comments:Materna l Aunt. lymphoma Status:Active Comments:uncle mother-hyperlipedema Status:Active Comments:Fa ther. Ovarian Cancer Status:Active Comments:Paterna l Aunt. Breast Cancer Status:Active Comments:Paterna l Aunt. x2 Cerebrovascular Accident Status:Active Comment s:Maternal Grandmother. Paternal Grandfather. chiari malformation Status:Active Comments:Fat her. Colon Cancer Status:Active Comments:aunt COPD Status:Active Comments:Paterna l Grandmother. Coronary Artery Disease Status:Active Comments :Paternal Grandmother. Dementia Status:Active Comments:Materna l Grandmother. Diabetes Mellitus Type II Status:Active Commen ts:Mother. Maternal Grandmother. father-sleep apnea Status:Active Hypertension Status:Active Comments:Father. Paternal Grandmother. Hypothyroidism Status:Active Comments:Materna l Aunt. lymphoma Status:Active Comments:uncle mother-hyperlipedema Status:Active Comments:Fa ther. Ovarian Cancer Status:Active Comments:Paterna l Aunt. Breast Cancer Status:Active Comments:Paterna l Aunt. x2 Cerebrovascular Accident Status:Active Comment s:Maternal Grandmother. Paternal Grandfather. chiari malformation Status:Active Comments:Fat her. Colon Cancer Status:Active Comments:aunt COPD Status:Active Comments:Paterna l Grandmother. Coronary Artery Disease Status:Active Comments :Paternal Grandmother. Dementia Status:Active Comments:Materna l Grandmother. Diabetes Mellitus Type II Status:Active Commen ts:Mother. Maternal Grandmother. father-sleep apnea Status:Active Hypertension Status:Active Comments:Father. Paternal Grandmother. Hypothyroidism Status:Active Comments:Materna l Aunt. lymphoma Status:Active Comments:uncle mother-hyperlipedema Status:Active Comments:Fa ther. Ovarian Cancer Status:Active Comments:Paterna l Aunt. Breast Cancer Status:Active Comments:Paterna l Aunt. x2 Cerebrovascular Accident Status:Active Comment s:Maternal Grandmother. Paternal Grandfather. chiari malformation Status:Active Comments:Fat her. Colon Cancer Status:Active Comments:aunt COPD Status:Active Comments:Paterna l Grandmother. Coronary Artery Disease Status:Active Comments :Paternal Grandmother. Dementia Status:Active Comments:Materna l Grandmother. Diabetes Mellitus Type II Status:Active Commen ts:Mother. Maternal Grandmother. father-sleep apnea Status:Active Hypertension Status:Active Comments:Father. Paternal Grandmother. Hypothyroidism Status:Active Comments:Materna l Aunt. lymphoma Status:Active Comments:uncle mother-hyperlipedema Status:Active Comments:Fa ther. Ovarian Cancer Status:Active Comments:Paterna l Aunt. Breast Cancer Status:Active Comments:Paterna l Aunt. x2 Cerebrovascular Accident Status:Active Comment s:Maternal Grandmother. Paternal Grandfather. chiari malformation Status:Active Comments:Fat her. Colon Cancer Status:Active Comments:aunt COPD Status:Active Comments:Paterna l Grandmother. Coronary Artery Disease Status:Active Comments :Paternal Grandmother. Dementia Status:Active Comments:Materna l Grandmother. Diabetes Mellitus Type II Status:Active Commen ts:Mother. Maternal Grandmother. father-sleep apnea Status:Active Hypertension Status:Active Comments:Father. Paternal Grandmother. Hypothyroidism Status:Active Comments:Materna l Aunt. lymphoma Status:Active Comments:uncle mother-hyperlipedema Status:Active Comments:Fa ther. Ovarian Cancer Status:Active Comments:Paterna l Aunt. Breast Cancer Status:Active Comments:Paterna l Aunt. x2 Cerebrovascular Accident Status:Active Comment s:Maternal Grandmother. Paternal Grandfather. chiari malformation Status:Active Comments:Fat her. Colon Cancer Status:Active Comments:aunt COPD Status:Active Comments:Paterna l Grandmother. Coronary Artery Disease Status:Active Comments :Paternal Grandmother. Dementia Status:Active Comments:Materna l Grandmother. Diabetes Mellitus Type II Status:Active Commen ts:Mother. Maternal Grandmother. father-sleep apnea Status:Active Hypertension Status:Active Comments:Father. Paternal Grandmother. Hypothyroidism Status:Active Comments:Materna l Aunt. lymphoma Status:Active Comments:uncle mother-hyperlipedema Status:Active Comments:Fa ther. Ovarian Cancer Status:Active Comments:Paterna l Aunt. Breast Cancer Status:Active Comments:Paterna l Aunt. x2 Cerebrovascular Accident Status:Active Comment s:Maternal Grandmother. Paternal Grandfather. chiari malformation Status:Active Comments:Fat her. Colon Cancer Status:Active Comments:aunt COPD Status:Active Comments:Paterna l Grandmother. Coronary Artery Disease Status:Active Comments :Paternal Grandmother. Dementia Status:Active Comments:Materna l Grandmother. Diabetes Mellitus Type II Status:Active Commen ts:Mother. Maternal Grandmother. father-sleep apnea Status:Active Hypertension Status:Active Comments:Father. Paternal Grandmother. Hypothyroidism Status:Active Comments:Materna l Aunt. lymphoma Status:Active Comments:uncle mother-hyperlipedema Status:Active Comments:Fa ther. Ovarian Cancer Status:Active Comments:Paterna l Aunt. Breast Cancer Status:Active Comments:Paterna l Aunt. x2 Cerebrovascular Accident Status:Active Comment s:Maternal Grandmother. Paternal Grandfather. chiari malformation Status:Active Comments:Fat her. Colon Cancer Status:Active Comments:aunt COPD Status:Active Comments:Paterna l Grandmother. Coronary Artery Disease Status:Active Comments :Paternal Grandmother. Dementia Status:Active Comments:Materna l Grandmother. Diabetes Mellitus Type II Status:Active Commen ts:Mother. Maternal Grandmother. father-sleep apnea Status:Active Hypertension Status:Active Comments:Father. Paternal Grandmother. Hypothyroidism Status:Active Comments:Materna l Aunt. lymphoma Status:Active Comments:uncle mother-hyperlipedema Status:Active Comments:Fa ther. Ovarian Cancer Status:Active Comments:Paterna l Aunt. Breast Cancer Status:Active Comments:Paterna l Aunt. x2 Cerebrovascular Accident Status:Active Comment s:Maternal Grandmother. Paternal Grandfather. chiari malformation Status:Active Comments:Fat her. Colon Cancer Status:Active Comments:aunt COPD Status:Active Comments:Paterna l Grandmother. Coronary Artery Disease Status:Active Comments :Paternal Grandmother. Dementia Status:Active Comments:Materna l Grandmother. Diabetes Mellitus Type II Status:Active Commen ts:Mother. Maternal Grandmother. father-sleep apnea Status:Active Hypertension Status:Active Comments:Father. Paternal Grandmother. Hypothyroidism Status:Active Comments:Materna l Aunt. lymphoma Status:Active Comments:uncle mother-hyperlipedema Status:Active Comments:Fa ther. Ovarian Cancer Status:Active Comments:Paterna l Aunt. Breast Cancer Status:Active Comments:Paterna l Aunt. x2 Cerebrovascular Accident Status:Active Comment s:Maternal Grandmother. Paternal Grandfather. chiari malformation Status:Active Comments:Fat her. Colon Cancer Status:Active Comments:aunt COPD Status:Active Comments:Paterna l Grandmother. Coronary Artery Disease Status:Active Comments :Paternal Grandmother. Dementia Status:Active Comments:Materna l Grandmother. Diabetes Mellitus Type II Status:Active Commen ts:Mother. Maternal Grandmother. father-sleep apnea Status:Active Hypertension Status:Active Comments:Father. Paternal Grandmother. Hypothyroidism Status:Active Comments:Materna l Aunt. lymphoma Status:Active Comments:uncle mother-hyperlipedema Status:Active Comments:Fa ther. Ovarian Cancer Status:Active Comments:Paterna l Aunt. Breast Cancer Status:Active Comments:Paterna l Aunt. x2 Cerebrovascular Accident Status:Active Comment s:Maternal Grandmother. Paternal Grandfather. chiari malformation Status:Active Comments:Fat her. Colon Cancer Status:Active Comments:aunt COPD Status:Active Comments:Paterna l Grandmother. Coronary Artery Disease Status:Active Comments :Paternal Grandmother. Dementia Status:Active Comments:Materna l Grandmother. Diabetes Mellitus Type II Status:Active Commen ts:Mother. Maternal Grandmother. father-sleep apnea Status:Active Hypertension Status:Active Comments:Father. Paternal Grandmother. Hypothyroidism Status:Active Comments:Materna l Aunt. lymphoma Status:Active Comments:uncle mother-hyperlipedema Status:Active Comments:Fa ther. Ovarian Cancer Status:Active Comments:Paterna l Aunt. Breast Cancer Status:Active Comments:Paterna l Aunt. x2 Cerebrovascular Accident Status:Active Comment s:Maternal Grandmother. Paternal Grandfather. chiari malformation Status:Active Comments:Fat her. Colon Cancer Status:Active Comments:aunt COPD Status:Active Comments:Paterna l Grandmother. Coronary Artery Disease Status:Active Comments :Paternal Grandmother. Dementia Status:Active Comments:Materna l Grandmother. Diabetes Mellitus Type II Status:Active Commen ts:Mother. Maternal Grandmother. father-sleep apnea Status:Active Hypertension Status:Active Comments:Father. Paternal Grandmother. Hypothyroidism Status:Active Comments:Materna l Aunt. lymphoma Status:Active Comments:uncle mother-hyperlipedema Status:Active Comments:Fa ther. Ovarian Cancer Status:Active Comments:Paterna l Aunt. Breast Cancer Status:Active Comments:Paterna l Aunt. x2 Cerebrovascular Accident Status:Active Comment s:Maternal Grandmother. Paternal Grandfather. chiari malformation Status:Active Comments:Fat her. Colon Cancer Status:Active Comments:aunt COPD Status:Active Comments:Paterna l Grandmother. Coronary Artery Disease Status:Active Comments :Paternal Grandmother. Dementia Status:Active Comments:Materna l Grandmother. Diabetes Mellitus Type II Status:Active Commen ts:Mother. Maternal Grandmother. father-sleep apnea Status:Active Hypertension Status:Active Comments:Father. Paternal Grandmother. Hypothyroidism Status:Active Comments:Materna l Aunt. lymphoma Status:Active Comments:uncle mother-hyperlipedema Status:Active Comments:Fa ther. Ovarian Cancer Status:Active Comments:Paterna l Aunt. Breast Cancer Status:Active Comments:Paterna l Aunt. x2 Cerebrovascular Accident Status:Active Comment s:Maternal Grandmother. Paternal Grandfather. chiari malformation Status:Active Comments:Fat her. Colon Cancer Status:Active Comments:aunt COPD Status:Active Comments:Paterna l Grandmother. Coronary Artery Disease Status:Active Comments :Paternal Grandmother. Dementia Status:Active Comments:Materna l Grandmother. Diabetes Mellitus Type II Status:Active Commen ts:Mother. Maternal Grandmother. father-sleep apnea Status:Active Hypertension Status:Active Comments:Father. Paternal Grandmother. Hypothyroidism Status:Active Comments:Materna l Aunt. lymphoma Status:Active Comments:uncle mother-hyperlipedema Status:Active Comments:Fa ther. Ovarian Cancer Status:Active Comments:Paterna l Aunt. Breast Cancer Status:Active Comments:Paterna l Aunt. x2 Cerebrovascular Accident Status:Active Comment s:Maternal Grandmother. Paternal Grandfather. chiari malformation Status:Active Comments:Fat her. Colon Cancer Status:Active Comments:aunt COPD Status:Active Comments:Paterna l Grandmother. Coronary Artery Disease Status:Active Comments :Paternal Grandmother. Dementia Status:Active Comments:Materna l Grandmother. Diabetes Mellitus Type II Status:Active Commen ts:Mother. Maternal Grandmother. father-sleep apnea Status:Active Hypertension Status:Active Comments:Father. Paternal Grandmother. Hypothyroidism Status:Active Comments:Materna l Aunt. lymphoma Status:Active Comments:uncle mother-hyperlipedema Status:Active Comments:Fa ther. Ovarian Cancer Status:Active Comments:Paterna l Aunt. Breast Cancer Status:Active Comments:Paterna l Aunt. x2 Cerebrovascular Accident Status:Active Comment s:Maternal Grandmother. Paternal Grandfather. chiari malformation Status:Active Comments:Fat her. Colon Cancer Status:Active Comments:aunt COPD Status:Active Comments:Paterna l Grandmother. Coronary Artery Disease Status:Active Comments :Paternal Grandmother. Dementia Status:Active Comments:Materna l Grandmother. Diabetes Mellitus Type II Status:Active Commen ts:Mother. Maternal Grandmother. father-sleep apnea Status:Active Hypertension Status:Active Comments:Father. Paternal Grandmother. Hypothyroidism Status:Active Comments:Materna l Aunt. lymphoma Status:Active Comments:uncle mother-hyperlipedema Status:Active Comments:Fa ther. Ovarian Cancer Status:Active Comments:Paterna l Aunt. Breast Cancer Status:Active Comments:Paterna l Aunt. x2 Cerebrovascular Accident Status:Active Comment s:Maternal Grandmother. Paternal Grandfather. chiari malformation Status:Active Comments:Fat her. Colon Cancer Status:Active Comments:aunt COPD Status:Active Comments:Paterna l Grandmother. Coronary Artery Disease Status:Active Comments :Paternal Grandmother. Dementia Status:Active Comments:Materna l Grandmother. Diabetes Mellitus Type II Status:Active Commen ts:Mother. Maternal Grandmother. father-sleep apnea Status:Active Hypertension Status:Active Comments:Father. Paternal Grandmother. Hypothyroidism Status:Active Comments:Materna l Aunt. lymphoma Status:Active Comments:uncle mother-hyperlipedema Status:Active Comments:Fa ther. Ovarian Cancer Status:Active Comments:Paterna l Aunt. Breast Cancer Status:Active Comments:Paterna l Aunt. x2 Cerebrovascular Accident Status:Active Comment s:Maternal Grandmother. Paternal Grandfather. chiari malformation Status:Active Comments:Fat her. Colon Cancer Status:Active Comments:aunt COPD Status:Active Comments:Paterna l Grandmother. Coronary Artery Disease Status:Active Comments :Paternal Grandmother. Dementia Status:Active Comments:Materna l Grandmother. Diabetes Mellitus Type II Status:Active Commen ts:Mother. Maternal Grandmother. father-sleep apnea Status:Active Hypertension Status:Active Comments:Father. Paternal Grandmother. Hypothyroidism Status:Active Comments:Materna l Aunt. lymphoma Status:Active Comments:uncle mother-hyperlipedema Status:Active Comments:Fa ther. Ovarian Cancer Status:Active Comments:Paterna l Aunt. Breast Cancer Status:Active Comments:Paterna l Aunt. x2 Cerebrovascular Accident Status:Active Comment s:Maternal Grandmother. Paternal Grandfather. chiari malformation Status:Active Comments:Fat her. Colon Cancer Status:Active Comments:aunt COPD Status:Active Comments:Paterna l Grandmother. Coronary Artery Disease Status:Active Comments :Paternal Grandmother. Dementia Status:Active Comments:Materna l Grandmother. Diabetes Mellitus Type II Status:Active Commen ts:Mother. Maternal Grandmother. father-sleep apnea Status:Active Hypertension Status:Active Comments:Father. Paternal Grandmother. Hypothyroidism Status:Active Comments:Materna l Aunt. lymphoma Status:Active Comments:uncle mother-hyperlipedema Status:Active Comments:Fa ther. Ovarian Cancer Status:Active Comments:Paterna l Aunt. Breast Cancer Status:Active Comments:Paterna l Aunt. x2 Cerebrovascular Accident Status:Active Comment s:Maternal Grandmother. Paternal Grandfather. chiari malformation Status:Active Comments:Fat her. Colon Cancer Status:Active Comments:aunt COPD Status:Active Comments:Paterna l Grandmother. Coronary Artery Disease Status:Active Comments :Paternal Grandmother. Dementia Status:Active Comments:Materna l Grandmother. Diabetes Mellitus Type II Status:Active Commen ts:Mother. Maternal Grandmother. father-sleep apnea Status:Active Hypertension Status:Active Comments:Father. Paternal Grandmother. Hypothyroidism Status:Active Comments:Materna l Aunt. lymphoma Status:Active Comments:uncle mother-hyperlipedema Status:Active Comments:Fa ther. Ovarian Cancer Status:Active Comments:Paterna l Aunt. Breast Cancer Status:Active Comments:Paterna l Aunt. x2 Cerebrovascular Accident Status:Active Comment s:Maternal Grandmother. Paternal Grandfather. chiari malformation Status:Active Comments:Fat her. Colon Cancer Status:Active Comments:aunt COPD Status:Active Comments:Paterna l Grandmother. Coronary Artery Disease Status:Active Comments :Paternal Grandmother. Dementia Status:Active Comments:Materna l Grandmother. Diabetes Mellitus Type II Status:Active Commen ts:Mother. Maternal Grandmother. father-sleep apnea Status:Active Hypertension Status:Active Comments:Father. Paternal Grandmother. Hypothyroidism Status:Active Comments:Materna l Aunt. lymphoma Status:Active Comments:uncle mother-hyperlipedema Status:Active Comments:Fa ther. Ovarian Cancer Status:Active Comments:Paterna l Aunt. Breast Cancer Status:Active Comments:Paterna l Aunt. x2 Cerebrovascular Accident Status:Active Comment s:Maternal Grandmother. Paternal Grandfather. chiari malformation Status:Active Comments:Fat her. Colon Cancer Status:Active Comments:aunt COPD Status:Active Comments:Paterna l Grandmother. Coronary Artery Disease Status:Active Comments :Paternal Grandmother. Dementia Status:Active Comments:Materna l Grandmother. Diabetes Mellitus Type II Status:Active Commen ts:Mother. Maternal Grandmother. father-sleep apnea Status:Active Hypertension Status:Active Comments:Father. Paternal Grandmother. Hypothyroidism Status:Active Comments:Materna l Aunt. lymphoma Status:Active Comments:uncle mother-hyperlipedema Status:Active Comments:Fa ther. Ovarian Cancer Status:Active Comments:Paterna l Aunt. Breast Cancer Status:Active Comments:Paterna l Aunt. x2 Cerebrovascular Accident Status:Active Comment s:Maternal Grandmother. Paternal Grandfather. chiari malformation Status:Active Comments:Fat her. Colon Cancer Status:Active Comments:aunt COPD Status:Active Comments:Paterna l Grandmother. Coronary Artery Disease Status:Active Comments :Paternal Grandmother. Dementia Status:Active Comments:Materna l Grandmother. Diabetes Mellitus Type II Status:Active Commen ts:Mother. Maternal Grandmother. father-sleep apnea Status:Active Hypertension Status:Active Comments:Father. Paternal Grandmother. Hypothyroidism Status:Active Comments:Materna l Aunt. lymphoma Status:Active Comments:uncle mother-hyperlipedema Status:Active Comments:Fa ther. Ovarian Cancer Status:Active Comments:Paterna l Aunt. Breast Cancer Status:Active Comments:Paterna l Aunt. x2 Cerebrovascular Accident Status:Active Comment s:Maternal Grandmother. Paternal Grandfather. chiari malformation Status:Active Comments:Fat her. Colon Cancer Status:Active Comments:aunt COPD Status:Active Comments:Paterna l Grandmother. Coronary Artery Disease Status:Active Comments :Paternal Grandmother. Dementia Status:Active Comments:Materna l Grandmother. Diabetes Mellitus Type II Status:Active Commen ts:Mother. Maternal Grandmother. father-sleep apnea Status:Active Hypertension Status:Active Comments:Father. Paternal Grandmother. Hypothyroidism Status:Active Comments:Materna l Aunt. lymphoma Status:Active Comments:uncle mother-hyperlipedema Status:Active Comments:Fa ther. Ovarian Cancer Status:Active Comments:Paterna l Aunt. Breast Cancer Status:Active Comments:Paterna l Aunt. x2 Cerebrovascular Accident Status:Active Comment s:Maternal Grandmother. Paternal Grandfather. chiari malformation Status:Active Comments:Fat her. Colon Cancer Status:Active Comments:aunt COPD Status:Active Comments:Paterna l Grandmother. Coronary Artery Disease Status:Active Comments :Paternal Grandmother. Dementia Status:Active Comments:Materna l Grandmother. Diabetes Mellitus Type II Status:Active Commen ts:Mother. Maternal Grandmother. father-sleep apnea Status:Active Hypertension Status:Active Comments:Father. Paternal Grandmother. Hypothyroidism Status:Active Comments:Materna l Aunt. lymphoma Status:Active Comments:uncle mother-hyperlipedema Status:Active Comments:Fa ther. Ovarian Cancer Status:Active Comments:Paterna l Aunt. Breast Cancer Status:Active Comments:Paterna l Aunt. x2 Cerebrovascular Accident Status:Active Comment s:Maternal Grandmother. Paternal Grandfather. chiari malformation Status:Active Comments:Fat her. Colon Cancer Status:Active Comments:aunt COPD Status:Active Comments:Paterna l Grandmother. Coronary Artery Disease Status:Active Comments :Paternal Grandmother. Dementia Status:Active Comments:Materna l Grandmother. Diabetes Mellitus Type II Status:Active Commen ts:Mother. Maternal Grandmother. father-sleep apnea Status:Active Hypertension Status:Active Comments:Father. Paternal Grandmother. Hypothyroidism Status:Active Comments:Materna l Aunt. lymphoma Status:Active Comments:uncle mother-hyperlipedema Status:Active Comments:Fa ther. Ovarian Cancer Status:Active Comments:Paterna l Aunt. Breast Cancer Status:Active Comments:Paterna l Aunt. x2 Cerebrovascular Accident Status:Active Comment s:Maternal Grandmother. Paternal Grandfather. chiari malformation Status:Active Comments:Fat her. Colon Cancer Status:Active Comments:aunt COPD Status:Active Comments:Paterna l Grandmother. Coronary Artery Disease Status:Active Comments :Paternal Grandmother. Dementia Status:Active Comments:Materna l Grandmother. Diabetes Mellitus Type II Status:Active Commen ts:Mother. Maternal Grandmother. father-sleep apnea Status:Active Hypertension Status:Active Comments:Father. Paternal Grandmother. Hypothyroidism Status:Active Comments:Materna l Aunt. lymphoma Status:Active Comments:uncle mother-hyperlipedema Status:Active Comments:Fa ther. Ovarian Cancer Status:Active Comments:Paterna l Aunt. Breast Cancer Status:Active Comments:Paterna l Aunt. x2 Cerebrovascular Accident Status:Active Comment s:Maternal Grandmother. Paternal Grandfather. chiari malformation Status:Active Comments:Fat her. Colon Cancer Status:Active Comments:aunt COPD Status:Active Comments:Paterna l Grandmother. Coronary Artery Disease Status:Active Comments :Paternal Grandmother. Dementia Status:Active Comments:Materna l Grandmother. Diabetes Mellitus Type II Status:Active Commen ts:Mother. Maternal Grandmother. father-sleep apnea Status:Active Hypertension Status:Active Comments:Father. Paternal Grandmother. Hypothyroidism Status:Active Comments:Materna l Aunt. lymphoma Status:Active Comments:uncle mother-hyperlipedema Status:Active Comments:Fa ther. Ovarian Cancer Status:Active Comments:Paterna l Aunt. Breast Cancer Status:Active Comments:Paterna l Aunt. x2 Cerebrovascular Accident Status:Active Comment s:Maternal Grandmother. Paternal Grandfather. chiari malformation Status:Active Comments:Fat her. Colon Cancer Status:Active Comments:aunt COPD Status:Active Comments:Paterna l Grandmother. Coronary Artery Disease Status:Active Comments :Paternal Grandmother. Dementia Status:Active Comments:Materna l Grandmother. Diabetes Mellitus Type II Status:Active Commen ts:Mother. Maternal Grandmother. father-sleep apnea Status:Active Hypertension Status:Active Comments:Father. Paternal Grandmother. Hypothyroidism Status:Active Comments:Materna l Aunt. lymphoma Status:Active Comments:uncle mother-hyperlipedema Status:Active Comments:Fa ther. Ovarian Cancer Status:Active Comments:Paterna l Aunt. Breast Cancer Status:Active Comments:Paterna l Aunt. x2 Cerebrovascular Accident Status:Active Comment s:Maternal Grandmother. Paternal Grandfather. chiari malformation Status:Active Comments:Fat her. Colon Cancer Status:Active Comments:aunt COPD Status:Active Comments:Paterna l Grandmother. Coronary Artery Disease Status:Active Comments :Paternal Grandmother. Dementia Status:Active Comments:Materna l Grandmother. Diabetes Mellitus Type II Status:Active Commen ts:Mother. Maternal Grandmother. father-sleep apnea Status:Active Hypertension Status:Active Comments:Father. Paternal Grandmother. Hypothyroidism Status:Active Comments:Materna l Aunt. lymphoma Status:Active Comments:uncle mother-hyperlipedema Status:Active Comments:Fa ther. Ovarian Cancer Status:Active Comments:Paterna l Aunt. Breast Cancer Status:Active Comments:Paterna l Aunt. x2 Cerebrovascular Accident Status:Active Comment s:Maternal Grandmother. Paternal Grandfather. chiari malformation Status:Active Comments:Fat her. Colon Cancer Status:Active Comments:aunt COPD Status:Active Comments:Paterna l Grandmother. Coronary Artery Disease Status:Active Comments :Paternal Grandmother. Dementia Status:Active Comments:Materna l Grandmother. Diabetes Mellitus Type II Status:Active Commen ts:Mother. Maternal Grandmother. father-sleep apnea Status:Active Hypertension Status:Active Comments:Father. Paternal Grandmother. Hypothyroidism Status:Active Comments:Materna l Aunt. lymphoma Status:Active Comments:uncle mother-hyperlipedema Status:Active Comments:Fa ther. Ovarian Cancer Status:Active Comments:Paterna l Aunt. Breast Cancer Status:Active Comments:Paterna l Aunt. x2 Cerebrovascular Accident Status:Active Comment s:Maternal Grandmother. Paternal Grandfather. chiari malformation Status:Active Comments:Fat her. Colon Cancer Status:Active Comments:aunt COPD Status:Active Comments:Paterna l Grandmother. Coronary Artery Disease Status:Active Comments :Paternal Grandmother. Dementia Status:Active Comments:Materna l Grandmother. Diabetes Mellitus Type II Status:Active Commen ts:Mother. Maternal Grandmother. father-sleep apnea Status:Active Hypertension Status:Active Comments:Father. Paternal Grandmother. Hypothyroidism Status:Active Comments:Materna l Aunt. lymphoma Status:Active Comments:uncle mother-hyperlipedema Status:Active Comments:Fa ther. Ovarian Cancer Status:Active Comments:Paterna l Aunt. Breast Cancer Status:Active Comments:Paterna l Aunt. x2 Cerebrovascular Accident Status:Active Comment s:Maternal Grandmother. Paternal Grandfather. chiari malformation Status:Active Comments:Fat her. Colon Cancer Status:Active Comments:aunt COPD Status:Active Comments:Paterna l Grandmother. Coronary Artery Disease Status:Active Comments :Paternal Grandmother. Dementia Status:Active Comments:Materna l Grandmother. Diabetes Mellitus Type II Status:Active Commen ts:Mother. Maternal Grandmother. father-sleep apnea Status:Active Hypertension Status:Active Comments:Father. Paternal Grandmother. Hypothyroidism Status:Active Comments:Materna l Aunt. lymphoma Status:Active Comments:uncle mother-hyperlipedema Status:Active Comments:Fa ther. Ovarian Cancer Status:Active Comments:Paterna l Aunt. Relationship Condition Age at Onset Recorded Date/T der[place] aunt Malignant neoplasm of colon Unknown Malignant neoplasm of breast Unknown Disorder of thyroid Unknown Malignant neoplasm Unknown grandfather Cerebrovascular accident (CVA) Unknown grandmother Cerebrovascular accident (CVA) Unknown Coronary artery disease Unknown Diabetes mellitus Unknown father Coronary artery disease Unknown Hypertension Unknown Breast Cancer Status:Active Comments:Paterna l Aunt. x2 Cerebrovascular Accident Status:Active Comment s:Maternal Grandmother. Paternal Grandfather. chiari malformation Status:Active Comments:Fat her. Colon Cancer Status:Active Comments:aunt COPD Status:Active Comments:Paterna l Grandmother. Coronary Artery Disease Status:Active Comments :Paternal Grandmother. Dementia Status:Active Comments:Materna l Grandmother. Diabetes Mellitus Type II Status:Active Commen ts:Mother. Maternal Grandmother. father-sleep apnea Status:Active Hypertension Status:Active Comments:Father. Paternal Grandmother. Hypothyroidism Status:Active Comments:Materna l Aunt. lymphoma Status:Active Comments:uncle mother-hyperlipedema Status:Active Comments:Fa ther. Ovarian Cancer Status:Active Comments:Paterna l Aunt. Breast Cancer Status:Active Comments:Paterna l Aunt. x2 Cerebrovascular Accident Status:Active Comment s:Maternal Grandmother. Paternal Grandfather. chiari malformation Status:Active Comments:Fat her. Colon Cancer Status:Active Comments:aunt COPD Status:Active Comments:Paterna l Grandmother. Coronary Artery Disease Status:Active Comments :Paternal Grandmother. Dementia Status:Active Comments:Materna l Grandmother. Diabetes Mellitus Type II Status:Active Commen ts:Mother. Maternal Grandmother. father-sleep apnea Status:Active Hypertension Status:Active Comments:Father. Paternal Grandmother. Hypothyroidism Status:Active Comments:Materna l Aunt. lymphoma Status:Active Comments:uncle mother-hyperlipedema Status:Active Comments:Fa ther. Ovarian Cancer Status:Active Comments:Paterna l Aunt. Breast Cancer Status:Active Comments:Paterna l Aunt. x2 Cerebrovascular Accident Status:Active Comment s:Maternal Grandmother. Paternal Grandfather. chiari malformation Status:Active Comments:Fat her. Colon Cancer Status:Active Comments:aunt COPD Status:Active Comments:Paterna l Grandmother. Coronary Artery Disease Status:Active Comments :Paternal Grandmother. Dementia Status:Active Comments:Materna l Grandmother. Diabetes Mellitus Type II Status:Active Commen ts:Mother. Maternal Grandmother. father-sleep apnea Status:Active Hypertension Status:Active Comments:Father. Paternal Grandmother. Hypothyroidism Status:Active Comments:Materna l Aunt. lymphoma Status:Active Comments:uncle mother-hyperlipedema Status:Active Comments:Fa ther. Ovarian Cancer Status:Active Comments:Paterna l Aunt. Breast Cancer Status:Active Comments:Paterna l Aunt. x2 Cerebrovascular Accident Status:Active Comment s:Maternal Grandmother. Paternal Grandfather. chiari malformation Status:Active Comments:Fat her. Colon Cancer Status:Active Comments:aunt COPD Status:Active Comments:Paterna l Grandmother. Coronary Artery Disease Status:Active Comments :Paternal Grandmother. Dementia Status:Active Comments:Materna l Grandmother. Diabetes Mellitus Type II Status:Active Commen ts:Mother. Maternal Grandmother. father-sleep apnea Status:Active Hypertension Status:Active Comments:Father. Paternal Grandmother. Hypothyroidism Status:Active Comments:Materna l Aunt. lymphoma Status:Active Comments:uncle mother-hyperlipedema Status:Active Comments:Fa ther. Ovarian Cancer Status:Active Comments:Paterna l Aunt. Advance Directives No Advanced Directives Records Found Advance Directive Response Recorded Date/ Time Do you have a Healthcare Power of Engine Mechanic? No December 14, 2024 2:59pm Chief Complaint and Reason for Visit Chief Complaint Admit Date RECTAL BLEEDING October 22, 2024 12: 51pm DISCUSS HERNIA SURGERY January 04, 2025 9 :38am Reason for Visit Admit Date Acid reflux October 22, 2024 12: 51pm Rectal bleeding October 22, 2024 12: 51pm Umbilical hernia October 22, 2024 12: 51pm Acid reflux December 19, 2024 8:39a m Rectal bleeding December 19, 2024 8:39a m Chief Complaint Admit Date RECTAL BLEEDING October 22, 2024 12: 51pm Additional Source Comments INFORMATION SOURCE (unrecogn ized section and content) DATE CREATED AUTHOR 03/20/2020 [facility] DATE CREATED AUTHOR AUTHOR'S LISETIZ ATTESHA 09/20/2024 [facility] DATE CREATED AUTHOR AUTHOR'S ORGANIZ ATION 10/03/2024 [facility] DATE CREATED AUTHOR AUTHOR'S ORGANIZ ATION 10/28/2024 [facility] DATE CREATED AUTHOR AUTHOR'S ORGANIZ ATION 06/05/2025 [facility] Source Comments (unrecognize d section and content) In the event this informatio n is protected by the Federal Confidentiality of Alcohol and Drug Abuse Patient Records regulations: The Federal rules restrict any use of the information to criminally investigate or prosecute any alcohol or drug abuse patient[facility] the event this information is protected by the Federal Confidentiality of Alcohol and Drug Abuse Patient Records regulations: The Federal rules restrict any use of the information to criminally investigate or prosecute any alcohol or drug abuse patient.[facility] Reason for Visit (unrecogniz ed section and content) Reason Comments New Patient Evaluation Care Teams (unrecognized sec tion and content) Transfer Clerk Relationship Specialty Start Date End Date Cleopatra Jiménez [address] [place], [place] [id number] PCP - General Family Medicine 10/09/24 Transfer Clerk Relationship Specialty Start Date End Date Cleopatra Jiménez [address] [place] [id number] PCP - General Family Medicine 10/09/24 Team Status: Active Member Role Status Dates Cleopatra Jiménez PA, PA Primary Care Provider Active Team Status: Inactive Member Role Status Dates Dr. Diane Sousa MD Attending Provider Active Start: October 22, 2024 End: October 22, 2024 Cleopatra Jiménez PA, PA Primary Care Provider Active Start: October 22, 2024 End: October 22, 2024 Cleopatra Jiménez PA, PA Referring Provider Active Start: October 22, 2024 End: October 22, 2024 Team Status: Inactive Member Role Status Dates Cleopatra Jiménez PA, PA Primary Care Provider Active Start: December 19, 2024 End: December 19, 2024 Cleopatra Jiménez PA, PA Referring Provider Active Start: December 19, 2024 End: December 19, 2024 Dr. Diane Sousa MD Attending Provider Active Start: December 19, 2024 End: December 19, 2024 Team Status: Active Member Role Status Dates Cleopatra Jiménez PA, PA Primary Care Provider Active Start: December 19, 2024 Cleopatra Jiménez PA, PA Referring Provider Active Start: December 19, 2024 Dr. Diane Sousa MD Attending Provider Active Start: December 19, 2024 Dr. Diane Sousa MD Other Provider Active S tart: December 19, 2024 Team Status: Inactive Member Role Status Dates Cleopatra Jiménez PA, PA Primary Care Provider Active Start: January 04, 2025 End: January 04, 2025 Cleopatra Jiménez PA, PA Referring Provider Active Start: January 04, 2025 End: January 04, 2025 Dr. Diane Sousa MD Attending Provider Active Start: January 04, 2025 End: January 04, 2025 FOR RECORDS PERTAINING TO PATIENTS WHO ARE OR HAVE BEEN ENROLLED IN A CHEMICAL DEPENDENCY/SUBSTANCEABUSE PROGRAM, SOME INFORMATION MAY BE OMITTED. This clinical summary was aggregated from multiple sources. Caution should be exercised in using it in the provision of clinical care. This summary normalizes information from multiple sources, and as a consequence, information in this document may materially change the coding, format and clinical context of patient data. In addition, data may be omitted in some cases. CLINICAL DECISIONS SHOULD BE BASED ON THE PRIMARY CLINICAL RECORDS. [facility] [employer] provides no warranty or guarantee of the accuracy or completeness of information in this document.
[2025-06-06 07:00] LABS: Internal QC Validated? YES +Cl - CLEAR BKGD; Pregnancy, Urine Negative Negative; Record Kit Lot#,Urine Preg 0000980607
--- NOTE | 2025-06-06 07:18 | PCM.HP.STD ---
HPI - General General Date of Service: 06/06/25 HPI Narrative NAZANIN GARCÍA, is a 39 F who presents robotic umbilical hernia repair with mesh. Patient still been having some pain at the site with increased movement and patient states its gotten a little bit larger since her office visit. Office visit 01/04/2025 HPI HPI: 39-year-old female presents to discuss umbilical hernia repair. Patient have a concern whether in the future should be able to get tummy tuck due to her diastases after weight loss. Patient states that she has had more pain at her hernia with increased movement. [facility] Medical History (Updated 06/06/25 @ 07:[address] Diane Sousa MD) Wears glasses Low iron Migraine headache Gastric reflux Shortness of breath on exertion Non-smoker Leg cramps History of edema Chest pain Umbilical hernia Pre-diabetes Elevated d-dimer Enlarged thyroid Anxiety HTN (hypertension) Rectal bleeding Acid reflux Asthma Home Medications Medication Instructions Recorded Last Taken Type albuterol sulfate 90 mcg/actuation 2 puff inhalation Q4 PRN shortness 10/22/24 Unknown History aerosol inhaler of breath or wheezing ipratropium 0.5 mg-albuterol 3 mg 3 ml continuous nebulization Q6 10/22/24 Unknown History (2.5 mg base)/3 mL nebulization PRN shortness of breath soln lactobacillus combination no.4 3 3,000 mmu cells PO QHS 12/14/24 05/30/25 History billion cell capsule (Probiotic) cholecalciferol (vitamin D3) 50 50 mcg PO DAILY 04/18/25 06/05/25 History mcg (2,000 unit) capsule (Vitamin D3) magnesium 250 mg tablet 500 mg PO DAILY 04/18/25 06/05/25 History Allergy/AdvReac Type Severity Reaction Status Date / Time No Known Allergies Allergy Verified 06/06/25 07:02 Family History Aunt Colon cancer Breast cancer Thyroid disorder Cancer ovarian Grandfather CVA (cerebral vascular accident) Grandmother CVA (cerebral vascular accident) CAD (coronary artery disease) Diabetes Father CAD (coronary artery disease) Hypertension Surgical History (Updated 04/18/25 @ 09:04 by Courtney Chung) History of colonoscopy History of esophagogastroduodenoscopy (EGD) S/P laparoscopic cholecystectomy Social History Smoking Status: Never smoker alcohol intake: current Vital Signs Vital Signs Vital Signs: 06/06/25 07:03 06/06/25 07:04 Temperature 97.1 F L Temperature Source Temporal Pulse Rate 102 H Respiratory Rate 16 Respiratory Pattern Normal Blood Pressure 135/52 H Blood Pressure Mean 79 Blood Pressure Source Monitor Blood Pressure Position Semi-Fowlers Blood Pressure Location Left Forearm Pulse Ox 100 Oxygen Delivery Method Room Air Weight Weight: 277 lb Body Mass Index (BMI) 50.6 Physical Exam Const alert, oriented x3 and no apparent distress HEENT normocephalic and head/scalp atraumatic Resp normal respiratory effort Cardio regular rate GI soft to palpation and non-tender; Negative for non-distended GI Narrative: Medium partially reducible umbilical hernia Palpation: Negative for guarding Extremity no clubbing, cyanosis or edema Skin no rashes or lesions noted Neuro CN's II-XII intact bilaterally Psych mental status grossly normal Results Lab / Micro Data 04/23/25 09:51 Labs: Laboratory Results - last 24 hr 06/06/25 06:50: Urine Test Negative Assessment & Plan Assessment/Plan (1) Umbilical hernia: QUALIFIERS: Obstruction and gangrene presence: without obstruction or gangrene Qualified Code(s): K42.9 - Umbilical hernia without obstruction or gangrene PLAN: Plan Plan to do an laparoscopic/robotic umbilical hernia repair with mesh. Reviewed the procedure with the patient including the risks, including but not limited to infection, bleeding, injury to the small bowel, and recurrence. All questions were answered. Diane Sousa M.D. Pager: [phone] [facility] [address] [place] [address], [address] [place] [address] Office: [phone] D/C Safety Score for UGIB Assessment Alonso-Blatchford Bleeding Score (GBS): Stratifies upper GI bleeding patients who are "low-risk" and candidates for outpatient management. Hemoglobin, BUN, Recent Vital Signs: BUN 11 mg/dL (4-19) 04/23/25 09:51 Pulse Rate 102 Blood Pressure 135/52 Score Interpretation: Score of 0: A GBS of 0 is a “Low Risk” GI bleed, and is highly sensitive (99.6% in a 2007 retrospective study) for predicting which patients did not require any “medical intervention”: blood transfusion, endoscopy, or surgery. This was confirmed in a 2009 [facility] study where patients with a score of 0 were actually discharged and had no GI bleeding mortality at 6 month followup Score above 0: A GBS greater than zero suggests a “High Risk” GI bleed that is likely to require “medical intervention”: transfusion, endoscopy, or surgery. A higher GBS also correlated with a higher likelihood of needing intervention Scores >/= 6 are associated with >50% risk of needing intervention D/C Safety Score for LGIB Assessment Assessment Tool: Readmission and adverse event risk in patients with acute lower GI bleeding. Hemoglobin and Recent Vital Signs: Pulse Rate 102 06/06/25 07:04 Blood Pressure 135/52 06/06/25 07:04 Score Interpretation: Probability Percentage of safe discharge (absence of rebleeding, blood transfusion, therapeutic intervention, 28 day readmission, or ) Score of 8 or below: Consider discharge, with appropriate precautions. Score of 9 or above: Discharge NOT recommended. Consider admission with further workup and resuscitation as necessary.
[2025-06-06] MEDS: Lactated Ringers 1,000 ML 15 ML IV (07:25)
--- NOTE | 2025-06-06 07:41 | PRE.ANES_ITS ---
ASA Classification* ASA Classification ASA Classification: 3 Assessment & Plan Anesthesia* Anesthesia Assessment Anesthesia Assessment: Discussed sedation and/or anesthesia options, risks, benefits, and alternatives with patient/parents/legal guardian/POA. Questions invited. The patient/parents/legal guardian/POA seems to understand and agrees to proceed with anesthesia plan. Reviewed the physical assessment, medical history, allergy history and patient home medications list prior to surgery/procedure/anesthetic and documented any changes. Performed airway and anesthesia risk assessments. Anesthesia Type Anesthesia Type: General History Source History Obtained from:: Patient and Chart Anesthesia Focused Assessment* Temperature: 97.1 F Pulse Rate: 102 Blood Pressure: 135/52 Respiratory Rate: 16 Pulse Ox: 100 Oxygen Delivery Method: Room Air Airway Assessment Mouth opens: >3 cm Mallampati Score: IV Teeth Condition: Intact Neck Range of motion (ROM): Limited ROM Comment: Somewhat decreased Labs Anesthesia Preop lab: CBC WBC, (4.4-11.0) 13.1 K/mm3 H 12/11/18, 17:40 RBC, (4.2-5.4) 4.85 M/mm3 12/11/18, 17:40 Hgb, (12.0-15.0) 13.1 g/dl 12/11/18, 17:40 Hct, (37-47) 40.3 % 12/11/18, 17:40 Plt Count, (150-450) 289 K/mm3 12/11/18, 17:40 CHEMISTRY Potassium, (3.3-5.1) 4.2 mmol/L 04/23/25, 09:51 Sodium, (133-145) 137 mmol/L 04/23/25, 09:51 BUN, (4-19) 11 mg/dL 04/23/25, 09:51 Creatinine, (0.70-1.20) 0.83 mg/dL 04/23/25, 09:51 Glucose, (70-99) 103 mg/dL H 04/23/25, 09:51 TSH, (0.358-3.74) 1.90 uIU/mL 01/03/13, 10:30 COAG Urine Test Negative Negative Today, 06:50 Pre-Assessment Diagnosis/Proposed Procedure Planned Operative Procedure(s): Lap Robotic Umbilical Hernia w/mesh Anesthesia History 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 When Was Last Pacemaker Check QUESTION #4 FULL TEXT: You/Your Family Experience fever (hyperthermia) with Anesthesia Last Oral Intake Last Oral intake: Last Oral Intake NPO since 23:00 06/06/25 07:04 Meds taken in AM with sips of No 06/06/25 07:04 water? 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 - tool engine lathe set up operator: PONV - tool engine lathe set up operator Female Yes 04/18/25 09:01 HX of Motion Sickness Yes 04/18/25 09:01 HX of N/V After Surgery No 04/18/25 09:01 Non-Smoker Yes 04/18/25 09:01 Duration of Surgery greater Yes 04/18/25 09:01 than 60 minutes Number of Risk Factors 4 04/18/25 09:01 PONV Score Severe Risk 04/18/25 09:01 Height & Weight Height & Weight: Anesthesia: Height & Weight Height 5 ft 2 in 06/06/25 07:04 Weight: 125.645 kg 06/06/25 07:04 Body Mass Index (BMI) 50.6 06/06/25 07:04 Respiratory Assessment Respiratory Assessment - tool engine lathe set up operator: Respiratory Tract Infection Hx - tool engine lathe set up operator Hx Respiratory Tract Infection No 04/18/25 09:01 STOP Sleep Apnea STOP Sleep Apnea - tool engine lathe set up operator: STOP Sleep Apnea - tool engine lathe set up operator Hx Hypertension No 04/18/25 09:01 Hx Sleep Apnea No 04/18/25 09:01 CPAP BIPAP Do you snore loudly (louder No 04/18/25 09:01 than talking or can be heard Do you often feel tired/ No 04/18/25 09:01 fatigued/ sleepy during daytime? Has anyone observed you stop No 04/18/25 09:01 breathing during sleep? STOP Results Negative 04/18/25 09:01 QUESTION #5 FULL TEXT : Do you snore loudly (louder than talking or can be heard through closed doors)? 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: Tobacco Use History - tool engine lathe set up operator Tobacco Use Smoking Status Never smoker 04/18/25 09:01 Hx Tobacco Use No 04/18/25 09:01 Years Smoking Packs Smoked per Day Smoking Cessation Date was within the last 15 years Hx Smoking Cessation Date Hx Smoking Cessation Counseling Hematologic Medial History Hematologic Hx - tool engine lathe set up operator: Hematologic Medical Hx - research coordinator Hx of Blood Transfusion No 04/18/25 09:01 Hx of Transfusion in last 3 No 04/18/25 09:01 Months Date of Last Transfusion (if within last 3 months) Ever experience any problems No 04/18/25 09:01 with transfusion(s)? Specify any problems Hx of Preganancy in last 3 N/A 04/18/25 09:01 Months Nurse Filling Out Transfusion NBUCHER 04/18/25 09:01 & Questions: Date: 04/18/25 04/18/25 09:01 Time: 09:04/18/25 09:01 Patient unable to answer at this time (ie. confused, unrespo /Reproduction History /Reproductive History - tool engine lathe set up operator: /Reproductive Hx- tool engine lathe set up operator Hx Now No 04/18/25 09:01 Gestational Age (in weeks): EDC: Hx Hx Para Hx Section SAB No 04/18/25 09:01 Does the father of the baby or his family experience fever w Father of the baby Malignant Hypertension history comment Active Medications Active Medications: Current Medications Generic Name Dose Route Start Last Admin Trade Name Freq PRN Reason Stop Dose Admin Lactated Ringer's 1,000 mls @ 15 mls/hr 06/06/25 07:00 06/06/25 07:25 IV 15 mls/hr .Q48H LON Administration PFSH Medical History Wears glasses Low iron Migraine headache Gastric reflux Shortness of breath on exertion Non-smoker Leg cramps History of edema Chest pain Umbilical hernia Pre-diabetes Elevated d-dimer Enlarged thyroid Anxiety HTN (hypertension) Rectal bleeding Acid reflux Asthma Home Medications Medication Instructions Recorded Last Taken Type albuterol sulfate 90 mcg/actuation 2 puff inhalation Q 4 PRN shortness 10/22/24 Unknown History aerosol inhaler of breath or wheezing ipratropium 0.5 mg-albuterol 3 mg 3 ml continuous nebu lization Q6 10/22/24 Unknown History (2.5 mg base)/3 mL nebulization PRN shortness of breat h soln lactobacillus combination no.4 3 3,000 mmu cells PO QH S 12/14/24 05/30/25 History billion cell capsule (Probiotic) cholecalciferol (vitamin D3) 50 50 mcg PO DAILY 06/05/25 History mcg (2,000 unit) capsule (Vitamin D3) magnesium 250 mg tablet 500 mg PO DAILY 04/18/2507/18 History Allergy/AdvReac Type Severity Reaction Status Date / Time No Known Allergies Allergy Verified 06/06/25 07:02 Family History Aunt Colon cancer Breast cancer Thyroid disorder Cancer ovarian Grandfather CVA (cerebral vascular accident) Grandmother CVA (cerebral vascular accident) CAD (coronary artery disease) Diabetes Father CAD (coronary artery disease) Hypertension Surgical History History of colonoscopy History of esophagogastroduodenoscopy (EGD) S/P laparoscopic cholecystectomy Social History Smoking Status: Never smoker alcohol intake: current Review of Systems (Anesthesia) ROS Narrative System reviewed and no additional complaints, except as documented. Physical Exam Resp clear to auscultation bilaterally
--- NOTE | 2025-06-06 08:15 | HERN_PTH ---
PATIENT: NAZANIN GARCÍA LOC: [facility] U#:[id number] AGE/SX: 39/F ROOM: RE06/06/[address]: Dr. Diane Sousa MD : 1985 BED: DIS: 06/06/2025 SPEC #: [id number] RECD: 06/06/25 12:21 STATUS: MIMI REEdith #: [id number] LES: 06/06/25 08:[address]: Diane Sousa DEPT: SURGICAL PATHOLOGY RECD BY: Sidney Mireles ENTERED: 06/06/25 13:30 SP TYPE: Hernia OTHR DR: PETE Daily Tissues: A - HERNIA Procedures: Surgery Specimen Level II HEADER OPERATION: Robotic umbilical hernia with mesh PRE-OP DIAGNOSIS: Umbilical hernia TISSUE SUBMITTED: A- Hernia sac MICROSCOPIC DIAGNOSIS A. Soft tissue, umbilical region, laparoscopic robotic hernia repair with mesh: - Benign fibromembranous tissue and adipose tissue, consistent with a hernia sac MICROSCOPIC DESCRIPTION Slides are reviewed. GROSS DESCRIPTION A. Received in formalin labeled with the patient's name and date of . Designated as " hernia sac" is a 9.4 x 2.6 x 1.4 cm irregular, cauterized and focally nodular portion of blevins-pink to yellow, semimembranous tissue. Sectioning reveals focally fibrotic cut surfaces. Group Exercise Instructor sections are submitted in 1 cassette. DC 06/06/2025 CPT:33037
[2025-06-06] MEDS: Midazolam 2 MG/2 ML Syringe IV (08:19)
[2025-06-06] MEDS: Lidocaine 1% (5 ml sdv) 5 ML Vial IV (08:25)
[2025-06-06] MEDS: Cefazolin 1 GM/5 ML Vial 3 GM IV (08:25)
[2025-06-06] MEDS: fentaNYL 100 MCG/2 ML Ampul 200 MCG IV (08:36)
[2025-06-06] MEDS: Lactated Ringers 2,000 ML 2000 ML IV (10:30)
--- NOTE | 2025-06-06 10:48 | DCINST_ITS ---
Discharge Instructions Diet Discharge Diet: Light diet - advance as tolerated Activity May shower in (days): 5 (Keep umbilical dressing clean dry and intact for 5 days. Okay to tape off with a Ziploc bag to shower. Or lower shower and upper sponge bath.) Lifting Restrictions: no lifting >20 lbs x 2 wks, no strenuous exercise for 4 wks Additional Activity Instructions:: - Dressing / Incision Call your doctor if your incision/area has: Continuous Slow Oozing, Sudden Increased Bleeding, Increased Pain/ Swelling, Increased Redness, Foul Smelling Discharge and Swelling at the incision site Call your doctor if you observe: Fever of 101 or Higher Remove Dressing in: 5 days (After 5 days okay to remove surgical dressing. Place cotton ball or rolled up gauze in bellybutton and retape daily for 2 more days.) Cleanse incision/area with: Do not get Incision Wet (for 5 days) Additional Dressing/Incision Instructions:: Steri-Strips will fall off in 7 to 10 days, if they do not fall off okay to remove after 10 days. Follow Up Care Please Follow Up With: Diane Sousa MD When: Call the office for a follow-up appointment 2 weeks; after 5 PM and on the weekends call [phone] with any concerns. Test Results: Test results from this visit will be discussed in further detail at your follow- up appointment, if applicable. Discharge Plan Admission Attending Provider: Diane Sousa Primary Care Provider: Cleopatra Jiménez Instructions Print Language: Ghanaian Discharge Orders/Prescriptions Prescriptions: New oxycodone 5 mg capsule 5 mg PO Q6H PRN (Reason: pain) 3 Days Qty: 14 0RF Continued ipratropium-albuterol 0.5 mg-3 mg(2.5 mg base)/3 mL solution for nebulization 3 ml continuous nebulization Q6 PRN (Reason: shortness of breath) albuterol sulfate 90 mcg/actuation HFA aerosol inhaler 2 puff inhalation Q4 PRN (Reason: shortness of breath or wheezing) Probiotic 3 billion cell capsule 3,000 mmu cells PO QHS Rx Instructions: administer with a meal magnesium 250 mg tablet 500 mg PO DAILY cholecalciferol (vitamin D3) [Vitamin D3] 50 mcg (2,000 unit) capsule 50 mcg PO DAILY Other Ambulatory Orders: 12 Lead EKG (Routine) Location: None Selected Ordered By: Dr. Herber Ventura Referrals / Follow Up: Cleopatra Jiménez, PA [Primary Care Provider, Medical] Disposition Disposition (needs filled in before D/C Order can be placed): Home, Self Care
--- NOTE | 2025-06-06 10:48 | PCM.OPRPT ---
Operative Report (Standard) Operative Information Date of Procedure: 06/06/25 Pre-Operative Diagnosis: Incarcerated umbilical hernia Post-Operative Diagnosis: Same Surgery/Procedure Performed: Robotic umbilical hernia repair with mesh inclined railway operator: Yes Harness And Bag Inspector: Anila Vicente Tasks completed by construction management assistant: Opening & closing Type of Anesthesia: General/Supplemental RN Documented Start/Stop Times: Operation Date: 06/06/25 08:15 Case Time Into Pre-Op 06/06/25 06:47 Out of Pre-Op 06/06/25 08:14 Anesthesia Start 06/06/25 08:19 Into Room 06/06/25 08:19 Procedure Start 06/06/25 08:42 Procedure End 06/06/25 10:55 Anesthesia End 06/06/25 11:00 Out of Room 06/06/25 11:00 Into Recovery 06/06/25 11:02 Into Phase II Recovery 06/06/25 12:37 Out of Recovery 06/06/25 12:37 Procedure Start Time: 08:42 Procedure Stop Time: 10:55 Select all DRAINS/GRAFTS/IMPLANTS that apply: Implanted device Implanted device details: ventralight ST mesh 10 x 15cm trimmed to 10 x 10 cm Special Medications: Ancef 3 g IV x 1 Estimated Blood Loss: <10 cc Specimen collected: Yes Description of specimen(s) removed: Hernia sac Description of surgery: Indications: this is a 39 year-old female who developed abdominal pain and found to have an partially incarcerated umbilical hernia. Robotic umbilical hernia repair with mesh was elected Description procedure: The patient was placed on operating table in supine position. A timeout was completed verifying correct patient, procedure, site, position and special equipment prior to beginning procedure. General Anesthesia was induced. Patient's arms were tucked and padded appropriately. Visiport was used to make the incision at Jiménez's point in the left upper quadrant. Entry into the abdomen was confirmed visually. Laparoscope was placed. Verifying no injury during initial trocar placement. Two 8 mm trochars were placed along the left lateral abdomen The initial 5 mm trocar was upsized to an 8 mm well under direct visualization. Umbilical hernia was visualized with omentum in the hernia. Robot was docked. The omentum and hernia sac were reduced from the hernia with the ProGrasp and scissors with the electrocautery. Fascial defect noted to be about 3 x 3 cm. Fascial defect was closed using running 1 STRATAFIX suture also fixating the skin of the umbilicus to the fascia. Ventralight ST mesh trim to 10 x 10 cm. Vicryl suture was placed in the middle of the mesh to tent up using the granny needle. Mesh was secured using 2-0 STRATAFIX running suture x 3. Vicryl suture was cut at the skin. After ensuring adequate hemostasis, the trochars were removed and pneumoperitoneum allowed to escape. Robot was undocked. the skin was closed with 4-0 Monocryl interrupted sutures and Steri-Strips. 4 x 4's were placed in the umbilicus balled up with an OpSite over the top to help prevent seroma. Patient tolerated procedure well was taken to the postanesthesia care unit in stable condition. Surgical Findings: See operative report Complications Complications: No
--- NOTE | 2025-06-06 11:07 | PCM.POST.ANE ---
Anesthesia: Postop Eval I Current Vital Signs Temperature: 97.5 F Pulse Rate: 101 Blood Pressure: 129/84 Respiratory Rate: 20 Pulse Ox: 95 Oxygen Delivery Method: Room Air Assessment Airway patent: Yes Spontaneous unlabored respirations: Yes Mental status: Awake and Calm nausea: No Vomiting: No Anesthesia Complication: No Fluid Hydration Crystalloid volume administer (ml): 1,200 Total IV fluid infused: 1,200 Progress Note Anesthesia document: Postop Eval 1 completed: Yes
--- NOTE | 2025-06-06 14:25 | POSTOPAN2_ITS ---
Anesthesia Postop Eval I Sum Postop Eval Completion status Anesthesia document: Postop Eval 1 completed: Yes Anesthesia Postop Eval I Summary Anesthesia Postop Eval I Summary: Anesthesia Postop Eval I: Assessment Summary Airway patent Yes 06/06/25 11:08 VISION [email or web address] Spontaneous unlabored Yes 06/06/25 11:08 VISION [email or web address] respirations Mental status Awake,Calm 06/06/25 11:08 VISION [email or web address] nausea No 06/06/25 11:08 VISION [email or web address].[email or web address] Vomiting No 06/06/25 11:08 VISION [email or web address].[email or web address] Anesthesia Postop Eval I: Fluid Summary Crystalloid volume administer 1,200 06/06/25 11:08 VISION [email or web address] (ml) Colloids volume administered ( ml) Blood Product volume administered (ml) Total IV fluid infused 1,200 06/06/25 11:08 VISION [email or web address] Anesthesia Postop Eval I: Summary Notes Anesthesia Complication No 06/06/25 11:08 VISION [email or web address] Anesthesia Complication Comment: Post-operative progress note Anesthesia: Postop Eval II Evaluation Mental status: Awake and Calm Pain Level: 0 nausea: No Vomiting: No Complications Anesthesia Complication: No
--- NOTE | 2025-06-06 14:25 | PCM.POSTANE2 ---
Anesthesia Postop Eval I Sum Postop Eval Completion status Anesthesia document: Postop Eval 1 completed: Yes Anesthesia Postop Eval I Summary Anesthesia Postop Eval I Summary: Anesthesia Postop Eval I: Assessment Summary Airway patent Yes 06/06/25 11:08 LIFE INSURANCE SALES [email or web address] Spontaneous unlabored Yes 06/06/25 11:08 LIFE INSURANCE SALES AGENT.[email or web address] respirations Mental status Awake,Calm 06/06/25 11:08 LIFE INSURANCE SALES [email or web address].[email or web address] nausea No 06/06/25 11:08 LIFE INSURANCE SALES AGENT.[email or web address] Vomiting No 06/06/25 11:08 LIFE INSURANCE SALES [email or web address].[email or web address] Anesthesia Postop Eval I: Fluid Summary Crystalloid volume administer 1,200 06/06/25 11:08 LIFE INSURANCE SALES [email or web address].[email or web address] (ml) Colloids volume administered ( ml) Blood Product volume administered (ml) Total IV fluid infused 1,200 06/06/25 11:08 LIFE INSURANCE SALES [email or web address].[email or web address] Anesthesia Postop Eval I: Summary Notes Anesthesia Complication No 06/06/25 11:08 LIFE INSURANCE SALES [email or web address].[email or web address] Anesthesia Complication Comment: Post-operative progress note Anesthesia: Postop Eval II Evaluation Mental status: Awake and Calm Pain Level: 0 nausea: No Vomiting: No Complications Anesthesia Complication: No
== END 2025-06-06 13:57 | disposition home or self-care (01) ==
LOC: SDC 06:43 → AC 06:44
PROVIDERS: Anesthesiology; PCP Physician Assistant; Referring Provider Surgery; Visit Provider Surgery
DX: K42.9 Umbilical hernia without obstruction or gangrene (principal); I10 Essential (primary) hypertension; K21.9 Gastro-esophageal reflux disease without esophagitis; J45.909 Unspecified asthma, uncomplicated
CPT/HCPCS: 49594; S2900; 00840; 36415; 80048; 81025; 88302; 93005; C1781; J2405